=== PATIENT | female | born 1960 | race Caucasian/White ===

== ENCOUNTER 2019-07-09 15:22 | Outpatient (CLI) | payer OTHER, SELFPAY ==
--- NOTE | ~2019-07-09 | MM_ITS ---
EXAMINATION: MM screening [facility] BI w [facility] HISTORY: Screening mammogram TECHNIQUE: Craniocaudal and mediolateral oblique 3-D tomosynthesis images were obtained and synthetic 2-D images were generated. CAD analysis was submitted and interpreted. COMPARISON: 05/29/2018, 04/26/2017, 10/12/2016, 10/03/2016, 02/03/2015 BREAST PARENCHYMAL COMPOSITION: There are scattered areas of fibroglandular density. FINDINGS: Scattered benign-appearing calcifications are present. There is no evidence of suspicious m ass, calcification, or architectural distortion to suggest malignancy in either breast. There has bee n no suspicious interval change. IMPRESSION: 1. No mammographic evidence of malignancy. 2. Recommend routine screening mammography in one year. BI-RADS Category 2: Benign finding(s). Reviewed, dictated and finalized at location A. SPORT ANALYST
== END 2019-07-09 15:23 | disposition home or self-care (01) ==
LOC: ANHIMG 15:26
PROVIDERS: PCP Family Medicine; Visit Provider Family Medicine
DX: Z12.31 Encounter for screening mammogram for malignant neoplasm of breast (principal)
CPT/HCPCS: 77063; 77067

== ENCOUNTER → 2019-07-24 12:03 | Outpatient (CLI) | payer OTHER, SELFPAY ==
--- NOTE | ~2019-07-24 | MR_ITS ---
EXAMINATION: MR shoulder RT wo con DATE: 07/24/2019 13:05 INDICATION: Right shoulder pain, weakness and limited range of motion TECHNIQUE: Magnetic resonance imaging (MRI) of the right shoulder was performed without intravenous c ontrast. Sequences included axial PD-weighted FS FSE, coronal oblique T2-weighted FS FSE, sagittal PD -weighted FS FSE, and sagittal T1-weighted SE. COMPARISON: None. FINDINGS: Coracoacromial arch: The acromion undersurface is curved in morphology (type II). The coracoacromial ligament is normal. M ild to moderate acromioclavicular osteoarthritis. Rotator cuff: Mild supraspinatus and infraspinatus tendinopathy. Small deep bursal sided tear of the conjoined port ion of the tendon measuring 8 mm AP, involving approximately two thirds of the tendon thickness and w ith up to 8 mm medial retraction of the bursal side of the tendon tear. The teres minor and subscapul daniele tendons are normal. Normal rotator cuff muscle bulk and signal. Biceps tendon, glenoid labrum and glenohumeral cartilage: Long head of the biceps tendon is normal. Mild glenohumeral osteoarthritis with diffuse mild loss of cartilage thickness with smooth chondral surface. Generation of the posterior superior to posterior g lenoid labrum with small marginal osteophytes along the posterior glenoid. Fluid: Physiologic amount of fluid in the glenohumeral joint and biceps tendon sheath. No loose osteochondra l bodies. Small amount of fluid in the subacromial/subdeltoid bursa and subcoracoid bursa consistent with mild bursitis. Bones: Normal marrow signal with fracture or pathologic marrow replacing process. IMPRESSION: 1. Mild supraspinatus and infraspinatus tendinopathy with small deep bursal sided tear at the conjoin ed portion of the tendons. 2. Mild glenohumeral osteoarthritis with posterior superior to posterior labral degeneration and asso ciated osteophyte formation. 3. Mild subacromial/subdeltoid and subcoracoid bursitis. When 4. Mild to moderate acromioclavicular osteoarthritis. Reviewed, dictated and finalized at location A. H INSPECTOR IMPRESSION: 1. Mild supraspinatus and infraspinatus tendinopathy with small deep bursal cristobal ed tear at the conjoined portion of the tendons. 2. Mild glenohumeral osteoarthritis with posterior superior to posterior labral degeneration and associated osteophyte formation. 3. Mild subacromial/subdeltoid and subcoracoid bursitis. When 4. Mild to moderate acromioclavicular osteoarthritis.
== END ==
PROVIDERS: PCP Family Medicine; Visit Provider Family Medicine
DX: M19.011 Primary osteoarthritis, right shoulder (principal); M75.51 Bursitis of right shoulder
CPT/HCPCS: 73221

== ENCOUNTER 2019-08-07 10:22 | Outpatient (CLI) | payer OTHER, SELFPAY ==
[2019-08-07 10:50] LABS: Alanine Aminotransferase 23 U/L (4-35); Albumin Level 4.1 g/dL (3.5-5.1); Alkaline Phosphatase 62 U/L (38-126); Aspartate Amino Transferase 31 U/L (14-36); Bilirubin,Total 0.5 mg/dL (0.2-1.3); Blood Urea Nitrogen 23 mg/dL (7-17); Calcium 8.7 mg/dL (8.4-10.2); Carbon Dioxide 29 mmol/L (22-30); Chloride 104 mmol/L (98-107); Cholesterol 147 mg/dL (0-200); Estimated Glomerular Filt Rate > 60; Glucose 92 mg/dL (65-105); HDL Direct 58 mg/dL; Potassium 4.3 mmol/L (3.4-5.0); Sodium 138 mmol/L (137-145); Triglycerides 95 mg/dL (<150)
[2019-08-07 11:01] LABS: LDL Cholesterol Direct 67 mg/dL
[2019-08-07 11:34] LABS: Vitamin D 25 Hydroxy 67.3 ng/mL
== END 2019-08-07 10:23 | disposition home or self-care (01) ==
LOC: ANHLAB 10:24
PROVIDERS: PCP Family Medicine; Visit Provider Family Medicine
DX: E55.9 Vitamin D deficiency, unspecified (principal); E78.5 Hyperlipidemia, unspecified; Z13.1 Encounter for screening for diabetes mellitus; Z79.899 Other long term (current) drug therapy
CPT/HCPCS: 36415; 80053; 80061; 82306

== ENCOUNTER 2019-12-15 02:54 | Outpatient (CLI) | payer OTHER, SELFPAY ==
[2019-12-16 22:30] LABS: SARS-CoV-2 RNA PCR Negative
== END 2019-12-15 02:55 | disposition home or self-care (01) ==
LOC: ANHCOVIDDT 02:54
PROVIDERS: PCP Family Medicine; Visit Provider Orthopaedic Surgery
DX: Z01.812 Encounter for preprocedural laboratory examination (principal); Z11.59 Encounter for screening for other viral diseases
CPT/HCPCS: 87635; C9803; U0003

== ENCOUNTER 2019-12-15 08:04 | Outpatient (CLI) | payer OTHER, SELFPAY ==
--- NOTE | 2019-12-15 08:13 | ECG_ITS ---
Measurements Intervals [place] Rate: 67 P: 52 MO: 194 QRS: 63 QRSD: 114 T: 62 QT: 388 QTc: 412 Interpretive Statements SINUS RHYTHM INTRAVENTRICULAR CONDUCTION DELAY BORDERLINE R WAVE PROGRESSION, ANTERIOR LEADS BORDERLINE ECG Electronically Signed On 12-15-2019 8:23:37 CDT by Ezekiel Ojeda D.O.
--- NOTE | 2019-12-15 12:17 | PM.IMHP ---
H&P: HPI History of Present Illness Chief complaint: Preop/O.R. Date: 12/17/2019 Narrative: Christine Zurita is a 59 year old female Who complains of an ongoing history of right shoulder pain with weakness particularly overhead type motion. She has been followed chronically for these and treated conservatively with cortisone therapy and anti-inflammatories however her symptoms continue. She reports weakness with worsening symptoms after she had an injury a couple months back while maneuvering a relative in a wheelchair. She strained her right shoulder which causes significant sudden onset of more pain and weakness. Patient underwent an MRI scan initially which did not show full-thickness tearing. Then a couple months later she had another injury where she fell and re-injured her right shoulder, she now has a fairly large tear. She has trouble raising her arm overhead and rotator cuff strength testing shows significant weakness. Dr. Morales has discussed further treatment options in detail with the patient and has recommended surgical repair before the tear becomes irrepairable down the road and she would like to proceed. An MRI scan showed a complete tear of the supraspinatus tendon and near complete tear of the infraspinatus tendon. There is associated edema in the infraspinatus muscle belly. These tears are more severe and much larger than the previous MRI scan results of July 24, 2019. There is mild AC joint hypertrophy without significant loss of subacromial space. There is a small glenohumeral effusion communicating fluid is noted in the subacromial subdeltoid region. There is glenohumeral chondromalacia and small marginal osteophytes inferiorly. The tear of the supraspinatus tendon has retraction with a gap measuring 2.2 cm. Review of Systems Review of Systems: All systems reviewed & are unremarkable except as noted in HPI and below PMFSH Family History Family History Mother Patient's mother is in good health Carcinoma of colon, Onset Age: 71 Family history of diabetes mellitus in first degree relative Family history of malignant melanoma Father Patient's father is in good health Family history of diabetes mellitus in first degree relative Sibling Patient's sister is in good health Family history of pancreatic cancer, Onset Age: 42 Patient's sister is Patient's brother is Grandparent Diabetes mellitus Other Family history of arthritis Family history of lung cancer Hypertension Social History Social History Years smoked: 15 Smoking status: Former smoker Tobacco type: cigarettes Second hand tobacco smoke exposure: No Alcohol intake: current Drinks per week: 5 Substance use: never Last use: 2005 Spiritual care concerns: No Comments Past surgical history includes multiple knee arthroscopies, total vaginal hysterectomy with BSO, cholecystectomy and uterine ablation. Meds Home Medications and Allergies Home Medications Medication Instructions Recorded Confirmed Type butalbital-acetaminophen 50 - 325 tablet PRN PRN 12/02/19 12/02/19 History diclofenac sodium 75 mg PO BID 12/02/19 12/02/19 History ergocalciferol (vitamin D2) 1,250 mcg PO WEEKLY 12/02/19 12/02/19 History gabapentin 300 mg PO BID 12/02/19 12/02/19 History hydrocodone-acetaminophen 10 - 325 tablet PRN PRN 12/02/19 12/02/19 History rosuvastatin 20 mg PO HS 12/02/19 12/02/19 History Allergies Allergy/AdvReac Type Severity Reaction Status Date / Time No Known Allergies Allergy Verified 12/02/19 15:59 Exam Narrative: Exam Narrative: Patient is a well-developed well-nourished female no acute distress. She is alert and oriented x3. Normal mood and affect. HEENT exam within normal limits. Heart regular rate rhythm. Lungs clear auscultation. Abdomen benign bowel sounds positive fo
== END 2019-12-15 08:05 | disposition home or self-care (01) ==
LOC: ANHSURGERY 08:05
PROVIDERS: PCP Family Medicine; Visit Provider Orthopaedic Surgery
DX: E78.00 Pure hypercholesterolemia, unspecified (principal); I45.9 Conduction disorder, unspecified
CPT/HCPCS: 93005

== ENCOUNTER 2019-12-17 01:28 | Day surgery (SDC) | payer OTHER, SELFPAY ==
[2019-12-02 16:26] VITALS: BMI 24.5
--- NOTE | 2019-12-15 12:28 | HP_ITS ---
This report was moved to the correct visit, [id number] on 12/18/2019. Original report was signed by David Morales MD on 12/17/19 0712. H&P: HPI History of Present Illness Chief complaint: Preop/O.R. Date: 12/17/2019 Narrative: Christine Zurita is a 59 year old female Who complains of an ongoing history of right shoulder pain with weakness particularly overhead type motion. She has been followed chronically for these and treated conservatively with cortisone therapy and anti-inflammatories however her symptoms continue. She reports weakness with worsening symptoms after she had an injury a couple months back while maneuvering a relative in a wheelchair. She strained her right shoulder which causes significant sudden onset of more pain and weakness. Patient underwent an MRI scan initially which did not show full-thickness tearing. Then a couple months later she had another injury where she fell and re-injured her right shoulder, she now has a fairly large tear. She has trouble raising her arm overhead and rotator cuff strength testing shows significant weakness. Dr. Morales has discussed further treatment options in detail with the patient and has recommended surgical repair before the tear becomes irrepairable down the road and she would like to proceed. An MRI scan showed a complete tear of the supraspinatus tendon and near complete tear of the infraspinatus tendon. There is associated edema in the infraspinatus muscle belly. These tears are more severe and much larger than the previous MRI scan results of July 24, 2019. There is mild AC joint hypertrophy without significant loss of subacromial space. There is a small glenohumeral effusion communicating fluid is noted in the subacromial subdeltoid region. There is glenohumeral chondromalacia and small marginal osteophytes inferiorly. The tear of the supraspinatus tendon has retraction with a gap measuring 2.2 cm. Review of Systems Review of Systems: All systems reviewed & are unremarkable except as noted in HPI and [facility] Family History Family History Mother Patient's mother is in good health Carcinoma of colon, Onset Age: 71 Family history of diabetes mellitus in first degree relative Family history of malignant melanoma Father Patient's father is in good health Family history of diabetes mellitus in first degree relative Sibling Patient's sister is in good health Family history of pancreatic cancer, Onset Age: 42 Patient's sister is Patient's brother is Grandparent Diabetes mellitus Other Family history of arthritis Family history of lung cancer Hypertension Social History Social History Years smoked: 15 Smoking status: Former smoker Tobacco type: cigarettes Second hand tobacco smoke exposure: No Alcohol intake: current Drinks per week: 5 Substance use: never Last use: 2005 Spiritual care concerns: No Comments Past surgical history includes multiple knee arthroscopies, total vaginal hysterectomy with BSO, cholecystectomy and uterine ablation. Meds Home Medications and Allergies Home Medications Medication Instructions Recorded Confirmed Type butalbital-acetaminophen 50 - 325 tablet PRN PRN 12/02/19 12/02/19 History diclofenac sodium 75 mg PO BID 12/02/19 12/02/19 History ergocalciferol (vitamin D2) 1,250 mcg PO WEEKLY 12/02/19 12/02/19 History gabapentin 300 mg PO BID 12/02/19 12/02/19 History hydrocodone-acetaminophen 10 - 325 tablet PRN PRN 12/02/19 12/02/19 History rosuvastatin 20 mg PO HS 12/02/19 12/02/19 History
--- NOTE | 2019-12-16 12:45 | WPDANESEPPF ---
Anes - Initial Pre Proc Eval Procedure: Operation Date: 12/17/19 09:00 Proposed Procedures p Right Shoulder Arthroscopy, Acromioplasty, Open Distal Clavicle Excision, Rotator Cuff Repair, Proceed as Indicated - David Morales MD Date/Time: 12/16/19 12:45 Surgeon: David Morales MD Pre Op Diagnosis: Rotator Cuff Tear Right Shoulder Patient Data Age: 59 Gender: F Height: 1.7 m Weight: 71.21 kg Allergies Allergy/AdvReac Type Severity Reaction Status Date / Time No Known Allergies Allergy Verified 12/02/19 15:59 Home Medications Medication Instructions Recorded Confirmed Type butalbital-acetaminophen 50 - 325 tablet PRN PRN 12/02/19 12/02/19 History diclofenac sodium 75 mg PO BID 12/02/19 12/02/19 History ergocalciferol (vitamin D2) 1,250 mcg PO WEEKLY 12/02/19 12/02/19 History gabapentin 300 mg PO BID 12/02/19 12/02/19 History hydrocodone-acetaminophen 10 - 325 tablet PRN PRN 12/02/19 12/02/19 History rosuvastatin 20 mg PO HS 12/02/19 12/02/19 History Patient hx anesthesia problems: none Family hx anesthesia problems: none PMFSH Past Medical History Medical History (Updated 12/16/19 @ 08:35 by Ted Kim DO) Hyperlipidemia Migraine Osteoarthritis Surgical History Surgical History (Updated 12/16/19 @ 08:35 by Ted Kim DO) History of cholecystectomy History of hysterectomy Social History Social History Years smoked: 15 Smoking status: Former smoker Tobacco type: cigarettes Second hand tobacco smoke exposure: No Alcohol intake: current Drinks per week: 5 Alcohol use details: on occasion Substance use: never Last use: 2005 Living arrangements: with family Spiritual care concerns: No Anes - Eval Final PreProcedure Day of Procedure 12/16/19 12:45 Patient weight: normal Heart: regular rate and rhythm Lungs: clear to auscultation and normal air movement Airway: Mallampati scale class II Neurological: alert and oriented Last oral intake: >/= 8 hours ASA classification: II Emergent: no Anesthetic plan: proceed Anesthesia type and monitoring: general ETT and standard monitoring Informed Consent: The patient's anesthetic plan and its attendant risks and benefits were discussed with the patient/family/POA. Questions were solicited and answers provided to the satisfaction of the patient/family/POA.
--- NOTE | 2019-12-16 12:46 | WPDANESPNB ---
Anes - Peripheral Nerve Block Date/Time: 12/16/19 12:46 I have discussed with the patient/family/POA the placement of a peripheral nerve block for post-operative pain management, including associated risks, benefits, complications, and side effects. Alternative methods of post-operative analgesia were detailed. Questions were solicited and answers provided to the satisfaction of the patient/family/POA. Time-Out: A pre-procedural Time-Out was completed immediately before starting the procedure and confirmed: Patient Identification, Site, Procedure, Patient Position and the Availability of Requisite Equipment. Clinical Indications: Acute post-operative pain management requested by the operative surgeon. Nerve Block Insertion Note Anes-nerve block: interscalene right Patient position: supine Skin prep: chlorhexidine Needle: 22 gauge, stimulating, insulated echogenic needle. Needle length: 50 mm Technique: ultrasound Injectate: bupivacaine 0.5% with epi 5 mcg/ml (30cc) Observations: tolerated well Complications: none Procedure start time:: 831 Procedure end time:: 834
[2019-12-17] VITALS (7 sets, daily range): BP systolic 111–135; BP diastolic 62–94; PULSE 68–107; RESP 16–20; TEMP 36.1–36.3; O2SAT 97–100
--- NOTE | 2019-12-17 07:11 | WPDHPUPDATE1 ---
History and Physical Update Update Date/Time: 12/17/19 07:11 History and Physical has been reviewed, including an updated exam of the patient. There are NO changes in the patient's condition. Risks, benefits, and alternatives have been discussed and questions answered. Patient agrees to proceed with procedure.
[2019-12-17] MEDS: LACTATED RINGERS 1,000 ML 30 ML IV CONT ×2 (07:44→10:55)
[2019-12-17] MEDS: ACETAMINOPHEN 500 MG TABLET 1000 MG PO (07:45)
[2019-12-17] MEDS: KETOROLAC 15 MG/ML VIAL (*BKC) IV PUSH (07:48)
[2019-12-17] MEDS: ceFAZolin 2 GM/D5W 50 ML 2 GM/50 ML BAG IVPB (09:03)
[2019-12-17] MEDS: LIDO 1%/EPINEPHRINE 1:100,000 20 ML VIAL 30 ML INFILTRATE (09:26)
--- NOTE | 2019-12-17 10:29 | PM.PROC ---
Procedure Note - Detailed Date of procedure: 12/17/19 Pre-op diagnosis: Rotator Cuff Tear Right Shoulder Post-op diagnosis: same Anesthesia: GETA Surgeon: David Morales MD Patient brought to OR5 and placed in a beach chair position. After prep and drape, Sterile posterior and lateral portals made. Dagnostic arthroscopy performed. Massive tear seen. Scropmioplasty performed. Incision made from the A/C joint distally. Distal clavicle excision performed removing 3mm Distal Clavicle. Deltoid split for 2 cm. MASSIVE TEAR NOTE. The tear was mobilized and sewn into a debrided trough in the greater tuberosity with #2 ethibond and a Juggernaut. The repair appeared to be stable, Deltoid repaired to itself, the acromion and the trapezius. Skin closed with 2-0 vicryl and carmelo MASSIVE tear noted Mechanical Unit Repairer: Brannon Portillo Estimated blood loss (mL): 50 Drains: No Packing: No Pathology: none sent Complications: No immediate complications Condition: stable Disposition: PACU
--- NOTE | 2019-12-17 10:34 | P.OP_ITS ---
Procedure Note - Detailed Date of procedure: 12/17/19 Pre-op diagnosis: Rotator Cuff Tear Right Shoulder Post-op diagnosis: same Anesthesia: GETA Surgeon: David Morales MD Hand Binder Cutter: Brannon Portillo Estimated blood loss (mL): 50 Drains: No Packing: No Pathology: none sent Complications: No immediate complications Condition: stable Disposition: PACU
== END 2019-12-17 12:39 | disposition home or self-care (01) ==
PROVIDERS: PCP Family Medicine; Visit Provider Orthopaedic Surgery
PROC: (CPT 29805; principal; 2019-12-17 09:00)
DX: S46.011A Strain of muscle(s) and tendon(s) of the rotator cuff of right shoulder, initial encounter (principal); W19.XXXA Unspecified fall, initial encounter; G89.18 Other acute postprocedural pain; E78.5 Hyperlipidemia, unspecified; Z87.891 Personal history of nicotine dependence
CPT/HCPCS: 23120; 23410; 64415; 29822; A9270; C1713; J0330; J0690; J1100; J1170; J1885; J2250; J2405; J2704; J3010; J7120

== ENCOUNTER 2020-09-15 15:04 | Outpatient (CLI) | payer OTHER, SELFPAY ==
--- NOTE | ~2020-09-15 | MM_ITS ---
EXAMINATION: MM screening [facility] BI w [facility] HISTORY: Screening mammogram TECHNIQUE: Craniocaudal and mediolateral oblique 3-D tomosynthesis images were obtained and synthetic 2-D images were generated. CAD analysis was submitted and interpreted. COMPARISON: No prior mammogram is available for comparison at this institution. BREAST PARENCHYMAL COMPOSITION: There are scattered areas of fibroglandular density. FINDINGS: History of prior benign right stereotactic breast biopsy. Scattered bilateral punctate delisa gn appearing microcalcifications are noted within the fibroglandular parenchyma. There is a cluster of grouped linear and amorphous microcalcifications situated posteriorly in the up per outer quadrant of the right breast. These are likely calcifications associated with focal 8.5 mm rounded fat necrosis, best demonstrated on MLO Tomosynthesis image 24/. There is no evidence of suspicious mass, architectural distortion, malignant calcification, skin thic kening or retraction of either breast. There has been no other suspicious interval change. IMPRESSION: 1. No mammographic evidence of malignancy. 2. Recommend routine screening mammography in one year. BI-RADS Category 2: Benign finding(s). Reviewed, dictated and finalized at location A.
== END 2020-09-15 15:05 | disposition home or self-care (01) ==
LOC: ANHIMG 15:06
PROVIDERS: PCP Family Medicine; Visit Provider Family Medicine
DX: Z12.31 Encounter for screening mammogram for malignant neoplasm of breast (principal)
CPT/HCPCS: 77063; 77067

== ENCOUNTER → 2020-09-25 01:30 | Outpatient (CLI) | payer OTHER, SELFPAY ==
[2020-09-26 14:52] LABS: SARS-CoV-2 RNA PCR Negative
== END ==
PROVIDERS: PCP Family Medicine; Visit Provider Orthopaedic Surgery
DX: Z01.812 Encounter for preprocedural laboratory examination (principal); Z20.822 Contact with and (suspected) exposure to COVID-19
CPT/HCPCS: C9803; U0003; U0005

== ENCOUNTER 2020-09-29 00:44 | Day surgery (SDC) | payer OTHER, SELFPAY ==
[2020-09-20 14:33] VITALS: BMI 25.9
--- NOTE | 2020-09-27 14:17 | PM.IMHP ---
H&P: HPI History of Present Illness Date/Time: 09/27/20 14:17 The patient is a 60-year-old female who presents with right basilar thumb joint pain. This is chronic in nature. She has not ongoing history of pain with gripping or grasping or pinching against resistance. She has aching pain in the basilar thumb joint and x-rays show advanced CMC arthrosis. She has had multiple cortisone injections over the years bracing and anti-inflammatories orally without significant long-term relief. X-rays show advanced CMC arthrosis at the base of the right thumb. It does limit her daily activities she has constant aching pain worse with activity only mildly relieved by rest. She is tired of living with it she has discussed further treatment options in detail Dr. Morales the patient would now like to proceed with a CMC arthroplasty and trapezial excision. Chief Complaint: Right basilar thumb joint pain due to CMC arthrosis Review of Systems Review of Systems: All systems reviewed & are unremarkable except as noted in HPI and below PMFSH Past Medical History Medical History Hyperlipidemia Migraine Osteoarthritis Surgical History Surgical History History of cholecystectomy History of hysterectomy Family History Family History Mother Patient's mother is in good health Carcinoma of colon, Onset Age: 71 Family history of diabetes mellitus in first degree relative Family history of malignant melanoma Father Patient's father is in good health Family history of diabetes mellitus in first degree relative Sibling Patient's sister is in good health Family history of pancreatic cancer, Onset Age: 42 Patient's sister is Patient's brother is Grandparent Diabetes mellitus Other Family history of arthritis Family history of lung cancer Hypertension Social History Social History Years smoked: 20 Smoking status: Former smoker Tobacco type: cigarettes Second hand tobacco smoke exposure: No Smoking end date: 05/21/15 Alcohol intake: current Drinks per week: 4 Substance use: never Substance use type: does not use Last use: 2015 Additional living arrangements comments: [facility] [phone] Gender identity (if verbalized by the patient): Female Spiritual care concerns: No Meds Home Medications and Allergies Home Medications Medication Instructions Recorded Confirmed Type butalbital-acetaminophen 50 - 325 tablet PRN PRN 12/02/19 09/20/20 History ergocalciferol (vitamin D2) 1,250 mcg PO WEEKLY 12/02/19 09/20/20 History gabapentin 300 mg PO BID 12/02/19 09/20/20 History hydrocodone-acetaminophen 10 - 325 tablet PRN PRN 12/02/19 09/20/20 History rosuvastatin 20 mg PO HS 12/02/19 09/20/20 History celecoxib 200 mg PO BID 09/20/20 09/20/20 History duloxetine 30 mg PO DAILY 09/20/20 09/20/20 History Allergies Allergy/AdvReac Type Severity Reaction Status Date / Time No Known Allergies Allergy Verified 12/02/19 15:59 Exam Narrative: Exam Narrative: The patient is noted be a well-developed well-nourished female no acute distress she is alert oriented x3. Normal mood and affect. HEENT exam within normal limits hearing and vision are intact. Respiratory is good no distress. Lungs clear auscultation. Repeat pulse regular rate rhythm. Abdomen benign. Extremities show the patient's right basilar thumb joint to be tender at the CMC joint. She has somewhat limited motion due to her discomfort. She has pain reproduced by pinching or grasping against resistance with her thumb. She has no erythema heat effusion or signs of infection no significant deformity is noted. She does have a positive grind test at the basilar thumb joint right hand. Neurovascula
--- NOTE | 2020-09-28 11:36 | WPDANESEPPF ---
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 Patient Data Age: 60 Gender: F Height: 5 ft 7 in Weight: 75 kg Allergies Allergy/AdvReac Type Severity Reaction Status Date / Time No Known Allergies Allergy Verified 09/29/20 06:05 Home Medications Medication Instructions Recorded Confirmed Type butalbital-acetaminophen 50 - 325 tablet PRN PRN 12/02/19 09/29/20 History ergocalciferol (vitamin D2) 1,250 mcg PO WEEKLY 12/02/19 09/29/20 History gabapentin 300 mg PO BID 12/02/19 09/29/20 History hydrocodone-acetaminophen 10 - 325 tablet PRN PRN 12/02/19 09/29/20 History rosuvastatin 20 mg PO HS 12/02/19 09/29/20 History celecoxib 200 mg PO BID 09/20/20 09/29/20 History duloxetine 30 mg PO DAILY 09/20/20 09/29/20 History Patient hx anesthesia problems: none Family hx anesthesia problems: none PMFSH Past Medical History Medical History Hyperlipidemia Migraine Osteoarthritis Surgical History Surgical History History of cholecystectomy History of hysterectomy Family History Family History Mother Patient's mother is in good health Carcinoma of colon, Onset Age: 71 Family history of diabetes mellitus in first degree relative Family history of malignant melanoma Father Patient's father is in good health Family history of diabetes mellitus in first degree relative Sibling Patient's sister is in good health Family history of pancreatic cancer, Onset Age: 42 Patient's sister is Patient's brother is Grandparent Diabetes mellitus Other Family history of arthritis Family history of lung cancer Hypertension Social History Social History Years smoked: 20 Smoking status: Former smoker Tobacco type: cigarettes Second hand tobacco smoke exposure: No Smoking end date: 05/21/15 Alcohol intake: current Drinks per week: 4 Substance use: never Substance use type: does not use Last use: 2015 Living arrangements: with family Additional living arrangements comments: [facility] [phone] Gender identity (if verbalized by the patient): Female Sexual Orientation (if Verbalized by the Patient): Straight or Heterosexual Spiritual care concerns: No Anes - Eval Final PreProcedure Day of Procedure 09/28/20 11:36 Patient weight: normal Heart: regular rate and rhythm Lungs: clear to auscultation Neurological: alert and oriented Last oral intake: >/= 8 hours ASA classification: II Emergent: no Anesthetic plan: proceed Anesthesia type and monitoring: general LMA and standard monitoring Informed Consent: The patient's anesthetic plan and its attendant risks and benefits were discussed with the patient/family/POA. Questions were solicited and answers provided to the satisfaction of the patient/family/POA.
[2020-09-29] VITALS (9 sets, daily range): BP systolic 132–156; BP diastolic 70–87; PULSE 59–95; RESP 12–20; TEMP 36.2–36.8; O2SAT 92–98
--- NOTE | ~2020-09-29 | XR_ITS ---
XR surgery orthopedic DATE: 09/29/2020 09:02 INDICATION: Right hand arthroplasty TECHNIQUE: Single AP view 46.1 seconds fluoroscopy time 0.69 mGy COMPARISON: None FINDINGS: Bone detail is limited but the trapezium bone appears to have been resected. Recommend carmina elation with surgical procedure report. IMPRESSION: Probable resection of trapezium; recommend correlation with surgical procedure report Reviewed, dictated and finalized at Location A. Reviewed, dictated and finalized at location A. IMPRESSION: Probable resection of trapezium; recommend correlation with surgica l procedure report
[2020-09-29] MEDS: LACTATED RINGERS 1,000 ML 30 ML IV CONT ×2 (06:40→09:18)
[2020-09-29] MEDS: ACETAMINOPHEN 500 MG TABLET 1000 MG PO (06:41)
[2020-09-29] MEDS: KETOROLAC 15 MG/ML VIAL (*BKC) IV PUSH (06:42)
--- NOTE | 2020-09-29 07:13 | WPDHPUPDATE1 ---
History and Physical Update Update Date/Time: 09/29/20 07:13 History and Physical has been reviewed, including an updated exam of the patient. There are NO changes in the patient's condition. Risks, benefits, and alternatives have been discussed and questions answered. Patient agrees to proceed with procedure.
[2020-09-29] MEDS: ceFAZolin 2 GM/D5W 50 ML 2 GM/50 ML BAG IVPB (07:32)
[2020-09-29] MEDS: LIDOCAINE HCL 1% LOCAL INJ 10 ML VIAL 20 ML INFILTRATE (08:03)
--- NOTE | 2020-09-29 08:49 | PM.PROC ---
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 A general anesthetic static was administered placed on the operating table and sterilely prepped and draped in the usual manner. An incision curvilinear incision made from the right proximal phalanx extending over the flexor carpi radialis dissection carried through the skin carefully obtaining hemostasis the flexor carpi radialis was found as was the adductor pollicis brevis I then proceeded to make a distally based flap over the trapezius space is identified with an x-ray and a pin was placed throughout this is released with gently released until it was only held by the deep ligaments the trapezius and hemisected with an osteotome and removed piecemeal this gave good visualization of the flexor carpi radialis is in splint for 6 to 7 centimeters abductor pollicis brevis found using the [id number] double we times to this gave excellent support for base of the thumb I then brought the abductor pollicis brevis up and tied it to the insertion of the 1st metacarpal to abduct the thumb the extensor pollicis brevis was found and this was shortened as well to make sure that hold the thumb VMO extended at this point the capsular layer was repaired and then the skin with hemostasis obtained and closed with 2 O Vicryl 130 Prolene sterile dressing applied patient tolerated procedure well placed and thumb spica splint thank you x-rays demonstrate good alignment of the thumb
== END 2020-09-29 11:05 | disposition home or self-care (01) ==
PROVIDERS: PCP Family Medicine; Visit Provider Orthopaedic Surgery
PROC: (CPT 25447; principal; 2020-09-29 07:30)
DX: M18.11 Unilateral primary osteoarthritis of first carpometacarpal joint, right hand (principal); E78.5 Hyperlipidemia, unspecified; Z87.891 Personal history of nicotine dependence
CPT/HCPCS: 25447; A9270; J0690; J1100; J1885; J2250; J2405; J2704; J3010; J7120

== ENCOUNTER 2022-01-13 14:04 | Outpatient (CLI) | payer OTHER, SELFPAY ==
--- NOTE | ~2022-01-13 | MM_ITS ---
EXAMINATION: MM screening [facility] BI w sherwin HISTORY: Screening TECHNIQUE: Craniocaudal and mediolateral oblique 3-D tomosynthesis images were obtained and synthetic 2-D images were generated. CAD analysis was submitted and interpreted. COMPARISON: Comparison to multiple prior studies sequentially, with oldest reviewed study dated 10/03. BREAST PARENCHYMAL COMPOSITION: There are scattered areas of fibroglandular density. FINDINGS: There are benign bilateral breast calcifications. There is no evidence of suspicious mass, calcification, or architectural distortion to suggest malignancy in either breast. There has been no suspicious interval change. IMPRESSION: 1. No mammographic evidence of malignancy. 2. Recommend routine screening mammography in one year. BI-RADS Category 2: Benign finding(s). Reviewed, dictated and finalized at location A.
== END 2022-01-13 14:05 | disposition home or self-care (01) ==
LOC: ANHIMG 14:06
PROVIDERS: PCP Family Medicine; Visit Provider Family Medicine
DX: Z12.31 Encounter for screening mammogram for malignant neoplasm of breast (principal)
CPT/HCPCS: 77063; 77067

== ENCOUNTER 2022-01-17 15:41 | Outpatient (CLI) | payer OTHER, SELFPAY ==
--- NOTE | 2022-01-17 | ECG_ITS ---
Measurements Intervals Welcome Rate: 68 P: 49 MA: 185 QRS: 56 QRSD: 110 T: 51 QT: 403 QTc: 429 Interpretive Statements SINUS RHYTHM LOW VOLTAGE EKG COMPARED TO ECG 12/15/2019 08:36:27 NO SIGNIFICANT CHANGES Electronically Signed On 01-17-2022 20:32:13 CDT by Kelsey Hart M.D.
--- NOTE | ~2022-01-17 | XR_ITS ---
EXAMINATION: XR chest 2V Exam Date/Time: 01/17/2022 16:05 CDT HISTORY: PRE OP FOR LUMBAR SURGERY, NO CARDIAC HX Comparison: 07/14/2013. RESULT: Lines, tubes, and devices: Cholecystectomy clips. Lungs and pleura: Clear. Cardiomediastinal silhouette: Stable. Other: No acute osseous or upper abdominal finding. IMPRESSION: No acute cardiopulmonary process. Reviewed, dictated and finalized at location K.
== END 2022-01-17 15:42 | disposition home or self-care (01) ==
LOC: ANHIMG 15:43
PROVIDERS: PCP Family Medicine; Visit Provider Family Medicine
DX: Z01.818 Encounter for other preprocedural examination (principal); M47.896 Other spondylosis, lumbar region
CPT/HCPCS: 71046; 93005

== ENCOUNTER 2022-04-06 15:45 | Outpatient (CLI) | payer OTHER, SELFPAY ==
--- NOTE | ~2022-04-06 | US_ITS ---
EXAMINATION:US venous doppler LE BI INDICATION:Leg edema TECHNIQUE: Multiple grayscale, color flow and Doppler images of the right and left lower extremity de ep venous systems were obtained and reviewed. COMPARISON:No prior studies for comparison. FINDINGS: The common femoral, superficial femoral and popliteal veins demonstrate normal respiratory variation, augmentation and compressibility. Color flow is also seen within the posterior tibial, pe roneal, greater saphenous and profunda veins. IMPRESSION: 1: No lower extremity deep venous thrombosis. Reviewed, dictated and finalized at location A. NG QUALITY COORDINATOR
== END 2022-04-06 15:46 | disposition home or self-care (01) ==
PROVIDERS: PCP Family Medicine; Visit Provider Family Medicine
DX: R60.0 Localized edema (principal)
CPT/HCPCS: 93970

== ENCOUNTER 2022-04-25 14:12 | Outpatient (CLI) | payer OTHER, SELFPAY ==
--- NOTE | ~2022-04-25 | US_ITS ---
US arterial ankle brachial ind INDICATION: Leg edema TECHNIQUE: Segmental pressures and plethysmographic and Doppler waveforms of the brachial and lower e xtremity arteries were obtained. COMPARISON: None. FINDINGS: Right and left brachial artery pressures of 113 mm Hg and 112 mm Hg, respectively, are concordant (no rmal difference <= 30 mmHg). The right ankle-brachial index (QUANG) is 1.16 (normal >= 0.9-1.0). The right great toe-brachial index (TBI) is 0.95 (normal >= 0.60). The left QUANG is 1.16. The left TBI is 0.88. IMPRESSION: 1. Normal bilateral ankle and toe brachial indices. Reviewed, dictated and finalized at location A. CH GENERAL MANAGER
== END 2022-04-25 14:13 | disposition home or self-care (01) ==
PROVIDERS: PCP Family Medicine; Visit Provider Family Medicine
DX: R60.0 Localized edema (principal); I73.9 Peripheral vascular disease, unspecified
CPT/HCPCS: 93922

== ENCOUNTER 2022-09-08 06:52 | Outpatient (CLI) | payer OTHER, SELFPAY ==
[2022-09-08 07:11] LABS: Basophils Absolute Auto 0.1 K/mm3 (0.0-0.1); Basophils Percent Auto 0.8 % (0.2-1.2); Eosinophils Absolute Auto 0.1 K/mm3 (0-0.3); Eosinophils Percent Auto 1.7 % (0-4.4); Hematocrit 41.4 % (37.0-47.0); Hemoglobin 13.3 g/dL (12.0-15.0); Immature Granulocyte Absolute 0.02 K/mm3 (0.00-0.031); Immature Granulocyte Percent A 0.3 % (0-0.5); Lymphocytes Absolute Auto 1.69 K/mm3 (0.9-3.2); Lymphocytes Percent Auto 25.9 % (18.3-44.2); Mean Corpuscular HGB Conc 32.1 g/dl (32-36); Mean Corpuscular Hemoglobin 29.6 pg (26-34); Mean Platelet Volume 9.4 fl (7.4-10.4); Monocytes Absolute Auto 0.7 K/mm3 (0.1-0.6); Neutrophils Percent Auto 61.3 % (45.5-73.1); Platelet Count Result 243 k/mm3 (150-375); Red Cell Distribution Width 14.1 % (11.5-14.5); White Blood Count 6.5 K/mm3 (4.5-10.0)
[2022-09-08 07:24] LABS: Alanine Aminotransferase 32 U/L (6-35); Albumin Level 4.1 g/dL (3.5-5.1); Alkaline Phosphatase 81 U/L (38-126); Anion Gap 5 mmol/L (8-16); Aspartate Amino Transferase 39 U/L (14-36); Bilirubin,Total 0.9 mg/dL (0.2-1.3); Blood Urea Nitrogen 17 mg/dL (7-17); Calcium 8.9 mg/dL (8.4-10.2); Carbon Dioxide 32 mmol/L (22-30); Chloride 104 mmol/L (98-107); Cholesterol 159 mg/dL (0-200); Estimated Glomerular Filt Rate > 60; Glucose 98 mg/dL (65-110); HDL Direct 52 mg/dL; Potassium 4.3 mmol/L (3.4-5.0); Sodium 141 mmol/L (137-145); Triglycerides 107 mg/dL (<150)
[2022-09-08 07:26] LABS: Hemoglobin A1C 5.5 % (<5.7)
[2022-09-08 07:36] LABS: LDL Cholesterol Direct 81 mg/dL
[2022-09-08 07:56] LABS: Thyroid Stimulating Hormone 0.889 uIU/mL (0.465-4.680)
== END 2022-09-08 06:53 | disposition home or self-care (01) ==
LOC: ANHLAB 06:54
PROVIDERS: PCP Family Medicine; Visit Provider Family Medicine
DX: R63.5 Abnormal weight gain (principal); R53.83 Other fatigue; Z13.1 Encounter for screening for diabetes mellitus; Z13.220 Encounter for screening for lipoid disorders; Z79.899 Other long term (current) drug therapy
CPT/HCPCS: 36415; 80048; 80061; 80076; 83036; 84443; 85025

== ENCOUNTER 2022-12-15 16:50 | Emergency (ER) | payer OTHER, SELFPAY ==
--- NOTE | ~2022-12-15 | XR_ITS ---
XR foot LT min 3V 12/15/2022 17:06 Indication: Left foot pain after fall Procedure: 4 views left foot Comparison: 05/08/2017 Findings: there are changes of osteotomy at the first MTP joint with a prosthetic joint device. Osteo penia. Lisfranc joint intact. No acute fracture or traumatic malalignment. No foreign bodies. Impression: 1: No acute fracture. Reviewed, dictated and finalized at location A. Impression: 1: No acute fracture.
[2022-12-15 17:00] VITALS: BP 139/79; PULSE 106; RESP 16; TEMP 36; O2SAT 98
--- NOTE | 2022-12-15 17:34 | ED.LOWEXIN ---
HPI - Extremity Injury (Lower) General Chief Complaint: Extremity Injury, Lower Stated Complaint: Lt Foot Pain Due To Fall Time Seen by Provider: 12/15/22 17:34 Source: patient Mode of arrival: ambulatory Limitations: no limitations History of Present Illness HPI Narrative: 62-year-old female presenting for complaint of left foot pain after injury today. She states she stepped in a hole in her yard and twisted the foot. Pain is over the top of the midfoot. she has taken tylenol, iced and elevated the foot. Using scooter from previous injury. Rates pain 10/10, throbbing. Pain worse with movement. Denies swelling, bruising, or deformity, denies numbness, tingling or weakness. Related Data Home Medications Medication Instructions Recorded Confirmed butalbital 50 mg-acetaminophen 325 50 - 325 tablet PRN PRN migraines 12/02/19 12/15/22 mg tablet gabapentin 300 mg capsule 600 mg PO BID 12/02/19 12/15/22 rosuvastatin 20 mg tablet 20 mg PO HS 12/02/19 12/15/22 phentermine 37.5 mg tablet 37.5 mg PO DAILY 12/15/22 12/15/22 sertraline 50 mg tablet 50 mg PO DAILY 12/15/22 12/15/22 Allergies Allergy/AdvReac Type Severity Reaction Status Date / Time No Known Allergies Allergy Verified 12/15/22 17:21 Review of Systems Review of Systems: CONSTITUTIONAL: Denies body aches, fever, chills EYES: Denies visual changes ENT: Denies rhinorrhea, congestion CARDIOVASCULAR: Denies chest pain, palpitations, or edema. RESPIRATORY: Denies cough or dyspnea. GASTROINTESTINAL: Denies abdominal pain, nausea, vomiting, or diarrhea. SKIN: Denies rash, itching, or wounds. MUSCULOSKELETAL: reports foot pain Denies back pain, joint pain, or myalgia. NEUROLOGIC: Denies headache, numbness, tingling, or weakness. All systems reviewed & are unremarkable except as noted in HPI and below PMFSH Past Medical History Medical History CMC arthritis, thumb, degenerative Hyperlipidemia Migraine Osteoarthritis Surgical History Surgical History History of cholecystectomy History of hysterectomy Family History Family History Mother Patient's mother is in good health Carcinoma of colon, Onset Age: 71 Family history of diabetes mellitus in first degree relative Family history of malignant melanoma Father Patient's father is in good health Family history of diabetes mellitus in first degree relative Sibling Patient's sister is in good health Family history of pancreatic cancer, Onset Age: 42 Patient's sister is Patient's brother is Grandparent Diabetes mellitus Other Family history of arthritis Family history of lung cancer Hypertension Social History Social History Years smoked: 20 Smoking status: Former smoker Tobacco type: cigarettes Second hand tobacco smoke exposure: No Smoking end date: 05/21/15 Alcohol intake: current Drinks per week: 4 Alcohol use details: on occasion Substance use: never Substance use type: does not use Last use: 2015 Living arrangements: with family Additional living arrangements comments: [facility] [phone] Gender identity (if verbalized by the patient): Female Sexual Orientation (if Verbalized by the Patient): Straight or Heterosexual Spiritual care concerns: No Comments At time of signature, I have reviewed and agree with nursing past medical, surgical, social and family history unless otherwise noted. Please see nursing chart for further information. There is no relevant family history pertinent to the presenting complaint Exam Narrative: GENERAL: Well-appearing, well-nourished, and in no acute distress. HEAD: Normocephalic, atraumatic. EYES: PERRLA, conjunctivae clear NECK: Supple. CH
== END 2022-12-15 17:47 | disposition home or self-care (01) ==
PROVIDERS: Emergency Provider Nurse Practitioner Family; PCP Family Medicine
DX: S96.912A Strain of unspecified muscle and tendon at ankle and foot level, left foot, initial encounter (principal); X50.9XXA Other and unspecified overexertion or strenuous movements or postures, initial encounter; E78.5 Hyperlipidemia, unspecified; Z87.891 Personal history of nicotine dependence
CPT/HCPCS: 73630; 99213; G0463

== ENCOUNTER 2023-01-04 16:21 | Outpatient (CLI) | payer OTHER, SELFPAY ==
[2023-01-04 17:33] LABS: Basophils Percent Auto 0.4 % (0.2-1.2); Hematocrit 44.5 % (37.0-47.0); Hemoglobin 14.6 g/dL (12.0-15.0); Immature Granulocyte Percent A 1.1 % (0-0.5); Lymphocytes Absolute Auto 0.77 K/mm3 (0.9-3.2); Lymphocytes Percent Auto 8.5 % (18.3-44.2); Mean Corpuscular HGB Conc 32.8 g/dl (32-36); Mean Corpuscular Hemoglobin 29.3 pg (26-34); Mean Corpuscular Volume 89.2 fl (80-100); Mean Platelet Volume 9.2 fl (7.4-10.4); Monocytes Absolute Auto 0.4 K/mm3 (0.1-0.6); Monocytes Percent Auto 3.9 % (2.6-8.5); Neutrophils Absolute Auto 7.8 K/mm3 (1.3-6.7); Neutrophils Percent Auto 86.1 % (45.5-73.1); Platelet Count Result 333 k/mm3 (150-375); Red Blood Count 4.99 M/mm3 (4.2-5.4); Red Cell Distribution Width 13.9 % (11.5-14.5); White Blood Count 9.1 K/mm3 (4.5-10.0)
[2023-01-04 17:43] LABS: Alanine Aminotransferase 49 U/L (6-35); Albumin Level 4.7 g/dL (3.5-5.1); Alkaline Phosphatase 108 U/L (38-126); Anion Gap 11 mmol/L (8-16); Aspartate Amino Transferase 62 U/L (14-36); Bilirubin,Total 0.5 mg/dL (0.2-1.3); Blood Urea Nitrogen 15 mg/dL (7-17); Calcium 9.4 mg/dL (8.4-10.2); Carbon Dioxide 23 mmol/L (22-30); Chloride 103 mmol/L (98-107); Estimated Glomerular Filt Rate > 60; Glucose 120 mg/dL (65-110); Potassium 4.1 mmol/L (3.4-5.0); Sodium 137 mmol/L (137-145)
[2023-01-04 18:13] LABS: Thyroid Stimulating Hormone 0.297 uIU/mL (0.465-4.680)
== END 2023-01-04 16:22 | disposition home or self-care (01) ==
LOC: ANHLAB 16:22
PROVIDERS: PCP Family Medicine; Visit Provider Family Medicine
DX: R42 Dizziness and giddiness (principal); Z80.0 Family history of malignant neoplasm of digestive organs; Z79.899 Other long term (current) drug therapy
CPT/HCPCS: 36415; 80053; 81479; 84443; 85025

== ENCOUNTER 2023-04-02 15:19 | Outpatient (CLI) | payer OTHER, SELFPAY ==
--- NOTE | ~2023-04-02 | US_ITS ---
EXAMINATION: US soft tissue head and neck DATE: 04/02/2023 17:46 INDICATION: Mass of neck. TECHNIQUE: Multiple grayscale and Doppler ultrasound images of the head and neck were obtained. COMPARISON: None FINDINGS: There is a 3.6 x 1.5 x 2.2 cm high right internal jugular chain lymph node. IMPRESSION: 1. Enlarged right high internal jugular chain lymph node that may be reactive lymphadenopathy, lympho ma, or metastatic squamous cell carcinoma. Neck CT with contrast is recommended. Reviewed, dictated and finalized at location A. RING MACHINE OPERATOR IMPRESSION: 1. Enlarged right high internal jugular chain lymph node that may be reactive l ymphadenopathy, lymphoma, or metastatic squamous cell carcinoma. Neck CT with c ontrast is recommended.
== END 2023-04-02 15:20 | disposition home or self-care (01) ==
PROVIDERS: PCP Family Medicine; Visit Provider Nurse Practitioner Family
DX: R22.1 Localized swelling, mass and lump, neck (principal)
CPT/HCPCS: 76536

== ENCOUNTER 2023-04-18 14:17 | Outpatient (CLI) | payer OTHER, SELFPAY ==
--- NOTE | ~2023-04-18 | CT_ITS ---
EXAMINATION: CT soft tissue neck w con DATE: 04/18/2023 14:47 INDICATION: Neck mass. TECHNIQUE: Computed tomography (CT) of the neck was performed with 75 mL Omnipaque-350 intravenous co ntrast. Automated exposure control and iterative reconstruction technique were employed. The dose-ranjana gth product was 513.97 mGy-cm. COMPARISON: Ultrasound 04/02/2023 FINDINGS: There is a 9 mm nodule in the thyroid, likely not clinically significant. There is a 17 x 1 4 mm high right internal jugular chain lymph node. The cervical carotid arteries are normal. There is a mucous retention cyst in right maxillary sinus. There is severe cervical spondylosis. IMPRESSION: 1. Enlarged high right internal jugular chain node. The differential diagnosis includes reactive lymp hadenopathy, lymphoma, and metastatic squamous cell carcinoma. Ultrasound-guided core needle biopsy i s recommended. Reviewed, dictated and finalized at location A. LER IMPRESSION: 1. Enlarged high right internal jugular chain node. The differential diagnosis includes reactive lymphadenopathy, lymphoma, and metastatic squamous cell carci noma. Ultrasound-guided core needle biopsy is recommended.
[2023-04-18 14:41] LABS: Estimated Glomerular Filt Rate > 60
== END 2023-04-18 14:18 | disposition home or self-care (01) ==
PROVIDERS: PCP Family Medicine; Visit Provider Family Medicine
DX: R22.1 Localized swelling, mass and lump, neck (principal)
CPT/HCPCS: 70491; Q9967

== ENCOUNTER 2023-05-08 10:11 | Outpatient (CLI) | payer OTHER, SELFPAY ==
--- NOTE | ~2023-05-08 | US_ITS ---
EXAMINATION: US biopsy lymph node DATE: 05/08/2023 11:34 INDICATION: Localized swelling, mass and lump in the right submandibular region with corresponding en larged right internal jugular chain lymph node on prior CT and ultrasound. TECHNIQUE: The procedure including the risks and benefits was discussed with the patient. Risks discu ssed included bleeding and infection. The patient understood the risks and agreed to proceed. The sk in overlying the liver was prepped and draped in usual sterile fashion. Anesthetic was administered with 1% lidocaine subcutaneously. An 18 gauge core biopsy needle was advanced under continuous ultra sound observation to the lesion of interest. 8 core biopsy specimens were obtained, 6 placed in RPMI media and 2 in formalin. The needle was removed and the entry site was cleaned and dressed. Post p rocedure ultrasound demonstrated no hemorrhage. FINDINGS: Ultrasound images demonstrate a mildly enlarged 3.3 x 1.6 x 1.1 cm high right jugular chain lymph node. Subsequent images demonstrate biopsy needle advanced into the lymph node. IMPRESSION: 1. Successful Ultrasound-guided biopsy of a 3.3 x 1.6 x 1.1 cm high right jugular chain lymph node. Reviewed, dictated and finalized at location A. SCIENCE TECHNICIAN IMPRESSION: 1. Successful Ultrasound-guided biopsy of a 3.3 x 1.6 x 1.1 cm high right jugul ar chain lymph node.
== END 2023-05-08 10:12 | disposition home or self-care (01) ==
LOC: ANHIMG 10:12
PROVIDERS: PCP Family Medicine; Visit Provider Nurse Practitioner Family
DX: R22.1 Localized swelling, mass and lump, neck (principal)
CPT/HCPCS: 38505; 76942; 88108; 88184; 88185; 88305

== ENCOUNTER 2023-06-06 15:37 | Outpatient (CLI) | payer OTHER, SELFPAY ==
--- NOTE | ~2023-06-06 | MM_ITS ---
EXAMINATION: MM screening [facility] BI w sherwin HISTORY: Screening TECHNIQUE: Craniocaudal and mediolateral oblique 3-D tomosynthesis images were obtained and synthetic 2-D images were generated. CAD analysis was submitted and interpreted. COMPARISON: Comparison to multiple prior studies sequentially, with oldest reviewed study dated 11/2016. BREAST PARENCHYMAL COMPOSITION: There are scattered areas of fibroglandular density. FINDINGS: There is no evidence of suspicious mass, calcification, or architectural distortion to sugg est malignancy in either breast. There has been no suspicious interval change. IMPRESSION: 1. No mammographic evidence of malignancy. 2. Recommend routine screening mammography in one year. BI-RADS Category 1: Negative Reviewed, dictated and finalized at location A. TAMPING MACHINE OPERATOR
== END 2023-06-06 15:38 | disposition home or self-care (01) ==
LOC: ANHIMG 15:41
PROVIDERS: PCP Family Medicine; Visit Provider Family Medicine
DX: Z12.31 Encounter for screening mammogram for malignant neoplasm of breast (principal)
CPT/HCPCS: 77063; 77067

== ENCOUNTER 2023-10-02 07:09 | Outpatient (CLI) | payer OTHER, SELFPAY ==
[2023-10-02 08:51] LABS: Alanine Aminotransferase 46 U/L (6-35); Albumin Level 3.9 g/dL (3.5-5.1); Alkaline Phosphatase 70 U/L (38-126); Anion Gap 5 mmol/L (4-12); Aspartate Amino Transferase 38 U/L (14-36); Bilirubin,Total 1.4 mg/dL (0.2-1.3); Blood Urea Nitrogen 17 mg/dL (7-17); Calcium 9.9 mg/dL (8.4-10.2); Carbon Dioxide 29 mmol/L (22-30); Chloride 104 mmol/L (98-107); Cholesterol 184 mg/dL (0-200); Estimated Glomerular Filt Rate > 60; Glucose 99 mg/dL (65-110); HDL Direct 60 mg/dL; Sodium 138 mmol/L (137-145); Triglycerides 191 mg/dL (<150); Uric Acid 4.4 mg/dL (2.5-7.5)
[2023-10-02 09:02] LABS: LDL Cholesterol Direct 106 mg/dL
[2023-10-02 09:31] LABS: Basophils Percent Auto 0.3 % (0.2-1.2); Eosinophils Absolute Auto 0.1 K/mm3 (0-0.3); Hematocrit 44.3 % (37.0-47.0); Hemoglobin 14.6 g/dL (12.0-15.0); Immature Granulocyte Absolute 0.07 K/mm3 (0.00-0.031); Immature Granulocyte Percent A 0.6 % (0-0.5); Lymphocytes Absolute Auto 3.13 K/mm3 (0.9-3.2); Lymphocytes Percent Auto 26.9 % (18.3-44.2); Mean Corpuscular Hemoglobin 28.7 pg (26-34); Mean Platelet Volume 9.2 fl (7.4-10.4); Monocytes Absolute Auto 0.8 K/mm3 (0.1-0.6); Monocytes Percent Auto 6.9 % (2.6-8.5); Neutrophils Absolute Auto 7.5 K/mm3 (1.3-6.7); Neutrophils Percent Auto 64.3 % (45.5-73.1); Platelet Count Result 271 k/mm3 (150-375); Red Blood Count 5.09 M/mm3 (4.2-5.4); Red Cell Distribution Width 16.3 % (11.5-14.5); White Blood Count 11.6 K/mm3 (4.5-10.0)
[2023-10-02 09:47] LABS: Vitamin D 25 Hydroxy 42.7 ng/mL
[2023-10-02 12:01] LABS: Erythrocyte Sedimentation Rate 13 mm/hr (0-20)
[2023-10-02 12:07] LABS: Rheumatoid Factor < 12.0 IU/ML (<12)
[2023-10-02 12:15] LABS: Hemoglobin A1C 5.9 % (<5.7)
[2023-10-02 16:02] LABS: Folic Acid > 20.0 ng/mL (2.76->20)
== END 2023-10-02 07:10 | disposition home or self-care (01) ==
LOC: ANHLAB 07:11
PROVIDERS: PCP Family Medicine; Visit Provider Family Medicine
DX: Z00.00 Encounter for general adult medical examination without abnormal findings (principal); Z13.1 Encounter for screening for diabetes mellitus; E78.5 Hyperlipidemia, unspecified; Z79.899 Other long term (current) drug therapy; E55.9 Vitamin D deficiency, unspecified; R73.9 Hyperglycemia, unspecified; E53.8 Deficiency of other specified B group vitamins; R53.83 Other fatigue; M25.50 Pain in unspecified joint
CPT/HCPCS: 36415; 80048; 80061; 80076; 82306; 82607; 82746; 83036; 84443; 84550; 85025; 85652; 86038; 86430

== ENCOUNTER 2023-12-06 09:52 | Outpatient (CLI) | payer OTHER, SELFPAY ==
--- NOTE | ~2023-12-06 | XR_ITS ---
AP view of the pelvis and AP and lateral views of the left hip Clinical history: Pain Findings: No acute fracture or dislocation is seen. Osseous alignment is anatomic. Bilateral hip and SI joint spaces are preserved. Lumbosacral spinal fixation hardware noted. Soft tissues are unremarka ble. Impression: No significant abnormality is seen. Lumbosacral spinal fixation hardware present. Reviewed, dictated and finalized at location . Impression: No significant abnormality is seen. Lumbosacral spinal fixation hardware kiera slater
== END 2023-12-06 09:53 | disposition home or self-care (01) ==
LOC: ANHIMG 09:56
PROVIDERS: PCP Family Medicine; Visit Provider Family Medicine
DX: M25.552 Pain in left hip (principal)
CPT/HCPCS: 73502

== ENCOUNTER 2023-12-13 07:56 | Emergency (ER) | payer OTHER, SELFPAY ==
[2023-12-13 08:00] VITALS: BP 155/92; PULSE 82; RESP 18; TEMP 36.5; O2SAT 99
--- NOTE | 2023-12-13 09:09 | ED.GENADULT ---
HPI - General Adult General Chief complaint: Extremity Injury, Lower Stated complaint: left hip/groin pain radiating down her leg X3 week Time Seen by Provider: 12/13/23 08:35 History of Present Illness HPI narrative: 63-year-old female presented to the emergency department for evaluation for left hip pain. Patient states this has been bothering her for greater than a week. Patient does have a history of sciatica but states this feels different. Patient has had multiple falls and stumbles over the last few weeks in does have strain of her knees bilaterally. Patient describes left hip pain that radiates down the left lateral side of the leg. Patient describes a sharp and burning pain. Patient did have follow-up with her primary care physician and was started on baclofen. Patient does not feel this is helped significantly. Patient denies any loss of bowel bladder control. Patient denies any personal numbness. Related Data Home Medications Medication Instructions Recorded Confirmed butalbital 50 mg-acetaminophen 325 50 - 325 tablet PRN PRN migraines 12/02/19 12/15/22 mg tablet gabapentin 300 mg capsule 600 mg PO BID 12/02/19 12/15/22 rosuvastatin 20 mg tablet 20 mg PO HS 12/02/19 12/15/22 phentermine 37.5 mg tablet 37.5 mg PO DAILY 12/15/22 12/15/22 sertraline 50 mg tablet 50 mg PO DAILY 12/15/22 12/15/22 Allergies Allergy/AdvReac Type Severity Reaction Status Date / Time No Known Allergies Allergy Verified 12/13/23 07:57 Review of Systems Review of Systems: All systems reviewed & are unremarkable except as noted in HPI and below PMFSH Past Medical History Medical History CMC arthritis, thumb, degenerative Hyperlipidemia Migraine Osteoarthritis Surgical History Surgical History History of cholecystectomy History of hysterectomy Family History Family History Mother Patient's mother is in good health Carcinoma of colon, Onset Age: 71 Family history of diabetes mellitus in first degree relative Family history of malignant melanoma Father Patient's father is in good health Family history of diabetes mellitus in first degree relative Sibling Patient's sister is in good health Family history of pancreatic cancer, Onset Age: 42 Patient's sister is Patient's brother is Grandparent Diabetes mellitus Other Family history of arthritis Family history of lung cancer Hypertension Social History Social History Years smoked: 20 Smoking status: Former smoker Tobacco type: cigarettes Second hand tobacco smoke exposure: No Smoking end date: 05/21/15 Alcohol intake: current Drinks per week: 4 Alcohol use details: on occasion Substance use: never Substance use type: does not use Last use: 2015 Living arrangements: with family Additional living arrangements comments: [facility] [phone] Gender identity (if verbalized by the patient): Female Sexual Orientation (if Verbalized by the Patient): Straight or Heterosexual Spiritual care concerns: No Exam Narrative: APPEARANCE: Well appearing, no pain, no distress, well-nourished. HEAD: normocephalic, atraumatic. EYES: PERRLA/EOMI, conjunctivae clear. NOSE: Normal no drainage EARS:TMS clear with good light reflex. THROAT: Pharynx clear, no exudate. NECK: Supple. No adenopathy, no masses. RESPIRATORY: Airway patent, respirations nonlabored. Clear to auscultation bilaterally, no rales, rhonchi, wheezing. CARDIOVASCULAR: Regular rate and rhythm without murmurs rubs or gallops. ABDOMINAL: Soft, nontender, nondistended, normal bowel sounds MUSCULOSKELETAL: Moves all extremities. Strength/ROM intact, No edema, No calf tenderness. NEURO: Alert. Cranial nerves II through XI
[2023-12-13 09:46] VITALS: BP 146/80; PULSE 76; RESP 16; TEMP 36.7; O2SAT 100
== END 2023-12-13 09:49 | disposition home or self-care (01) ==
PROVIDERS: Emergency Provider Emergency Medicine; PCP Family Medicine
DX: M79.605 Pain in left leg (principal); E78.5 Hyperlipidemia, unspecified; M18.9 Osteoarthritis of first carpometacarpal joint, unspecified; Z87.891 Personal history of nicotine dependence; Z90.49 Acquired absence of other specified parts of digestive tract; Z90.710 Acquired absence of both cervix and uterus
CPT/HCPCS: 99283

== ENCOUNTER 2024-03-12 15:51 | Outpatient (CLI) | payer OTHER, SELFPAY ==
--- NOTE | ~2024-03-12 | XR_ITS ---
EXAMINATION: XR chest 2V 03/12/2024 15:46 INDICATION: Cigarette smoker PROCEDURE: 2 view chest COMPARISON: 01/17/2022 FINDINGS: The lungs are clear. The cardiomediastinal silhouette is within normal limits. There are no pleural effusions. There is no pneumothorax suspected. IMPRESSION: 1: NO ACUTE CARDIOPULMONARY DISEASE. Reviewed, dictated and finalized at location B.
[2024-03-12 16:08] LABS: Basophils Absolute Auto 0.1 K/mm3 (0.0-0.1); Basophils Percent Auto 0.5 % (0.2-1.2); Eosinophils Absolute Auto 0.1 K/mm3 (0-0.3); Eosinophils Percent Auto 1.3 % (0-4.4); Hematocrit 43.3 % (37.0-47.0); Hemoglobin 13.9 g/dL (12.0-15.0); Immature Granulocyte Absolute 0.03 K/mm3 (0.00-0.031); Immature Granulocyte Percent A 0.3 % (0-0.5); Lymphocytes Absolute Auto 2.75 K/mm3 (0.9-3.2); Lymphocytes Percent Auto 27.9 % (18.3-44.2); Mean Corpuscular HGB Conc 32.1 g/dl (32-36); Mean Corpuscular Hemoglobin 30.3 pg (26-34); Mean Corpuscular Volume 94.3 fl (80-100); Mean Platelet Volume 9.6 fl (7.4-10.4); Monocytes Absolute Auto 1.1 K/mm3 (0.1-0.6); Monocytes Percent Auto 10.7 % (2.6-8.5); Neutrophils Absolute Auto 5.9 K/mm3 (1.3-6.7); Neutrophils Percent Auto 59.3 % (45.5-73.1); Platelet Count Result 302 k/mm3 (150-375); Red Blood Count 4.59 M/mm3 (4.2-5.4); Red Cell Distribution Width 14.8 % (11.5-14.5); White Blood Count 9.9 K/mm3 (4.5-10.0)
== END 2024-03-12 15:52 | disposition home or self-care (01) ==
PROVIDERS: PCP Family Medicine; Visit Provider Family Medicine
DX: Z87.891 Personal history of nicotine dependence (principal)
CPT/HCPCS: 36415; 71046; 85025

== ENCOUNTER 2024-03-25 12:18 | Outpatient (CLI) | payer OTHER, SELFPAY | END 2024-03-25 12:19 | disposition home or self-care (01) | LOC: ANHLAB 12:21 | PROVIDERS: PCP Family Medicine; Visit Provider Internal Medicine Pulmonary Disease | DX: E61.1 Iron deficiency (principal) | CPT/HCPCS: 36415; 82728 ==

== ENCOUNTER 2024-06-27 09:17 | Outpatient (CLI) | payer OTHER, SELFPAY ==
--- NOTE | ~2024-06-27 | MM_ITS ---
EXAMINATION: MM screening [facility] BI w [facility] HISTORY: Screening mammogram TECHNIQUE: Craniocaudal and mediolateral oblique 3-D tomosynthesis images were obtained and synthetic 2-D images were generated. CAD analysis was submitted and interpreted. COMPARISON: 06/06/2023, 01/13/2022, 09/15/2020 BREAST PARENCHYMAL COMPOSITION:Not Dense. There are scattered areas of fibroglandular density. FINDINGS: No suspicious mass, calcification, or architectural distortion are identified in either kathrine ast to suggest malignancy. There has been no suspicious interval change. IMPRESSION: No mammographic evidence of malignancy. Recommend routine screening mammography in one year. BI-RADS Category 1: Negative Reviewed, dictated and finalized at location . 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
--- NOTE | ~2024-06-27 | DEXA_ITS ---
Bone Density Report Name: JOSE DE JESUS HANCOCK Age: 64 Sex: Female Ethnicity: White Date of : 1960 Indication: postmenopausal; screening for osteoporosis; prior fracture; hysterectomy; Referring Provider: ALEXANDRE, [facility] Study: Bone densitometry was performed. Exam Date: June 27, 2024 Accession number: [id number] Bone Density: Region BMD T-score Z-score Classification AP Spine(L1-L4) 1.089 0.4 2.0 Normal Femoral Neck (Left) 0.641 -1.9 -0.4 Osteopenia Total Hip (Left) 0.807 -1.1 0.0 Osteopenia Femoral Neck (Right) 0.714 -1.2 0.2 Osteopenia Total Hip (Right) 0.842 -0.8 0.3 Normal Total Hip Mean 0.825 -1.0 0.2 Normal World Health Organization criteria for BMD impression classify patients as: Normal (T-score at or above -1.0), Osteopenia (T-score between -1.0 and -2.5), or Osteoporosis (T-score at or below -2.5). 10-year Fracture Risk: FRAX not reported because: Prior hip or vertebral fracture Clinical Information Provided by Patient: Have had a previous hip or vertebral fracture Has had a low trauma fracture Has used the following medications: Vitamin D, Calcium Has the following medical conditions: Hysterectomy Patient maximum height was 66 Menopause Age: 54 Drinks caffeinated beverages Onset of menses at age 14 Number of children 3 Impression: The patient has low bone mass, based on the Left Femoral Neck T-score. The patient has risk factors, including: previous fracture. Discussion: INCREASED RISK OF FRACTURE DUE TO HISTORY OF FRACTURE. The patient's previous fracture puts the patient at high risk of a future fracture. In untreated patients, the risk of osteoporotic fracture increases approximately two-fold for each 1.0 SD decrease in T-score. Low bone density is not the only risk factor for fracture; also consider factors such as patient's age, frailty or poor health, risk of falling, risk of injury, previous osteoporotic fracture, family history of osteoporosis, cigarette smoking, low body weight, etc. Not everyone with a low trauma fracture has osteoporosis; osteomalacia and other metabolic bone disorders should also be considered. Patients who have osteoporosis should be evaluated for specific diseases and conditions (secondary causes) that may cause or contribute to bone loss and fracture risk. National Osteoporosis Foundation (NOF) recommends pharmacologic intervention for patients with a prior hip or vertebral fracture regardless of BMD T-score. The patient should follow a healthful lifestyle (good nutrition with adequate calcium and vitamin D, and appropriate weight-bearing exercise). Follow-Up: Consider a repeat BMD and Vertebral Fracture Assessment (VFA) exam in 2 years or sooner if medically necessary, to reassess this patient's status. Reported by: MARCIO on 06/27/2024 10:05:00 AM. Reviewed, dictated and finalized at location ACaio GONZALES
--- OUTSIDE RECORDS SUMMARY | 2024-06-27 09:49 | XMS_ITS | Encounter Summary ---
Author Organization [facility] Address [address] [place] [address] Care Team Providers Care Hose Finisher Name Role Phone Kacey Martinez MD Primary Care Provider [phone] Hitesh Kowalski MD Primary Care Provider [phone] Encounter Details Date Type Department Care Team (Latest Contact Info) Description 03/26/2018 Abstract [facility] Kendall Hagan MD Social History Tobacco Use Types Packs/Day Years Used Date Smoking Tobacco: Never Assessed Comments Unknown Sex and Gender Information Value Date Recorded Sex Assigned at Not on file Legal Sex Female 8:03 PM CDT Gender Identity Not on file Sexual Orientation Not on file documented as of this encounter Plan of Treatment Not on file documented as of this encounter Visit Diagnoses Not on filedocumented in this encounter Care Teams Hose Finisher Relationship Specialty Start Date End Date Kacey Martinez MD [address] [place] [address] [place] [address] PCP - General FAMILY PRACTICE 08/12/18 01/13/24 Hitesh Kowalski MD [address] [place] [id number] PCP - General 01/14/24 documented as of this encounter
--- OUTSIDE RECORDS SUMMARY | 2024-06-27 09:49 | XMS_ITS | Encounter Summary ---
Author Organization [facility] Address [address] [place] [address] Care Team Providers Care Olive Picker Name Role Phone Kacey Martinez MD Primary Care Provider [phone] Hitesh Kowalski MD Primary Care Provider [phone] Encounter Details Date Type Department Care Team (Late st Contact Info) Description 03/01/2022 Linkagoal Message Enc [facility] Multispecialty Care - [facility] [address] [facility], [address] [place] [address] Asia Moyer, KAITLYN [address] [facility] [address] [place] [address] Calcium Social History Tobacco Use Types Packs/Day Years Used Date Smoking Tobacco: Former Cigarettes 1 20 1 986 - 2005 Smokeless Tobacco: Never Alcohol Use Standard Drinks/Week Comments Yes 0 (1 standard drink = 0.6 oz pur e alcohol) socially Education Answer Date Recorded What is the highest level of school you have completed or the highest degree you have received? Master's degree (e.g., MA, MS, Gianna, MEd, LACQUER SPRAY BOOTH OPERATOR, HÉCTOR) 06/21/2021 Comments No Sex and Gender Information Value Date Recorded Sex Assigned at Not on file Legal Sex Female 8:03 PM CDT Gender Identity Not on file Sexual Orientation Not on file Occupation Industry Job Start Date Job End Date Not on file Not on file Not on file Not on file COVID-19 Exposure Response Date Recorded In the last 10 days, have ynes alvarado been in contact with someone who was confirmed or suspected to have Coronavirus/COVID-19? No / Unsure 03/01/2022 12:06 PM CDT documented as of this encounter Functional Status * RETIRED Are you deaf or do you have serious difficulty hearing Answer Date of Assessment Author Status No 01/30/2022 9:17 PM CDT Activ e * RETIRED Are you blind or do you have serious difficulty seeing, even when wearing glasses? Answer Date of Assessment Author Status No 01/30/2022 9:17 PM CDT Activ e * Do you have serious difficulty walking or climbing stairs? Answer Date of Assessment Author Status No 01/30/2022 9:17 PM CDT Bud Ramires se, RN Active * Do you have difficulty dressing or bathing? Answer Date of Assessment Author Status No 01/30/2022 9:17 PM CDT Bud Ramires se, RN Active * Because of a physical, mental, or emotional condition, do you have difficulty doing errands alone such as visiting a doctor's office or shopping? Answer Date of Assessment Author Status No 01/30/2022 9:17 PM CDT Bud Ramires se, RN Active documented as of this encounter Mental Status * Because of a physical, mental, or emotional condition, do you have serious difficulty concentrating, remembering, or making decisions? Answer Entry Date Author Status No 01/30/2022 9:17 PM CDT Bud Ramires se, RN Active documented in this encounter Plan of Treatment Not on file documented as of this encounter Goals Goal Patient Goal Type Associated Problems Recent Progress Patient-Stated? Author Health - patient able to perform ADLs independently Lifestyle No Koerkenme i elizabeth, Dusty Dorado RN documented as of this encounter Visit Diagnoses Not on filedocumented in this encounter Care Teams Olive Picker Relationship Specialty Start Date End Date Kacey Martinez MD [address] [place] [id number] PCP - General FAMILY PRACTICE 08/12/18 01/13/24 Hitesh Kowalski MD [address] [place] [address] PCP - General 01/14/24 documented as of this encounter
--- OUTSIDE RECORDS SUMMARY | 2024-06-27 09:50 | XMS_ITS | Encounter Summary ---
Author Organization [facility] Address [address] [place] [address] Care Team Providers Care Flight Dynamicist Name Role Phone Kacey Martinez MD Primary Care Provider [phone] Hitesh Kowalski MD Primary Care Provider [phone] Encounter Details Date Type Department Care Team (Latest Contact Info) Description 09/14/2022 Jiongji App Message Enc [facility] Medical Group Multispecialty Care - [facility] [address] [facility], [address] [place] [address] Asia Moyer, KAITLYN [address] [facility] [address] [place] [address] Soreness in back Social History Tobacco Use Types Packs/Day Years Used Date Smoking Tobacco: Former Cigarettes 1 20 1 986 - 2006 Smokeless Tobacco: Never Alcohol Use Standard Drinks/Week Comments Yes 0 (1 standard drink = 0.6 oz pur e alcohol) socially PHQ-2 Answer Date Recorded Patient Health Questionnaire-2 Score 0 07/12/2022 Education Answer Date Recorded What is the highest level of school you have completed or the highest degree you have received? Master's degree (e.g., MA, MS, Gianna, MEd, WIRE BRUSH MAKER, HÉCTOR) 06/21/2021 Comments No Sex and Gender Information Value Date Recorded Sex Assigned at Not on file Legal Sex Female 8:03 PM CDT Gender Identity Not on file Sexual Orientation Not on file Occupation Industry Job Start Date Job End Date Not on file Not on file Not on file Not on file documented as of this encounter Functional Status [...] se, RN Active documented in this encounter Progress Notes * Isela Pop MA - 09/14/2022 1:13 PM CDT Forwarding to [facility] documented in this encounter Plan of Treatment Not on file documented as of this encounter Goals Goal Patient Goal Type Associated Problems Recent Progress Patient-Stated? Author Health - patient able to perform ADLs independently Lifestyle No Dusty Villa i RN documented as of this encounter Visit Diagnoses Not on filedocumented in this encounter Care Teams Flight Dynamicist Relationship Specialty Start Date End Date Kacey Martinez MD [address] [place] [address] [place] [address] PCP - General FAMILY PRACTICE 08/12/18 01/13/24 Hitesh Kowalski MD [address] [place] [address] PCP - General 01/14/24 documented as of this encounter
--- OUTSIDE RECORDS SUMMARY | 2024-06-27 09:50 | XMS_ITS | Encounter Summary ---
Author Organization [facility] Address [address] [place] [address] Care Team Providers Care Senior Java Programmer Name Role Phone Kacey Martinez MD Primary Care Provider [phone] Hitesh Kowalski MD Primary Care Provider [phone] Encounter Details Date Type Department Care Team (Late st Contact Info) Description 02/24/2022 Ideal Powert Message Enc [facility] Medical Group Multispecialty Care - [facility] [address] [facility], [address] [place] [address] Asia Moyer, KAITLYN [address] [facility] [address] [place] [address] Picture scar Social History Tobacco Use Types Packs/Day Years [...] Master's degree (e.g., MA, MS, Gianna, MEd, NURSING SERVICE ADMINISTRATOR, HÉCTOR) 06/21/2021 Comments No Sex and Gender [...] suspected to have Coronavirus/COVID-19? No / Unsure 02/24/2022 10:10 AM CDT documented as of this encounter Functional [...] perform ADLs independently Lifestyle No Koerkenme i er, Dusty Dorado RN documented as of this encounter Visit Diagnoses Not on filedocumented in this encounter Care Teams Senior Java Programmer Relationship Specialty Start Date End Date Kacey Martinez MD [address] [place] [address] [place] [address] PCP - General FAMILY PRACTICE 08/12/18 01/13/24 Hitesh Kowalski MD [address] [place] [address] PCP - General 01/14/24 documented as of this encounter
--- OUTSIDE RECORDS SUMMARY | 2024-06-27 09:50 | XMS_ITS | Referral Summary ---
Author Organization [facility] [address] Address [address] [place] [address] Care Team Providers Care Counting Machine Operator Name Role Phone Kacey Martinez MD Primary Care Provider + Allergies No known active allergies Medications gabapentin (NEURONTIN) 300 mg capsule 1 capsule daily 3 10/15/[address] (VOLTAREN) 75 mg EC tablet 1 tablet 2 (two) times a day Active rosuvastatin (CRESTOR) 20 mg tablet 1 tablet daily 2 09/29/2018 Active ergocalciferol (VITAMIN D) 50,000 unit capsule 1 capsule once a week 09/25/2018 Active HYDROcodone-radha taminophen (NORCO) 5-325 mg per tablet as needed 0 10/17/2018 Activ e butalbital-acet cquqxn-kmr-vam 95-043-00-30 mg capsule Take 1 capsule by mouth every 4 (four) hours Active Active Problems Problem Noted Date Diagnosed Date Family history of colon cancer in mother 022 History of colonoscopy with polypectomy 07/08/19 22 Encounter for screening colonoscopy 07/08/2021 Hemorrhoids 07/08/2021 History of colonic polyps 07/08/2021 Overview (07/08/2021): Added automatically from request for surgery [id number] Other chest pain 12/05/2018 Social History Tobacco Use Types Packs/Day Years Used Date Smoking Tobacco: Former Smokeless Tobacco: Never Alcohol Use Standard Drinks/Week Comments Yes 0 (1 standard drink = 0.6 oz pur e alcohol) 2 times weekly Personal Safety Answer Date Recorded Getting School Help Needed Not on file 08/04 Comments Unknown Sex and Gender Information Value Date Recorded Sex Assigned at Not on file 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 Gender Identity Not on file Sexual Orientation Not on file Last Filed Vital Signs Vital Sign Reading Time Taken Comments Blood Pressure 143/81 08/09/2021 1:19 PM CDT Pulse 55 08/09/2021 1:19 PM CDT Temperature 36.7 C (98 F) 08/09/2021 1:19 PM CDT Respiratory Rate 20 08/09/2021 1:19 PM CDT Oxygen Saturation 98% 08/09/2021 1:19 PM CDT Inhaled Oxygen Concentration - - Weight 84.4 kg (186 lb) 08/09/2021 10:16 AM CDT Height 170.2 cm (5' 7 ) 08/09/2021 10:16 AM CDT Body Mass Index 29.13 08/09/2021 10:16 AM CDT Plan of Treatment Not on file Procedures Procedure Name Priority Date/Time Associated Diagnosis Comments COLONOSCOPY 08/09/2021 10:18 AM CDT from Last 3 Months or Most Recently Relevant to Health Maintenance Results * COLONOSCOPY (08/09/2021 10:18 AM CDT) Anatomical Region Laterality Modality Other Narrative Procedure Note Josiah Martinez MD - 08/09/2021 10:18 AM CDT [facility] Patient Name: Christine Zurita Procedure Date: 08/09/2021 10:18 AM Date of : 1960 Admit Type: Outpatient Age: 61 Gender: Female Attending MD: Josiah Martinez M.D. Room: [facility] ENDOSCOPY ROOM 1 Note Status: Finalized Patient Profile: This is a 61 year old female. Her mother had colon cancer. No specific GI complaint. Procedure: Colonoscopy Indications: Screening in patient at increased risk: Familyhistory of 1st-degree relative with colorectal cancer, Last colonoscopy 10 years ago Referring MD: Kacey Martinez M.D. Providers: Josiah Martinez M.D. Impression: - One 12 mm polyp in the ascending colon, removedwith a cold snare. Resected and retrieved. - Two 12 to 14 mm polyps in the descending colon, removed with a cold snare. Resected andretrieved. - One 4 mm polyp in the mid descending colon,removed with a jumbo cold forceps. Resected andretrieved. - Sharp fixed angulation at the distal sigmoidcolon - Small internal hemorrhoids Recommendation: - Await pathology results. - Repeat colonoscopy in 3 years for screeningpurposes. - Continue present medications. Medicines: Monitored Anesthesia Care Complications: No immediate complications. Estimated Blood Loss: Estimated blood loss: none. Procedure: Pre-Anesthesia Assessment: - Prior to the procedure, a History and Physicalwas performed, and patient medications and allergieswere reviewed. The patient's tolerance of previous anesthesia was also reviewed. The risks andbenefits of the procedure and the sedation options and risks were discussed with the patient. All questions were answered, and informed consent was obtained. Prior Anticoagulants: The patient has taken noanticoagulant or antiplatelet agents. ASA Grade Assessment: II -A patient with mild systemic disease. After reviewing the risks and benefits, the patient was deemed in satisfactory condition to undergo the procedure. The benefits, risks and alternatives of theprocedure and sedation were discussed and informed consentwas obtained. All questions were answered. Please referto the signed informed consent document in the medical record. The bowel preparation used was Miralax and bisacodyl tablets via split dose instruction. The scope was passed under direct vision. The Pediatric Colonoscope PCF-H190L [id number] was introducedthrough the anus and advanced to the the cecum, identifiedby appendiceal orifice and ileocecal valve. Thequality of the bowel preparation was good. Bowel prep was administered using a split dose. Findings: The perianal and digital rectal examinations were normal. The cecum appeared normal. A 12 mm polyp was found in the ascending colon. The polyp was semi-sessile. The polyp was removed with a cold snare. Resection and retrieval were complete. Two sessile polyps were found in the descending colon. The polypswere 12 to 14 mm in size. These polyps were removed with a cold snare. Resection and retrieval were complete. A 4 mm polyp was found in the mid descending colon. The polyp was sessile. The polyp was removed with a jumbo cold forceps. Resectionand retrieval were complete. The sigmoid colon appeared normal. There was sharp fixed angulationin the distal is part of the sigmoid colon with benign appearance. The rectum appeared normal. Retroflexion of the rectum showed small internal hemorrhoids. Electronically signed by Josiah Martinez M.D. Josiah Martinez M.D. 08/09/2021 12:54:50 PM Number of Addenda: 0 Note Initiated On: 08/09/2021 10:18 AM Procedure Code(s): --- Professional --- 73300, Colonoscopy, flexible; with removal of tumor(s), polyp(s), or other lesion(s) by snare technique 28057, 59, Colonoscopy, flexible; with biopsy, single or multiple Diagnosis Code(s): --- Professional --- Z80.0, Family history of malignant neoplasm of digestive organs D12.2, Benign neoplasm of ascending colon CPT copyright 2020 [employer]. All rights reserved. The codes documented in this report are preliminary and upon arcade attendant reviewmay be revised to meet current compliance requirements. Recognized by the [employer] for promoting quality in endoscopy Josiah Martinez MD ENDOSCOPY PROCEDURES Final Result from Last 3 Months or Most Recently Relevant to Health Maintenance Insurance [facility] CLAIMS [facility] CLAIMS Advance Directives For more information, please contact: [phone] * Full Code (Latest Code Status on File) Date Activated Date Inactivated Comments 08/09/2021 10:20 AM 08/09/2021 5:30 PM * Full Code Date Activated Date Inactivated Comments 08/09/2021 10:19 AM 08/09/2021 10:20 AM Care Teams Counting Machine Operator Relationship Specialty Start Date End Date Kacey Martinez MD PCP - General Family Medicine 09/24/18
--- OUTSIDE RECORDS SUMMARY | 2024-06-27 09:50 | XMS_ITS | Clinical Summary ---
Author Organization [facility] [address] Address [address] [place] [address] Care Team Providers Care Wind Turbine Controls Engineer Name Role Phone Kacey Martinez MD Primary [...] as needed 0 10/17/2018 Activ e butalbital-acet yehtfj-yhx-qkv 27-211-77-30 mg capsule Take 1 capsule by mouth every 4 (four) hours Active Active Problems Problem Noted Date Diagnosed Date Family history of colon cancer in mother 022 History of colonoscopy with polypectomy 07/08/19 22 Encounter for screening colonoscopy 07/08/2021 Hemorrhoids 07/08/2021 History of colonic polyps 07/08/2021 Overview (07/08/2021): Added automatically from request for surgery [id number] Other chest pain 12/05/2018 Surgical History Surgery Date Site/Laterality Comments CHOLECYSTECTOMY 05/21/2011 - 05/20/2012 TOE SURGERY 05/21/2018 - 05/20/2019 3 times WRIST SURGERY HYSTERECTOMY 05/21/2013 - 05/20/2014 KNEE CARTILAGE SURGERY COLONOSCOPY 5 -10 years ago Medical History Medical History Date Comments Arthritis Family History Medical History Relation Name Comments Hypertension Father Colon cancer Mother Hypertension Mother Hypertension Sister Relation Name Status Comments Father Alive diabetes Mother (Age 80) a-fib Sister Alive Social History Tobacco Use Types Packs/Day Years [...] on file 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 Gender Identity Not on file Sexual Orientation Not on file Obstetrics History Last Filed Vital Signs Vital Sign Reading [...] 08/09/2021 10:16 AM CDT Plan of Treatment Health Maintenance Due Date Last Done Comments Breast Cancer Screening-Mammogram 1960 Depression Screening 1960 Hepatitis C Screening 1960 Hepatitis B Screening 1979 Regular Well Visit/Exam 18-64 1979 Covid-19 Vaccine ( season) 2024 05/01/2021, 07/31/2020, 07/03/2020 Influenza Vaccine (#1) 2024 , 02/01/2020, 03/03/2019, Additional history exists DTaP/Tdap/Td Vaccine (3 - Td or Tdap) 01/09/2029 01/09/2019, 09/29/2013 Colon Cancer Screening-Colonoscopy 08/10/2031 08/09/2021 Zoster Vaccine Completed 05/01/2020, 02/24/2020 Colon Cancer Screening-CT Colonography Discontinued 08/09/2021 Colon Cancer Screening-DNA Stool Discontinued 08/09/2021 Colon Cancer Screening-FIT Discontinued 08/09/2021 Colon Cancer Screening-Sigmoidoscopy Discontinued 08/09/2021 Pneumococcal vaccine <65 Aged Out No longer eligible based on patient's age to complete this topic Procedures Procedure Name Priority Date/Time Associated Diagnosis [...] Female Attending MD: Josiah Martinez M.D. [facility]: [facility] 1 Note Status: Finalized Patient [...] under direct vision. The Pediatric Colonoscope PCF-H190L [id number] was introducedthrough the anus and advanced to [...] 10:18 AM Procedure Code(s): --- Professional --- 79813, Colonoscopy, flexible; with removal of tumor(s), polyp(s), or other lesion(s) by snare technique 17565, 59, Colonoscopy, flexible; with biopsy, single or multiple Diagnosis Code(s): --- Professional --- Z80.0, Family history of malignant neoplasm of digestive organs D12.2, Benign neoplasm of ascending colon CPT copyright 2020 [employer]. All rights reserved. The codes documented in this report are preliminary and upon hr payroll coordinator reviewmay be revised to meet current compliance requirements. Recognized by the [employer] for promoting quality in endoscopy Josiah Martinez MD ENDOSCOPY PROCEDURES Final Result from Last 3 Months or Most Recently Relevant to Health Maintenance Insurance [facility] CLAIMS [facility] CLAIMS Advance Directives For more information, please contact: [phone] * Full Code (Latest Code Status on File) Date Activated Date Inactivated Comments 08/09/2021 10:20 AM 08/09/2021 5:30 PM * Full Code Date Activated Date Inactivated Comments 08/09/2021 10:19 AM 08/09/2021 10:20 AM Care Teams Wind Turbine Controls Engineer Relationship Specialty Start Date End Date Kacey Martinez MD PCP - General Family Medicine 09/24/18
--- OUTSIDE RECORDS SUMMARY | 2024-06-27 09:50 | XMS_ITS | Encounter Summary ---
Author Organization [facility] Address [address] [facility] [place] [address] Care Team Providers Care Windshield Repair Technician Name Role Phone Kacey Martinez MD Primary Care Provider [phone] Encounter Details Date Type Department Care Team (Late st Contact Info) Description 05/08/2023 Lab Requisition [facility] - Pathology Lab [address] [place] [phone] Ronaldo Villegas MD [address] [place] [id number] Localized swelling, mass and lump, neck Social History Tobacco Use Types Packs/Day Years Used Date Smoking Tobacco: Former Cigarettes 1 20 1 986 - 2005 Smokeless Tobacco: Never Alcohol Use Standard Drinks/Week Comments Yes 0 (1 standard drink = 0.6 oz pur e alcohol) Socially Sex and Gender Information Value Date Recorded Sex Assigned at Not on file Gender Identity Not on file Sexual Orientation Not on file documented as of this encounter Functional Status Functional Status Response Date of Assess ment Is person deaf or have serious hearing difficult y? No 02/02/2022 Is person blind or have serious difficulty seein g? No 02/02/2022 Does person have serious dif ficulty walking/climbing stairs? Yes 02/02/2022 Does person have difficulty dressing/bathing? Ye s 02/02/2022 Does person have difficulty doing errands alone? Yes 02/02/2022 Cognitive Status Response Date of Assessm ent Does person have difficulty concentrating/remembering/making decisions? No 02/02/2022 documented as of this encounter Plan of Treatment Not on file documented as of this encounter Procedures Procedure Name Priority Date/Time Associated Diagnosis Comments FLOW CYTOMETRY TISSUE PANEL Routine 05/08/2023 11:27 AM [facility] Localized swelling, mass and lump, neck documented in this encounter Results * FLOW CYTOMETRY TISSUE PANEL (05/08/2023 11:27 AM [facility]) Case Report Flow Cytometry Case: [id number] Authorizing Provider: Cristofer Villegas MD Collected: 05/08/2023 11:27 AM Ordering Location: [facility] Pathology Lab Received: 05/08/2023 03:38 PM Pathologist: Erich Alvarenga MD Specimen: Lymph Node, SUBMANDIBULAR 05/09/2023 7:20 AM [facility] PATHOLOG[facility] LAB Final Diagnosis Axillary lymph node, flow cytometric immunophenotypic analysis: - No diagnostic evidence of non-Hodgkin T- or B-cell lymphoma, or acute leukemia. - Mildly increased CD4:CD8 ratio of 6:1. - See interpretation. 05/09/2023 7:20 AM [facility] LAB Flow Cytometry Interpretation Viability: 84% Lymphocytes: 97% B-cells: 48% of the lymphocytes, polytypic, kappa:lambda ratio 2.1:1 T-cells: 49% % of the lymphocytes, no immunophenotypic aberrancy detected based on the markers performed. Increased CD4:CD8 ratio 6:1 Dim CD45 region: 0%. No blasts. Monocytes: 1% Granulocytes: 2% A cytospin prepared from the flow cytometry specimen has been reviewed for quality control auditor purposes. 05/09/2023 7:20 AM [facility] Flow Cytometry Results Differential Result Comment Flow Cell Count /uL 1,520 Total Viability % 84.0 Lymphocytes % 97 Dim CD45 Region % 0 Monocytes % 1 Granulocytes % 2 05/09/2023 7:20 AM [facility] Reason for test Localized swelling, mass and lump, neck 784.2 05/09/2023 7:20 AM [facility] Client Specimen ID # [id number] 05/09/2023 7:20 AM [facility] Number of markers 16 were performed. A-2 Flow CD10 A-4 Flow CD20 A-5 Flow CD23 A-10 Flow CD2 A-11 Flow CD3 A-12 Flow CD4 A-16 Flow CD1a A-3 Flow CD19 A-6 Flow CD34 A-7 Flow CD45 A-13 Flow CD5 A-14 Flow CD7 A-15 Flow CD8 A-17 Flow CD30 A-8 [place]+CD19+ A-9 Lambda+CD19+ 05/09/2023 7:20 AM [facility] Pathologist Location at [facility] 05/09/2023 7:20 AM [facility] Disclaimer Test performed at [facility], [address], [place], [address]. *The established laboratory minimum viability is 70%. Values below the minimum may result in the failure to find an abnormal population of cells. This test was developed and its performance characteristics determined by the Flow Cytometry Laboratory. It has not been cleared by the [place] Food and Drug Administration (FDA). The FDA has determined that such clearance or approval is not necessary. This test is used for clinical purposes. It should not be regarded as investigational or for research. This laboratory is regulated under the Clinical Laboratory Improvement Amendments of 1998 (CLIA) as a qualified to perform high complexity clinical testing. 05/09/2023 7:20 AM [facility] LAB Embedded Images 7:20 AM [facility] LAB Pathology/Cytolo gy ENTIRE LYMPH NODE / Unknown 05/08/2023 11:27 AM [facility] 05/08/2023 3:38 PM [facility] Ronaldo Villegas MD LAB - PATHO LOGY/CYTOLOGY ORDERABLES [facility] PATHOLOG[facility] LAB [facility]. [address] [phone] documented in this encounter Visit Diagnoses Diagnosis Localized swelling, mass and lump, neck Swelling, mass, or lump in head and neck documented in this encounter Care Teams Windshield Repair Technician Relationship Specialty Start Date End Date Kacey Martinez MD [address] [place] [address] FIDELINA Guajardo [phone] PCP - General Family Medicine 02/02/22 documented as of this encounter
--- OUTSIDE RECORDS SUMMARY | 2024-06-27 09:50 | XMS_ITS ---
Author Organization [facility] Address [address] [place], [place] [id number] Care Team Providers Care Fireworks Assembler Name Role Phone CAIT PEREZ Unavailable [phone] Kacey Martinez Unavailable Unavailable Allergies No Known Allergies REASON FOR VISIT The patient presents with multiple foot issues. She fractured her left 5th toe in February and it was doing well until recently. She stubbed it again and the toe hurts a lot and she is concerned she may have reinjured it., She also has a hammertoes of the left foot, but the 2nd gives her the most problems. She had done some reading and wanted to know the different between an in-office tendon release vs hammertoe surgery., She also has problems with walking on the outside of her right foot, but she is going to have knee surgery in 2 months on the right knee Medications Medication SIG (Take, Route, Frequency, Duration) Notes Start Date End Date Status Medrol Dosepak ORAL Medrol DosepakOr iginal MedicationMedrol Dosepak *Reorder from [facility] for eRx and Interaction Alerts* 05/17/2017 Active Encounters Encounter Location Date Provider Diagnosis [facility] [address] [place], [place] [id number] 05/05/2024 CAIT PEREZ Contusion of left lesser toe(s) without damage to nail, initial encounter S90.122A ; Other hammer toe(s) (acquired), right foot M20.41 ; Other hammer toe(s) (acquired), left foot M20.42 and Left foot pain M79.672 Assessments Encounter Date Diagnosis (ICD Code) Assessment Notes Treatment Notes Treatment Clinical Notes Section Notes 05/05/2024 Contusion of left lesser toe(s) without damage to nail, initial encounter (ICD-10 - S90.122A) Rest. 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 05/05/2024 Other hammer toe(s) (acquired), right foot (ICD-10 - M20.41) Hammertoe Deformity: Discussed various treatments for hammer toes with the patient . Discussed conservative care consisting of padding, wider shoes, anti-inflammatori es, and orthotics. Discussed surgical treatment options and answered all questions about the intra-operative and post-operative treatment course. Continue custom orthotics. I discussed the difference between in-office tenotomy vs. surgical repair 05/05/2024 Other hammer toe(s) (acquired), left foot (ICD-10 - M20.42) 05/05/2024 Left foot pain (ICD-10 - M79.672) Plan Of Treatment Treatment Notes Assessment Notes Contusion of left lesser toe (s) without damage to nail, initial encounter Rest. 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 Other hammer toe(s) (acquired), right fo ot Hammertoe Deformity: Discussed various treatments for hammer toes with the patient . Discussed conservative care consisting of padding, wider shoes, anti-inflammatories, and orthotics. Discussed surgical treatment options and answered all questions about the intra-operative and post-operative treatment course. Continue custom orthotics. I discussed the difference between in-office tenotomy vs. surgical repair Next Appt Details Follow Up: prn, Reason: Progress Notes * JOSE DE JESUS HANCOCK LDOB:[birth year] (64 yo F)Acc No.[id number]:05/05/2024 Patient: JOSE DE JESUS DE Provider: Crystal Perez DPM :1960 A ge:64 Y S ex:Female Date:05/05/2024 Address:[address] [place], [place] [id number] Subjective: * Chief Complaints: * T he patient presents with multiple foot issues. She fractured her left 5th toe in February and it was doing well until recently. She stubbed it again and the toe hurts a lot and she is concerned she may have reinjured it.She also has a hammertoes of the left foot, but the 2nd gives her the most problems. She had done some reading and wanted to know the different between an in-office tendon release vs hammertoe surgery.She also has problems with walking on the outside of her right foot, but she is going to have knee surgery in 2 months on the right knee * HPI: H PI: New Complaint E stablished patient presents with a new complaint. Patient complains of an issue to bilateral foot pain. Patient states she fractured her #5 digit back in February, it is tender now. Patient states she has pain in the lateral side of her right ankle as well. Patient denies any injury to this. Patient believes it may be due to the way she walks. M A LB. * ROS: G eneral / Constitutional: Patient denies c hills, fever, weakness, night sweats. M usculoskeletal: Patient denies c hildhood foot problems, weakness. P atient complains of b ack problem, orthopedic implants, great toe joint issues, hammertoes. ? P eripheral Vascular: Patient denies u lceration of feet, cold extremities. ? S kin: Patient denies u lcerations, discoloration. P atient complains of n ail changes. N eurologic: Patient denies b alance difficulty, confusion, difficulty speaking, dizziness. * Medical History: * Surgical History: * Hospitalization/Major Diagno stic Procedure: * Family History: F ather: PRN - Father: . M other: PRN - Mother: . B rother: SIB - Brother: . S ister: SIB - Sister: . * Social History: M igrated Social History: M igrated Social History: Smoking Status : Former smoker , History of tobacco use : , Alcohol intake :. * Medications: T akingMedrol Dosepak ORAL , Notes to Pharmacist: Medrol DosepakOriginal MedicationMedrol Dosepak *Reorder from [facility] for eRx and Interaction Alerts*Medication List reviewed and reconciled with the patientTaking Medrol Dosepak ORAL , Notes to Pharmacist: Medrol DosepakOriginal MedicationMedrol Dosepak *Reorder from [facility] for eRx and Interaction Alerts*Medication List reviewed and reconciled with the patient * Allergies: N .K.D.A.no[Allergies Verified] Objective: * Vitals: * Examination: C onstitutional: Constitutional T he patient is awake, alert, well developed, well groomed and well nourished. D ermatologic: Skin findings: S kin is warm, dry, supple with no breaks in the skin. V ascular: Dorsalis pedis pulse: 2 /4, bilateral. Posterior tibial pulse: 2 /4, bilateral. Capillary refill: l ess than 3 seconds. Edema: N o edema, bilateral. N eurologic: Gross sensation G ross sensation is intact to light touch.? M usculoskeletal: Muscle Strength M uscle strength is 5/5 in regards to dorsiflexion, plantarflexion, inversion, and eversion in bilateral lower extremities. Pain on palpation p ain on palpation to the left 5th digit.? Hammertoes D orsally contracted digits 2-5 bilateral. The deformity is semi-rigid to the 2nd digit, and flexible to the 3rd, 4th and 5th digits. ? R adiographs: Left Foot E vidence of total joint implant in the great toe. Well-healed fracture of the proximal phalanx of the 5th digit. NO acute fracture noted. Assessment: * Assessment: 1. C ontusion of left lesser toe(s) without damage to nail, initial encounter - S90.122A (Primary) 2 . O ther hammer toe(s) (acquired), right foot - M20.41 3 .?Other hammer toe(s) (acquired), left foot - M20.42 4 . L eft foot pain - M79.672 Plan: * Treatment: 2. O ther hammer toe(s) (acquired), right foot Notes: Hammertoe Deformity: Discussed various treatments for hammer toes with the patient . Discussed conservative care consisting of padding, wider shoes, anti-inflammatories, and orthotics. Discussed surgical treatment options and answered all questions about the intra-operative and post-operative treatment course. Continue custom orthotics. I discussed the difference between in-office tenotomy vs. surgical repair * Procedure Codes: 7 3633 X-RAY EXAM OF FOOT, Modifiers: LT * Follow Up: p rn * Billing Information: * Visit Code: 11738 Office Visit, Est Pt., Level 3. * Procedure Codes: 04312 X-RAY EXAM OF FOOT. Modifiers: LT * ATIONS AND MAINTENANCE TECHNICAN Sign off status: Completed true * Provider: Crystal Perez DPM Date: 1 07/06/2023 Generated for Jayne craven/Rose Marie/Tracy on: 0 06/27/2024 09:49 AM OPERATIONS AND MAINTENANCE TECHNICAN History and Physical Notes * HPI (History of Present Illness) Category Sub-Category Detail Notes Category Not es HPI New Complaint Established chao ent presents with a new complaint. Patient complains of an issue to bilateral foot pain. Patient states she fractured her #5 digit back in February, it is tender now. Patient states she has pain in the lateral side of her right ankle as well. Patient denies any injury to this. Patient believes it may be due to the way she walks. MA LB Examination Category Sub-Category Detail Notes Category Not es Dermatologic Skin findings: Skin is warm, dr y, supple with no breaks in the skin Neurologic Gross sensation Gross sensation is intact to light touch Vascular Dorsalis pedis pulse: 2/4, bilateral Edema: No edema, bilateral Capillary refill: less than 3 seconds Posterior tibial pulse: 2/4, bilateral Musculoskeletal Muscle Strength Muscle strength is 5/5 in regards to dorsiflexion, plantarflexion, inversion, and eversion in bilateral lower extremities Pain on palpation pain on palpation to the left 5th digit Hammertoes Dorsally contracted digits 2-5 bilateral. The deformity is semi-rigid to the 2nd digit, and flexible to the 3rd, 4th and 5th digits Constitutional Constitutional The patient is a wake, alert, well developed, well groomed and well nourished Radiographs Left Foot Evidence of tota l joint implant in the great toe. Well-healed fracture of the proximal phalanx of the 5th digit. NO acute fracture noted
--- OUTSIDE RECORDS SUMMARY | 2024-06-27 09:51 | XMS_ITS | Encounter Summary ---
Author Organization [facility] Address [address] [place] [address] Care Team Providers Care Tech Ed/Woodshop Teacher Name Role Phone Kacey Martinez MD Primary Care Provider [phone] Hitesh Kowalski MD Primary Care Provider [phone] Encounter Details Date Type Department Care Team (Late st Contact Info) Description 09/10/2023 [facility] - [facility] [address] [facility], [address] [place] [address] Asia Moyer, KAITLYN [address] [facility] [address] [place] [address] Back Social History Tobacco Use Types Packs/Day Years Used Date Smoking Tobacco: Former Cigarettes 1 20 1 986 - 2005 Passive Smoke Exposure: Never Smokeless Tobacco: Never Alcohol Use Standard Drinks/Week Comments Yes 0 (1 standard drink = 0.6 oz pur e alcohol) socially PHQ-2 Answer Date Recorded Patient Health Questionnaire-2 Score 0 06/25/2023 Education Answer Date Recorded What is the highest level of school you have completed or the highest degree you have received? Master's degree (e.g., MA, MS, Gianna, MEd, COMIC WRITER, HÉCTOR) 06/21/2021 Comments No Sex and Gender [...] documented in this encounter Progress Notes * Asia Moyer APRN - 09/12/2023 3:46 PM CDT Melanie sent. * Asia Moyer APRN - 09/12/2023 3:43 PM CDTFrom: Christine Zurita To: Asia Moyer Sent: 09/10/2023 4:21 PM CDT Subject: Back I think I might have to get some shots in my back to help with this pain. It doesn???t seem to be going away anytime soon. Christine documented in this encounter Plan of Treatment Not on file documented as of this encounter Goals Goal Patient Goal Type Associated Problems Recent Progress Patient-Stated? Author Health - patient able to perform ADLs independently Lifestyle No Ramos johnson, Dusty Dorado RN documented as of this encounter Visit Diagnoses Diagnosis Sacroiliitis (CMS/HCC)- Primary Sacroiliitis, not elsewhere classified documented in this encounter Care Teams Tech Ed/Woodshop Teacher Relationship Specialty Start Date End Date Kacey Martinez MD [address] [place] [id number] PCP - General FAMILY PRACTICE 08/12/18 01/13/24 Hitesh Kowalski MD [address] [place] [phone] PCP - General 01/14/24 documented as of this encounter
--- OUTSIDE RECORDS SUMMARY | 2024-06-27 09:51 | XMS_ITS | Patient Health Summary ---
Author Organization [facility] [employer] Address [address] [place] [address] Care Team Providers Care Casting Trucker Name Role Phone Kacey Martinez MD Primary Care Provider [phone] Note from [facility],non-owned Affiliates and Associated Physician Practices is amultiple site organization consisting of ambulatory clinics and hospital sitesin [place], [place]. This disclosure is being madepursuant to the Care Everywhere program and may not contain all information available regarding this patient. Last updated 18.[facility] [employer] Allergies No known active allergies Medications * Be aware that medications may not be up to date on this document. Alwaysverify current medications with the patient. * acetaminophen (Tylenol) 500 MG tablet Take 1,000 mg by mouth every 6 hours as needed for Fever or Pain Maximum allowable Acetaminophen amount = 4 Grams (4000 mg) / 24 hours. * diazePAM (Valium) 5 MG tablet Take 5 mg by mouth every 6 hours as needed for Spasms * oxyCODONE-acetaminophen (Percocet) 5-325 MG tablet Take 1 tablet by mouth every 4 hours as needed for Pain Reasons: Pain * senna (Senokot) 8.6 MG tablet Take by mouth once daily Reasons: Constipation * gabapentin (Neurontin) 600 MG tablet Take 600 mg by mouth 2 times daily * rosuvastatin (Crestor) 20 MG tablet Take 20 mg by mouth once daily * vitamin D3 (Cholecalciferol) 25 MCG (1000 UNITS) tablet Take 2,000 Units by mouth once daily Active Problems Problem Noted Date Diagnosed Date Gait abnormality 02/02/2022 S/P laminectomy 02/02/2022 S/P lumbar fusion 02/02/2022 Immunizations * Covid Moderna primary monovalent 12+ yr 0.5mL(Given 07/03/2020) * INFLUENZA VACCINE, QUADR. (FLUZONE; FLULAVAL; FLUARIX; AFLURIA QUADRIVALENT; 6MO+), 0.5 ML (IIV4)(Given 02/16/2022) Social History Tobacco Use Types Packs/Day Years [...] Sign Reading Time Taken Comments Blood Pressure 132/56 02/16/2022 7:05 AM CDT Pulse 78 02/16/2022 7:05 AM CDT Temperature 36.6 C (97.8 F) 02/16/2022 7:05 AM CDT Respiratory Rate 18 02/16/2022 7:05 AM CDT Oxygen Saturation 96% 02/16/2022 7:05 AM CDT Inhaled Oxygen Concentration - - Weight 84.8 kg (187 lb) 02/16/2022 5:29 AM CDT Height 170.2 cm (5' 7 ) 02/04/2022 9:50 AM CDT Body Mass Index 29.29 02/04/2022 9:50 AM CDT Procedures * FLOW CYTOMETRY TISSUE PANEL(Performed 05/08/2023) Performed for Localized swelling, mass and lump, neck * XR LUMBAR SPINE 2 OR 3VW(Performed 02/10/2022) Performed for Spinal stenosis of lumbar region with neurogenic claudication * COMPREHENSIVE METABOLIC PANEL(Performed 02/09/2022) * CBC W AUTO DIFFERENTIAL(Performed 02/09/2022) * BASIC METABOLIC PANEL (CALCIUM TOTAL)(Performed 02/03/2022) * CBC W AUTO DIFFERENTIAL(Performed 02/03/2022) Results * FLOW CYTOMETRY TISSUE PANEL (05/08/2023 11:27 AM BOTTLE HOUSE CLEANERS SUPERVISOR) Case Report Flow Cytometry Case: [id number] Authorizing Provider: Cristofer Villegas MD Collected: 05/08/2023 11:27 AM Ordering Location: [facility] Pathology Lab Received: 05/08/2023 03:38 PM Pathologist: Erich Alvarenga MD Specimen: Lymph Node, SUBMANDIBULAR 05/09/2023 7:20 AM [facility] Final Diagnosis Axillary lymph node, flow cytometric immunophenotypic analysis: - No diagnostic evidence of non-Hodgkin T- or B-cell lymphoma, or acute leukemia. - Mildly increased CD4:CD8 ratio of 6:1. - See interpretation. 05/09/2023 7:20 AM [facility] Flow Cytometry Interpretation Viability: 84% Lymphocytes: 97% B-cells: 48% of the lymphocytes, polytypic, kappa:lambda ratio 2.1:1 T-cells: 49% % of the lymphocytes, no immunophenotypic aberrancy detected based on the markers performed. Increased CD4:CD8 ratio 6:1 Dim CD45 region: 0%. No blasts. Monocytes: 1% Granulocytes: 2% A cytospin prepared from the flow cytometry specimen has been reviewed for director software quality assurance purposes. 05/09/2023 7:20 AM [facility] Flow Cytometry Results Differential Result Comment Flow Cell Count /uL 1,520 Total Viability % 84.0 Lymphocytes % 97 Dim CD45 Region % 0 Monocytes % 1 Granulocytes % 2 05/09/2023 7:20 AM [facility] Reason for test Localized swelling, mass and lump, neck 784.2 05/09/2023 7:20 AM [facility] Client Specimen ID # [id number] 05/09/2023 7:20 AM [facility] Number of markers 16 were performed. A-2 Flow CD10 A-4 Flow CD20 A-5 Flow CD23 A-10 Flow CD2 A-11 Flow CD3 A-12 Flow CD4 A-16 Flow CD1a A-3 Flow CD19 A-6 Flow CD34 A-7 Flow CD45 A-13 Flow CD5 A-14 Flow CD7 A-15 Flow CD8 A-17 Flow CD30 A-8 [place]+CD19+ A-9 Lambda+CD19+ 05/09/2023 7:20 AM [facility] Pathologist Location at [facility] 05/09/2023 7:20 AM [facility] Disclaimer Test performed at [facility], [address] [place] [address], [id number]. *The established laboratory minimum viability is 70%. [...] high complexity clinical testing. 05/09/2023 7:20 AM BOTTLE HOUSE CLEANERS SUPERVISOR [facility] Embedded Images 7:20 AM BOTTLE HOUSE CLEANERS SUPERVISOR [facility] Pathology/Cytolo gy ENTIRE LYMPH NODE / Unknown 05/08/2023 11:27 AM BOTTLE HOUSE CLEANERS SUPERVISOR 05/08/2023 3:38 PM BOTTLE HOUSE CLEANERS SUPERVISOR Ronaldo Villegas MD LAB - PATHO LOGY/CYTOLOGY ORDERABLES Performing Organization Address City/[facility] Co de Phone Number [facility] [address] [phone] * XR LUMBAR SPINE 2 OR 3VW (02/10/2022 4:00 PM CDT) Anatomical Region Laterality Modality Spine Radiographic Nimo ging 02/10/2022 4:45 PM CDT Impressions 02/10/2022 4:47 PM CDT Expected postsurgical changes as detailed above with no evidence of an acute osseous abnormality. THIS IS AN ELECTRONICALLY VERIFIED FINAL REPORT 02/10/2022 4:47 PM - Electronically signed by Marshall Thao M.D. CH: [facility] Report ID: [id number] Reading Location: [id number] Narrative 02/10/2022 4:[place] [address] RADIOLOGY REPORT Patient Name: CHRISTINE ZURITA Date of Service:02/10/2022 Date of :1960 Age:62 Sex:F Requesting Agnes MOYER Examination:XR LUMBAR SPINE 2 OR 3VW EXAM DESCRIPTION: XR LUMBAR SPINE 2 OR 3VW REASON FOR STUDY: Significant increase in low back pain that goes into lower extremities that started 2 days ago, patient had L4-S1 fusion and L4-L5 laminectomy surgery on 01/30 Duration: . TECHNIQUE: Total of 3 radiographic views acquired of the lumbar spine. COMPARISON: None. FINDINGS: Postsurgical changes are seen with evidence of laminectomy with right-sided transpedicular screws and rods from L4-S1, there are interbody spacers at L4-5 and L5-S1 with anterior plate and screw at L5-S1. The hardware appears to be in expected position. There is maintained AP alignment. No evidence of fracture. There are posterior skin carmelo noted. Surgical clips right upper quadrant cholecystectomy. Mild arthritic change along the sacroiliac joints. Procedure Note Marshall Thao Jr., MD - 02/10/2022 [place] [address] RADIOLOGY REPORT Patient Name: CHRISTINE ZURITA Date of Service:02/10/2022 Date of :1960 Age:62 Sex:F Requesting Agnes MOYER Examination:XR LUMBAR SPINE 2 OR 3VW EXAM DESCRIPTION: XR LUMBAR SPINE 2 OR 3VW REASON FOR STUDY: Significant increase in low back pain that goes into lower extremities that started 2 days ago, patient had L4-S1 fusion and L4-L5 laminectomy surgery on 01/30 Duration: . TECHNIQUE: Total of 3 radiographic views acquired of the lumbar spine. COMPARISON: None. FINDINGS: Postsurgical changes are seen with evidence of laminectomy with right-sided transpedicular screws and rods from L4-S1, there are interbody spacers at L4-5 and L5-S1 with anterior plate and screw at L5-S1. The hardware appears to be in expected position. There is maintained AP alignment. No evidence of fracture. There are posterior skin carmelo noted. Surgical clips right upper quadrant cholecystectomy. Mild arthritic change along the sacroiliac joints. IMPRESSION Expected postsurgical changes as detailed above with no evidence of an acute osseous abnormality. THIS IS AN ELECTRONICALLY VERIFIED FINAL REPORT 02/10/2022 4:47 PM - Electronically signed by Marshall Thao M.D. CH: [facility] Report ID: [id number] Reading Location: [place] [address] Asia Moyer WOOD CABINET FINISHER-PROJECT MANAGER/TEAM COACH DIAGNOSTIC NIMO GING ORDERABLES * (ABNORMAL) COMPREHENSIVE METABOLIC PANEL (02/09/2022 12:35 PM CDT) Sodium 139 137 - 145 mmol/L 02/09/2022 12:41 PM CDT [facility] Potassium 3.9 3.6 - 5.0 mmol/L 02/09/2022 12:41 PM CDT [facility] Chloride 102 98 - 107 mmol/L 02/09/2022 12:41 PM CDT [facility] Carbon Dioxide 32(H) 21 - 31 mmol/L 02/09/2022 12:41 PM CDT [facility] Glucose 100 65 - 100 mg/dL 02/09/2022 12:41 PM CDT [facility] BUN 13 7 - 17 mg/dL 02/09/2022 12:41 PM CDT [facility] Creatinine 0.60 0.50 - 1.04 mg/dL 02/09/2022 12:41 PM T [facility] eGFR 102 >=60 ml/min/1.7 3*2 02/09/2022 12:41 PM T [facility] Comment: Chronic kidney disease is defined as either the presence of kidney disease or a GFR of less than 60 ml/min/1.732 for 3 or more months and can be diagnosed without knowledge of its cause (NKF). Reference range in ml/min/1.732 For healthy adults > 60 Chronic Kidney Disease 15-60. GFR is not recommended for patients greater than 70 years. Reference ranges not available for patients under 18 yrs. Test will not be performed. BUN/Creatinine Ratio 20.0 6.0 - 26.0 02/09/2022 12:41 PM CDT [facility] Calcium 8.8 8.4 - 10.7 mg/dL 02/09/2022 12:41 PM CDT [facility] Protein Total 6.5 6.3 - 8.2 g/dL 02/09/2022 12:41 PM T [facility] Albumin 3.7(L) 3.9 - 5.0 g/dL 02/09/2022 12:41 PM CDT [facility] Albumin/Globulin Ratio 1.3 1.1 - 2.2 g/dL 02/09/2022 12:41 PM T [facility] Bilirubin Total 0.4 0.2 - 1.3 mg/dL 02/09/2022 12:41 PM T [facility] Alkaline Phosphatase 86 38 - 126 U/L 02/09/2022 12:41 PM T [facility] AST 33 8 - 39 U/L 02/09/2022 12:41 PM T [facility] ALT 23 9 - 52 U/L 02/09/2022 12:41 PM T [facility] Blood BLOOD SPECIMEN / Unknown Lab Venipuncture / Unknown 02/09/2022 12:35 PM CDT 02/09/2022 12:19 PM CDT Gideon Farrar WOOD CABINET FINISHER-PROJECT MANAGER/TEAM COACH LAB - CHEMISTRY ORDERABLES [facility] [address] [place] [address] * (ABNORMAL) CBC W AUTO DIFFERENTIAL (02/09/2022 12:15 PM CDT) Only the most recent of2 resultswithin the time period is included. WBC 8.5 4.0 - 10.0 K/uL 02/09/2022 12:37 PM CDT [facility] RBC 3.9 3.9 - 5.1 M/ul 02/09/2022 12:37 PM T [facility] Hemoglobin 11.7(L) 12.0 - 15.0 g/dL 02/09/2022 12:37 PM T [facility] Hematocrit 35.4(L) 37.0 - 45.0 % 02/09/2022 12:37 PM T [facility] MCV 90.3 82.0 - 101.0 fL 02/09/2022 12:37 PM T [facility] MCH 29.8 27.0 - 34.0 pg 02/09/2022 12:37 PM T [facility] MCHC 33.1 32.0 - 35.0 g/dL 02/09/2022 12:37 PM [facility] RDW-CV 13.1 11.4 - 14.6 % 02/09/2022 12:37 PM [facility] Platelet Count 451(H) 120 - 410 K/uL 02/09/2022 12:37 PM [facility] MPV 8.6 5.2 - 12.8 fL 02/09/2022 12:37 PM T [facility] Neutrophils % 66.8 25.0 - 78.0 % 02/09/2022 12:37 PM T [facility] Lymphocytes % 22.1 10.0 - 50.0 % 02/09/2022 12:37 PM T [facility] Monocytes % 8.8 0.0 - 11.0 % 02/09/2022 12:37 PM T [facility] Eosinophils % 1.3 0.0 - 3.0 % 02/09/2022 12:37 PM T [facility] Basophils % 0.5 0.0 - 1.5 % 02/09/2022 12:37 PM T [facility] Neutrophil Absolute 5.7 2.0 - 6.9 K/uL 02/09/2022 12:37 PM CDT [facility] Lymphocyte Absolute 1.9 0.6 - 4.6 K/uL 02/09/2022 12:37 PM CDT [facility] Monocyte Absolute 0.8 0.0 - 0.9 K/uL 02/09/2022 12:37 PM CDT [facility] Eosinophil Absolute 0.1 0.0 - 0.7 K/uL 02/09/2022 12:37 PM CDT [facility] Basophil Absolute 0.0 0.0 - 0.2 K/uL 02/09/2022 12:37 PM CDT [facility] Immature Granulocytes % 0.5 0.0 - 0.5 % 02/09/2022 12:37 PM CDT [facility] Immature Granulocytes Absolute 0.04(H) 0.00 - 0.03 K/UL 02/09/2022 12:37 PM CDT [facility] Blood BLOOD SPECIMEN / Unknown Lab Venipuncture / Unknown 02/09/2022 12:15 PM CDT 02/09/2022 12:19 PM CDT Gideon Farrar WOOD CABINET FINISHER-PROJECT MANAGER/TEAM COACH LAB - HEMATOLOGY ORDERABLES Performing Organization Address [facility]/State/ZIP Co de Phone Number [facility] [address] [place] [address] * (ABNORMAL) BASIC METABOLIC PANEL (CALCIUM TOTAL) (02/03/2022 6:20 AM CDT) Glucose 106(H) 65 - 100 mg/dL 02/03/2022 6:57 AM CDT [facility] BUN 8 7 - 17 mg/dL 02/03/2022 6:57 AM CDT [facility] Creatinine 0.60 0.50 - 1.04 mg/dL 02/03/2022 6:57 AM CDT [facility] eGFR 102 >=60 ml/min/1.7 3*2 02/03/2022 6:57 AM T [facility] Comment: Chronic kidney disease is defined as either the presence of kidney disease or a GFR of less than 60 ml/min/1.732 for 3 or more months and can be diagnosed without knowledge of its cause (NKF). Reference range in ml/min/1.732 For healthy adults > 60 Chronic Kidney Disease 15-60. GFR is not recommended for patients greater than 70 years. Reference ranges not available for patients under 18 yrs. Test will not be performed. BUN/Creatinine Ratio 13.1 6.0 - 26.0 02/03/2022 6:57 AM T [facility] Sodium 136(L) 137 - 145 mmol/L 02/03/2022 6:57 AM T [facility] Potassium 4.0 3.6 - 5.0 mmol/L 02/03/2022 6:57 AM T [facility]) Chloride 102 98 - 107 mmol/L 02/03/2022 6:57 AM T [facility] Carbon Dioxide 31 21 - 31 mmol/L 02/03/2022 6:57 AM T [facility] Calcium 8.3(L) 8.4 - 10.7 mg/dL 02/03/2022 6:57 AM T [facility] Blood BLOOD SPECIMEN / Unknown Lab Venipuncture / Unknown 02/03/2022 6:20 AM CDT 02/03/2022 6:26 AM T Ruby Reagan WOOD CABINET FINISHER-PROJECT MANAGER/TEAM COACH LAB - CHEMISTRY ORDERABLES [facility] [address] [place] [address] Care Teams Casting Trucker Relationship Specialty Start Date End Date Kacey Martinez MD [address] [place] [address] [place] [address] PCP - General Family Medicine 02/02/22
--- OUTSIDE RECORDS SUMMARY | 2024-06-27 09:51 | XMS_ITS | Encounter Summary ---
Author Organization [facility] Address [address] [place] [address] Care Team Providers Care Banquet Bartender Name Role Phone Kacey Martinez MD Primary Care Provider [phone] Hitesh Kowalski MD Primary Care Provider [phone] Encounter Details Date Type Department Care Team (Late st Contact Info) Description 07/03/2022 Touchdown Technologiest Message Enc [facility] Medical Group Multispecialty Care - [facility] [address] [facility], [address] [place] [address] Asia Moyer, KAITLYN [address] [facility] [address] [place] [address] Back Social History Tobacco Use Types Packs/Day [...] Master's degree (e.g., MA, MS, Gianna, MEd, HOSPITAL NURSE LIAISON, HÉCTOR) 06/21/2021 Comments No Sex and Gender [...] suspected to have Coronavirus/COVID-19? No / Unsure 07/06/2022 4:02 PM MARKETING AND PROMOTIONS MANAGER documented as of this encounter Functional Status [...] Date Author Status No 01/30/2022 9:17 PM CDBud Nina se, RN Active documented in this encounter Progress Notes * Isela Pop MA - 07/05/2022 8:58 AM CST Sending to Asia ETING AND PROMOTIONS MANAGER * Isela Pop MA - 07/04/2022 9:17 AM CST Asia please advise. ETING AND PROMOTIONS MANAGER documented in this encounter Plan of Treatment Not on file documented as of this encounter Goals Goal Patient Goal Type Associated Problems Recent Progress Patient-Stated? Author Health - patient able to perform ADLs independently Lifestyle No Warrenersantos i er, Dusty Dorado, RN documented as of this encounter Visit Diagnoses Not on filedocumented in this encounter Care Teams Banquet Bartender Relationship Specialty Start Date End Date Kacey Martinez MD [address] [place] [address] PCP - General FAMILY PRACTICE 08/12/18 01/13/24 Hitesh Kowalski MD [address] [place] [address] PCP - General 01/14/24 documented as of this encounter
--- OUTSIDE RECORDS SUMMARY | 2024-06-27 09:51 | XMS_ITS | Encounter Summary ---
Author Organization [facility] Address [address] [place] [address] Care Team Providers Care Machine Shorthand Teacher Name Role Phone Kacey Martinez MD Primary Care Provider [phone] Hitesh Kowalski MD Primary Care Provider [phone] Encounter Details Date Type Department Care Team (Late st Contact Info) Description 02/19/2023 2Peer (Qlipso) Message Enc [facility] Medical Group Multispecialty Care - [facility] [address] [facility], [address] [place] [address] Asia Moyer, KAITLYN [address] [facility] [address] [place] [address] Back Social History Tobacco Use Types Packs/Day [...] Master's degree (e.g., MA, MS, Gianna, MEd, POT ANNEALER, HÉCTOR) 06/21/2021 Comments No Sex and Gender [...] Progress Notes * Isela Pop MA - 02/20/2023 8:16 AM CDT I called patient and scheduled her appt on 03/05 at 2:00 pm. I instructed her to keep her appointment for CT scan tomorrow. Patient V/U. documented in this encounter Plan of Treatment Not on file documented as of this encounter Goals Goal Patient Goal Type Associated Problems Recent Progress Patient-Stated? Author Health - patient able to perform ADLs independently Lifestyle No Koerkenme i er, Dusty Dorado RN documented as of this encounter Visit Diagnoses Not on filedocumented in this encounter Care Teams Machine Shorthand Teacher Relationship Specialty Start Date End Date Kacey Martinez MD [address] [place] [address] PCP - General FAMILY PRACTICE 08/12/18 01/13/24 Hitesh Kowalski MD [address] [place] [address] PCP - General 01/14/24 documented as of this encounter
--- OUTSIDE RECORDS SUMMARY | 2024-06-27 09:51 | XMS_ITS | Encounter Summary ---
Author Organization [facility] Address [address] [place] [address] Care Team Providers Care Title I Math Tutor Name Role Phone Kacey Martinez MD Primary Care Provider [phone] Hitesh Kowalski MD Primary Care Provider [phone] Encounter Details Date Type Department Care Team (Late st Contact Info) Description 08/22/2018 FLOORLEADER ONLY [facility] Medical Group Priority Care - [address] [place] [address] Scanned, Documents Social History Tobacco Use Types Packs/Day Years Used Date Smoking Tobacco: Former Alcohol Use Standard Drinks/Week Comments Yes 0 (1 standard drink = 0.6 oz pur e alcohol) Comments Unknown Sex and Gender Information Value Date Recorded Sex Assigned at Not on file Legal Sex Female 8:03 PM CDT Gender Identity Not on file Sexual Orientation Not on file documented as of this encounter Progress Notes * Zscanned, Documents - 08/22/2018 12:00 AM CDT CHRISTINE ZURITA MD: ACCT: [id number] ADMIT/SERVICE DATE: 08/22/18 DISCHARGE DATE: 08/22/18 : 1960 PT TYPE: DEP SDC SEX: F ORD SITE: [facility] REPORT OF PATHOLOGICAL EXAMINATION DATE OF SURGERY: 08/22/2018 SURGICAL PATH NO: [id number] DATE OBTAINED: 08/22/2018 DATE RETURNED: 08/23/2018 CHART DOCUMENT PATHOLOGICAL DIAGNOSIS: I. ANAL SKIN TAG: - BENIGN ANAL POLYP SPECIMEN: ANAL SKIN TAG GROSS EXAMINATION: THE SPECIMEN IS RECEIVED IN FORMALIN LABELED WITH THE PATIENT'S NAME AND ANAL SKIN TAG . THE SPECIMEN CONSISTS OF A PINK/MENDIETA OVOID FRAGMENT OF SKIN MEASURING 1 CM X 1 X 0.5. THE SPECIMEN IS BISECTED, SUBMITTED ENTIRELY IN A SINGLE CASSETTE. TD/MKP 08/22/2018 08/22/2018 02:19 P MICROSCOPIC EXAMINATION: SECTIONS REVEAL BENIGN ANAL POLYP. THE POLYP CONSISTS OF FIBROCONNECTIVE TISSUE LINED BY SLIGHTLY KERATINIZING SQUAMOUS EPITHELIUM. THERE IS A FOCAL CHRONIC INFLAMMATION. ELECTRONICALLY SIGNED BY RICH WHALEY MD 08/23/2018 01:15 P DT: VON/RC:08/23/2018 DOC NO: [id number] documented in this encounter Plan of Treatment Not on file documented as of this encounter Visit Diagnoses Not on filedocumented in this encounter Care Teams Title I Math Tutor Relationship Specialty Start Date End Date Kacey Martinez MD [address] [place] [address] PCP - General FAMILY PRACTICE 08/12/18 01/13/24 Hitesh Kowalski MD [address] [place] [address] PCP - General 01/14/24 documented as of this encounter
--- OUTSIDE RECORDS SUMMARY | 2024-06-27 09:51 | XMS_ITS | Encounter Summary ---
Author Organization [facility] Address [address] [place] [address] Care Team Providers Care Senior Cyber Security Analyst Name Role Phone Kacey Martinez MD Primary Care Provider [phone] Hitesh Kowalski MD Primary Care Provider [phone] Encounter Details Date Type Department Care Team (Late st Contact Info) Description 05/23/2023 Blackwavet Message Enc [facility] Medical Group Multispecialty Care - [facility] [address] [facility], [address] [place] [address] Asia Moyer, KAITLYN [address] [facility] [address] [place] [address] Back Social History Tobacco Use Types Packs/Day [...] Master's degree (e.g., MA, MS, Gianna, MEd, DRILLER'S OFFSIDER, HÉCTOR) 06/21/2021 Comments No Sex and Gender [...] Assessment Author Status No 01/30/2022 9:17 PM Bud Roberson se, RN Active * Because of a physical, mental, or emotional condition, do you have difficulty doing errands alone such as visiting a doctor's office or shopping? Answer Date of Assessment Author Status No 01/30/2022 9:17 PM Bud Roberson se, RN Active documented as of this encounter Mental Status * Because of a physical, mental, or emotional condition, do you have serious difficulty concentrating, remembering, or making decisions? Answer Entry Date Author Status No 01/30/2022 9:17 PM Bud Roberson se, RN Active documented in this encounter Plan of Treatment Not on file documented as of this encounter Goals Goal Patient Goal Type Associated Problems Recent Progress Patient-Stated? Author Health - patient able to perform ADLs independently Lifestyle No Koerken i Dusty johnson RN documented as of this encounter Visit Diagnoses Not on filedocumented in this encounter Care Teams Senior Cyber Security Analyst Relationship Specialty Start Date End Date Kacey Martinez MD [address] [place] [address] [place] [address] PCP - General FAMILY PRACTICE 08/12/18 01/13/24 Hitesh Kowalski MD [address] [place] [phone] PCP - General 01/14/24 documented as of this encounter
--- OUTSIDE RECORDS SUMMARY | 2024-06-27 09:51 | XMS_ITS | Encounter Summary ---
Author Organization [facility] Address [address] [place] [address] Care Team Providers Care Union Organizer Name Role Phone Kacey Martinez MD Primary Care Provider [phone] Hitesh Kowalski MD Primary Care Provider [phone] Encounter Details Date Type Department Care Team (Late st Contact Info) Description 03/30/2022 Fastgent Message Enc [facility] Medical Group Multispecialty Care - [facility] [address] [facility], [address] [place] [address] Asia Moyer, KAITLYN [address] [facility] [address] [place] [address] Back Social History Tobacco Use Types Packs/Day [...] Master's degree (e.g., MA, MS, Gianna, MEd, IN SCHOOL SUSPENSION AIDE, HÉCTOR) 06/21/2021 Comments No Sex and Gender [...] suspected to have Coronavirus/COVID-19? No / Unsure 03/15/2022 3:04 PM CDT documented as of this encounter [...] Progress Notes * Isela Pop MA - 03/30/2022 1:21 PM CST Sending to [facility] TRE PROGRAM DIRECTOR documented in this encounter Plan of Treatment Not on file documented as of this encounter Goals Goal Patient Goal Type Associated Problems Recent Progress Patient-Stated? Author Health - patient able to perform ADLs independently Lifestyle No Ramos johnson, Dusty Dorado RN documented as of this encounter Visit Diagnoses Not on filedocumented in this encounter Care Teams Union Organizer Relationship Specialty Start Date End Date Kacey Martinez MD [address] [place] [address] PCP - General FAMILY PRACTICE 08/12/18 01/13/24 Hitesh Kowalski MD [address] [place] [address] PCP - General 01/14/24 documented as of this encounter
--- OUTSIDE RECORDS SUMMARY | 2024-06-27 09:51 | XMS_ITS | Clinical Summary ---
Author Organization [facility] Address [address] [place] [address] Care Team Providers Care Recreation Instructor Name Role Phone Kacey Martinez MD Primary Care Provider [phone] Source Comments [facility],non-owned Affiliates and Associated Physician Practices is amultiple site organization consisting of ambulatory clinics and hospital sitesin [place], [place], [place] and [place]. This disclosure is being madepursuant to the Care Everywhere program and may not contain all information available regarding this patient. Last updated 18.[facility] Allergies No known active allergies Medications * Be aware that medications may not be up to date on this document. Alwaysverify current medications with the patient. Medication Sig Dispensed Refills Start Date End Date Status acetaminophen (Tylenol) 500 MG tablet Take 1,000 mg by mouth every 6 hours as needed for Fever or Pain Maximum allowable Acetaminophen amount = 4 Grams (4000 mg) / 24 hours. Active diazePAM (Valium) 5 MG tablet Take 5 mg by mouth every 6 hours as needed for Spasms Active oxyCODONE-acetamino phen (Percocet) 5-325 MG tabletIndications:P ain Take 1 tablet by mouth every 4 hours as needed for Pain Reasons: Pain Active senna (Senokot) 8.6 MG tabletIndications:C onstipation Take by mouth once daily Reasons: Constipation Active gabapentin (Neurontin) 600 MG tablet Take 600 mg by mouth 2 times daily Active rosuvastatin (Crestor) 20 MG tablet Take 20 mg by mouth once daily Active vitamin D3 (Cholecalciferol) 25 MCG (1000 UNITS) tablet Take 2,000 Units by mouth once daily Active Active Problems Problem Noted Date Diagnosed Date Gait abnormality 02/02/2022 S/P laminectomy 02/02/2022 S/P lumbar fusion 02/02/2022 Immunizations Name Administration Dates Next Due Lidia Scales primary monovalent 12+ yr 0.5mL INFLUENZA VACCINE, QUADR. (F LUZONE; FLULAVAL; FLUARIX; AFLURIA QUADRIVALENT; 6MO+), 0.5 ML (IIV4) 02/16/2022 Social History Tobacco Use Types Packs/Day Years [...] Mass Index 29.29 02/04/2022 9:50 AM CDT Plan of Treatment Health Maintenance Due Date Last Done Comments COLOGUARD (AGES 45-75) - COLON CA SCREENING 1960 COLON MONITORING 1961 COLONOSCOPY - COLON CA SCREENING 1961 CT COLONOGRAPHY - COLON CA SCREENING 1960 Colorectal Cancer Screening 1961 FIT - COLON CA SCREENING 1961 FLEX SIG - COLON CA SCREENING 1961 MAMMOGRAM 1960 PAP SMEAR 1961 HIV SCREENING 01/07/1976 HEPATITIS C SCREENING 01/02/1979 DTAP/TDAP/TD VACCINES (1 - Tdap) 01/07/1980 PNEUMOCOCCAL VACCINE 50+ (1 of 1 - PCV) 2011 ZOSTER VACCINE (1 of 2) 2011 Respiratory Syncytial Virus (RSV) Vaccine Pt: or over 60 yrs (1 - Risk 60-74 years 1-dose series) 2021 COVID-19 VACCINE ( season) 2024 07/03/2020 INFLUENZA VACCINE (#1) 2024 2, 03/16/2016, 03/31/2015, Additional history exists DEPRESSION SCREENING 05/21/2024 HEPATITIS B VACCINE Aged Out No longe r eligible based on patient's age to complete this topic HIB VACCINE Aged Out No longer eligi ble based on patient's age to complete this topic HPV VACCINE Aged Out No longer eligi ble based on patient's age to complete this topic MENINGOCOCCAL (Group B) VACCINE Aged Out No longer eligible based on patient's age to complete this topic MENINGOCOCCAL VACCINE Aged Out No jocy odette eligible based on patient's age to complete this topic PNEUMOCOCCAL VACCINE Aged Out No long er eligible based on patient's age to complete this topic Advance Directives Documents on File Type Date Recorded Patient Forest Scientist Expl kerri POLST 02/17/2022 8:54 AM * Full Code (Latest Code Status on File) Date Activated Date Inactivated Comments 02/02/2022 6:08 PM 02/16/2022 11:34 AM Care Teams Recreation Instructor Relationship Specialty Start Date End Date Kacey Martinez MD [address] [place] [phone] PCP - General Family Medicine 02/02/22
--- OUTSIDE RECORDS SUMMARY | 2024-06-27 09:51 | XMS_ITS | Encounter Summary ---
Author Organization [facility] Address [address] [place] [address] Care Team Providers Care Media Associate Name Role Phone Kacey Martinez MD Primary Care Provider [phone] Hitesh Kowalski MD Primary Care Provider [phone] Encounter Details Date Type Department Care Team (Latest Contact Info) Description 03/21/2022 Midokurat Message Enc [facility] Medical Group Multispecialty Care - [facility] [address] [facility], [address] [place] [address] Asia Moyer, KAITLYN [address] [facility] [address] [place] [address] Swollen ankles/feet Social History Tobacco Use Types Packs/Day Years [...] Master's degree (e.g., MA, MS, Gianna, MEd, RADIO COMMUNICATIONS SUPERINTENDENT, HÉCTOR) 06/21/2021 Comments No Sex and Gender [...] documented in this encounter Progress Notes * Ramez?? Ave Delgado MA - 03/21/2022 4:00 PM CDT Sarah please advise documented in this encounter Plan of Treatment Not on file documented as of this encounter Goals Goal Patient Goal Type Associated Problems Recent Progress Patient-Stated? Author Health - patient able to perform ADLs independently Lifestyle No Koerkenme i er, Dusty Dorado RN documented as of this encounter Visit Diagnoses Not on filedocumented in this encounter Care Teams Media Associate Relationship Specialty Start Date End Date Kacey Martinez MD [address] [place] [address] PCP - General FAMILY PRACTICE 08/12/18 01/13/24 Hitesh Kowalski MD [address] [place] [phone] PCP - General 01/14/24 documented as of this encounter
--- OUTSIDE RECORDS SUMMARY | 2024-06-27 09:51 | XMS_ITS | Referral Summary ---
Author Organization [facility] Address [address] [place] [address] Care Team Providers Care Corporate Tax Preparer Name Role Phone Kacey Martinez MD Primary Care Provider [phone] Source Comments [facility],non-owned Affiliates and Associated Physician Practices is amultiple site organization consisting of ambulatory clinics and hospital sitesin [place], [place], [place] and [place]. This disclosure is being madepursuant to the Care Everywhere program and may not contain all information available regarding this patient. Last updated 18.[facility] Allergies No known active allergies Medications * [...] 02/02/2022 Immunizations Name Administration Dates Next Due Covmaite Moderna primary monovalent 12+ yr 0.5mL INFLUENZA VACCINE, QUADR. (F LUZONE; FLULAVAL; FLUARIX; AFLURIA QUADRIVALENT; 6MO+), 0.5 ML (IIV4) 02/16/2022 Social History Tobacco Use Types Packs/Day Years Used Date Smoking Tobacco: Former Cigarettes 1 20 1 6 - 2005 Smokeless Tobacco: Never Alcohol Use [...] Mass Index 29.29 02/04/2022 9:50 AM CDT Functional Status Functional Status Response Date of [...] person have difficulty concentrating/remembering/making decisions? No 02/02/2022 Plan of Treatment Not on file Advance Directives Documents on File Type Date Recorded Patient Restorer Paper And Prints Expl anation POLST 02/17/2022 8:54 AM * Full Code (Latest Code Status on File) Date Activated Date Inactivated Comments 02/02/2022 6:08 PM 02/16/2022 11:34 AM Care Teams Corporate Tax Preparer Relationship Specialty Start Date End Date Kacey Martinez MD [address] [place] [address] PCP - General Family Medicine 02/02/22
--- OUTSIDE RECORDS SUMMARY | 2024-06-27 09:51 | XMS_ITS | Encounter Summary ---
Author Organization [facility] Address [address] [place] [address] Care Team Providers Care Bit Tapper Name Role Phone Kacey Martinez MD Primary Care Provider [phone] Hitesh Kowalski MD Primary Care Provider [phone] Encounter Details Date Type Department Care Team (Late st Contact Info) Description 04/10/2022 TapCrowdt Message Enc [facility] Medical Group Multispecialty Care - [facility] [address] [facility], [address] [place] [address] Asia Moyer, KAITLYN [address] [facility] [address] [place] [address] Appointment Social History Tobacco Use Types Packs/Day Years [...] Master's degree (e.g., MA, MS, Gianna, MEd, DAY CARE TEACHER, HÉCTOR) 06/21/2021 Comments No Sex and Gender [...] suspected to have Coronavirus/COVID-19? No / Unsure 04/12/2022 12:29 PM OPHTHALMIC MEDICAL TECHNICIAN documented as of this encounter Functional Status [...] on filedocumented in this encounter Care Teams Bit Tapper Relationship Specialty Start Date End Date Kacey Martinez MD [address] [place] [address] PCP - General FAMILY PRACTICE 08/12/18 01/13/24 Hitesh Kowalski MD [address] [place] [address] [place] [address] PCP - General 01/14/24 documented as of this encounter
--- OUTSIDE RECORDS SUMMARY | 2024-06-27 09:52 | XMS_ITS | Encounter Summary ---
Author Name [facility] [facility] [place] Address [address] [place] [id number] Selected Encounter This section includes the information on record at [place] for the Encounter. Date/Time Encounter Type Encounter Description Reason Provider Source May 26, 2024 09:04 AM PROGRAM INTAKE ASSESSMENT CAREGIVER SUPPORT PROGRAM ICD-10-CM Z63.6 Dependent relative needing care at home SRUTHI GONZALEZ E Encounter Template Text not used by [place] Assessments - Encounter Diagnoses This section includes the primary and secondary diagnoses documented for the Encounter. Date/Time Primary/Secondary Diagnosis Diagnosis Name Provider Source May 26, 2024 10:14 AM PRIMARY Dependent relative needing care at home SRUTHI GONZALEZ [facility] Encounter Notes: All associated encounter notes This section contains the clinical notes associated to the Encounter. Date/Time Encounter Note(s) Provider Source May 26, 2024 09:04 AM CAREGIVER CERTIFIC ATE: LOCAL TITLE: [facility] WELLNESS CONTACT CAREGIVER STANDARD TITLE: CAREGIVER CERTIFICATE DATE OF NOTE: MAY 26, 2024@09:04 ENTRY DATE: MAY 26, 2024@09:04:34 AUTHOR: SRUTHI GONZALEZ EXP COSIGNER: URGENCY: STATUS: COMPLETED Caregiver Support Program [facility] Wellness Contact Caregiver This Family Caregiver is enrolled in [place]'s Program of Comprehensive Assistance for Family Caregivers (PCAFC). While enrolled in PCAFC, wellness contacts review the 's well-being, adequacy of personal care services being provided by the Family Caregiver(s), and the well-being of the Family Caregiver(s). Wellness contacts occur at a minimum of once every 120 days, and at least one visit must occur in the eligible 's home on an annual basis. Date of visit: May Length of visit: 10 minutes The Caregiver was identified using the following rubin identifiers: Full Name: JOSE DE JESUS HANCOCK Date of : [birth year] Full Address: [address] [place], [place] [address] Phone #: Email address: Patient Email - NONE FOUND Is the above contact information in the electronic health record and the Caregiver Support Program IT system, correct? Yes Reason for contact: Routine (120-day contact) Method of contact: Video Telehealth Contact number for backup/emergency communication: Caregiver location during visit: Home [address] [place] [address] Caregiver confirms location is safe and private for visit. Telehealth Disclosure: Visit conducted by synchronous telehealth. Caregiver verbal consent obtained. Location/emergency number confirmed. Environment surveyed and all participants identified. Virtual conference room locked. CAREGIVER INFORMATION The caregiver is a: Primary Family Caregiver Caregiver is providing care to: Name: Temo Alaniz The caregiver lives with the Armstrong. CAREGIVER ASSESSMENT How has your physical/mental/emotional health been lately? Details: Caregiver reports she has had issues with her knee which is impacting her back and other knee. Caregiver reports she will follow up with her doctor in early June and thinks she will need surgery (TKR). Caregiver reports she has had a few falls because her knee has given out on her which caused her to fall. Caregiver denies any injuries when she falls. Caregiver reports she has been taking Wegovy to try and lose weight but has not lost any weight with this treatment. She reports she took a shot on Sunday but plans to stop this treatment. She reports she joined a gym and is going to try and walk in the pool and get some exercise to help lose some weight. Caregiver reports her mental health has been pretty good . Have you experienced any changes (falls, ER visits, hospitalizations) and/or any concerns? Yes, Details: Caregiver reports she has had a few falls d/t her knee giving out . She denies any injuries from falls. Denies and ER visits or hospitalizations. What is most important to you about your health and overall well-being? Details: Caregiver reports she wants to lose weight and get her knee issue addressed. Caregiver reports she thinks she has no other options at this point other than knee surgery (TKR). What goals or needs can we assist you with? Details: Caregiver reports she can't think of anything at this time. Are there training topics or resources that you would like to learn more about? Details: Caregiver reports she doesn't know of anything. Caregiver reports she does get the [facility] newsletter and does review it. Do you have any legal or financial planning concerns? No Do you feel comfortable and safe in your home environment? Yes Do you have a personalized respite plan? No - Discussed the importance of respite Details: is currently receiving care via [facility] program. Caregiver reports she is one of the caregivers in [facility]. Caregiver reports she has two other caregivers via this program and also private pays 2 additional people to assist with Armstrong's care. SCREENING TOOLS [facility] Staff provided information on the following resources and support: - Virtual Psychotherapy Program for Caregivers (VPPC) SUMMARY AND PLAN OF SUPPORT: Caregiver reports she returned from a vacation last week. Caregiver reports she will be flying with the to [place] later this week. She reports the will be going to stay with his other daughter until the end of May. Caregiver reports her sister was able to hire a caregiver via [email or web address] to help with Armstrong's care while he is staying with her. Caregiver reports she pays for her sister to rent a handicap accessible vehicle they can use while the stays with her. Caregiver reports she has had issues with her knee and it has not improved. She reports she goes back to the doctor in early June and is thinking she will need to be scheduled for knee replacement. Caregiver reports she has been trying to lose weight but has not had much success. She reports the knee pain has made it difficult. Caregiver reports she was taking Wegovy but plans to stop this treatment as she has not lost any weight. Caregiver reports she and her spouse did join a gym and she is hoping to get some exercise that will help her lose weight. 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 Caregiver reports she will cover another teacher's maternity leave June-July. Caregiver reports she knows how to contact the [facility] team if she has any concerns or questions about the Armstrong's care. Business Center Attendant thanked the Caregiver for her time and assistance this date. /jorge/ SRUTHI LOU CCM RN RN BORDER MACHINE OPERATOR, CAREGIVER SUPPORT PROGRAM Signed: 05/26/2024 10:14 SRUTHI GONZALEZ [facility]
--- OUTSIDE RECORDS SUMMARY | 2024-06-27 09:52 | XMS_ITS ---
Author Organization [facility] Address [address] [place], [place] [id number] Care Team Providers Care Voip Network Engineer Name Role Phone CAIT PEREZ Unavailable [phone] Kacey Martinez Unavailable Unavailable REASON FOR VISIT PHYSICAL THERAPY Encounters Encounter Location Date Provider Diagnosis [facility] [address] [place], [place] [id number] 07/31/2023 CAIT SNKEO Plan Of Treatment No Information Progress Notes * JOSE DE JESUS HANCOCK LDOB:[birth year] (63 yo F)Acc No.[id number]:07/31/2023 Patient: RAZ DEJHONATHAN Dorado :1960 A ge:63 Y S ex:Female Address:[address] [place] [address], [address] * true * Date: Generated for Jayne craven/Rose Marie/eTransmitting on: 0 06/27/2024 09:52 AM AIRCONDITIONING ENGINEER
--- OUTSIDE RECORDS SUMMARY | 2024-06-27 09:53 | XMS_ITS | Encounter Summary ---
Author Organization [facility] Address [address] [place] [address] Care Team Providers Care Glue Maker Bone Name Role Phone Hitesh Kowalski MD Primary Care Provider [phone] Encounter Details Date Type Department Care Team (Late st Contact Info) Description 03/04/2024 Newsvine Message Enc [facility] Medical Group Orthopedic & Sports Medicine - [place] [address] [place] [address] Eriberto Cruz MD [address] [place] [address] Right knee Social History Tobacco Use Types Packs/Day Years Used Date Smoking Tobacco: Former Cigarettes 1 20 986 - 2005 Passive Smoke Exposure: Never Smokeless Tobacco: Never Alcohol Use Standard Drinks/Week Comments Yes 0 (1 standard drink = 0.6 oz pur e alcohol) socially PHQ-2 Answer Date Recorded Patient Health Questionnaire-2 Score 0 09/24/2023 Education Answer Date Recorded What is the highest level of school you have completed or the highest degree you have received? Master's degree (e.g., MA, MS, Gianna, MEd, OPHTHALMOLOGIST, HÉCTOR) 06/21/2021 Comments No Sex and Gender [...] on filedocumented in this encounter Care Teams Glue Maker Bone Relationship Specialty Start Date End Date Hitesh Kowalski MD [address] [place] [address] PCP - General 01/14/24 documented as of this encounter
--- OUTSIDE RECORDS SUMMARY | 2024-06-27 09:53 | XMS_ITS | Continuity of Care Document ---
Author Name [facility] Organization [facility] Care Team Providers Care Manpower Development Specialist Name Role Phone [facility] Unavailable Unavailable Problems Combined list of problems from Department of Defense and Veterans Affairs facilities. It does not include entries that were removed or entered in error. Problem Status Onset Date Problem Type Date of Resolution Comments Source Patient Counseling Medical Management Five To Eight Patients Inactive 06/06/19 08 Condition Attended the final Core four weight management class. Discussed goal setting using SMART criteria, and relapse prevention. Reviewed FITT principle and fitness program planning. [facility] Patient Education - Action Plan Inactive Condition DoD abdominal pain in the right upper belly (RUQ) Active Condition DoD abdominal pain Active Condition DoD closed fracture distal phalanx 3rd finger right Active Condition X-ray wnl. No fx noted but still painful and swelling to mid phalanges of r hand mid finger. Pt had injury 3 months ago. [facility] Patient Counseling Medical Management Individual Patient Active Condition Patient attended 3 of 6 core four classes. Stated nutrition goal: control portions, fitness goal: incorporate weight training twice a week; relaxation goal: incorporate relaxation daily.Compared to the initial assessment using the Body Stat measurements, pt has:lost 7 lbsreduced BMI by 0.8increased waist by 1 inchincreased fat % by .1%reduced fat by 1.8 lbsreduced lean weight by 5.3lbsShe is currently following the eating plan from the upping your metabolism class. She states she has not been consistent with weight training but does cardio routinely. Suggested focusing on her level of training (reaching target heart rate) when doing cardio and adding weight training twice a week. [facility] migraine headache Active Condition [facility] Patient Counseling Medical Management Two To Four Patients Inactive Condition Patient presented with her for the Initial assessment for [facility] Four weight management program. Reviewed health history and latest lipid results if available. Weight, blood pressure, waist measurement and body composition obtained. Discussed components of class - change theory, fitness, nutrition, stress management and relaxation techniques, and goal setting. [facility] tendonitis Active Condition symptoms resolving DoD visit for: follow-up exam Inactive Condition B/L wrist nicolas n, suspect OA vs overuse injury. Will obtain x-rays, further w/u based on results. Advised motrin/anti-inf lamatory prn. Pt will be moving to [place] in one week, instructed pt to obain records so that she may have f/u at her new location. DoD benign paroxysmal positional vertigo Inactive Condition Augustin shepard uver discussed. If worsens, will need an mri. Will will start on flonase for sinus symptoms as well DoD hyperlipidemia Active Condition DoD breast lump or mass Inactive Condition DoD routine gynecological exam with cervical pap smear Inactive Condition DoD visit for: screening exam for malignant neoplasm cervix Inactive Condition DoD lightheadedness Inactive Condition MRI was normal per pt. I suspect BPV vs adverse medication reaction. Advised her to D/C angelique and f/u with her neurologist if symptoms continue. Discussed BPV and treatment. No need for cardiac w/u at this time DoD visit for: issue repeat prescription Inactive Condition DoD foot pain (soft tissue) Inactive Condition Likely seconsdary to her shoes (no heel support and no laces.) Asked her to wear more supportive shoes for one month and return if not improved. No need for xrays based on Dare rules. DoD visit for: screening exam depression Inactive Condition Discussed pancreatice CA, no genetic link and no screening. Told pt about self referral for counseling. She does not desire SSRI at this time. No SI/HI DoD Need For Vaccination Against Influenza Inactive Condition Flumist 0. 2ml given intranasal. 0.1ML in each nostril. Word Processing Operator: UClass, Lot# [id number], Exp: 11/25 DoD breast lump or mass right Inactive Condition discussed options with pt. she had imaging tests done 6 months ago, and the palpable area seems consistent with the cyst that was seen on the ultrasound in February. Will repeat the ultrasound to verify that this is the palpable area and further work-up DoD psoriasis Inactive Condition DoD tension-type headache Inactive Condition Pt's symptoms are not consistant with migraines. She believes they may be due to sinus pressure and tension. Will restart her on flonase and will start claritin. DoD visit for: issue repeat prescription for medication Inactive Condition DoD Laboratory Studies Inactive Condition L eft a msg on her cell phone that I'm not concerned about her labs but would rec getting a repeat in 4-6 mos after diet and exercise re-eval and see where she's at. Her mom gave me cp # - she can c/b w/ any ?s. DoD bursitis olecranon Inactive Condition Do D cellulitis of the forearm Inactive Condition [facility] cellulitis Inactive Condition [facility] Diagnosis: ICD-10-CM Z63.6 Dependent relative needing care at home Active Diagnosis [facility] Diagnosis: ICD-10-CM Z74.1 Need for assistance with personal care Active Diagnosis [facility] Medications Combined list of outpatient medications from Department of Defense and [facility] Affairs facilities.Medications provided include 1) outpatient medications from the last 15 months, and 2) patient-reported medications. Medication Details Route Status Patient Instructions Prescription Expires Prescription Number Last Dispense Date Ordering Provider Order Date Order Qty Source ACYCLOVIR (acyclovir) , 800 MG, TABLET, ORAL, [employer] 100 ea. BOTTLE Active [id number] 2023 6 Pharmac y Data Transac tion Service Facilit y ALBUTEROL SULFATE HFA (albuterol sulfate), 90 MCG, HFA AER AD, INHALATION, [facility]/ IKMA, 6.7 g CANISTER Cancele d [id number] : 2023 0 Pharmac y Data Transac tion Service Facilit y Benzonatate ([employer]) 100 CAPSULE in 1 BOTTLE Active [id number] 09/27/19 2 4 2023 30 Pharmac y Data Transac tion Service Facilit y BUTALBITAL- ACETAMINOPH EN-CAFFE (butalbital /acetaminop hen/caffein e), 50-325-40, TABLET, ORAL, [employer] 500 ea. BOTTLE Active [id number] 3 2023 30 Pharmac y Data Transac tion Service Facilit y CELECOXIB (celecoxib) , 100 MG, CAPSULE, ORAL, [employer], 100 ea. BOTTLE Active [id number] 4 2023 60 Pharmac y Data Transac tion Service Facilit y CELECOXIB (celecoxib) , 100 MG, CAPSULE, ORAL, [employer], 100 ea. BOTTLE Active [id number] 4 2023 60 Pharmac y Data Transac tion Service Facilit y DEXAMETHASO NE (dexamethas one), 4 MG, TABLET, ORAL, NOVITIUM/AN I PH, 100 ea. BOTTLE Active [id number] 4 2023 28 Pharmac y Data Transac tion Service Facilit y DOXYCYCLINE HYCLATE (doxycyclin e hyclate), 100 MG, TABLET, ORAL, [employer], 500 ea. BOTTLE Cancele d [id number] : 2023 0 Pharmac y Data Transac tion Service Facilit y GABAPENTIN (GABAPENTIN ), 600MG, TABLET, ORAL, P[employer], 500 ea. BOTTLE Active [id number] 4 2023 180 Pharmac y Data Transac tion Service Facilit y HYDROCODONE -ACETAMINOP HEN (HYDROCODON E/ACETAMINO PHEN), 7.5-325MG, TABLET, ORAL, MALLINCKROD T PH, 500 ea. BOTTLE Active [id number] 4 2023 28 Pharmac y Data Transac tion Service Facilit y HYDROCODONE -ACETAMINOP HEN (HYDROCODON E/ACETAMINO PHEN), 7.5-325MG, TABLET, ORAL, MALLINCKROD T PH, 500 ea. BOTTLE Active [id number] 4 2023 28 Pharmac y Data Transac tion Service Facilit y Meloxicam (Meloxicam) , 15mg, Tablet, Oral, [employer], 1000 Ea. Bottle Active [id number] 4 2023 30 Pharmac y Data Transac tion Service Facilit y Meloxicam (Meloxicam) , 15mg, Tablet, Oral, [employer], 1000 Ea. Bottle Active [id number] 4 2023 30 Pharmac y Data Transac tion Service Facilit y PAXLOVID (nirmatrelv ir/ritonavi r), 300-100 MG, TAB DS PK, ORAL, [employer] 30 ea. BLIST PACK Cancele d [id number] : 2023 0 Pharmac y Data Transac tion Service Facilit y PAXLOVID (nirmatrelv ir/ritonavi r), 300-100 MG, TAB DS PK, ORAL, [employer] 30 ea. BLIST PACK Active [id number] 4 2023 30 Pharmac y Data Transac tion Service Facilit y PREDNISONE (prednisone ), 20 MG, TABLET, ORAL, NOVITIUM/AN I PH, 500 ea. BOTTLE Cancele d [id number] : 2023 0 Pharmac y Data Transac tion Service Facilit y PREDNISONE (prednisone ), 20 MG, TABLET, ORAL, NOVITIUM/AN I PH, 500 ea. BOTTLE Active [id number] 2023 10 Pharmac y Data Transac tion Service Facilit y ROSUVASTATI N CALCIUM (rosuvastat in calcium), 20 MG, TABLET, ORAL, [employer], 90 ea. BOTTLE Cancele d [id number] : 2023 0 Pharmac y Data Transac tion Service Facilit y ROSUVASTATI N CALCIUM (rosuvastat in calcium), 20 MG, TABLET, ORAL, [employer]ACE, 90 ea. BOTTLE Active [id number] 4 2023 90 Pharmac y Data Transac tion Service Facilit y SERTRALINE HCL (SERTRALINE HCL), 50MG, TABLET, ORAL, LUPIN PHARMACEU, 500 ea. BOTTLE Active [id number] 2023 45 Pharmac y Data Transac tion Service Facilit y SERTRALINE HCL (SERTRALINE HCL), 50MG, TABLET, ORAL, LUPIN PHARMACEU, 500 ea. BOTTLE Active [id number] 2023 45 Pharmac y Data Transac tion Service Facilit y SERTRALINE HCL (SERTRALINE HCL), 50MG, TABLET, ORAL, LUPIN PHARMACEU, 500 ea. BOTTLE Active [id number] 2023 45 Pharmac y Data Transac tion Service Facilit y SERTRALINE HCL (SERTRALINE HCL), 50MG, TABLET, ORAL, LUPIN PHARMACEU, 500 ea. BOTTLE Active [id number] 4 2023 45 Pharmac y Data Transac tion Service Facilit y SERTRALINE HCL (SERTRALINE HCL), 50MG, TABLET, ORAL, LUPIN PHARMACEU, 500 ea. BOTTLE Active [id number] 4 2023 45 Pharmac y Data Transac tion Service Facilit y Allergies, Adverse Reactions, Alerts Combined list of allergies from Department of Defense and Veterans Affairs facilities. It does not include entries that were removed or entered in error. Substance Category Reaction Severity Reaction type Status Date Reported Comments Source No Known Allergies Drug allergy (disorder) active 10/23/2007 [employer] Brannon THOMAS ([facility] Immunizations Combined list of available immunizations from the Department of Defense and Veterans Affairs facilities. Immunization Series Date Given Administered By Site Reaction Lot Number CVX Code Drug Word Processing Operator Status Comments Source tetanus, diphtheria, acellular pertu is 2021 Terell arzate Arm [id number] [facility] complet ed tetanus, diphtheri a, acellular pertussis 09/14/21 Given Ambulat ory Pharmac y tetanus toxoid, reduced diphtheria toxoid, and acellular pertu is vaccine, adsorbed 1 2021 Unknown, Provider [id number] 115 [place] ([place] complet ed tetanus toxoid, reduced diphtheri a toxoid, and acellular pertussis vaccine, adsorbed DoD COVID-19, mRNA, LNP-S, PF, 100 mcg or 50 mcg dose 2020 ALYCIA, [employer] (MOD) Not Given COVID-19, mRNA, LNP-S, PF, 100 mcg or 50 mcg dose DoD zoster recombinant 2019 ALUL, () Not Given zoster recombina nt DoD zoster recombinant 2019 ALUL, () Not Given zoster recombina nt DoD influenza, injectable, quadrivalent, preservative free 2019 ALUL, () Not Given influenza , injectabl e, quadrival ent, preservat ashkan free DoD Influenza, injectable, MDCK, preservative free, quadrivalent 2018 ALUL, () Not Given Influenza , injectabl e, MDCK, preservat ashkan free, quadrival ent DoD Tdap 2018 ALUL, () Not Given Tdap DoD Influenza, inj, MDCK, quadrivalent- pf 2017 171 [employer] complet ed Influenza , inj, MDCK, quadrival ent-pf 04/18/18 Given Ambulat ory Pharmac y influenza, injectable, quadrivalent, preservative free 2016 ALUL, () Not Given influenza , injectabl e, quadrival ent, preservat ashkan free DoD influenza, seasonal, injectable-pf 2013 140 CSL Behring complet ed influenza , seasonal, injectabl e-pf 04/04/14 Given Ambulat ory Pharmac y influenza, seasonal, injectable 2009 141 Novartis Pharmaceutica ls complet ed influenza , seasonal, injectabl e 03/19/10 Given Ambulat ory Pharmac y influenza virus vaccine, live 2006 [id number] [employer] [facility] [facility] [employer] comple t ed influenza virus vaccine, live 04/10/07 Given Ambulat ory Pharmac y influenza virus vaccine, live, attenuated, for intranasal use 1 2006 Unknown, Provider [id number] 111 UClass, [employer] (MED) complet ed influenza virus vaccine, live, attenuate d, for intranasa l use [facility] influenza virus vaccine,split 2005 zzLef t Arm [id number] 15 GlaxoSmithKli ne complet ed influenza virus vaccine,s plit 05/15/06 Given Ambulat ory Pharmac y influenza virus vaccine, split virus (incl. purified surface antigen)-reti red CODE 1 2005 Unknown, Provider [id number] 15 [employer] (SKB) complet ed influenza virus vaccine, split virus (incl. purified surface antigen)- retired CODE DoD Td (adult)-PF 2003 zGeovani t Arm 113 complet ed Td (adult)-P F 07/02/03 Given Ambulat ory Pharmac y measles/mumps /rubella virus vaccine 2003 Danielef t Arm 03 complet ed measles/m umps/rube lla virus vaccine 07/02/03 Given Ambulat ory Pharmac y measles, mumps and rubella virus vaccine 1 2003 Unknown, Provider 03 () complet ed measles, mumps and rubella virus vaccine [facility] tetanus and diphtheria toxoids, adsorbed, preservative free, for adult use (5 Lf of tetanus toxoid and 2 Lf of diphtheria toxoid) 1 2003 Unknown, Provider 113 () complet ed tetanus and diphtheri a toxoids, adsorbed, preservat ashkan free, for adult use (5 Lf of tetanus toxoid and 2 Lf of diphtheri a toxoid) DoD influenza virus vaccine, whole virus 2001 zzLef t Arm [id number] [employer] complet ed influenza virus vaccine, whole virus 04/07/02 Given Ambulat ory Pharmac y influenza virus vaccine, whole virus 1 2001 Unknown, Provider [id number] [facility] complet ed influenza virus vaccine, whole virus DoD influenza virus vaccine, whole virus 2000 zzLef t Arm [id number] 16 sanofi pasteur complet ed influenza virus vaccine, whole virus 04/20/01 Given Ambulat ory Pharmac y influenza virus vaccine, whole virus 1 2000 Unknown, Provider [id number] 16 Sanofi Pasteur (PMC) complet ed influenza virus vaccine, whole virus DoD Encounters Combined list of: 1) Encounters from Department of Veterans Affairs facilities going backup to the last 18 months, not all VA inpatient encounters are included; 2) Encounters from the Department of Defense facilities going backup to 280 months. Location Location Details Encounter Type Encounter Number Reason For Visit Attending Provider ADM Date DC Date Status Disposition Source [address] [place] [address] [facility]annon [facility] DIRECT TO [facility] FROM OTHER THAN ER OR [facility] [id number] 10/13 DISCHARGED HOME [address] [place] [address] Brannon [facility] [address] [place] [address] Brannon [facility] Fam Res [place]) OUTPATIENT [id number] rt elbow swellne ss (not inj) YANI BARRERA 10/[address] [place] [address] [facility]annon [facility] [facility] Fam [facility] [place]) [address] [place] [address] Brannon THOM[facility]oped[facility] OUTPATIENT [id number] arm fx RADHA GARCIA 10/21 Released w/o Limitations [address] [place] [address] Brannon TH[facility]V A - Orthope dics) [address] [place] [address] Brannon [facility] OUTPATIENT [id number] RADHA GARCIA 10/26 Released w/o Limitations [address] [place] [address] Brannon THOMAS ([facility]V A - Orthope dics) [address] [place] [address] Brannon NORRISB ([facility] [facility] TELE CONSULT [id number] Elbow RADHA GARCIA F 11/[address] [place] [address] Brannon NORRISB ([facility]V A - Orthope dics) [address] [place] [address] Brannon NORRISB ([facility] TELE CONSULT [id number] elbow RADHA GARCIA F 11/[address] [place] [address] Brannon NORRISB ([facility]V A - Orthope dics) [address] [place] [address] Brannon NORRISB ([facility]Sco [facility] Fam Res [place]) TELE CONSULT [id number] hyperli pidemia follow- up MARU GAO 11/[address] [place] [address] Brannon THOMAS ([facility]S cott [facility] Fam Res [place]) [address] [place] [address] Brannon NORRISB ([facility]Sco tt [facility] FAMRES Tm Blue) OUTPATIENT [id number] F/U Lipid panel of August MARU GAO 12/07 Released w/o Limitations [address] [place] [address] Brannon THOMAS ([facility]S cott [facility] [employer] Tm Blue) [address] [place] [address] Brannon NORRISB ([facility]Sco tt [facility] Tm Blue) TELE CONSULT [id number] c/b lipids MARU GAO 04/[address] [place] [address] Brannon THOMAS ([facility]S cott OF [employer] Tm Blue) [address] [place] [address] Brannon NORRISB ([facility]Sco tt [facility] [employer] Tm Blue) TELE CONSULT [id number] SCARLETT Bustillos 04/[address] [place] [address] Brannon NORRISB ([facility]S cott [facility] [employer] Tm Blue) [address] [place] [address] Brannon NORRISB ([facility]Sco tt [facility] [employer] Tm Blue) OUTPATIENT [id number] F/U HEADACH E/ALLER GENNARO ANNE 07/31 Released w/o Limitations [address] [place] [address] Brannon NORRISB ([facility]S cott [facility] [employer] Tm Blue) [address] [place] [address] Brannon NORRISB ([facility]Sco tt [facility] [employer] Tm Blue) OUTPATIENT [id number] lump in breast RAFY HACKETT 10/17 Released w/o Limitations [address] [place] [address] Brannon NORRISB ([facility]S cott [facility] Tm Blue) [facility] [employer] ([facility]Sco tt [facility] [employer] Tm Blue) OUTPATIENT [id number] FOOT PROBLEM S GENNARO GUSTAFSON 05/15 Released w/o Limitations [address] [place] [address] [employer] ([facility]S cott [facility] [employer] Tm Blue) [address] [place] [address] [employer] ([facility]Sco tt [facility] [employer] Tm Blue) OUTPATIENT [id number] Light headedn ess, dizzine ss GENNARO GUSTAFSON 06/14 Released w/o Limitations [address] [place] [address] [employer] ([facility]S [facility] [employer] Tm Blue) [facility] [employer] ([facility])(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) OUTPATIENT [id number] well woman RAVEN BRAND 07/12 Released w/o Limitations [address] [place] [address] Brannon NORRSIB ([facility])(G ynecolo gy) [facility] [employer] (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) TELE CONSULT [id number] Lipid results RAVEN BRAND 07/[address] [place] [address] [employer] ([facility])(G ynecolo gy) [facility] [employer] ([facility]Sco tt [facility] [employer] Tm Blue) OUTPATIENT [id number] R EAR PAIN X 2 [id number] GENNARO GUSTAFSON 10/04 Released w/o Limitations [address] [place] [address] [employer] ([facility]S cott [facility] [employer] Tm Blue) [facility] [employer] ([facility])(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) TELE CONSULT [id number] Elevate d chol RAVEN BRAND 10/[address] [place] [address] [employer] ([facility])(G ynecolo gy) [facility] [employer] ([facility]Sco tt [employer] [employer] [employer] Tm Blue) TELE CONSULT [id number] muscle pain GENNARO GUSTAFSON 11/[address] [place] [address] [employer] ([facility]S [facility] [employer] Tm Blue) [address] [place] [address] [employer] ([facility]Sco tt [facility] [employer] Tm Blue) OUTPATIENT [id number] check up on lipator LAYLA KRISHNAN 12/18 Released w/o Limitations [address] [place] [address] Brannon THOMAS ([facility]S teodoro [facility] [employer] Tm Blue) [facility]) OUTPATIENT [id number] cholest rol check and referra l NANCI BASURTO 03/11 Released w/o Limitations [facility]) [facility]) OUTPATIENT [id number] scalp conditi on TEETEE CINTRON 03/14 Released w/o Limitations [facility]) [facility]) OUTPATIENT [id number] rx renewal ZACARIAS NICKERSON 03/26 Released w/o Limitations [facility]) [facility]) OUTPATIENT [id number] perscri ption refills ZACARIAS NICKERSON 04/08 Released w/o Limitations [facility] Primary Care) [facility] Immunizat ion) OUTPATIENT [id number] flumist SANDRA ROSA 04/10 Released w/o Limitations [facility] Immuniz ation) [facility] Primary Care) OUTPATIENT [id number] f/u rx review ZACARIAS NICKERSON 04/17 Released w/o Limitations [facility]) [facility]) TELE CONSULT [id number] Civ consult - RADIOLO NANCI WILLIAM 05/07 [facility] Primary Care) [facility] Wellness Program) OUTPATIENT [id number] core four initial assessm ent ALVA PAPPAS 05/23 Released w/o Limitations [facility] Wellnes s Program ) [facility] Wellness Program) OUTPATIENT [id number] core four class ALVA PAPPAS 06/06 Released w/o Limitations [facility] Wellnes s Program ) [facility] Primary Care) OUTPATIENT [id number] rx renewal / elbow pain DEIDRA, FLACO 06/24 Released w/o Limitations [facility] Primary Care) [facility] Wellness Program) OUTPATIENT [id number] core four 6 week eval PAPPASALVA PINO 07/11 Released w/o Limitations [facility] Wellnes s Program ) [facility] Wellness Program) OUTPATIENT [id number] core four class PAPPASALVA PINO 07/11 Released w/o Limitations [facility] Wellnes s Program ) [facility] Primary Care) OUTPATIENT [id number] jammed finger DEIDRA, FLACO08/18 Released w/o Limitations [facility] Primary Care) [facility] Wellness Program) OUTPATIENT [id number] core four final assessm ent PAPPASALVA PINO 10/01 Released w/o Limitations [facility] Wellnes s Program ) [facility] Primary Care) OUTPATIENT [id number] continu ous pain in right side DEIDRA, FLACO 10/22 Released w/o Limitations [facility] Primary Care) [facility] Primary Care) OUTPATIENT [id number] FOL DEIDRA, FLACO 10/29 Released w/o Limitations [facility] Primary Care) [facility] Wellness Program) OUTPATIENT [id number] fitness assessm ent CHACE KHAN 11/25 Released w/o Limitations [facility] Wellnes s Program ) [facility] Wellness Program) OUTPATIENT [id number] menopau se ALVA Flores 12/01 Released w/o Limitations [facility] Wellnes s Program ) [facility] THOM[facility]Fam elle Med Tm B Non-AD BCC) OUTPATIENT [id number] 8 meds and ref request in person [phone] CESAR BENNETT 05/05 Released w/o Limitations [address] [place] [address] Group Brannon THOMAS ([facility]F amily Med Tm B Non-AD BCC) [address] [place] [address] Brannon THOMAS ([facility]Fam elle Med Tm B Non-AD BCC) TELE CONSULT [id number] Notes Entered by: JALEN PALOMARES RET 24 May 2021 1342 ------- ------- ------- ------- -- Podiatr y Aydin reyes/ LAYLA CULVER 05/24 Immediate Referral [address] [place] [address] [facility]annon THOMAS ([facility]F amily Med Tm B Non-AD BCC) [address] [place] [address] Brannon THOMAS ([facility])(Fam elle Med Tm B Non-AD BCC) TELE CONSULT [id number] Notes Entered by: CESAR BENNETT 05 Jul 2021 1339 ------- ------- ------- ------- -- lab results CESAR BENNETT 07/[address] [place] [address] Brannon THOMAS ([facility]F amily Med Tm B Non-AD BCC) [address] [place] [address] Brannon TH[facility]Fam elle Med Tm B Non-AD BCC) TELE CONSULT [id number] 5 Notes Entered by: VISHAL VALDIVIA 16 Aug 2021 1127 ------- ------- ------- ------- -- aydin pinon /capo /[phone] JEB Vincent 08/16 Immediate Referral [address] [place] [address] Brannon THOMAS ([facility]F amily Med Tm B Non-AD BCC) [address] [place] [address] Brannon THOMAS ([facility])(Fam elle Med Tm B Non-AD BCC) OUTPATIENT [id number] f/u for neck pain [phone] CESAR BENNETT 09/09 Released w/o Limitations [address] [place] [address] Brannon THOMAS ([facility])(F amily Med Tm B Non-AD BCC) [address] [place] [address] Brannon THOMAS ([facility]Fam elle Med Tm B Non-AD BCC) TELE CONSULT [id number] Notes Entered by: CESAR BENNETT 14 Sep 2021 1338 ------- ------- ------- ------- -- XR results CESAR BENNETT 09/[address] [place] [address] [facility])(F amily Med Tm B Non-AD BCC) [address] [place] [address])(Fam elle Med Tm B Non-AD BCC) TELE CONSULT [id number] Notes Entered by: Vandana RODRÍGUEZ 22 Sep 2021 0817 ------- ------- ------- ------- -- Network results Physica l Therapy Initial Eval 2 TSCESAR NANCE 09/[address] [place] [address] [facility])(F amily Med Tm B Non-AD BCC) [address] [place] [address])(Fam elle Med Tm B Non-AD BCC) TELE CONSULT [id number] Notes Entered by: CESAR BENNETT 22 Sep 2021 1130 ------- ------- ------- ------- -- lab results NATASHA CASTILLO 09/22 Released to Self [facility] [address] [place] [address] [facility])(F amily Med Tm B Non-AD BCC) [address] [place] [address] [facility])(Fam elle Med Tm B Non-AD BCC) TELE CONSULT [id number] 6 Notes Entered by: SINAN ALVAREZ 13 Oct 2021 0902 ------- ------- ------- ------- -- Network results Physica l Therapy 022 CESAR DRISCOLL 10/[address] [place] [address] Br[facility])(F amily Med Tm B Non-AD BCC) [facility] Outpatient Encounter [id number] 12/27 [facility] Outpatient Encounter [id number] 01/04 [facility] Outpatient Encounter [id number] 01/09 [facility] Outpatient Encounter [id number] 01/23 [facility] PROGRAM INTAKE ASSESSMENT [id number] Diagnos is: ICD-10- CM Z63.6 Depende nt relativ e needing care at home Ave GONZALEZ FELICITAS L 01/29 [facility] CASE MANAGEMENT [id number] Diagnos is: ICD-10- CM Z63.6 Depende nt relativ e needing care at home MYKEL LINDO A L 05/28 [facility] Outpatient Encounter [id number] 09/24 [facility] PROGRAM INTAKE ASSESSMENT [id number] Diagnos is: ICD-10- CM Z74.1 Need for assista nce with persona KIARA Bartlett LEE 09/26 [facility] PROGRAM INTAKE ASSESSMENT [id number] Diagnos is: ICD-10- CM Z74.1 Need for assista nce with persona KIARA Bartlett LEE 01/27 [facility] Outpatient Encounter [id number] 02[facility] Encounter [id number] 05/26 [facility] PROGRAM INTAKE ASSESSMENT [id number] Diagnos is: ICD-10- CM Z63.6 Depende nt relativ e needing care at home Ave GONZALEZ FELICITAS L 05/26 [facility] Procedures Combined list of: 1) Procedures from Department of [facility] facilities going back up to thelast 18 months, not all [place] non-surgical procedures are included; 2) All procedures from the Department of Defense facilities. Procedure Procedure Type Code Date Perfomer Comments Sourc e No data available for this section [facility] Pharmacy TELE ASSESS & MGT SRV PROV QUAL NONPHYS HLTH CARE PRO TO EST PAT,PARENT,GUARD NOT ORIG REL ASSESS & MGT SRV PROV W/IN PREV 7 DAYS NOR LEAD ASSESS & MGT SRV/PX W/IN NXT 24 HR/SOON APT;5-10 MIN MED DIS 09/23/19 22 [facility] TELE ASSESS & MGT SRV PROV QUAL NONPHYS HLTH CARE PRO TO EST PAT,PARENT,GUARD NOT ORIG REL ASSESS & MGT SRV PROV W/IN PREV 7 DAYS NOR LEAD ASSESS & MGT SRV/PX W/IN NXT 24 HR/SOON APT;5-10 MIN MED DIS 08/17/19 22 [facility] TELE ASSESS & MGT SRV PROV QUAL NONPHYS HLTH CARE PRO TO EST PAT,PARENT,GUARD NOT ORIG REL ASSESS & MGT SRV PROV W/IN PREV 7 DAYS NOR LEAD ASSESS & MGT SRV/PX W/IN NXT 24 HR/SOON APT;5-10 MIN MED DIS 05/24/19 22 [facility] SCREENING PAPANICOLAOU SMEAR; OBTAINING, PREPARING AND CONVEYANCE OF CERVICAL OR VAGINAL SMEAR TO LABORATORY 07/12/19 07 [facility] INFLUENZA VIRUS VACCINE, TRIVALENT (IIV3), SPLIT VIRUS, 0.5 ML DOSAGE, FOR INTRAMUSCULAR USE 05/15/20 06 [facility] INCISION AND DRAINAGE, COMPLEX, POSTOPERATIVE WOUND INFECTION 10/22/19 05 [facility] ASPIRATION OF SKIN AND SUBCUTANEOUS TISSUE 10/19/19 05 [facility] SCREENING PAPANICOLAOU SMEAR; OBTAINING, PREPARING AND CONVEYANCE OF CERVICAL OR VAGINAL SMEAR TO LABORATORY 08/26/19 05 [facility] EDUCATION &TRAINING, PATIENT SELF-MGT QUALIFIED, NONPHYSICIAN HEALTH SOFT HAT BINDER USING STANDARDIZED CURRICULUM, [id number] W THE PATIENT (COULD INCL CAREGIVER/FAMILY) EA 30 MIN; 5-8 PATIENTS 12/02/19 08 [facility] EDUCATION &TRAINING, PATIENT SELF-MGT QUALIFIED, NONPHYSICIAN HEALTH SOFT HAT BINDER USING STDIZED CURRICULUM, [id number] W THE PATIENT (COULD INCL CAREGIVER/FAMILY) EA 30 MIN; INDIVIDUAL PATIENT 10/02/19 08 [facility] EDUCATION &TRAINING, PATIENT SELF-MGT QUALIFIED, NONPHYSICIAN HEALTH SOFT HAT BINDER USING STANDARDIZED CURRICULUM, [id number] W THE PATIENT (COULD INCL CAREGIVER/FAMILY) EA 30 MIN; 5-8 PATIENTS 07/11/19 08 [facility] EDUCATION &TRAINING, PATIENT SELF-MGT QUALIFIED, NONPHYSICIAN HEALTH SOFT HAT BINDER USING STDIZED CURRICULUM, [id number] W THE PATIENT (COULD INCL CAREGIVER/FAMILY) EA 30 MIN; INDIVIDUAL PATIENT 07/11/19 08 [facility] EDUCATION &TRAINING, PATIENT SELF-MGT QUALIFIED, NONPHYSICIAN HEALTH SOFT HAT BINDER USING STANDARDIZED CURRICULUM, [id number] W THE PATIENT (COULD INCL CAREGIVER/FAMILY) EA 30 MIN; 5-8 PATIENTS 06/06/19 08 [facility] PATIENT EDUCATION, NOT OTHERWISE CLASSIFIED, NON-PHYSICIAN PROVIDER, INDIVIDUAL, PER SESSION 05/23/19 08 [facility] IMMUNIZATION ADMINISTRATION BY INTRANASAL OR ORAL ROUTE; 1 VACCINE (SINGLE OR COMBINATION VACCINE/TOXOID) 04/10/20 07 [facility] SCREENING PAPANICOLAOU SMEAR, CERVICAL OR VAGINAL, UP TO THREE SMEARS, REQUIRING INTERPRETATION BY PHYSICIAN 08/31/19 01 [facility] HEPATITIS B VACCINE (HEPB), ADULT DOSAGE, 3 DOSE SCHEDULE, FOR INTRAMUSCULAR USE 09/13/19 00 [facility] HEPATITIS B VACCINE, ADOLESCENT/HIGH RISK DOSAGE, FOR INTRAMUSCULAR USE 03/29/19 99 [facility] Patient Counseling Medical Management Five To Eight Patients Patient Counseling Medical Management Five To Eight Patients [id number] 12/02/19 08 ALVA PAPPAS [facility] Patient Counseling Medical Management Individual Patient Patient Counseling Medical Management Individual Patient [id number] 10/02/19 08 ALVA PAPPAS [facility] Patient Counseling Medical Management Five To Eight Patients Patient Counseling Medical Management Five To Eight Patients [id number] 07/11/19 08 ALVA PAPPAS [facility] Patient Counseling Medical Management Individual Patient Patient Counseling Medical Management Individual Patient [id number] 07/11/19 08 PAPPASALVA [facility] Patient Counseling Medical Management Five To Eight Patients Patient Counseling Medical Management Five To Eight Patients [id number] 06/06/19 08 PAPPAS ALVA Inna [facility] Patient Counseling Medical Management Two To Four Patients Patient Counseling Medical Management Two To Four Patients [id number] 05/23/19 08 ALVA PAPPAS [facility] Influenza Virus Vaccine Intranasal Live Attenuated 04/17/20 07 SANDRA ROSA [facility] Immunization Admin By Intranasal / Oral Route One Vaccine Immunization Admin By Intranasal / Oral Route One Vaccine [id number] 04/17/20 07 SANDRA ROSA [facility] Screening papanicolaou smear; obtaining, preparing and conveyance of cervical or vaginal smear to laboratory 07/12/19 07 RAVEN BRAND [facility] Immunization Administration By Injection, One Vaccine Immunization Administration By Injection, One Vaccine [id number] 05/15/20 06 LAYLA RATLIFF [facility] Influenza Split Virus Vaccine 0.5mL Dosage Intramuscular 05/15/20 06 LAYLA RATLIFF [facility] Incision And Drainage Postoperative Wound Infection, Complex Incision And Drainage Postoperative Wound Infection, Complex [id number] 10/25/19 05 KRISTOPHER RUTHERFORD [facility] Non-Physician Phone Call To Patient/Provider Brief (5-10min) Non-Physician Phone Call To Patient/Provider Brief (5-10min) [id number] LAYLA CULVER [facility] Social History Combined list of available smoking, tobacco, and other social history from Department of Defense and Veterans Affairs facilities. Social History Type Response Date Comment Sour e This section is an empty social history section. DoD Assessment and Plan Combined list of future care activities from Department of Defense and Veterans Affairs facilities (e.g., assessment and plan notes, appointments, orders, and referrals). Additional future care activities may be listed in the Plan of Care section. Result Assessment and Plan Date Source Assessment and Plan No data available for this section 06/27/2024 Ambulatory Pharmacy Functional Status Combined list of recent functional and cognitive assessments recorded at Department of Defense and Veterans Affairs (VA).VA Functional [place] Measurement (FIM) Scale: 1 = Total Assistance (Subject = 0% +), 2 = Maximal Assistance (Subject = 25% +), 3 = Moderate Assistance (Subject = 50% +), 4 = Minimal Assistance (Subject = 75% +), 5 = Supervision, 6 = Modified [place] (Device), 7 = Complete [place] (Timely, Safely). Assessment Date/Time Source Assessment Type Assessment Skill Assessment Score Assessment Details No data available for this section
--- OUTSIDE RECORDS SUMMARY | 2024-06-27 09:53 | XMS_ITS | Encounter Summary ---
Author Name [facility] [place] Organization [facility] [facility] [place] Address [address] [place] [id number] Selected Encounter This section includes the information on record at [place] for the Encounter. Date/Time Encounter Type Encounter Description Reason Provider Source Jan 28, 2024 03:49 PM PROGRAM INTAKE ASSESSMENT CAREGIVER SUPPORT PROGRAM ICD-10-CM Z74.1 Need for assistance with personal care BIJU ROSA Encounter Template Text not used by [place] Assessments - Encounter Diagnoses This section includes the primary and secondary diagnoses documented for the Encounter. Date/Time Primary/Secondary Diagnosis Diagnosis Name Provider Source Jan 28, 2024 04:24 PM PRIMARY Need for assistance with personal care BIJU ROSA [facility] Encounter Notes: All associated encounter notes This section contains the clinical notes associated to the Encounter. Date/Time Encounter Note(s) Provider Source Jan 28, 2024 03:49 PM CAREGIVER CERTIFIC ATE: LOCAL TITLE: [facility] WELLNESS CONTACT CAREGIVER STANDARD TITLE: CAREGIVER CERTIFICATE DATE OF NOTE: JAN 28, 2024@15:49 ENTRY DATE: JAN 28, 2024@15:49:21 AUTHOR: BIJU ROSA EXP COSIGNER: URGENCY: STATUS: COMPLETED Department [facility] WELLNESS CONTACT - Caregiver This Family Caregiver is enrolled in the VA's Program of Comprehensive Assistance for Family Caregivers (PCAFC). While enrolled in the PCAFC, wellness contacts are required and must review the [place]'s well-being, adequacy of personal care services being provided by the Family Caregiver(s), and the well-being of the Family Caregiver(s). This wellness contact will occur at a minimum of once every 120 days, and at least one visit must occur in the eligible [place]'s home on an annual basis. Date of Visit: _01/28/2024 Length of Visit: ___20 MINUTES _ Full Name (last, first): __ JOSE DE JESUS HANCOCK Full SSN: __[id number] Date of : _Dec Method of contact: _X_ Telehealth / [facility] Video Connect Caregiver contact details: Best contact number for backup/emergency communication with caregiver (required): Phone number: __ Caregiver location during visit: _X_ Home address: __[address] [place] [address] __ Others present for visit with caregiver's consent: Name: ____N/A Caregiver confirms location is private and safe for visit. _X_ Yes Visit conducted by clinical video telehealth: _X_Yes __No Caregiver verbal consent obtained. _X_Yes __No Location/emergency number confirmed. _X_Yes __No CAREGIVER INFORMATION The caregiver is a: _X_ Primary Family Caregiver Caregiver is providing care to: Name: DEEPAK DE LA CRUZ ___ Does the caregiver live with the ? _X_ Yes __ No Have there been any changes to the caregiver's address, telephone number or e- mail address? __ Yes Updates: ___ _X_ No Is caregiver's contact information in electronic health record and the Caregiver Support Program IT system current? _X_ Yes __ No Updates: ___ CAREGIVER ASSESSMENT How has your physical/mental/emotional health been lately? Have there been any changes (falls, ER visits, hospitalizations)? Details: CG's response, Stressful when he's in the hospital. CG reports that this stresses her because she knows that when they keep him that means it isn't good. CG reports that care takers were able to go and sit at hospital with . CG reports that outside of veterans hospital stay her physical, mental and emotional health has been pretty good. CG reports physically she can't do everything for him anymore because of her back but with the help of care takers, they are able to get all needs addressed. CG reports that she can still do things for , it just bothers her back more. CG denies having any other new or worsening concerns with her physical/mental/emotional health. CG denies hospitalizations. CG reports that she was evaluated in the ER in November d/t back and hip pain. Reports that she given steroids and pain medication in ER. CG reports that she fell in November, no injury from fall. What current challenges or stressors do you have, if any? Details: CG's response, The only real big stressor that I have is leaving him to be able to do things, live life, because overnight things can happen, he does have a call necklace and my daughter lives right down the street. How are you coping with these issues? (discuss coping skills and support systems as appropriate, consider referral to mental health) Details: Reports organizing and cleaning up to deal with stressors and also going out, getting out of the home. Reports that she and her are now both retired. Do you feel comfortable and safe in your home environment? _X_ Yes __ No Details: What additional supports do you need to care for the , if any? (discuss respite services as appropriate) Details: CG response, The only thing I can think of is more care for overnight hours. How can the Caregiver Support Program support you? What goals/needs can we assist you with? Details: CG's response, I'm good I think. SUMMARY OF VISIT/ACTION TAKEN Details: CG actively participated in [facility] wellness contact while sitting up in recliner. CG alert and oriented. CG appeared calm and pleasant and responded to all questions appropriately. Cg appeared well groomed wearing a balck and yellow tshirt, eyegelasses in place and hair pulled up in a ponytail. CG expressed one of her stressorsis limitations on travel and social like d/t care needs of . Reports that she and her will be traveling soon and that they have made arrangements for veterans care. CG expressed that she would like if they were able to be covered to have SPORTS PHYSICIAN at night. Cg reports that she does have a good support system. was recently in the hospital and discharged from hoospital today and Cg reports that when is admitted to the hospital, this is a stressful time for her. Cg denies having any other concerns, issues or requests at this time. /jorge/ BIJU ROSA RN BSN REGISTERED NURSE Signed: 01/28/2024 16:24 BIJU ROSA [facility]
--- OUTSIDE RECORDS SUMMARY | 2024-06-27 09:53 | XMS_ITS | Patient Health Record ---
Author Organization [facility] Address [address] [place], [place] [id number] Care Team Providers Care Cooker Sulfate Name Role Phone CAIT PEREZ Unavailable [phone] Kacey Martinez Unavailable Unavailable Allergies No Known Allergies Reason For Referral Reason [facility] (Establishe d Patient) 05/05/2024 REF EXT +3 ( 6 TOTAL ). KLL Diagnosis 1 Pain in right foot ( M79.671) Referred Organization [facility] Referred Provider CAIT PEREZ Referred Address [address],[place], [id number], Referred Provider Specialty Podiatry Referral Priority Routine Medications Medication SIG (Take, Route, Frequency, Duration) Notes Start Date End Date Status Medrol Dosepak ORAL Medrol DosepakOr iginal MedicationMedrol Dosepak *Reorder from [employer] for eRx and Interaction Alerts* 05/17/2017 Active Vital Signs Height-cm 170.18 cm 07/30/2023 Weight-kg 74.84 kg 07/30/2023 Height 67.00 in 07/30/2023 Weight 165 lbs 07/30/2023 BMI 25.84 kg/m2 07/30/2023 Encounters Encounter Location Date Provider Diagnosis [facility] [place] [address] [place], [place] [id number] 07/30/2023 CAIT PEREZ Tinea unguium B35.1 ; Other hammer toe(s) (acquired), right foot M20.41 ; Other hammer toe(s) (acquired), left foot M20.42 ; Congenital talipes equinovarus, 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 and Congenital talipes equinovarus, left foot Q66.02 [facility] [place] [address] [place], [place] [id number] 05/05/2024 CAIT PEREZ Contusion of left lesser toe(s) without damage to nail, initial encounter S90.122A ; Other hammer toe(s) (acquired), right foot M20.41 ; Other hammer toe(s) (acquired), left foot M20.42 and Left foot pain M79.672 [facility] [address] [facility] [address] [place], [place] [id number] 07/31/2023 CAIT PEREZ Assessments Encounter Date Diagnosis (ICD Code) Assessment Notes Treatment Notes Treatment Clinical Notes Section Notes 07/30/2023 Tinea unguium (ICD-10 - B35.1) Fungal Toenails, Continue Treatment: The patient will continue using the topical antifungal medication. I explained that it can take 9-12 months for a toenail to grow out and notice change. 07/30/2023 Other hammer toe(s) (acquired), right foot (ICD-10 - M20.41) Hammertoe Deformity: Discussed various treatments for hammer toes with the patient . Discussed conservative care consisting of padding, wider shoes, anti-inflammatori es, and orthotics. Discussed surgical treatment options and answered all questions about the intra-operative and post-operative treatment course. Orthotic Continue: Advised patient to continue to wear orthotic devices. 05/05/2024 Other hammer toe(s) (acquired), right foot (ICD-10 - M20.41) Hammertoe Deformity: Discussed various treatments for hammer toes with the patient . Discussed conservative care consisting of padding, wider shoes, anti-inflammatori es, and orthotics. Discussed surgical treatment options and answered all questions about the intra-operative and post-operative treatment course. Continue custom orthotics. I discussed the difference between in-office tenotomy vs. surgical repair 05/05/2024 Contusion of left lesser toe(s) without damage to nail, initial encounter (ICD-10 - S90.122A) Rest. 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 05/05/2024 Other hammer toe(s) (acquired), left foot (ICD-10 - M20.42) 07/30/2023 Other hammer toe(s) (acquired), left foot (ICD-10 - M20.42) 07/30/2023 Congenital talipes equinovarus, right foot (ICD-10 - Q66.01) Equinus: Consult Physical Therapy for evaluation and treatment 05/05/2024 Left foot pain (ICD-10 - M79.672) 07/30/2023 Congenital talipes equinovarus, left foot (ICD-10 - Q66.02) Plan Of Treatment No Information Insurance Providers Payer Name Payer Address Payer Phone Subscriber Number Group Number Insured Name Patient Relationship to Insured Coverage Start Date Coverage End Date [facility] [address] [place] [phone] [id number] RAFY HANCOCK Spouse - patient is the spouse of the insured
--- OUTSIDE RECORDS SUMMARY | 2024-06-27 09:53 | XMS_ITS | Encounter Summary ---
Author Organization [facility] Address [address] [place] [address] Care Team Providers Care Ehs Engineer Name Role Phone Hitesh Kowalski MD Primary Care Provider [phone] Encounter Details Date Type Department Care Team (Late st Contact Info) Description 03/10/2024 Mendix Message Enc [facility] Medical Group Orthopedic & Sports Medicine - [place] [address] [place] [address] Eriberto Cruz MD [address] [place] [address] Referral Social History Tobacco Use Types Packs/Day Years [...] Master's degree (e.g., MA, MS, Gianna, MEd, CLOCK SMITH, HÉCTOR) 06/21/2021 Comments No Sex and Gender [...] Assessment Author Status No 01/30/2022 9:17 PM CDBud Nina se, RN Active documented as of this [...] perform ADLs independently Lifestyle No Koerkenme i Dusty johnson RN documented as of this encounter Visit Diagnoses Not on filedocumented in this encounter Care Teams Ehs Engineer Relationship Specialty Start Date End Date Hitesh Kowalski MD [address] [place] [address] PCP - General 01/14/24 documented as of this encounter
--- OUTSIDE RECORDS SUMMARY | 2024-06-27 09:54 | XMS_ITS ---
Author Organization [facility] Address [address] [place], [place] [id number] Care Team Providers Care Manager Filter Name Role Phone CAIT PEREZ Unavailable [phone] Kacey Martinez Unavailable Unavailable REASON FOR VISIT hammer toe follow up Encounters Encounter Location Date Provider Diagnosis [facility] [place] [address] [place], [place] [id number] 09/10/2023 CAIT PEREZ Plan Of Treatment No Information Progress Notes * JOSE DE JESUS HANCOCK LDOB:[birth year] (64 yo F)Acc No.[id number]:09/10/2023 Patient: JOSE DE JESUS DE Provider: Crystal Perez DPM :1960 A ge:63 Y S ex:Female Date:09/10/2023 Address:[address] [place], [place] [id number] Subjective: * Chief Complaints: * 1 . Hammer toe follow up. * Medical History: Objective: * Vitals: Assessment: Plan: * Treatment: * Billing Information: * Visit Code: * Procedure Codes: * Electronic signature of CAIT PEREZ DPM on 06/27/2024 at 09:53 AM OYSTER SHUCKER Sign off status: Pending * Provider: Crystal Perez DPM Date: 0 09/10/2023 Generated for Alcidesi ng/Faxing/eTransmitting on: 0 06/27/2024 09:53 AM OYSTER SHUCKER
--- OUTSIDE RECORDS SUMMARY | 2024-06-27 09:54 | XMS_ITS | Clinical Summary ---
Author Organization [facility] Address [address] [place] [address] Care Team Providers Care Utility Teller Name Role Phone Hitesh Kowalski MD Primary Care Provider [phone] Allergies No known active allergies Medications gabapentin 600 MG tablet 2 (two) times daily. Active rosuvastatin 20 MG tablet rosuvastatin 20 mg tablet TAKE 1 TABLET BY MOUTH EVERY EVENING Active sertraline (ZOLOFT) 50 MG tablet 3 Active butalbital-acet aminophen-caffe ine (ESGIC) 50-325-40 MG tablet TAKE 1 TABLET BY MOUTH DAILY NEEDED FOR MIGRAINES Active acyclovir (ZOVIRAX) 800 MG tablet TAKE 1 TABLET BY MOUTH EVERY 8 HOURS FOR 2 DAYS Active Semaglutide-Dell ght Management (WEGOVY DC) Active baclofen (LIORESAL) 20 MG tablet Take 1 tablet (20 mg total) by mouth every 8 (eight) hours as needed. 4 Active FEROSUL 325 (65 Fe) MG tablet Take 1 tablet (325 mg total) by mouth daily. 4 Active hydrocortisone 2.5 % cream APPLY A THIN LAYER TO THE AFFECTED AREA(S) BY TOPICAL ROUTE 2 TIMES DAILY x 14 days prn Active celecoxib (CELEBREX) 200 MG capsule TAKE 1 CAPSULE BY MOUTH EVERY 12 HOURS WITH FOOD 4 Active HYDROcodone-radha taminophen (NORCO) 5-325 MG tablet Take 1 tablet by mouth every 8 (eight) hours as needed. 4 Active albuterol sulfate HFA 108 (90 Base) MCG/ACT inhaler INHALE 2 PUFFS BY MOUTH EVERY 4 HOURS NEEDED FOR COUGH OR SHORTNESS OF BREATH 4 Active vitamin C (ASCORBIC ACID) 500 MG tablet Take 1 tablet (500 mg total) by mouth daily. Active nystatin (MYCOSTATIN) cream APPLY TO THE AFFECTED AREA(S) BY TOPICAL ROUTE 2 TIMES PER DAY Active ubrogepant (UBRELVY) 100 MG tablet TAKE 1 TABLET BY MOUTH EVERY OTHER DAY DIRECTED Active Active Problems Problem Noted Date Diagnosed Date Pain from implanted hardware, initial encounter 11/01/2022 Pyriformis syndrome, left 11/01/2022 Sacroiliitis 07/12/2022 History of lumbar fusion 01/30/2022 S/P lumbar laminectomy 01/30/2022 Lumbar spine instability 01/30/2022 Radiculopathy, lumbar region 04/18/2021 Resolved Problems Problem Noted Date Diagnosed Date Resolved Date Spinal instabilities of lumbar region 01/30/2022 11/06/2023 Spinal stenosis of lumbar re gion without neurogenic claudication 04/18/2021 11/06/2023 Other intervertebral disc di splacement, lumbar region 04/18/2021 11/06/2023 Other intervertebral disc de generation, lumbar region 04/18/2021 11/06/2023 Foraminal stenosis of lumbar region 04/18/2021 11/06/2023 Spondylolisthesis of lumbosacral region 04/18/2021 11/06/2023 Facet arthropathy, lumbar 04/18/2021 Encounters Date Type Department Care Team Description 06/23/2024 10:40 AM FINISHED GOODS INSPECTOR Office Visit [facility] [address] [place] [address] Eriberto Cruz MD Follow Up (Rt knee discuss surgery ) 06/23/2024 Travel 06/12/2024 Orders Only [facility] Medical [facility] Orthopedic & Sports Medicine [place] [address] [place] [address] Eriberto Cruz MD from Last 3 Months Family History Medical History Relation Comments Diabetes Father Stroke Father Cancer Mother Diabetes Mother colon Mother Cancer Sister 1 Diabetes Sister 2 Hypertension Sister 2 Relation Status Comments Brother Daughter 1 Alive Daughter 2 Alive Father Alive Mother Sister 1 Sister 2 Alive Son Alive Social History Tobacco Use Types Packs/Day Years Used Date Smoking Tobacco: Former Cigarettes 1 20 1 986 - 2006 Passive Smoke Exposure: Never Smokeless Tobacco: Never Tobacco Cessation:Counseling Given: No Alcohol Use Standard Drinks/Week Comments Yes 4 (1 standard drink = 0.6 oz pur e alcohol) socially PHQ-2 Answer Date Recorded Patient Health Questionnaire-2 Score 0 06/23/2024 Education Answer Date Recorded What is the highest level of school you have completed or the highest degree you have received? Master's degree (e.g., MA, MS, Gianna, MEd, SHREDDING FLOOR EQUIPMENT OPERATOR, HÉCTOR) 06/21/2021 Comments No Sex and Gender Information Value Date Recorded Sex Assigned at Not on file Legal Sex Female 8:03 PM CDT Gender Identity Not on file Sexual Orientation Not on file Occupation Industry Job Start Date Job End Date Not on file Not on file Not on file Not on file Last Filed Vital Signs Vital Sign Reading Time Taken Comments Blood Pressure 133/77 06/23/2024 10:40 AM FINISHED GOODS INSPECTOR Pulse 80 06/23/2024 10:40 AM FINISHED GOODS INSPECTOR Temperature 36 C (96.8 F) 06/23/2024 10:40 AM FINISHED GOODS INSPECTOR Respiratory Rate 18 12/25/2023 3:02 PM CDT Oxygen Saturation 98% 03/14/2024 10:43 AM CDT Inhaled Oxygen Concentration - - Weight 90.5 kg (199 lb 9.6 oz) 06/23/2024 10:40 AM FINISHED GOODS INSPECTOR Height 170.2 cm (5' 7 ) 06/23/2024 10:40 AM FINISHED GOODS INSPECTOR Body Mass Index 31.26 06/23/2024 10:40 AM FINISHED GOODS INSPECTOR Plan of Treatment Health Maintenance Due Date Last Done Comments Colorectal Cancer Screening Colonoscopy (10 Years) 1961 Annual Physical 01/07/1964 Hepatitis C 1979 Mammogram Screening 2001 COVID-19 Vaccine ( season) 2024 05/01/2021, 07/31/2020, 07/31/2020, Additional history exists DTaP, Tdap and Td Vaccines (3 - Td or Tdap) 01/09/2029 01/09/2019, 09/29/2013 RSV Immunization or 60+ Years (1 - 1-dose 75+ series) 01/07/2036 Zoster Vaccines Completed 05/01/2020, 02/24/2020 Influenza Adult Completed 03/11/2024, 01/20, 02/03/2021, Additional history exists PHQ-2 (Physician Telida) Completed 06/23/2024 Meningococcal B Vaccine Aged Out No l onger eligible based on patient's age to complete this topic Meningococcal Vaccine Aged Out No jocy odette eligible based on patient's age to complete this topic Pneumococcal Vaccine: Pediatrics (0 to 5 Years) and At-Risk Patients (6 to 64 Years) Aged Out No longer eligible based on patient's age to complete this topic RSV Immunizations Under 20 Months Aged Out No longer eligible based on patient's age to complete this topic Goals Goal Patient Goal Type Associated Problems Recent Progress Patient-Stated? Author Health - patient able to perform ADLs independently Lifestyle No Ramos johnson, Dusty Dorado, RN Medical Devices Implanted Type Area Cota Device Identifier Shelf Expiration Date Model / Serial / Lot Putty Putnam Matrix Dbm/Dbf Bone 6cc - [id number] Implanted:Qty: 1 on 01/30/2022 by Jose David Morocho MD at [facility] Bone N/A: Spine Lumbar [employer] [id number] 01/05/2024 [id number] / [id number] / Graft Infuse Bone Large Ii - [id number] Implanted:Qty: 1 on 01/30/2022 by Jose David Morocho MD at [facility] Bone N/A: Spine Lumbar [employer] [id number] 04/19/2023 [id number] / / [id number] Endoskeleton Interbody Fusion Implanted:Qty: 1 on 01/30/2022 by Jose David Morocho MD at [facility] Cage N/A: Spine Lumbar [employer] [id number] 07/08/2024 [id number] / / [id number] Endoskeleton Interbody System Implanted:Qty: 1 on 01/30/2022 by Jose David Morocho MD at [facility] Cage N/A: Spine Lumbar [employer] [id number] 06/16/2025 [id number] / / [id number] 39mm Pyramid Plate Implanted:Qty: 1 on 01/30/2022 by Jose David Morocho MD at [facility] Plate N/A: Spine Lumbar [employer] [id number] / / 4.75 X 55mm Glen Implanted:Qty: 1 on 01/30/2022 by Jose David Morocho MD at [facility] Glen N/A: Spine Lumbar [employer] [id number] / / 7.5 X 45mm Voyager Screw Implanted:Qty: 1 on 01/30/2022 by Jose David Morocho MD at [facility] Screw N/A: Spine Lumbar [employer] [id number] / / Voyager Set Screws Implanted:Qty: 3 on 01/30/2022 by Jose David Morocho MD at [facility] Screw N/A: Spine Lumbar [employer] [id number] / / 6.5 X 30mm Screws Implanted:Qty: 2 on 01/30/2022 by Jose David Morocho MD at [facility] Screw N/A: Spine Lumbar [employer] [id number] / / 6.5 X 30mm Screws Implanted:Qty: 4 on 01/30/2022 by Jose David Morocho MD at [facility] Screw N/A: Spine Lumbar [employer] [id number] / / 6.5 X 45mm Voyager Screws Implanted:Qty: 1 on 01/30/2022 by Jose David Morocho MD at [facility] Screw N/A: Spine Lumbar [employer] [id number] / / 7.5 X 40mm Voyager Screw Implanted:Qty: 1 on 01/30/2022 by Jose David Morocho MD at [facility] Screw N/A: Spine Lumbar [employer] [id number] / / Nu Shield Implanted:Qty: 1 on 01/30/2022 by Jose David Morocho MD at [facility] Tissue N/A: Spine Lumbar [id number] 04/04/2026 [id number] / [id number] / Procedures Procedure Name Priority Date/Time Associated Diagnosis Comments OXR RT KNEE 3V Routine 06/23/2024 10:33 AM FINISHED GOODS INSPECTOR Right knee pain, unspecified chronicity from Last 3 Months Results * OXR RT KNEE 3V (06/23/2024 10:33 AM FINISHED GOODS INSPECTOR) Anatomical Region Laterality Modality Radiographic Nimo ging Narrative 06/23/2024 12:49 PM FINISHED GOODS INSPECTOR PROCEDURE: OXR RT KNEE 3V VIEWS: 3 DATE: 06/23/24 CLINICAL INDICATION: FINDINGS: Moderate degenerative changes of the knee especially at the lateral compartment with some irregularity of the lateral tibial plateau subchondral bone. Mild valgus alignment. No fractures. IMPRESSION: Degenerative changes of the knee. us Eriberto Cruz MD GENERAL IMAGING Final Result from Last 3 Months Insurance Advance Directives * Full Code (Latest Code Status on File) Date Activated Date Inactivated Comments 01/30/2022 6:57 PM 02/02/2022 5:01 PM Care Teams Utility Teller Relationship Specialty Start Date End Date Hitesh Kowalski MD [address] [place] [phone] PCP - General 01/14/24
--- OUTSIDE RECORDS SUMMARY | 2024-06-27 09:55 | XMS_ITS | Data Portability ---
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 X-ray Lt hip: 12/06/23. CT L-spine wo: 02/23/23. MRI L-spine wo: 01/25/22. D/w pt about her findings, recent labs & imagines and further plan of care. All meds verified with pt. Meds as directed. Diet and exercise explained in detail. Educated about different options for her. F/u with Derm at [place] as per schedule. Cont f/u with Pain clinic at [place] as per schedule. Cont f/u with Ortho at [place] as per schedule. Cont f/u with Spine at [place] as per schedule. Cont f/u with Ophtho as per schedule. Cont f/u with Psych as per schedule. HM: WWE - Long time ago. S/p complete hysterectomy. F/u with Gyne/[facility] as per schedule. Mammo - 06/13, normal as per pt. Ordered. DEXA - Ordered. Colonoscopy - 2021, polyps ++. Cont f/u with GI as per schedule (3 yrs). Flu - 03/11/24. Tdap - 01/06. Pneumo - Pt wants to get at 66 yrs. Shingrix - Pt got 2 doses. F/u in 2 months as before. CBC before next visit. Annual labs in 01/12. [email or web address] Not available 03/11/2024 15:04:56 03/24/2024 03/24/2024 64 yo F with - RT ELBOW TENDINITIS - LEUKOCYTOSIS, resolved - HLD - MIGRAINE - DEPRESSION - LT ABDOMINAL WALL WART, resolved - B/L KNEE PAIN, chronic - B/L SHOULDER PAIN, chronic - POLYARTHROPATHY - CHRONIC LOW BACK PAIN - LUMBAR SPONDYLOSIS - CHRONIC LT HIP PAIN - OBESITY I - EX-SMOKER (Quitted since 2005) CXR: 03/12/24. Annual labs, MARINE, RF: 01/03/24. X-ray Lt hip: 12/06/23. CT L-spine wo: 02/23/23. MRI L-spine wo: 01/25/22. D/w pt about her findings, recent labs & imagines and further plan of care. Pt declined for any x-ray at this time. Advised to f/u with her Ortho about this too. All meds verified with pt. Meds as directed. RICE explained in detail. Diet and exercise explained in detail. Educated about different options for her. Cont f/u with Derm at [place] as per schedule. Cont f/u with Pain clinic at [place] as per schedule. Cont f/u with Ortho at [place] as per schedule. Cont f/u with Spine at [place] as per schedule. Cont f/u with Ophtho as per schedule. Cont f/u with Psych as per schedule. HM: WWE - Long time ago. S/p complete hysterectomy. F/u with Gyne/[facility]CH[facility] as per schedule. Mammo - 06/13, normal as per pt. Ordered. DEXA - Ordered. Colonoscopy - 2021, polyps ++. Cont f/u with GI as per schedule (3 yrs). Flu - 03/11/24. Tdap - 01/06. Pneumo - Pt wants to get at 66 yrs. Shingrix - Pt got 2 doses. F/u in 3-4 months. Annual labs in 01/12. [email or web address] Not available 03/24/2024 11:11:11 03/26/2024 03/26/2024 Assessment: Moderate OSAHS, AHI = 19 PLMD Iron deficiency Plan: The following were reviewed and explained to the patient: [facility] home sleep study 12/24/20 AHI = 19 [facility] titration sleep study 03/15/21 sleep onset = 2.5 minutes, CPAP 7 cmH2O, PLMI = 5 Ferritin 11/12/23 20 ng/mL Ferritin 03/25/24 52 ng/mL Elevation in periodic limb movement index may be contributed by sertraline. Non-pharmacologic therapy options for periodic limb movement disorder include avoidance of aggravating drugs and substances, mental alerting activities, short daily hemodialysis for patients in renal failure, exercise, leg massage, stretching calf muscles, use of a weighted blanket and applied heat. Patient will cut down on alcohol consumption and caffeine intake. BUN, Vitamin E, Vitamin B12, RBC folate, Iron, TIBC, ESR, Magnesium, Hgb and Hct levels are within normal limits. Patient will continue FeSO4 325 mg + Vit C 500 mg daily to keep the ferritin > 75 ng/ml. Check ferritin one week before return. We will hold off on dopaminergic therapy for now. PAP compliance downloaded and interpreted x 20 minutes. Data reviewed and explained to the patient. Average apnea/hypopnea index (AHI) is 2.1. Patient used PAP > 4 hours 96% of the time. PAP is set at 7 cmH2O. PAP will remain at 7 cmH2O. Keep ramp start at 4 cmH2O. Keep ramp duration at 20 minutes. Keep EPR +2 full time staff interpreter. Keep humidifier level on automatic mode. Keep tube temperature on automatic mode. Oxygen supplementation: none Patient is benefiting from PAP therapy. Encouraged patient to maintain PAP use more than 70% of the time. Statement of PAP use and benefits will be sent to the home care store. Educated the patient on problems and solutions associated with positive airway pressure (PAP) use. Difficulty tolerating pressure, mask leaks, intolerance of interface, nasal congestion, claustrophobic response, dry mouth, and unintentional mask removal during sleep were covered. Patient's mask leaks air. We will ensure the mask is situated properly. Patient can wear protective eye covering during sleep, and the mask can be resized. Patient has intolerance to interface. Patient will loosen mask slightly, ensure mask is situated properly, inspect and replace interface if worn out, use barrier such as moleskin or bandage for irritation at bridge of nose, have a temporary holiday from PAP, resize mask or obtain an oral interface. Dry mouth is a normal occurrence for people who just start out on PAP therapy because they are not used to air blowing in to the throat to hold open. Dry mouth is exacerbated for people who wear nasal PAP mask and whose jaw drops open during sleep. Not only does this create a much less efficient therapy because of leakage, it also causes dry mouth. There are a couple solutions to help prevent this type of problem. A simple solution would be to wear a chinstrap which essentially holds the jaw in place. A second solution would be a switch to a full face mask which covers both the nose and mouth. Although this is another easy solution, using a full face mask for some could seem claustrophobic or confining. There is no silver bullet solution as no single mask is right for everybody. Sometimes it takes a bit of experimentation to find a PAP mask which best meets the patient's needs as well as fits comfortably. Another tactic is to use a humidifier on your PAP machine. Most new PAP machines have integrated humidifiers. Humidification is rubin when dealing with symptoms of dry mouth because the humidifier can supply both warm and room temperate air. Even a small amount of humidity in the airflow will help nasal passages to stay hydrated. If a person is using both a full face mask and a PAP machine with a heated humidifier and is still experiencing dry mouth, an ill-fitted PAP mask might be causing the problem. Leakage can be caused by a mask that is to large or small, the wrong style mask, the cushion is degraded or simply because the mask's straps aren't adjusted correctly. If leakage occurs, dry air from the room can leak in while humidification escapes. The result is reduced humidification within the circuit and resulting in dry throat and mouth. Finally, beyond factors involving the PAP machine and mask, dry mouth can also be caused or worsened by dehydration. The general recommendation to during eight 8 oz. glasses of water a day might be too little for many people. When people drink large amounts of coffee or other caffeine beverages, or sweat a lot during the day, making sure to rehydrate is an important part of PAP therapy. Provided the patient with a list of local home care stores where positive airway pressure (PAP) units, accoutrement, and services are available. Home care store selection is based on patient's insurance carrier. Patient will setup an appointment with [facility] for supplies and pressure adjustments. A major predictor of success with use of PAP is follow-up with both the respiratory supplier and the treating physician. The download results can show the treating physician information about adherence to treatment, residual AHI while on treatment and presence of large mask leakage. This information is especially helpful if the patient has residual sleepiness despite treatment. General information on sleep disordered breathing, evaluation of sleep disordered breathing, treatment with PAP therapy, and living with PAP therapy were covered. We discussed with the patient the impact of weight on: Sleep disordered breathing Hyperlipidemia Hepatic steatosis Lumbar DDD Bilateral knee OA Right popliteal cyst We discussed with the patient the benefit of PAP therapy on: Sleep disordered breathing Depression Educated the patient on sleep hygiene measures. Relaxing rituals to rest easy, understanding foods with positive and negative impact on sleep, creating a peaceful sleep environment, timing of exercise, using herbal sleep aids, and practicing sleep-friendly meditation were covered. To determine how much sleep is needed, the patient will assess where she falls on the spectrum, examine what lifestyle factors such as work schedules and stress are affecting the quality and quantity of sleep. In general, adults need 7-9 hours of sleep. Educated the patient regarding foods that promote sleep. These include but are not limited to cherries, bananas, toast, oatmeal, and warm milk. Educated the patient regarding foods and drinks to avoid before bedtime. These include but are not limited to aged cheese, chocolate, spicy foods, tomato-based sauces, soy, ginseng tea and processed meat. Advocated influenza vaccination annually and pneumonia vaccination SHAHNAZ. Advocated weight loss through diet and exercise. Patient's ideal body weight according to height and gender is up to 145 lbs. Encouraged patient to adjust caloric intake to maintain/achieve ideal body weight, emphasizing on fruits, vegetables, whole grains, and fat-free or low-fat products. These include lean meats, poultry, fish, beans, eggs, and nuts and foods that are low in saturated fats, trans-fats, cholesterol, salt (sodium), and glycemic index. Stressed the importance of regular exercise up to the patient's capacity limits. In this case, we recommend 20 min daily walking, 2 days a week of resistance training. Patient to monitor BP daily and bring records to PCP for further management. Follow-up: 6 months, September 2024 [facility] Not available 03/26/2024 10:14:33 Plan of Treatment Reminders Order Date Submit Date Provider Last Modified By Organization Details Last Modified Time Details Appointments Follow Up 2024 03:30P Ary Kowalski MD Not available Not available Not available Any 2024 09:00A Ary Shannon MD Not available Not available Not available Lab ferritin, serum or plasma [address] (Lab), [address] [place], [address], 03/26/2024 10:17:16 Referral orthopedi c surgeon referral - Please call patient to schedule an appointme nt. Thank you. 2023 024 RICHIE Cruz MD, [address] [facility], [facility] [address], [place], [address], 03/18/2024 10:36:07 Procedures None recorded. Surgeries None recorded. Imaging None recorded. Medication Orders rosuvasta tin 20 mg tablet 2023 024 [id number], [address] [place], [place], [id number], 03/11/2024 14:59:00 Wegovy 1 mg/0.5 mL subcutane ous pen injector 2023 024 [place] [address] [facility] #[id number], [address] [place], [place], [id number], 04/29/2024 10:35:37 Medrol (Akash) 4 mg tablets in a dose pack 2023 024 [place] [address] [facility][id number], [address] [place], [place], [id number], 04/29/2024 10:34:31 rosuvasta tin 20 mg tablet 2023 [facility] #[id number], [address] [facility], [place], [place], [id number], 03/24/2024 10:55:31 ferrous sulfate 325 mg (65 mg iron) tablet 2023 [facility] #[id number], [address] [facility], [place], [place], [id number], 03/26/2024 10:17:21 Vitamin C 500 mg tablet 2023 [facility] #[id number], [address] [facility], [place], [place], [id number], 03/26/2024 10:17:21 Patient TargetsNo targets recorded. Patient Instructions Encounter Date Encounter Id Patient Instructions Last Modified By Organization Details Last Modified Time 03/11/2024 [id number] starting a weigh t loss plan: care instructions [email or web address] Not available 03/11/2024 14:58:52 03/24/2024 [id number] starting a weigh t loss plan: care instructions [email or web address] Not available 03/24/2024 10:55:23 Reason for Referral Orthopedic Surgeon Referral for Pain of bilateral knee joints Please call patient to schedule an appointment. Thank you. Referring Physician: Hitesh Kowalski, Family Medicine, Encounter Date: 03/11/2024 Results Created Date Observation Date Name Description Value Unit Range Abnormal Flag Note LastModifiedBy Organization Detail LastModifiedTime 01/03/2001/03/2024 CBC/C OMPLE TE BLD COUNT W/DIF F white blood cells 13.7 x10'3 /uL 4.2-10 .8 high Not Available [facility] (Lab) [address] [place], [address], 01/03/2024 19:35:36 01/03/20 24 01/03/2024 CBC/C OMPLE TE BLD COUNT W/DIF F red blood cells 5.00 x10'6 /uL 3.80-5 .20 Not Available [facility] (Lab) [address] [place], [address], 01/03/2024 19:35:36 01/03/20 24 01/03/2024 CBC/C OMPLE TE BLD COUNT W/DIF F hemoglobin 15.2 g/dL 12.0-1 5.6 Not Available [facility] (Lab) [address] [place], [address], 01/03/2024 19:35:36 01/03/20 24 01/03/2024 CBC/C OMPLE TE BLD COUNT W/DIF F hematocrit 47.0 % 35.7-4 5.7 high Not Available [facility] (Lab) [address] [place], [address], 01/03/2024 19:35:36 01/03/20 24 01/03/2024 CBC/C OMPLE TE BLD COUNT W/DIF F mean red cell volume 94.0 fL 82.0-9 9.0 Not Available [facility] (Lab) [address] [place], [address], 01/03/2024 19:35:36 01/03/20 24 01/03/2024 CBC/C OMPLE TE BLD COUNT W/DIF F mean red cell hemoglobin 30.4 pg 27.0-3 3.0 Not Available [facility] (Lab) [address] [place], [address], 01/03/2024 19:35:36 01/03/20 24 01/03/2024 CBC/C OMPLE TE BLD COUNT W/DIF F mean RBC HGB concentratio n 32.3 g/dL 31.0-3 6.0 Not Available [facility] (Lab) [address] [place], [address], 01/03/2024 19:35:36 01/03/20 24 01/03/2024 CBC/C OMPLE TE BLD COUNT W/DIF F red cell distribution width 13.9 % 11.8-1 5.5 Not Available [facility] (Lab) [address] [place], [address], 01/03/2024 19:35:36 01/03/20 24 01/03/2024 CBC/C OMPLE TE BLD COUNT W/DIF F platelets 330 x10'3 /uL 150-40 0 Not Available [facility] (Lab) [address] [place], [address], 01/03/2024 19:35:36 01/03/20 24 01/03/2024 CBC/C OMPLE TE BLD COUNT W/DIF F mean platelet volume 10.0 fL 9.0-12 .4 Not Available [facility] (Lab) [address] [place], [address], 01/03/2024 19:35:36 01/03/20 24 01/03/2024 CBC/C OMPLE TE BLD COUNT W/DIF F neutrophils 68.6 % 39.0-7 2.0 Not Available [facility] (Lab) [address] [place], [address], 01/03/2024 19:35:36 01/03/20 24 01/03/2024 CBC/C OMPLE TE BLD COUNT W/DIF F lymphocytes 22.5 % 16.0-4 7.0 Not Available [facility] (Lab) [address] [place], [address], 01/03/2024 19:35:36 01/03/20 24 01/03/2024 CBC/C OMPLE TE BLD COUNT W/DIF F monocytes 7.2 % 5.0-12 .0 Not Available [facility] (Lab) [address] [place], [address], 01/03/2024 19:35:36 01/03/20 24 01/03/2024 CBC/C OMPLE TE BLD COUNT W/DIF F eosinophils 0.7 % 1.0-7. 0 low Not Available [facility] (Lab) [address] [place], [address], 01/03/2024 19:35:36 01/03/20 24 01/03/2024 CBC/C OMPLE TE BLD COUNT W/DIF F basophils 0.5 % 0.0-2. 0 Not Available [facility] (Lab) [address] [place], [address], 01/03/2024 19:35:36 01/03/20 24 01/03/2024 CBC/C OMPLE TE BLD COUNT W/DIF F immature granulocytes 0.5 % 0.00-0 .50 Not Available [facility] (Lab) [address] [place], [address], 01/03/2024 19:35:36 01/03/20 24 01/03/2024 CBC/C OMPLE TE BLD COUNT W/DIF F neutrophils, absolute count 9.36 x10'3 /uL 1.5-8. 0 high Not Available [facility] (Lab) [address] [place], [address], 01/03/2024 19:35:36 01/03/20 24 01/03/2024 CBC/C OMPLE TE BLD COUNT W/DIF F lymphocytes, absolute count 3.08 x10'3 /uL 1.07-3 .43 Not Available [facility] (Lab) [address] [place], [address], 01/03/2024 19:35:36 01/03/20 24 01/03/2024 CBC/C OMPLE TE BLD COUNT W/DIF F monocytes, absolute count 0.99 x10'3 /uL 0.29-0 .99 Not Available [facility] (Lab) [address] [place], [address], 01/03/2024 19:35:36 01/03/20 24 01/03/2024 CBC/C OMPLE TE BLD COUNT W/DIF F eosinophils, absolute count 0.09 x10'3 /uL 0.02-0 .53 Not Available [facility] (Lab) [address] [place], [address], 01/03/2024 19:35:36 01/03/20 24 01/03/2024 CBC/C OMPLE TE BLD COUNT W/DIF F basophils, absolute count 0.07 x10'3 /uL 0.01-0 .08 Not Available [facility] (Lab) [address] [place], [address], 01/03/2024 19:35:36 01/03/20 24 01/03/2024 CBC/C OMPLE TE BLD COUNT W/DIF F immature granulocytes ,absolute 0.07 x10'3 /uL 0.00-0 .05 high Not Available [facility] (Lab) [address] [place], [address], 01/03/2024 19:35:36 01/03/20 24 01/03/2024 CBC/C OMPLE TE BLD COUNT W/DIF F nucleated red blood cells 0.0 % -0 Not Available [facility] (Lab) [address] [place], [address], 01/03/2024 19:35:36 01/03/20 24 01/03/2024 CBC/C OMPLE TE BLD COUNT W/DIF F NRBC# 0.00 x10'3 /uL Not Available [facility] (Lab) [address] [place], [address], 01/03/2024 19:35:36 01/03/20 24 01/03/2024 COMPR EHENS FRANKIE METAB OLIC PANEL sodium 137 mmol/ L 137-14 5 Not Available [facility] (Lab) [address] [place], [address], 01/03/2024 20:15:58 01/03/20 24 01/03/2024 COMPR EHENS FRANKIE METAB OLIC PANEL potassium 5.0 mmol/ L 3.5-5. 1 Not Available [facility] (Lab) [address] [place], [address], 01/03/2024 20:15:58 01/03/20 24 01/03/2024 COMPR EHENS FRANKIE METAB OLIC PANEL chloride 107 mmol/ L 98-107 Not Available [facility] (Lab) [address] [place], [address], 01/03/2024 20:15:58 01/03/20 24 01/03/2024 COMPR EHENS FRANKIE METAB OLIC PANEL carbon dioxide 26 mmol/ L 22-30 Not Available [facility] (Lab) [address] [place], [address], 01/03/2024 20:15:58 01/03/20 24 01/03/2024 COMPR EHENS FRANKIE METAB OLIC PANEL anion gap 9.0 mmol/ L 14-22 low Not Available [facility] (Lab) [address] [place], [address], 01/03/2024 20:15:58 01/03/20 24 01/03/2024 COMPR EHENS FRANKIE METAB OLIC PANEL glucose 84 mg/dL 70-99 Not Available [facility] (Lab) [address] [place], [address], 01/03/2024 20:15:58 01/03/20 24 01/03/2024 COMPR EHENS FRANKIE METAB OLIC PANEL BUN 24 mg/dL 8-19 high Not Available [facility] (Lab) [address] [place], [address], 01/03/2024 20:15:58 0801/03/2024 COMPR EHENS FRANKIE METAB OLIC PANEL creatinine 0.68 mg/dL 0.66-1 .25 Not Available [facility] (Lab) [address] [place], [address], 01/03/2024 20:15:58 01/03/20 24 01/03/2024 COMPR EHENS FRANKIE METAB OLIC PANEL GFR >60 Refer ence Range : [place] ge GFR Healt hy Adult : >60 mL/mi n/1.7 3 m2 Chron ic Kidne y Disea se: 15-60 mL/mi n/1.7 3 m2 Kidne y Failu re: <15/m L/min /1.73 m2 www.n iddk. nih.g ov The MDRD study equat ion has not been valid ated in child darren <18 years of age; pregn ant women ; the elder ly >85 years of age; or in some racia l or ethni c subgr oups, such as Hisak nics. Outsi de the valid ated vira eters , estim ated GFR is less accur ate, requi ring clini efrain judgm ent on a case- by-ca se basis . Clini efrain inter preta tion for other races and ages must be made by the clini clive. The MDRD study equat ion has not been valid ated for the evalu ation of serum creat inine relat ed to nutri hunter l statu s or medic ation usage . For perso ns <18 years of age, a pedia tric GFR calcu lator is avail able on the F websi te: https ://clarice w.kid nelida.o rg/pr herminiaess ional s/kdo qi/gf r_cal culat or Not Available [facility] (Lab) [address] [place], [address], 01/03/2024 20:15:58 01/03/20 24 01/03/2024 COMPR EHENS FRANKIE METAB OLIC PANEL alkaline phosphatase 85 U/L 38-126 Not Available [facility] (Lab) [address] [place], [address], 01/03/2024 20:15:58 01/03/20 24 01/03/2024 COMPR EHENS FRANKIE METAB OLIC PANEL alanine aminotransfe rase 35 U/L 0-35 Not Available [facility] (Lab) [address] [place], [address], 01/03/2024 20:15:58 01/03/20 24 01/03/2024 COMPR EHENS FRANKIE METAB OLIC PANEL aspartate aminotransfe rase 58 U/L 15-37 high Not Available [facility] (Lab) [address] [place], [address], 01/03/2024 20:15:58 01/03/20 24 01/03/2024 COMPR EHENS FRANKIE METAB OLIC PANEL bilirubin, total 1.30 mg/dL 0.20-1 .30 Not Available [facility] (Lab) [address] [place], [address], 01/03/2024 20:15:58 01/03/20 24 01/03/2024 COMPR EHENS FRANKIE METAB OLIC PANEL calcium 9.6 mg/dL 8.4-10 .2 Not Available [facility] (Lab) [address] [place], [address], 01/03/2024 20:15:58 01/03/20 24 01/03/2024 COMPR EHENS FRANKIE METAB OLIC PANEL total protein 7.3 g/dL 6.3-8. 2 Not Available [facility] (Lab) [address] [place], [address], 01/03/2024 20:15:58 01/03/20 24 01/03/2024 COMPR EHENS FRANKIE METAB OLIC PANEL albumin 4.5 g/dL 3.4-5. 0 Not Available [facility] (Lab) [address] [place], [address], 01/03/2024 20:15:58 08/15/20 24 01/03/2024 COMPR EHENS FRANKIE METAB OLIC PANEL globulin 2.8 g/dL 2.6-4. 2 Not Available [facility] (Lab) [address] [place], [address], 01/03/2024 20:15:58 01/03/20 24 01/03/2024 COMPR EHENS FRANKIE METAB OLIC PANEL A/G ratio 1.6 ratio 1.0-2. 0 Not Available [facility] (Lab) [address] [place], [address], 01/03/2024 20:15:58 01/03/20 24 01/03/2024 LIPID PANEL cholesterol 182 mg/dL 140-19 9 NIH JUAN NSUS RECOM MENDA TION FOR MIRANDA STERO L: ADULT CHILD LOW RISK: <200 <170 BORDE RLINE : <200- 239 ----- HIGH RISK: >240 >200 Not Available [facility] (Lab) [address] [place], [address], 01/03/2024 20:16:00 01/03/20 24 01/03/2024 LIPID PANEL triglyceride s 100 mg/dL 0-150 NIH JUAN NSUS REPOR T RECOM MENDA TION FOR TRIGL YCERI JACKIE: ADULT CHILD LOW RISK: <150 ----- BODER LINE: 150-1 99 ----- HIGH RISK: >200 ----- Not Available [facility] (Lab) [address] [place], [address], 01/03/2024 20:16:00 01/03/20 24 01/03/2024 LIPID PANEL HDL cholesterol 82 mg/dL 40- Not Available [facility] (Lab) [address] [place], [address], 01/03/2024 20:16:00 01/03/20 24 01/03/2024 LIPID PANEL LDL cholesterol, calculated 80 mg/dL 0-130 NIH JUAN NSUS REPOR T RECOM MENDA TIONS FOR LDL: ADULT CHILD LOW RISK <130 <110 (OPTI MAL LDL) <100 ----- BORDE RLINE : 130-1 59 ----- HIGH RISK: >160 >130 A TRIGL YCERI DE RESUL T >400 INVAL IDATE S THE CALCU LATIO N FOR LDL FRACT IONAT ION - THE LDL RESUL T WILL NOT BE REPOR KENNEDY. Not Available [facility] (Lab) [address] [place], [address], 01/03/2024 20:16:00 01/03/20 24 01/03/2024 MAGNE SIUM magnesium 2.2 mg/dL 1.6-2. 3 Not Available [facility] (Lab) [address] [place], [address], 01/03/2024 20:16:01 01/03/20 24 01/03/2024 URIC ACID SERUM uric acid 3.8 mg/dL 2.5-6. 2 Not Available [facility] (Lab) [address] [place], [address], 01/03/2024 20:16:03 01/03/20 24 01/03/2024 RHEUM ATOID FACTO R rf <8.6 IU/mL 0.0-11 .9 Not Available [facility] (Lab) [address] [place], [address], 01/03/2024 20:16:08 01/03/20 24 01/03/2024 URINA LYSIS W/REF LEANDRA CULTU RE color YELLOW Not Available [facility] (Lab) [address] [place], [address], 01/03/2024 20:39:02 01/03/20 24 01/03/2024 URINA LYSIS W/REF LEANDRA CULTU RE clarity TURBID abnormal Not Available [facility] (Lab) [address] [place], [address], 01/03/2024 20:39:02 01/03/20 24 01/03/2024 URINA LYSIS W/REF LEANDRA CULTU RE sp grav 1.020 1.001- 1.035 Not Available [facility] (Lab) [address] [place], [address], 01/03/2024 20:39:02 01/03/20 24 01/03/2024 URINA LYSIS W/REF LEANDRA CULTU RE pH 6.0 pH_un its 5.0-9. 0 Not Available [facility] (Lab) [address] [place], [address], 01/03/2024 20:39:02 01/03/20 24 01/03/2024 URINA LYSIS W/REF LEANDRA CULTU RE leukocytes NEGATI VE rai/u L negati ve- Not Available [facility] (Lab) [address] [place], [address], 01/03/2024 20:39:02 01/03/20 24 01/03/2024 URINA LYSIS W/REF LEANDRA CULTU RE nitrite NEGATI VE negati ve- Not Available [facility] (Lab) [address] [place], [address], 01/03/2024 20:39:02 01/03/20 24 01/03/2024 URINA LYSIS W/REF LEANDRA CULTU RE protein NEGATI VE mg/dL negati ve-15 Not Available [facility] (Lab) [address] [place], [address], 01/03/2024 20:39:02 01/03/20 24 01/03/2024 URINA LYSIS W/REF LEANDRA CULTU RE glucose NORMAL mg/dL normal - Not Available [facility] (Lab) [address] [place], [address], 01/03/2024 20:39:02 01/03/20 24 01/03/2024 URINA LYSIS W/REF LEANDRA CULTU RE ketones NEGATI VE mg/dL negati ve- Not Available [facility] (Lab) [address] [place], [address], 01/03/2024 20:39:02 01/03/20 24 01/03/2024 URINA LYSIS W/REF LEANDRA CULTU RE urobilinogen NORMAL mg/dL normal -1 Not Available [facility] (Lab) [address] [place], [address], 01/03/2024 20:39:02 01/03/20 24 01/03/2024 URINA LYSIS W/REF LEANDRA CULTU RE bilirubin NEGATI VE mg/dL negati ve- Not Available [facility] (Lab) [address] [place], [address], 01/03/2024 20:39:02 01/03/20 24 01/03/2024 URINA LYSIS W/REF LEANDRA CULTU RE blood NEGATI VE mariah/u L negati ve- Not Available [facility] (Lab) [address] [place], [address], 01/03/2024 20:39:02 01/03/20 24 01/03/2024 URINA LYSIS W/REF LEANDRA CULTU RE white blood cells 0-8 per_h pf 0-8 Not Available [facility] (Lab) [address] [place], [address], 01/03/2024 20:39:02 01/03/20 24 01/03/2024 URINA LYSIS W/REF LEANDRA CULTU RE red blood cells NONE per_h pf 0-4 Not Available [facility] (Lab) [address] [place], [address], 01/03/2024 20:39:02 01/03/20 24 01/03/2024 URINA LYSIS W/REF LEANDRA CULTU RE bacteria OCCASI ONAL per_h pf Not Available [facility] (Lab) [address] [place], [address], 01/03/2024 20:39:02 01/03/20 24 01/03/2024 URINA LYSIS W/REF LEANDRA CULTU RE epithelial cells PRESEN T abnormal Not Available [facility] (Lab) [address] [place], [address], 01/03/2024 20:39:02 01/03/20 24 01/03/2024 URINA LYSIS W/REF LEANDRA CULTU RE mucus NONE Not Available [facility] (Lab) [address] [place], [address], 01/03/2024 20:39:02 01/03/20 24 01/03/2024 URINA LYSIS W/REF LEANDRA CULTU RE casts NONE none seen- Not Available [facility] (Lab) [address] [place], [address], 01/03/2024 20:39:02 01/03/20 24 01/03/2024 URINA LYSIS W/REF LEANDRA CULTU RE crystals NONE none seen- Not Available [facility] (Lab) [address] [place], [address], 01/03/2024 20:39:02 01/03/20 24 01/03/2024 URINA LYSIS W/REF LEANDRA CULTU RE yeast NONE SEEN none seen- abnormal Not Available [facility] (Lab) [address] [place], [address], 01/03/2024 20:39:02 01/03/20 24 01/03/2024 VITAM IN D 25-HY DROXY vd25oh 39.2 NG/mL 30-100 Vitam in D Statu s: Defic ient: <20 ng/mL Insuf ficie nt: 20-29 ng/mL Suffi cient : 30-10 0 ng/mL Not Available [facility] (Lab) [address] [place], [address], 01/03/2024 20:24:16 01/03/20 24 01/03/2024 HEMOG LOBIN A1C HA1C 5.7 % 4.0-6. 0 Diabe katerin Scree bautista Crite palak: <5.7% Consi stent with absen ce of diabe katerin 5.7-6 .4% Consi stent with incre ased risk for diabe katerin (pred iabet es) >OR=6 .5% Consi stent with diabe katerin REFER ENCE: Diabe katerin Care 2016, 39(Louis ppl.1 ):s13 -s22 Not Available [facility] (Lab) [address] [place], [address], 01/03/2024 20:33:37 01/03/20 24 01/03/2024 TSH W/REF LEANDRA FT4 TSH with reflex free T4 0.774 uIU/m L 0.465- 4.680 Not Available [facility] (Lab) [address] [place], [address], 01/03/2024 20:37:35 01/03/20 24 01/03/2024 VITAM IN B12 (ADRIENNE BENNY ) vb12 447 pg/mL 239-93 1 Not Available [facility] (Lab) [address] [place], [address], 01/03/2024 21:18:41 01/03/20 24 01/03/2024 FOLAT E, SERUM /PLAS MA folate >20.0 NG/mL 2.76-2 0.0 Not Available [facility] (Lab) [address] [place], [address], 01/03/2024 21:18:57 01/03/20 24 01/09/2024 MARINE SCREE N RFX TITER /CHANDLER MARSHALL antinuclear antibodies, ifa NEGATI VE Negat frankie <1:80 Borde rline 1:80 Posit frankie >1:80 ICAP nomen clatu re: AC-0 For more infor matio n about Hep-2 cell patte rns use ANApa ttern s.org , the offic ial websi te for the Inter natio nal Conse nsus on Antin uclea r Antib cuca (MARINE) Patte rns (ICAP ). Perfo rmed at: CB - [facility] n [address] [facility], [place] [address] Lab Direc tor: Camron dalton PhD, Phone : [phone] Not Available [facility] (Lab) [address] [place], [address], 01/09/2024 09:13:37 03/12/2003/12/2024 XR, chest , 2 view No observ ation record ed. [email or web address] [facility] [address] [facility] [address], [place], [address], 03/24/2024 10:50:42 Result Notes None recorded. Problems Name Problem SNOMED Code Status Onset Date Resolution Date Notes Provider Name and Address Organization Details Recorded Time Rupture of rotator cuff of right shoulder 14444495961 446270 Active 2021 Not Available [facility] 3 09:18:34 Localized , primary osteoarth ritis of the hand 060848892 Active Not Available [facility] 3 09:18:34 Osteoarth ritis of left knee joint 68329703528 9109 Active 2021 Not Available [facility] 3 09:18:36 Osteoarth ritis of right knee joint 50558524585 9100 Active 2021 Not Available [facility] 3 09:18:36 Genital herpes simplex 93922698 Active 2017 Not Available [facility] 3 09:18:36 Vitamin D deficienc y 55718359 Active 2017 Not Available [facility] 3 09:18:36 Goiter 2304127 Active 05/2018 Not Available [facility] 3 09:18:37 Osteoarth rosis of the carpometa carpal joint of the thumb 60010336 Active 2019 Not Available [facility] 3 09:18:37 Hyperlipi demia 49348563 Active Not Available [facility] 3 09:18:38 Obstructi ve sleep apnea syndrome 85381735 Active 2020 Not Available [facility] 3 09:18:38 COVID-19 041119247 Active 2022 Kacey Martinez MD [address], [address], [place], [address] , [employer] 3 11:12:30 Cobalamin deficienc y 136713670 Active 2023 Kacey Martinez MD [address], [address], [place], [address] , [employer] 4 12:45:54 Periodic limb movement disorder 708439002 Active 2023 Adiel Shannon MD [address], [address], [place], [address] , [employer] 4 12:22:48 Lumbar spondylos is 789284327 Active 2023 Hitesh Kowalski MD [address], [address], [place], [address] , [employer] 4 11:43:36 Migraine without aura 55137770 Active 2023 Hitesh Kowalski MD [address], [address], [place], [address] , [employer] 4 11:45:20 Obesity 864964738 Active 2023 Hitesh Kowalski MD [address], [place], [address] , [employer] 4 12:01:45 Iron deficienc y 67612130 Active 2023 Adiel Shannon MD [address], [address], [place], [address] , [employer] 4 12:21:39 Ex-cigare tte smoker 374370393 Active 2023 Hitesh Kowalski MD [address], [address], [place], [address] , [facility] 4 11:13:59 Verruca vulgaris 46120373 Active 2023 Hitesh Kowalski MD [address], [place], [address] , [facility] 4 10:09:30 Depressiv e disorder 46784412 Active 2023 Hitesh Kowalski MD [address], [address], [place], [address] , [facility] 4 10:12:31 History of lumbar laminecto my [id number] 822139 Active 2021 Hitesh Kowalski MD [address], [address], [place], [address] , [facility] 4 10:16:44 Lumbar radiculop athy 104507513 Completed 202004/18/2021 Hitesh Kowalski MD [address], [place], [address] , [employer] [facility] 4 11:11:18 Left-side d piriformi s syndrome 29479291289 9106 Active 2022 Hitesh Kowalski MD [address], [place], [address] , [facility] 4 10:16:44 Inflammat ion of sacroilia c joint 08521382 Active 2022 Hitesh Kowalski MD [address], [place], [address] , [facility] 4 10:16:44 History of lumbar fusion 66758329082 106 Active 2021 Hitesh Kowalski MD [address], [place], [address] , [facility] 4 10:16:44 Notes:Medical History: Depre ssion COVID infections 12/2022, 08/2023 Bruxism Obesity with mod OSAHS, AHI = 19, 12/24/20, on CPAP c/o IVRC Hyperlipidemia Hepatic steatosis Hemorrhoids Left renal calculus HSV-2 infection PLMD Iron deficiency Vit B12 deficiency Vit D deficiency Lumbar DDD Bilateral knee OA Right popliteal cyst Procedure History: Cholecystectomy 2011 ALFA-BSO 2013 Right knee arthroscopies 2015, 2016 Left 1st toe joint replacement 2018 Right shoulder repair 2019 Right hand arthroplasty 2020 L4-L5, L5-S1 laminectomies 2021 Colonoscopy with polypectomies [address] LN biopsy 2022 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 Procedures Surgical History Date Name Laterality Status Provider Name and Address Organization Details Recorded Time 04/29/20 24 Date of Last Pap Smear completed Jackie Goff RN [facility] 04/29/2024 10:40:08 01/31/20 24 Ear Irrigation completed Hitesh Kowalski MD [address] [facility], [address], [place], [address], [employer] 01/31/2024 11:36:52 01/23/20 24 Cryotherapy completed Hitesh Kowalski MD [address], [place], [address], [employer] 01/23/2024 10:09:50 01/31/20 22 Back Surgeries completed Not Available [facility] 07/19 09:13:25 08/10/19 22 Date of Last Colonoscopy completed Bonnie Pop [employer] 03/09/2023 16:20:51 08/10/19 22 colonoscopy completed Not Available [facility] 07/20/19 23 09:13:25 Imaging Results Imaging Date Name Status LastModified by Organiz ation Details LastModified Time 03/12/2024 XR, chest, 2 view completed [email or web address] [place] [address] [facility] [address], [place], [address], 03/24/2024 10:50:42 Procedure Notes None recorded. Medical Equipment None Reported. Allergies Allergen ID Allergen Name Allergen Category Reaction Reaction Severity Criticality Documentation Date Start Date Code Code System Note Provider Name and Address Organization Details Recorded Time 13168 No known allergy (situatio n) Not available Not available Not available Not available 01/23/2024 48266 6003 SNOMED Hitesh Kowalski MD [address] [facility] [facility] [address], [place], [address], [facility] [employer] 10:16:33 No known drug allergies Medications Name Sig Start Date Stop Date Status Note LastModified by Organization Details LastModified Time compounded medication 1.7 mg sc qweek 11/08 completed Not Available Not Available Not Available Prescriptio n - Prior Authorizati on Request 01/23 completed Not Available Not Available Not Available c-semagluti de 2.5mg/ml inject (68 units on syringe) subcutane ously weekly for 4 weeks 11/08 completed Not Available Not Available Not Available celecoxib 200 mg capsule TAKE 1 CAPSULE BY MOUTH EVERY 12 HOURS WITH FOOD active Not Available Not Available No t Available Augmentin 875 mg-125 mg tablet Take 1 tablet every 12 hours by oral route for 7 days. 02/27 completed Not Available Not Available Not Available butalbital- acetaminoph en-caffeine 50 mg-325 mg-40 mg capsule 1 po qday prn migraine active Not Available Not Available No t Available prednisone 10 mg tablet TAKE 1 TABLET BY MOUTH DAILY WITH BREAKFAST FOR 1 DAY 03/27 completed Not Available Not Available Not Available gabapentin 600 mg tablet TAKE 1 TABLET BY MOUTH THREE TIMES DAILY DIRECTED active Not Available Not Available No t Available ketoconazol e 2 % shampoo active Not Available Not Available Not Available Vitamin C 500 mg tablet TAKE 1 TABLET BY MOUTH DAILY active Not Available Not Available No t Available azithromyci n 250 mg tablet 12/04 completed Not Available Not Available Not Available ibuprofen 800 mg tablet TAKE 1 TABLET BY MOUTH THREE TIMES DAILY NEEDED FOR PAIN 11/11 completed Not Available Not Available Not Available benzonatate 200 mg capsule TAKE 1 CAPSULE BY MOUTH THREE TIMES DAILY NEEDED 11/08 completed Not Available Not Available Not Available hydrocodone 5 mg-acetamin ophen 325 mg tablet TAKE 1 TABLET BY MOUTH EVERY 8 HOURS NEEDED FOR PAIN 01/02 completed Not Available Not Available Not Available meloxicam 15 mg tablet TAKE 1 TABLET BY MOUTH EVERY DAY AT DINNER 09/26 completed Not Available Not Available Not Available bupivacaine HCl 0.5 % (5 mg/mL) injection solution Take 40 mg by injection route. 01/16 completed Not Available Not Available Not Available prednisone 20 mg tablet TAKE 2 TABLETS BY MOUTH EVERY MORNING FOR 5 DAYS 11/08 completed Not Available Not Available Not Available prednisone 5 mg tablet TAKE 1 TABLET BY MOUTH EVERY DAY WITH BREAKFAST FOR 3 DAYS AFTER THE COMPLETIO N OF THE 10 MG ON 2 03/27 completed Not Available Not Available Not Available Debrox 6.5 % ear drops INSTILL 4 DROPS INTO AFFECTED EAR(S) BY OTIC ROUTE 2 TIMES PER DAY 02/09 completed Not Available Not Available Not Available atenolol 25 mg tablet TAKE 1 TABLET DAILY 05/01 completed Not Available Not Available Not Available butalbital 50 mg-acetamin ophen 325 mg tablet 12/04 completed Not Available Not Available Not Available phentermine 37.5 mg tablet Take 1 tablet every day by oral route. 12/04 completed Not Available Not Available Not Available Tamiflu 75 mg capsule Take 1 capsule twice a day by oral route for 5 days. 09/08 completed Not Available Not Available Not Available hydrocodone 10 mg-acetamin ophen 325 mg tablet TK 1 T PO Q 6 H PRF PAIN active Not Available Not Available No t Available tramadol 50 mg tablet 05/26 completed Not Available Not Available Not Available triamcinolo ne acetonide 0.1 % topical cream XENA THIN LAYER EXT AA BID FOR 7 DAYS active Not Available Not Available No t Available butalbital- acetaminoph en-caffeine 50 mg-325 mg-40 mg tablet 04/29 completed Not Available Not Available Not Available acyclovir 800 mg tablet active Not Available Not Available Not Available baclofen 20 mg tablet TAKE 1 TABLET BY MOUTH EVERY 8 HOURS NEEDED active Not Available Not Available No t Available prednisone 10 mg tablets in a dose pack Take 1 tab by mouth, 3 times a day for 3 daysTake 1 tab by mouth 2 times a day for 2 daysTake 1 tab by mouth once a day for 1 day 07/26 completed Not Available Not Available Not Available ciclopirox 8 % topical solution 12/04 completed Not Available Not Available Not Available hydrocortis one 2.5 % topical cream with perineal applicator APPLY A THIN LAYER TO THE AFFECTED AREA(S) BY TOPICAL ROUTE 2 TIMES DAILY x 14 days prn active Not Available Not Available No t Available amoxicillin 875 mg tablet Take 1 tablet every 12 hours by oral route for 10 days. active Not Available Not Available No t Available Kenalog 10 mg/mL suspension for injection in office 09/26 completed [facility]: [phone] Not Available Not Available Not Available doxycycline monohydrate 100 mg capsule Take 1 capsule twice a day by oral route for 7 days. active Not Available Not Available No t Available triamcinolo ne acetonide 40 mg/mL suspension for injection Take 40 mg by injection route. 04/29 completed Not Available Not Available Not Available hydrocodone 7.5 mg-acetamin ophen 325 mg tablet TAKE 1 TABLET BY MOUTH EVERY 6 HOURS NEEDED 01/02 completed Not Available Not Available Not Available cephalexin 500 mg capsule 03/15 completed Not Available Not Available Not Available triamcinolo ne acetonide 0.1 % topical ointment Apply 1 applicati on twice a day by topical route as needed for 7 days. active Not Available Not Available No t Available nystatin 100,000 unit/gram topical cream APPLY TO THE AFFECTED AREA(S) BY TOPICAL ROUTE 2 TIMES PER DAY active Not Available Not Available No t Available dexamethaso ne 4 mg tablet 09/26 completed Not Available Not Available Not Available oxycodone 5 mg capsule TAKE 1 TO 2 CAPSULES BY MOUTH EVERY 4 HOURS NEEDED 07/13 completed Not Available Not Available Not Available orphenadrin e citrate ER 100 mg tablet,exte nded release 04/29 completed Not Available Not Available Not Available gabapentin 300 mg capsule TAKE 1 CAPSULE BY MOUTH TWICE DAILY 07/26 completed Not Available Not Available Not Available sertraline 25 mg tablet TAKE 1 TABLET BY MOUTH EVERY DAY 07/13 completed Not Available Not Available Not Available diclofenac sodium 75 mg tablet,rae yed release TK 1 T PO BID PRN active Not Available Not Available No t Available cephalexin 500 mg tablet Take 1 tablet twice a day by oral route for 7 days. 03/15 completed Not Available Not Available Not Available bumetanide 1 mg tablet TAKE 1 TO 2 TABLETS BY MOUTH EVERY MORNING NEEDED FOR SWELLING 07/13 completed Not Available Not Available Not Available flurbiprofe n 100 mg tablet TK 1 T PO BID PRN 09/24 completed Not Available Not Available Not Available hydrocortis one 2.5 % topical cream active Not Available Not Available Not Available furosemide 20 mg tablet 1-2 po qAM active Not Available Not Available No t Available clobetasol 0.05 % topical ointment 02/09 completed Not Available Not Available Not Available diazepam 10 mg tablet TAKE 1 TABLET BY MOUTH 1 HOUR PRIOR TO PROCEDURE 01/16 completed Not Available Not Available Not Available Tylenol-Cod eine #3 300 mg-30 mg tablet Take 1 tablet every 6 hours by oral route as needed. 09/08 completed Not Available Not Available Not Available methylpredn isolone 4 mg tablets in a dose pack FOLLOW PACKAGE DIRECTION S 04/29 completed Not Available Not Available Not Available albuterol sulfate HFA 90 mcg/actuati on aerosol inhaler INHALE 2 PUFFS BY MOUTH EVERY 4 HOURS NEEDED FOR COUGH OR SHORTNESS OF BREATH active Not Available Not Available No t Available Vitamin D2 1,250 mcg (50,000 unit) capsule TAKE 1 CAPSULE EVERY WEEK 07/26 completed Not Available Not Available Not Available celecoxib 100 mg capsule 1 po bid 01/02 completed Not Available Not Available Not Available clobetasol 0.05 % scalp solution APPLY TO THE AFFECTED AREAS OF SCALP UP TO TWICE DAILY NEEDED active Not Available Not Available No t Available sertraline 50 mg tablet TAKE 1 AND 1/2 TABLETS BY MOUTH EVERY DAY active Not Available Not Available No t Available doxycycline hyclate 100 mg tablet TAKE 1 TABLET BY MOUTH TWICE DAILY FOR 7 DAYS 11/08 completed Not Available Not Available Not Available diazepam 5 mg tablet TAKE 1 TABLET BY MOUTH EVERY 6 HOURS NEEDED 07/13 completed Not Available Not Available Not Available nabumetone 500 mg tablet 12/04 completed Not Available Not Available Not Available celecoxib 400 mg capsule TAKE 1 CAPSULE BY MOUTH EVERY DAY active Not Available Not Available No t Available metaxalone 800 mg tablet 01/16 completed Not Available Not Available Not Available rosuvastati n 20 mg tablet Take 1 tablet every day by oral route in the evening. 2023 active Not Available Not Available Not Avai lable ORTHOVISC 30 mg/2 mL intra-artic ular syringe Inject 2 mL every week by intra-art icular route. 07/26 completed Not Available Not Available Not Available clobetasol 0.05 % shampoo apply to scalp daily as needed 05/09 completed Not Available Not Available Not Available nitrofurant oin monohydrate /macrocryst als 100 mg capsule TK 1 C PO Q 12 H FOR 7 DAYS 09/04 completed Not Available Not Available Not Available duloxetine 30 mg capsule,del ayed release TAKE 1 CAPSULE BY MOUTH EVERY DAY 07/26 completed Not Available Not Available Not Available fluocinolon e 0.01 % scalp oil and shower cap APPLY TO SCALP TWICE WEEKLY 05/09 completed Not Available Not Available Not Available Boostrix Tdap 2.5 Lf unit-8 mcg-5 Lf/0.5 mL intramuscul ar syringe active Not Available Not Available N ot Available pregabalin 75 mg capsule Take 1 capsule twice a day by oral route for 30 days. active Not Available Not Available No t Available Fish Oil 02/15 completed Not Available Not Available Not Available Celestone 100mg twice a day 09/26 completed Not Available Not Available Not Available lidocaine (PF) 10 mg/mL (1 %) injection solution In office injection administe red by the provider 07/26 completed [facility]: [phone]- [phone]- [phone] Not Available Not Available Not Available lidocaine (PF) 20 mg/mL (2 %) injection solution Take 3 mL by injection route. 04/29 completed Not Available Not Available Not Available lidocaine (PF) 5 mg/mL (0.5 %) injection solution Take 30 mg by injection route. 01/16 completed Not Available Not Available Not Available FeroSul 325 mg (65 mg iron) tablet TAKE 1 TABLET BY MOUTH DAILY active Not Available Not Available No t Available butalbital- acetaminoph en-caffeine 50 mg-300 mg-40 mg capsule TAKE 1 CAPSULE DAILY NEEDED FOR MIGRAINES active Not Available Not Available No t Available ropivacaine (PF) 5 mg/mL (0.5 %) injection solution in office 09/26 completed [facility] [phone] Not Available Not Available Not Available Afluria (P F) 45 mcg (15 mcg x 3)/0.5 mL intramuscul ar syringe TO BE ADMINISTE RED BY PHARMACIS T FOR IMMUNIZAT ION active Not Available Not Available No t Available Fluarix Quad 5839-2175 (PF) 60 mcg (15 mcg x 4)/0.5 mL IM syringe active Not Available Not Available N ot Available Shingrix (PF) 50 mcg/0.5 mL intramuscul ar suspension, kit ADMINISTE R 0.5ML IN THE MUSCLE DIRECTED 07/26 completed Not Available Not Available Not Available Flucelvax Quad 60 mcg (15 mcg x 4)/0.5 mL IM suspension active Not Available Not Available N ot Available Flucelvax Quad (PF) 60 mcg (15 mcg x 4)/0.5 mL IM syringe active Not Available Not Available N ot Available Ubrelvy 100 mg tablet TAKE 1 TABLET BY MOUTH EVERY OTHER DAY DIRECTED active Not Available Not Available No t Available ID NOW COVID-19 Test Kit TEST DIRECTED TODAY 07/26 completed Not Available Not Available Not Available Afluria Qd (36 mos up)(PF)60 mcg (15 mcg x4)/0.5 mL IM syringe ADM 0.5ML IM UTD active Not Available Not Available No t Available Wegovy 2.4 mg/0.75 mL subcutaneou s pen injector ADMINISTE R 2.4 MG UNDER THE SKIN EVERY WEEK DIRECTED active Not Available Not Available No t Available Wegovy 1.7 mg/0.75 mL subcutaneou s pen injector Inject 1.7 mg every week by subcutane ous route as directed for 30 days. active Not Available Not Available No t Available Wegovy 1 mg/0.5 mL subcutaneou s pen injector ADMINISTE R 1 MG UNDER THE SKIN EVERY WEEK DIRECTED 04/29 completed Not Available Not Available Not Available Wegovy 0.25 mg/0.5 mL subcutaneou s pen injector Inject by subcutane ous route for 28 days. 02/24 completed Not Available Not Available Not Available Wegovy 0.5 mg/0.5 mL subcutaneou s pen injector ADMINISTE R 0.5 MG UNDER THE SKIN EVERY WEEK DIRECTED 04/29 completed Not Available Not Available Not Available semaglutide (weight loss) 11/08 completed Not Available Not Available Not Available Paxlovid 300 mg (150 mg x 2)-100 mg tablets in a dose pack TAKE DIRECTED 09/26 completed Not Available Not Available Not Available Vitals Date Recorded Body height Body mass index (BMI) Body weight Body temperature Heart rate Respiratory rate Systolic blood pressure Diastolic blood pressure Provider Name and Address Organization Details Last Updated DateTime 170.18 cm 30.7 kg/m2 09360.4 5 g 98.1 [degF] 80 /min 20 /min 132 mm[Hg] 70 mm[Hg] Elias [facility] [employer] [facility] 11:31:56 Date Recorded Oxygen saturation Oxygen saturation in Arterial blood by Pulse oximetry Provider Name and Address Organization Details Last Updated DateTime 01/31/2024 98 % 98 % Hitesh Kowalski MD [address] [place] [address], [address], [facility] [employer] [facility] 01/31/2024 11:31:34 Date Recorded Body height Body mass index (BMI) Body weight Body temperature Heart rate Respiratory rate Oxygen saturation Oxygen saturation in Arterial blood by Pulse oximetry Systolic blood pressure Diastolic blood pressure Provider Name and Address Organization Details Last Updated DateTime 170.18 cm 31.4 kg/m2 35374.2 7 g 98.4 [degF] 86 /min 16 /min 99 % 99 % 126 mm[Hg] 76 mm[Hg] Elias Troncoso [facility] [employer] [facility] 14:51:56 Date Recorded Body height Body mass index (BMI) Body weight Body temperature Heart rate Provider Name and Address Organization Details Last Updated DateTime 03/24/2024 170.18 cm 31.4 kg/m2 68810.57 g 97.4 [degF] 72 /min Karissa Hardy RN [facility] [employer] [facility] 10:48:00 Date Recorded Oxygen saturation Oxygen saturation in Arterial blood by Pulse oximetry Systolic blood pressure Diastolic blood pressure Provider Name and Address Organization Details Last Updated DateTime 03/24/2024 98 % 98 % 134 mm[Hg] 80 mm[Hg] Hitesh Kowalski MD [address] [facility], [place], [address], [facility] [employer] [facility] 4 11:09:36 Date Recorded Body height Body mass index (BMI) Body weight Body temperature Heart rate Oxygen saturation Oxygen saturation in Arterial blood by Pulse oximetry Systolic blood pressure Diastolic blood pressure Provider Name and Address Organization Details Last Updated DateTime 4 170.18 cm 31.3 kg/m2 23969.4 7 g 98.1 [degF] 73 /min 97 % 97 % 128 mm[Hg] 80 mm[Hg] Yoly Villatoro MA [facility] [employer] 4 09:51:51 Date Recorded Heart rate Respiratory rate Provider N scott and Address Organization Details Last Updated DateTime 03/26/2024 73 /min 15 /min Adiel Shannon [facility] [address] [facility] [address], [place], [address], [facility] [employer] 03/26/2024 10:19:02 Date Recorded Body height Body mass index (BMI) Body weight Body temperature Heart rate Respiratory rate Oxygen saturation Oxygen saturation in Arterial blood by Pulse oximetry Pain severity - 0-10 verbal numeric rating [Score] - Reported Systolic blood pressure Diastolic blood pressure Provider Name and Address Organization Details Last Updated DateTime 4 170.18 cm 31.5 kg/m2 60339.5 2 g 97.1 [degF] 80 /min 20 /min 98 % 98 % 7 136 mm[Hg] 100 mm[Hg] Jackie Goff RN [facility] [employer] 4 10:38:41 Social History Question Answer Notes LastModified by Organization Details LastModified Time Tobacco Smoking Status Former Smoker quit 2006 only smoked 1 pack per week Candida torres, [facility] [employer] 06/21/2023 07:57:40 Do You Have An Advance Directive? No [id number] Information not available 07/19/2022 What Is Your Level Of Alcohol Consumption? Occasional [id number] Information not available 07/19/2022 What Is Your Level Of Caffeine Consumption? Moderate [id number] Information not available 07/19/2022 How Much Tobacco Do You Chew? None [id number] Information not available 07/19/2022 In The 14 Days Before Symptom Onset, Have You Had Close Contact With A Laboratory-confi rmed COVID-19 While That Case Was Ill? No Information not available 06/21/2023 In The 14 Days Before Symptom Onset, Have You Had Close Contact With A Person Who Is Under Investigation For COVID-19 While That Person Was Ill? No Information not available 06/21/2023 Are You Currently Employed? No Information not available 04/29/2024 What Type Of Diet Are You Following? REGULAR [id number] Information not available 07/19/2022 Which Illicit Or Recreational Drugs Have You Used? No Information not available 06/21/2023 Do You Or Have You Ever Used E-cigarettes Or Vape? Never Used Electronic Cigarettes Information not available 06/21/2023 Do You Have An Electrostatic Air Filter? Yes Information not available 03/26/2024 Have There Been Any Changes To Your Family Or Social Situation? Yes Information not available 04/29/2024 Are There Any Guns Present In Your Home? No Information not available 06/21/2023 Do You Have A Humidifier? Yes Information not available 03/26/2024 Where Do You Live? [facility] Information not available 06/21/2023 Do You Have A Medical Power Of Cardiology Nurse Practitioner? No Information not available 04/29/2024 Do You Have Moisture Problems In Your Home? No Information not available 03/26/2024 What Was The Date Of Your Most Recent Tobacco Screening? 03/26/2024 Information not available 03/26/2024 How Many Children Do You Have? 3 Information not available 04/29/2024 Have You Ever Been Counseled For Unhealthy Alcohol Use? No Information not available 06/21/2023 Do You Have Any Pets? Yes Information not available 06/21/2023 What Is Your Relationship Status? Information not available 04/29/2024 Do You Use Your Seat Belt Or Car Seat Routinely? Yes Information not available 03/26/2024 Do You Have Smoke And Carbon Monoxide Detectors In Your Home? Yes Information not available 06/21/2023 Are You Passively Exposed To Smoke? No Information not available 06/21/2023 Do You Or Have You Ever Used Smokeless Tobacco? Never Used Smokeless Tobacco [id number] Information not available 07/19/2022 Are There Any Smokers In Your House? No Information not available 06/21/2023 Do You Participate In Social [employer]? Yes Information not available 04/29/2024 Do You Feel Stressed (tense, Restless, Nervous, Or Anxious, Or Unable To Sleep At Night)? [id number] Information not available 03/26/2024 Do You Use Any Illicit Or Recreational Drugs? Yes [place] Gummies For Her Pain Only At Night So Pt Can Sleep Information not available 06/21/2023 Do You Use Sunscreen Routinely? No Information not available 06/21/2023 Has Tobacco Cessation Counseling Been Provided? No Information not available 06/21/2023 Have You Recently Traveled Abroad? No Information not available 06/21/2023 Do You Have Any Dietary Restrictions? No Information not available 06/21/2023 Do You Or Have You Ever Used Any Other Forms Of Tobacco Or Nicotine? No Information not available 06/21/2023 Sex: Unknown Functional Status Question Answer Note LastModified by Organizat ion Details LastModified Time What is your exercise level? Occasional [id number] Information not available 07/19/2022 Mental Status None recorded. Family History Relationship Description Onset Age of this Age Resolved Age Notes LastModified by Organization Details LastModified Time Mother Hypertensive disorder [id number] Not available 07/19/2022 09:13:26 Father Hypertensive disorder [id number] Not available 07/19/2022 09:13:26 Father Diabetes mellitus [id number] Not available 07/19/2022 09:13:26 Father Cerebrovascu lar accident [email or web address] Not available 1 05/26/2023 09:39:41 Mother Malignant neoplasm of skin [id number] Not available 10/2023 09:39:41 Mother Malignant tumor of colon [email or web address] Not available 10/2023 09:39:41 Mother Diabetes mellitus [email or web address] Not available 2023 12:17:54 Sister Malignant tumor of pancreas [email or web address] Not available 10/2023 09:39:41 Sister Hyperlipidem ia Not available 10/2023 09:39:41 Sister Obstructive sleep apnea syndrome [email or web address] Not available 10/2023 09:39:41 Sister Diabetes mellitus [email or web address] Not available 2023 12:18:36 Medical History Condition Response BLINDNESS N RHEUMATIC FEVER N KIDNEY STONES N BLADDER PROBLEMS N MRSA N OTHER # 1 N POLIO N LUNG DISEASE/DISORDER N RADIATION / CHEMOTHERAPY N COPD N Other # 2 N BLOOD DISEASES N SURGERY N EAR OR HEARING PROBLEMS N MUMPS N BOWEL PROBLEMS N FEMALE PROBLEMS / INFECTIONS N DEPRESSION (INCLUDING POST ) N STROKE/TIA N THYROID DISEASE N ULCERS N BENIGN PROSTATIC HYPERPLASIA N MEASLES N CERVICALGIA N TB SKIN TEST N MYOCARDIAL INFARCTION N PARAPELGIA N OBESITY N GERD/NAUSEA N ANEURYSM N URINARY/BLADDER/KIDNEY PROBLEMS N CORONARY ARTERY DISEASE (CAD) N MENIERE'S DISEASE N ADDICTION CONCERNS N ENDOMETRIOSIS N USE OF BLOOD THINNERS N SKIN PROBLEMS N EMPHYSEMA N GASTROINTESTINAL DISORDER N MUSCLE,JOINT OR BONE PROBLEMS N GASTROINTESTINAL BLEEDING N BLOOD CLOTS N ASTHMA Y CATARACTS N ERECTILE DYSFUNCTION N GI PROBLEMS N CHF N Low Testosterone N NEUROPATHY N INFERTILITY N AIDS/HIV N FRACTURES N CHEMOTHERAPY / RADIATION N VISION/EYE PROBLEMS N LIVER DISEASE N MALE HYPOGONADISM N HYPERTENSION Y ANXIETY DISORDER N BLOOD TRANSFUSION N ANEMIA/BLOOD DISORDER N CHRONIC EAR INFECTIONS N BRONCHITIS N TUBERCULOSIS N GLAUCOMA N FOOT PROBLEM N DIVERTICULITIS N CHICKENPOX N SLEEP APNEA N ALLERGIES/HAYFEVER N INFECTIOUS DISEASE N HEART ARRHYTHMIA N PROSTATE N INSOMNIA Y HIGH CHOLESTEROL / HYPERLIPIDEMIA Y HYPERTHYROIDISM N EYE PROBLEMS N EATING DISORDER N NEUROLOGICAL PROBLEMS N EDEMA N CHRONIC PAIN SYNDROME N HYPOTHYROIDISM N CAROTID BLOCKAGE N CONSTIPATION N BACK / NECK PROBLEMS N HAVE YOU BEEN HOSPITALIZED OR SEEN IN [facility] IN THE PAST YEAR ? N ATHEROSCLEROSIS N BREAST PROBLEMS N DIALYSIS N ECZEMA N FIBROMYALGIA N OSTEOPOROSIS N ARTHRITIS Y NO SIGNIFICANT PAST MEDICAL HISTORY N APPENDICITIS N DIABETES, TYPE N BAD TEETH N HEARTBURN / REFLUX N ADD/ADHD N AUTISM SPECTRUM DISORDER (ASD) N HEPATITIS / LIVER DISEASE N PULMONARY DISEASE N GOUT N SLEEP DISORDER N ALZHEIMER'S DISEASE N PAIN Y HERPES N DEMENTIA N HEADACHES/MIGRAINES Y SEIZURES/EPILEPSY N VASCULAR DISEASE N PACEMAKER N DIZZINESS N HEART DISEASE/HEART PROBLEMS N KIDNEY DISEASE N DEVELOPMENTAL OR BEHAVIORAL DISORDERS N MULTIPLE SCLEROSIS N SCARLET FEVER N MENTAL DISORDER/ILLNESS N CARDIAC ARRHYTHMIA N CANCER: SPECIFY N PNEUMONIA N ATRIAL FIBRILLATION N Gall Stones N PULMONARY EMBOLISM N AUTOIMMUNE DISEASE N Gynecological History Statement/Question Response Abnormal Pap N Date of LMP Date of Last Pap Current Control Method Hysterectom y Age at Menarche 13 Most Recent Mammogram Breast Problems no, just had yearly mammo How many live births 3 Date of Last Mammogram 09/15/2020 Date of Last Colonoscopy 08/09/2021 Most Recent Bone Density Menses Monthly N Date of Last Pap Smear 04/29/2024 Obstetrics History GPAL:G 3 P 3 0 0 3 Type Value Full Term 3 Living 3 Total 3 Immunizations Vaccine Type Date Status Note Provider Nam e and Address Organization Details Recorded Time Influenza, split virus, quadrivalent, PF 2 completed Hitesh Kowalski MD [address], [address], [place], [address], [employer] 12/05/2023 11:31:53 Influenza, MDCK, quadrivalent, PF 9 completed Hitesh Kowalski MD [address], [place], [address], [employer] [facility] 12/05/2023 11:31:53 Influenza, MDCK, quadrivalent, preservative 8 completed Hitesh Kowalski MD [address], [place] [address], [place], [address], [employer] [facility] 12/05/2023 11:31:53 zoster recombinant 0 completed Hitesh Kowalski MD [address], [address], [place], [address], [employer] [facility] [employer] [facility] 12/05/2023 11:31:53 zoster recombinant 0 completed Hitesh Kowalski MD [address], [address], [place], [address], [facility] [employer] [facility] 12/05/2023 11:31:53 COVID-19, mRNA, LNP-S, PF, 100 mcg/0.5mL dose or 50 mcg/0.25mL dose 1 completed Hitesh Kowalski MD [address], [address], [place], [address], [facility] [employer] [facility] 12/05/2023 11:31:53 COVID-19, mRNA, LNP-S, PF, 100 mcg/0.5mL dose or 50 mcg/0.25mL dose 1 completed Hitesh Kowalski MD [address], [address], [place], [address], [facility] [employer] [facility] 12/05/2023 11:31:53 COVID-19, mRNA, LNP-S, PF, 100 mcg/0.5mL dose or 50 mcg/0.25mL dose 1 completed Hitesh Kowalski MD [address], [address], [place], [address], [facility] [employer] [facility] 12/05/2023 11:31:53 Tdap 9 completed Hitesh Kowalski MD [address], [address], [place], [address], [facility] [employer] [facility] 12/05/2023 11:31:53 Influenza, split virus, quadrivalent, PF 0 completed Hitesh Kowalski MD [address], [address], [place], [address], [facility] [employer] [facility] 12/05/2023 11:31:53 Influenza, split virus, quadrivalent, PF 7 completed Hitesh Kowalski MD [address], [address], [place], [address], [facility] [employer] [facility] 12/05/2023 11:31:53 SARS-COV-2 (COVID-19) vaccine, UNSPECIFIED 1 completed Hitesh Kowalski MD [address], [address], [place], [address], [employer] 12/05/2023 11:31:53 SARS-COV-2 (COVID-19) vaccine, UNSPECIFIED 1 completed Hitesh Kowalski MD [address] [place] [address], [address], [employer] 12/05/2023 11:31:53 Influenza, split virus, quadrivalent, PF 1 completed Not Available [facility] 07/19/2022 09:23:16 Influenza, split virus, quadrivalent, preservative 6 completed Not Available [facility] 07/19/2022 09:23:16 Influenza, split virus, quadrivalent, PF 5 completed Not Available [facility] 07/19/2022 09:23:16 Tdap 4 completed Not Available [facility] 07/19/2022 09:23:16 Influenza, split virus, trivalent, PF 4 completed Elias torres [employer] 03/11/2024 16:37:45 Past Encounters Encounter ID Performer Location Encounter Start Date Encounter Closed Date Diagnosis/Indication Diagnosis SNOMED-CT Code Diagnosis ICD10 Code Diagnosis Note [id number] [facility] [address] [place] [address] 08/12/2020 00:00:00 08/16/2020 18:47:06 [id number] [facility] [address] [place] [address] 09/16/2020 00:00:00 09/16/2020 14:51:19 [id number] [facility] [address] [place] [address] 10/07/2020 00:00:00 10/07/2020 18:15:37 [id number] [facility] [address] [place] [address] 10/12/2020 00:00:00 10/12/2020 14:55:03 [id number] [facility] [address] [place] [address] 11/17/2020 00:00:00 11/17/2020 10:10:58 [id number] [facility] [address] [place] [address] [address] [place] [address] 12/06/2020 00:00:00 12/06/2020 12:54:46 [id number] [facility] [address] [place] [address] 12/16/2020 00:00:00 12/16/2020 17:30:05 [id number] [facility] [address] [place] [address] 01/11/2021 00:00:00 01/11/2021 16:03:00 [id number] [facility] [address] [place] [address] 01/18/2021 00:00:00 01/18/2021 16:03:16 [id number] [facility] [address] [place] [address] 01/25/2021 00:00:00 01/25/2021 15:43:05 [id number] [facility] [address] [place] [address] 02/03/2021 00:00:00 02/03/2021 22:50:53 [id number] [facility] [address] [place] [address] 02/14/2021 00:00:00 02/14/2021 16:48:49 [id number] [facility] [address] [place] [address] 04/28/2021 00:00:00 04/28/2021 09:52:59 [id number] [facility] [address] [place] [address] 07/26/2021 00:00:00 07/27/2021 09:02:26 [id number] [facility] [place] [address] [place] [address] 09/13/2021 00:00:00 09/13/2021 18:13:12 [id number] [facility] [address] [place] [address] 10/20/2021 00:00:00 10/20/2021 15:03:38 [id number] [facility] [place] [address] [place] [address] 10/21/2021 00:00:00 10/21/2021 13:54:50 [id number] [facility] [place] [address] [place] [address] 12/05/2021 00:00:00 12/05/2021 13:41:32 [id number] [facility] [place] [address] [place] [address] 12/19/2021 00:00:00 12/19/2021 09:55:45 [id number] [facility] [place] [address] [place] [address] 01/16/2022 00:00:00 01/18/2022 07:50:15 [id number] [facility] [place] [address] [place] [address] 03/27/2022 00:00:00 03/27/2022 08:45:22 [id number] [facility] [place] [address] [place] [address] 04/10/2022 00:00:00 04/18/2022 08:25:39 [id number] [facility] [place] [address] [place] [address] 05/18/2022 00:00:00 05/18/2022 13:12:50 [id number] [facility] [place] [address] [place] [address] 07/13/2022 00:00:00 07/13/2022 09:30:25 [id number] Kacey Martinez MD [facility] Primary Care [facility] [address] [facility] [address] [facility] [place] [address] 09/05/2022 16:36:41 09/05/2022 17:05:58 Dietary management surveillance 884151743 Z71.3 Renewal of prescription 516112101 Z76.0 Weight gain 7783078 R63. 5 R53.83 Z13.1 Z13.220 Z79.899 Migraine 07993779 G43.90 9 [id number] Kacey Martinez MD [facility] Primary Care [facility] [address] [facility] [address] [place] [address] 10/10/2022 16:06:52 10/10/2022 16:48:10 Dietary management surveillance 358882131 Z71.3 discussed phentermin e + topiramate vs saxenda vs wegovyshe will check on her insurance coverage [id number] PATSY Garcia [facility] [address] [place] [address] 11/24/2022 14:49:46 11/24/2022 15:18:02 Bilateral osteoarthritis of knees 7420498868 16052 M17.0 Pain of bi lateral knee joints 6308908126 64252 M25.561 M25.562 [id number] Za Nagy, PAID SEARCH ANALYST-[facility] [place] [address] [place] [address] 11/28/2022 12:22:11 11/28/2022 12:43:51 Obstructive sleep apnea syndrome 89979175 G47.33 Home study 12/2020 with [facility] 19.4Machin e set up 07/29/21Cu rrently with 83% use greater than 4 hoursShe is on CPAP 7 cmAHI is 2.4ESS 3She has good use and clinical benefitOSA is well correctedE ncouraged 100% compliance with all sleepFollo w with PCM for labsAdvise d good sleep habits and patterns:- Set a goal for at least 7 to 8 hours of sleep time per day.-Use the bed mainly for sleep and to go to bed only when tired. If unable to fall asleep after 30 minutes, patient should get out of bed but should not engage in any activity that requires sustained mental alertness. -Maintain a regular bedtime and wake-up time even on weekends-A void excessive naps during the daytime. If a nap is necessary, limit it to no more than 30 minutes.-M inimize environmen sonia noise, bright lights, and extremes in bedroom temperatur e.-Avoid alcohol, caffeinate d beverages, and nicotine products for at least 6 hours prior to bedtime.-A void strenuous exercise and large meals for at least 4 hours prior to bedtime.Or rafa for new supplies todayRTC in one year, PRN for concerns [id number] Kacey Martinez MD [facility] [address] [place] [address] 01/03/2023 16:55:03 01/03/2023 17:37:29 Headache 44701190 R51.9 call/retur n if no improvemen t in 1-2 days or sooner if neededrevi ewed s/s that warrant urgent/davina rgent eval in meantime Family his tory of malignant neoplasm of pancreas 252163378 Z80.0 Dizziness 582896365 R42 Z79.253 [id number] PATSY Garcia [facility] [place] [address] [place] [address] 02/26/2023 11:43:25 02/26/2023 12:10:14 Bilateral osteoarthritis of knees 2820824518 76115 M17.0 [id number] ALEXANDER Goodwin [facility] [address] [place] [address] 03/09/2023 16:09:40 03/09/2023 16:53:42 Mass of neck 807097765 R22.1 noted for about 3 weeks, had diarrhea for a week prior the mass popping upswelling has greatly improved, but does seem to come and gocan to be tender to touchno sinus issueswill give ultrasound of neckpt request staff to reach out with results Pain of bi lateral knee joints 4796196910 30826 M25.561 M25.562 was a pt of Dr. Morales in the paststill noting a lot of pain and decreased ROM/streng th at timesshe is wanting a referral to Dr. Cruz-justa terry [id number] Mohamud Jonas, PAID SEARCH ANALYST-C [facility] Primary Care [facility] [address] [facility] [address] [place] [address] 06/21/2023 07:55:15 06/21/2023 09:22:04 Mass of neck 187226073 R22.1 -biopsy of lymph node was completed, no evidence of metastatic disease Pain of bi lateral knee joints 1877492433 44504 M25.561 M25.562 -Pt sees Dr. Cruz on 06-25-23-nicolas n and decreased rom/streng th continue-u ses hydrocodon -acet, motrin with min relief-she has been trying to lose weight to help with the pain-she does a lot of stairs at work, and has been exacerbati ng pain [id number] Kacey Martinez MD [facility] Primary Care [facility] [address] [facility] [address] [place] [address] 09/27/2023 12:23:37 09/27/2023 13:12:17 Adult health examination 160703416 Z00.00 Z13.1 retiring in 1.5 weeksmammo gram orderDEXA orderfasti ng labscolono scopy 08/09, repeat 08/12LDCT not qualifiedT dap given 2019Shingr ix given 02/2020, 04/2020Pne umovax 23 at age 66RSV vaccine recommende dFlu vaccine annuallyCo vid booster per cdc recommenda tions Hyperlipidemia 73054086 E78.5 Z79.899 Pain of bi lateral knee joints [id number] 24155 M25.561 M25.562 stablerefi ll given Vitamin D deficiency 347 00811 E55.9 Bronchitis 66516538 J40 call/retur n if no improvemen t in 1-2 days or sooner if neededrevi ewed s/s that warrant urgent/davina rgent eval in meantime Hyperglycemia 30153109 R 73.9 Cobalamin deficiency 190 626933 E53.8 Fatigue 91169055 R53.83 Multiple joint pain 3567 8005 M25.50 Screening mammography 24 257930 Z12.31 Postmenopausal state 764 75124 Z78.0 Dietary ma nagement surveillance 533005170 Z71.3 refill given [id number] Adiel Shannon MD [address] [address] 11/12/2023 11:02:22 11/13/2023 09:55:53 Obstructive sleep apnea syndrome 45977332 G47.33 Periodic l imb movement disorder 966793356 G47.61 D50.8 E83.42 [id number] Hitesh Kowalski MD [address] [address] 12/05/2023 11:23:23 12/05/2023 12:09:01 Pain of left hip joint 3860674129 46631 M25.552 Chronic low back pain 27 1871312 M54.50 Lumbar spondylosis 80072 0009 M47.896 Migraine without aura 56 776700 G43.009 Obesity 532315097 E66.9 Hyperlipidemia 22279560 E78.5 Polyarthropathy 86132336 M13.0 [id number] Adiel Shannon MD [address] [address] 12/13/2023 11:35:42 12/14/2023 08:49:08 Obstructive sleep apnea syndrome 59854032 G47.33 Iron deficiency 17989143 E61.1 [id number] Hitesh Kowalski MD [address] [address] 01/03/2024 10:50:38 01/03/2024 12:00:38 Screening mammography 08207246 Z12.31 Screening for osteoporosis 845887565 Z13.820 Lesion of scalp 52770360 91 00 L98.9 Chronic low back pain 27 1982574 M54.50 Hyperlipidemia 92992221 E78.5 Adult heal th examination 260345476 Z00.00 Vitamin D deficiency 347 37171 E55.9 Polyarthropathy 39026169 M13.0 Ex-cigarette smoker 2810 12971 Z87.891 Quitted since 2005 Impacted c erumen of bilateral ears 5168093070 438942 H61.23 Obesity 382462320 E66.9 [id number] Hitesh Kowalski MD [place] 14035294-144 1 01/23/2024 09:48:24 01/23/2024 10:24:05 Lesion of scalp 1460479968 00 L98.9 Chronic low back pain 27 4624005 M54.50 Hyperlipidemia 38240289 E78.5 Vitamin D deficiency 347 40864 E55.9 Improved Polyarthropathy 80906337 M13.0 Ex-cigarette smoker 2810 92988 Z87.891 Quitted since 2005 Impacted c erumen of bilateral ears 7490084565 735318 H61.23 Obesity 544965163 E66.9 Leukocytosis 959909526 D 72.829 Verruca vulgaris 8287022 3 B07.8 Lt abdomen Depressive disorder 3548 9007 F32.A [id number] Hitesh Kowalski MD [address] [address] 01/31/2024 11:23:58 01/31/2024 11:39:28 Impacted cerumen of bilateral ears 7889893566 971383 H61.23 Ear feels full of water 826782396 R44.8 [id number] Hitesh Kowalski MD [address] [address] 03/11/2024 14:29:52 03/11/2024 15:20:09 Verruca vulgaris 55978377 B07.8 Lt abdomen - resolved Hyperlipidemia 26896758 E78.5 Chronic low back pain 27 0966742 M54.50 Vitamin D deficiency 347 02507 E55.9 Improved Polyarthropathy 63056185 M13.0 Ex-cigarette smoker 2810 50570 Z87.891 Quitted since 2005 Obesity 152347170 E66.9 Leukocytosis 830813226 D 72.829 Depressive disorder 3548 9007 F32.A Pain of bi lateral knee joints 6227988078 57059 M25.561 Chronic Administra tion of influenza vaccine 00304743 Z23 Bilateral shoulder joint pain 4961252124 2654459 M25.511 Chronic [id number] Hitesh Kowalski MD [address] [address] 03/24/2024 10:36:24 03/24/2024 11:19:22 Pain of bilateral knee joints 2592270905 11682 M25.561 Chronic Bilateral shoulder joint pain 4246373198 5606842 M25.511 Chronic Polyarthropathy 66899114 M13.0 Verruca vulgaris 4254993 3 B07.8 Lt abdomen - resolved Hyperlipidemia 08568013 E78.5 Chronic low back pain 27 0579244 M54.50 Vitamin D deficiency 347 80210 E55.9 Improved Ex-cigarette smoker 2810 71970 Z87.891 Quitted since 2005 Obesity 301444233 E66.9 Leukocytosis 827685418 D 72.829 resolved Depressive disorder 3548 9007 F32.A Tendinitis of right elbow 3983402245 9390478 M67.811 [id number] Adiel Shannon MD [facility] [address] [address] 03/26/2024 09:36:54 03/26/2024 18:27:15 Obstructive sleep apnea syndrome 25190628 G47.33 Iron deficiency 82917440 E61.1 [id number] BERNADINE Vega [address] [address] 04/29/2024 10:18:47 04/29/2024 11:23:13 Gynecologic examination 34153245 Z01.419 Discussed vaginal hygiene, safe sexual practices, self breast examsPatie nt questions answered Health Concerns Section Related Observation LastModified by Organization Detai ls LastModified Time None Recorded Concern Status LastModified by Organization Details LastModified Time None Recorded Advance Directives Directive N: Payers Encounter Date Sequence Insurance Name Policy Number Policy [place] Covered Member ID [place] Member ID Guarantor Name 01/31/2024 1 [employer] () Rob Zurita [id number] Christine Dorado Zurita 03/11/2024 1 [employer] () Rob Zurita [id number] Christine L Zurita 03/24/2024 1 [employer] () Rob Zurita [id number] Christine L Zurita 03/26/2024 1 [employer] () Rob Zurita [id number] Christine L Zurita 04/29/2024 1 [employer] () Rob Zurita [id number] Christine L Zurita Notes Date Note Type Note Provider Name and Address Organization Details Recorded Time 01/31/2024 text/html ACV: Pt wants to get her both ear flushed today. Pt has been using ear drops for last few days for it. Denies any other concern. Hitesh Kowalski MD [address], [place], [address], [employer] 01/31/2024 11:37:54 03/11/2024 text/html ACV: Pt needs a new referral to see Dr. Cruz (Ortho) in [place], [place]. Pt is seeing them for her chronic b/l knee and shoulder pain and is getting injection with him. Denies any other concern. Pt wants to get flushot today. Her abdominal rash is gone and no more concern with it. Hitesh Kowalski MD [address], [place], [address], [employer] 03/11/2024 15:07:09 03/24/2024 text/html FUV + ACV: C/o Rt lateral elbow area pain for last few weeks. Denies any recent fall/trauma/injury. Pt has chronic Rt shoulder pain for last several years and she is f/u with Ortho for it. Pt is here for f/u on her labs and chronic conditions. Doing overall better than her last visit. Denies any problem with meds. C/o Lt hip area pain for last few weeks that is getting more worse. Pt has chronic joints pain for last many years. C/o chronic low back pain for last many years and she had 2 surgeries done on her lower back in the past. Pt is f/u with Pain clinic in [place] for this and will be getting injection with them on 12/23/23. Pt is not on any med by them. Denies any incontinence. C/o chronic migraine, about 1-2 bad episodes per month. Pt says its well controlled and no concern with it. Pt is f/u with Pain clinic, Spine surgeon and Ortho in [place]. Pt is f/u with Psych for her mood and is doing well with it. No concerns. Hitesh Kowalski MD [address] [place] [address], [address], [facility] [employer] 03/24/2024 11:12:53 03/26/2024 text/html Primary care/Ref erring provider: Mohamud Jonas NP [phone] During the [facility] home sleep study on 12/24/20, AHI = 19, supine AHI = 47. During the [facility] titration sleep study on 03/15/21, sleep onset = 2.5 minutes, REM onset = 283 minutes. PLMI = 5 and she is on iron supplements. At home since 12/13/23, the patient uses a [employer]Med AirSense 11 autoset unit with heated humidification. The patient does not need the ramp to start low and go up slowly on the pressure anymore. There is some xerostomia in a.m. There is no hose/mask condensation with water.The patient wears a [employer] small AirFit N30 nasal mask without chin strap. There is no claustrophobia, no nostril/nose bridge irritation, no facial rash, no facial numbness, no nosebleeding. The patient feels more refreshed upon waking and daytime alertness is improved. Energy levels are sustained until evening hours, around 7 pm. At home, the patient sleeps from 9:30 pm to 6 am and wakes up without an alarm. Snoring: moderate, since .Snorting: noChoking: noCoughing: noGasping: noGagging: noSighing: noWitnessed apnea: yesTwitching or jerking of leg(s), arm(s), body, head: yesTeeth grinding: yesTeeth clenching: yesSleeptalking: noSleepwalking: noSleep crying: yesBedwetting: noTongue/lip/gum/cheek biting: noSleeping with open mouth: yesSleep paralysis: noHypnagogic hallucinations: noHypnopompic hallucinations: noVivid dreams: yesDifficulty with sleep onset: yesDifficulty with sleep maintenance: yesSleep interruptions: for no known reasonsPatient wakes up with: fatigue, xerostomia, sore throat, headachesDaytime cataplexy: noMorning hypersomnolence: yesAfternoon hypersomnolence: yesCaffeine sources in diet: coffee 1 cup per day, soda 1 can per day, chocolate 1/2 candy bar per day Associated medical and psychiatric conditions:Congestive heart failure: noCoronary artery disease: noMyocardial infarction: noHypertension: noStroke: noBronchial asthma: noChronic obstructive pulmonary disease: noDepression: yesBipolar disorder: noAnxiety: noPanic disorder: noPosttraumatic stress disorder: noAttention deficit and hyperactivity disorder: noObsessive Compulsive disorder: noSchizophrenia: noSchizoaffective disorder: noPersonality disorder: noChronic analgesic use: yes hydrocodoneChronic sedative/hypnotic use: no EPWORTH SLEEPINESS SCALE (ESS) CHANCE OF DOZING SCORE0 = would never doze1 = slight chance of dozing2 = moderate chance of dozing3 = high chance of dozing SITUATION AND CHANCE OF DOZINGSitting and reading - 1Watching television - 0Sitting inactive in a public place (e.g. a theater or meeting) - 0As a passenger in a car for an hour without a break - 1Lying down to rest in the afternoon when circumstances permit - 1Sitting and talking to someone - 0Sitting quietly after lunch without alcohol - 0In a car, while stopped for a few minutes in the traffic - 0TOTAL SCORE 3Subjectively, patient has a slight chance of dozing. Adiel Shannon MD [address], [place], [address], [employer] 03/26/2024 10:23:41 04/29/2024 text/html Pap/PelvicReport ed bypatient.Context:appt for screening pap/pelvic/breast exam; no gynecologic complaints Associated Factors:no risk factor for cervical cancer; no history of THEOODRE II/III; no abnormal pap smears; low risk sexual history;needs mammogram screening(scheduled 06/27/23) Patient has had total hysterectomy, would still like manual pelvic examination BERNADINE Vega [address] [facility], [facility] [address], [place], [address], [employer] 04/29/2024 11:07:33 OBGyn Episode No OBEpisode recorded.
== END 2024-06-27 09:18 | disposition home or self-care (01) ==
LOC: ANHIMG 09:23
PROVIDERS: PCP Family Medicine; Visit Provider Family Medicine
DX: Z12.31 Encounter for screening mammogram for malignant neoplasm of breast (principal); M85.89 Other specified disorders of bone density and structure, multiple sites; Z13.820 Encounter for screening for osteoporosis
CPT/HCPCS: 77063; 77067; 77080

== ENCOUNTER 2024-08-04 16:09 | Outpatient (CLI) | payer OTHER, SELFPAY ==
--- NOTE | ~2024-08-04 | XR_ITS ---
HISTORY: pain in rt shoulder COMPARISON: None TECHNIQUE: 2 views of the right shoulder were performed. FINDINGS: No acute fracture. Significant degenerative disease is identified, with osteophyte formation and acromioclavicular joint space widening. The glenohumeral joint space is maintained The visualized portion of the adjacent right lung is clear. The humeral head is well seated within the glenoid fossa. IMPRESSION: Degenerative disease with acromioclavicular joint disruption suspected. No acute fracture or anterior dislocation. Reviewed, dictated and finalized at location A. IMPRESSION: Degenerative disease with acromioclavicular joint disruption suspe cted. No acute fracture or anterior dislocation.
--- OUTSIDE RECORDS SUMMARY | 2024-08-04 18:40 | XMS_ITS | Encounter Summary ---
Author Organization [facility] Address [address] [place] [address] Care Team Providers Care Electronics Mechanic Apprentice Name Role Phone Kacey Martinez MD Primary Care Provider Hitesh Kowalski MD Primary Care Provider [phone] Encounter Details Date Type Department Care Team (Latest Contact Info) Description 03/26/2018 Abstract [facility] , Kendall Ferguson MD Social History Tobacco Use Types Packs/Day Years Used Date Smoking Tobacco: Never Assessed Comments Unknown Sex and Gender Information Value Date Recorded Sex Assigned at Not on file Legal Sex Female 8:03 PM CDT Gender Identity Not on file Sexual Orientation Not on file documented as of this encounter Plan of Treatment Upcoming Encounters Date Type Department Care Team (Latest Contact Info) Description 09/03/2024 2:30 PM CDT Appointment [facility] Pre-Admission Testing [place] [address] Eriberto Cruz MD [address] [place] [address] 09/08/2024 10:40 AM CDT Office Visit [facility] Orthopedic & [facility] - [place] [address] [place] [address] Hugo Rivero PA [address] [place] [address] 09/23/2024 7:30 AM CDT Hospital Encounter [facility] [place] [address] Eriberto Cruz MD [address] [place] [address] 09/23/2024 7:30 AM CDT - 09/23/2024 10:[address] [place] [address] Eriberto Cruz MD [address] [place] [address] RIGHT TOTAL KNEE ARTHROPLASTY WITH POSSIBLE ROBOTIC ASSISTANCE 10/08/2024 10:20 AM CDT Office Visit [facility] - [place] [address] [place] [address] Hugo Rivero PA [address] [place] [address] Scheduled Procedures Name Priority Associated Diagnoses Date/Ti me ARTHROPLASTY KNEE TOTAL Arthritis of right knee 09/23/2024 7:30 AM CDT documented as of this encounter Visit Diagnoses Not on filedocumented in this encounter Care Teams Electronics Mechanic Apprentice Relationship Specialty Start Date End Date Kacey Martinez MD [address] [place] [address] [place] [address] PCP - General FAMILY PRACTICE 08/12/18 01/13/24 Hitesh Kowalski MD [address] [place] [address] PCP - General 01/14/24 documented as of this encounter
--- OUTSIDE RECORDS SUMMARY | 2024-08-04 18:40 | XMS_ITS | Clinical Summary ---
Author Organization [facility] Address [address] [place] [address] Care Team Providers Care Floatlight Loading Supervisor Name Role Phone Kacey Martinez MD Primary Care Provider [phone] Source Comments [facility],non-owned Affiliates and Associated Physician Practices is amultiple site organization consisting of ambulatory clinics and hospital sitesin [place], [place], [place] and [place]. This disclosure is being madepursuant to the Care Everywhere program and may not contain all information available regarding this patient. Last updated 18.[facility] Allergies No known active allergies Medications * [...] complete this topic MENINGOCOCCAL (Group B) VACCINE SHARED DECISION-MAKING Aged Out No longer eligible based on patient's age to complete this topic MENINGOCOCCAL GROUPS A/C/Y/W VACCINE Aged Out No longer eligible based on patient's age to complete this topic PNEUMOCOCCAL VACCINE Aged Out No long er eligible based on patient's age to complete this topic Advance Directives Documents on File Type Date Recorded Patient College Counselor Ovidio MENDOZA 02/17/2022 8:54 AM * Full Code (Latest Code Status on File) Date Activated Date Inactivated Comments 02/02/2022 6:08 PM 02/16/2022 11:34 AM Care Teams Floatlight Loading Supervisor Relationship Specialty Start Date End Date Kacey Martinez MD [address] [place] [phone] PCP - General Family Medicine 02/02/22
--- OUTSIDE RECORDS SUMMARY | 2024-08-04 18:40 | XMS_ITS | Encounter Summary ---
Author Organization [facility] Address [address] [place] [address] Care Team Providers Care Manager Documentation Name Role Phone Kacey Martinez MD Primary Care Provider [phone] Hitesh Kowalski MD Primary Care Provider [phone] Encounter Details Date Type Department Care Team (Late st Contact Info) Description 05/23/2023 ProprietárioDiretot Message Enc [facility] Multispecialty Care - [facility] [address] [facility], [address] [place] [address] Asia Moyer, KAITLYN [address] [facility] [address] [place] [address] Back Social History Tobacco Use Types Packs/Day [...] Master's degree (e.g., MA, MS, Gianna, MEd, PASSENGER CAR CLEANING SUPERVISOR, HÉCTOR) 06/21/2021 Comments No Sex and Gender [...] documented in this encounter Plan of Treatment Upcoming Encounters Date Type Department Care Team (Latest Contact Info) Description 09/03/2024 2:30 PM CDT Appointment [facility] Pre-Admission Testing [address] [place] [address] Eriberto Cruz MD [address] [place] [address] 09/08/2024 10:40 AM CDT Office Visit [facility] Orthopedic & Sports Medicine - [place] [address] [place] [address] Hugo Rivero PA [address] [place] [address] 09/23/2024 7:30 AM CDT Hospital Encounter [facility] [place] [address] Eriberto Cruz MD [address] [place] [address] 09/23/2024 7:30 AM CDT - 09/23/2024 10:40 AM CDT Surgery [place] [address] Eriberto Cruz MD [address] [place] [address] RIGHT TOTAL KNEE ARTHROPLASTY WITH POSSIBLE ROBOTIC ASSISTANCE 10/08/2024 10:20 AM CDT Office Visit [facility] Orthopedic & Sports Medicine - [place] [address] [place] [address] Hugo Rivero PA [address] [place] [address] Scheduled Procedures Name Priority Associated Diagnoses Date/Ti me ARTHROPLASTY KNEE TOTAL Arthritis of right knee 09/23/2024 7:30 AM CDT documented as of this encounter Goals Goal Patient Goal Type Associated Problems Recent Progress Patient-Stated? Author Health - patient able to perform ADLs independently Lifestyle No Koerkenme i er, Dusty Dorado, RN documented as of this encounter Visit Diagnoses Not on filedocumented in this encounter Care Teams Manager Documentation Relationship Specialty Start Date End Date Kacey Martinez MD [address] [place] [address] [place] [address] PCP - General FAMILY PRACTICE 08/12/18 01/13/24 Hitesh Kowalski MD [address] [place] [phone] PCP - General 01/14/24 documented as of this encounter
--- OUTSIDE RECORDS SUMMARY | 2024-08-04 18:40 | XMS_ITS | Encounter Summary ---
Author Organization [facility] Address [address] [place] [address] Care Team Providers Care Transportation Consultant Name Role Phone Kacey Martinez MD Primary Care Provider [phone] Hitesh Kowalski MD Primary Care Provider [phone] Encounter Details Date Type Department Care Team (Latest Contact Info) Description 09/14/2022 Sea[employer] Message Enc [facility] Multispecialty Care - [facility] [address] [facility], [address] [place] [address] Asia Moyer, KAITLYN [address] [facility] [address] [place] [address] Soreness in back Social History Tobacco Use [...] Master's degree (e.g., MA, MS, Gianna, MEd, SOUND EFFECTS SUPERVISOR, HÉCTOR) 06/21/2021 Comments No Sex and [...] - 09/14/2022 1:13 PM CDT Forwarding to [facility] documented in this encounter Plan of Treatment Upcoming Encounters Date Type Department Care Team (Latest Contact Info) Description 09/03/2024 2:30 PM CDT Appointment [facility] [place] [address] Eriberto Cruz MD [address] [place] [phone] 09/08/2024 10:40 AM CDT Office Visit [facility] Orthopedic & Sports Medicine [facility] [address] [place] [address] Hugo Rivero PA [address] [place] [address] 09/23/2024 7:30 AM CDT Hospital Encounter [facility] [place] [address] Eriberto Cruz MD [address] [place] [address] 09/23/2024 7:30 AM CDT - 09/23/2024 10:40 AM CDT [place] [address] Eriberto Cruz MD [address] [place] [address] RIGHT TOTAL KNEE ARTHROPLASTY WITH POSSIBLE ROBOTIC ASSISTANCE 10/08/2024 10:20 AM CDT Office Visit [facility] Orthopedic & Sports Medicine [facility] [address] [place] [address] Hugo Rivero PA [address] [place] [address] Scheduled Procedures Name Priority Associated Diagnoses Date/Ti me ARTHROPLASTY KNEE TOTAL Arthritis of right knee 09/23/2024 7:30 AM CDT documented as of this encounter Goals Goal Patient Goal Type Associated Problems Recent Progress Patient-Stated? Author Health - patient able to perform ADLs independently Lifestyle No Warrenersantos johnson, Dusty Dorado RN documented as of this encounter Visit Diagnoses Not on filedocumented in this encounter Care Teams Transportation Consultant Relationship Specialty Start Date End Date Kacey Martinez MD [address] [place] [address] [place] [address] PCP - General FAMILY PRACTICE 08/12/18 01/13/24 Hitesh Kowalski MD [address] [place] [phone] PCP - General 01/14/24 documented as of this encounter
--- OUTSIDE RECORDS SUMMARY | 2024-08-04 18:40 | XMS_ITS | Encounter Summary ---
Author Name [facility] [place] [facility] [place] Organization [facility] [facility] [place] Address [address] [place] [id number] Selected Encounter This section includes the information on record at [place] for the Encounter. Date/Time Encounter Type Encounter Description Reason Provider Source May 26, 2024 09:04 AM PROGRAM INTAKE ASSESSMENT CAREGIVER SUPPORT PROGRAM ICD-10-CM Z63.6 Dependent relative needing care at home SRUTHI GONZALEZ Crystal Encounter Template Text not used by [place] Assessments - Encounter Diagnoses This section includes the primary and secondary diagnoses documented for the Encounter. Date/Time Primary/Secondary Diagnosis Diagnosis Name Provider Source May 26, 2024 10:14 AM PRIMARY Dependent relative needing care at home SRUTHI GONZALEZ [facility] Encounter Notes: All associated encounter notes This section contains the clinical notes associated to the Encounter. Date/Time Encounter Note(s) Provider Source May 26, 2024 09:04 AM CAREGIVER CERTIFIC ATE: LOCAL TITLE: [facility] WELLNESS CONTACT CAREGIVER STANDARD TITLE: CAREGIVER CERTIFICATE DATE OF NOTE: MAY 26, 2024@09:04 ENTRY DATE: MAY 26, 2024@09:04:34 AUTHOR: SRUTHI GONZALEZ EXP COSIGNER: URGENCY: STATUS: COMPLETED Caregiver Support Program PCA[facility] Wellness Contact Caregiver This Family Caregiver is enrolled in VA's Program of Comprehensive Assistance for Family [...] HANCOCK Date of : Dec Full Address: [address] [place], [place] [address] Phone #: Email address: Patient Email - NONE FOUND Is the above contact information in the electronic health record and the Caregiver Support Program IT system, correct? Yes Reason for contact: Routine (120-day contact) Method of contact: Video Telehealth Contact number for backup/emergency communication: Caregiver location during visit: Home [address] [place] [id number] Caregiver confirms location is safe and private for visit. Telehealth Disclosure: Visit conducted by synchronous telehealth. Caregiver verbal consent obtained. Location/emergency number confirmed. Environment surveyed and all participants identified. Virtual conference room locked. CAREGIVER INFORMATION The caregiver is a: Primary Family Caregiver Caregiver is providing care to: Name: Temo Aamir Katty The caregiver lives with the [place]. CAREGIVER ASSESSMENT How has your physical/mental/emotional health [...] anything. Caregiver reports she does get the [facility] newsletter and does review it. Do you have any legal or financial planning concerns? No Do you feel comfortable and safe in your home environment? Yes Do you have a personalized respite plan? No - Discussed the importance of respite Details: is currently receiving care via [facility] program. Caregiver reports she is one of the caregivers in [facility]. Caregiver reports she has two other caregivers via this program and also private pays 2 additional people to assist with [place]og's care. SCREENING TOOLS [facility] Staff provided information on the following resources and support: - Virtual Psychotherapy Program for Caregivers (VPPC) SUMMARY AND PLAN OF SUPPORT: Caregiver reports she returned from a vacation last week. Caregiver reports she will be flying with the [place] to [place] later this week. She reports the [place] will be going to stay with his other daughter until the end of May. Caregiver reports her sister was able to hire a caregiver via [employer] to help with 's care while he is staying with her. Caregiver reports she pays for her sister to rent a handicap accessible vehicle they can use while the [place]og stays with her. Caregiver reports she has [...] reports she knows how to contact the [facility] team if she has any concerns or questions about the [place]'s care. Travel Registered Nurse Nicu thanked the Caregiver for her time and assistance this date. /jorge/ SRUTHI LOU CCM RN RN DIRECTOR FINANCIAL SYSTEMS, CAREGIVER SUPPORT PROGRAM Signed: 05/26/2024 10:14 SRUTHI GONZALEZ [facility]
--- OUTSIDE RECORDS SUMMARY | 2024-08-04 18:40 | XMS_ITS | Referral Summary ---
Author Organization [facility] [address] Address [address] [place] [address] Care Team Providers Care Composition Teacher Name Role Phone Kacey Martinez MD [...] as needed 0 10/17/2018 Activ e butalbital-acet yrrjfk-kxj-xnw 09-157-03-30 mg capsule Take 1 capsule by mouth every 4 (four) hours Active Active Problems Problem Noted Date Diagnosed Date Family history of colon cancer in mother 022 History of colonoscopy with polypectomy 07/08/19 22 Encounter for screening colonoscopy 07/08/2021 Hemorrhoids 07/08/2021 History of colonic polyps 07/08/2021 Overview (07/08/2021): Added automatically from request for surgery [id number] Other chest pain 12/05/2018 Social History Tobacco [...] on file Legal Sex Female 9:13 PM [employer] Gender Identity Not on file Sexual Orientation [...] MD: Josiah Martinez M.D. Room: [facility] 1 Note Status: Finalized Patient [...] under direct vision. The Pediatric Colonoscope PCF-H190L [id number] was introducedthrough the anus and advanced to [...] 10:18 AM Procedure Code(s): --- Professional --- 54343, Colonoscopy, flexible; with removal of tumor(s), polyp(s), or other lesion(s) by snare technique 23855, 59, Colonoscopy, flexible; with biopsy, single or multiple Diagnosis Code(s): --- Professional --- Z80.0, Family history of malignant neoplasm of digestive organs D12.2, Benign neoplasm of ascending colon CPT copyright 2020 [employer]. All rights reserved. The codes documented in this report are preliminary and upon puppy trainer reviewmay be revised to meet current compliance requirements. Recognized by the [place] [employer] for promoting quality in endoscopy Josiah Martinez MD ENDOSCOPY PROCEDURES Final Result from Last 3 Months or Most Recently Relevant to Health Maintenance Insurance [facility] CLAIMS [facility] CLAIM[facility] Advance Directives For more information, please contact: [phone] * Full Code (Latest Code Status on File) Date Activated Date Inactivated Comments 08/09/2021 10:20 AM 08/09/2021 5:30 PM * Full Code Date Activated Date Inactivated Comments 08/09/2021 10:19 AM 08/09/2021 10:20 AM Care Teams Composition Teacher Relationship Specialty Start Date End Date Kacey Martinez MD PCP - General Family Medicine 09/24/18
--- OUTSIDE RECORDS SUMMARY | 2024-08-04 18:40 | XMS_ITS | Patient Health Summary ---
Author Organization [facility] Address [address] [place] [address] Care Team Providers Care Video Game Script Writer Name Role Phone Kacey Matrinez MD Primary Care Provider [phone] [facility],non-owned Affiliates and Associated Physician Practices is amultiple site organization consisting of ambulatory clinics and hospital sitesin [place], [place], [place] and [place]. This disclosure is being madepursuant to the Care Everywhere program and may not contain all information available regarding this patient. Last updated 18.[facility] Allergies No known active allergies Medications * [...] FLOW CYTOMETRY TISSUE PANEL (05/08/2023 11:27 AM OVERLOCK OPERATOR) Case Report Flow Cytometry Case: [id number] Authorizing Provider: Cristofer Villegas MD Collected: 05/08/2023 11:27 AM Ordering Location: [facility] Pathology Lab Received: 05/08/2023 03:38 PM Pathologist: Erich Alvarenga MD Specimen: Lymph Node, SUBMANDIBULAR 05/09/2023 7:20 AM [facility] PATHOLOGY LAB Final Diagnosis Axillary lymph node, flow cytometric immunophenotypic analysis: - No diagnostic evidence of non-Hodgkin T- or B-cell lymphoma, or acute leukemia. - Mildly increased CD4:CD8 ratio of 6:1. - See interpretation. 05/09/2023 7:20 AM [facility] Flow Cytometry Interpretation Viability: 84% Lymphocytes: 97% B-cells: 48% of the lymphocytes, polytypic, kappa:lambda ratio 2.1:1 T-cells: 49% % of the lymphocytes, no immunophenotypic aberrancy detected based on the markers performed. Increased CD4:CD8 ratio 6:1 Dim CD45 region: 0%. No blasts. Monocytes: 1% Granulocytes: 2% A cytospin prepared from the flow cytometry specimen has been reviewed for director supplier quality purposes. 05/09/2023 7:20 AM [facility] Flow Cytometry Results Differential Result Comment Flow Cell Count /uL 1,520 Total Viability % 84.0 Lymphocytes % 97 Dim CD45 Region % 0 Monocytes % 1 Granulocytes % 2 05/09/2023 7:20 AM [facility] Reason for test Localized swelling, mass and lump, neck 784.2 05/09/2023 7:20 AM [facility] Client Specimen ID # [id number] 05/09/2023 7:20 AM [facility] Number of markers 16 were performed. A-2 Flow CD10 A-4 Flow CD20 A-5 Flow CD23 A-10 Flow CD2 A-11 Flow CD3 A-12 Flow CD4 A-16 Flow CD1a A-3 Flow CD19 A-6 Flow CD34 A-7 Flow CD45 A-13 Flow CD5 A-14 Flow CD7 A-15 Flow CD8 A-17 Flow CD30 A-8 [place]+CD19+ A-9 Lambda+CD19+ 05/09/2023 7:20 AM [facility] Pathologist Location at [facility] 05/09/2023 7:20 AM [facility] Disclaimer Test performed at [facility], [address] [place] [address], [address]. *The established laboratory minimum viability is 70%. [...] high complexity clinical testing. 05/09/2023 7:20 AM OVERLOCK OPERATOR [facility] Embedded Images 7:20 AM OVERLOCK OPERATOR [facility] Pathology/Cytolo gy ENTIRE LYMPH NODE / Unknown 05/08/2023 11:27 AM OVERLOCK OPERATOR 05/08/2023 3:38 PM OVERLOCK OPERATOR Ronaldo Villegas MD LAB - PATHO LOGY/CYTOLOGY ORDERABLES Performing Organization Address City/[facility] Co de Phone Number [facility] [address] [phone] * XR LUMBAR SPINE 2 OR 3VW (02/10/2022 4:00 PM CDT) Anatomical Region Laterality Modality Spine Radiographic Nimo ging 02/10/2022 4:45 PM CDT Impressions 02/10/2022 4:47 PM CDT Expected postsurgical changes as detailed above with no evidence of an acute osseous abnormality. THIS IS AN ELECTRONICALLY VERIFIED FINAL REPORT 02/10/2022 4:47 PM - Electronically signed by Marshall Thao M.D. CH: [facility] Report ID: [id number] Reading Location: [id number] Narrative 02/10/2022 4:47 [place] [address] RADIOLOGY REPORT Patient Name: CHRISTINE ZURITA Date [...] Note Marshall Thao Jr., MD - 02/10/2022 [place] [address] RADIOLOGY REPORT Patient Name: CHRISTINE ZURITA Date [...] Marshall Thao M.D. CH: [facility] Report ID: [id number] Reading Location: [place] [address] Asia Moyer AUTOMATIC PINSETTER ADJUSTER-LUMBER HANDLER DIAGNOSTIC NIMO GING ORDERABLES * (ABNORMAL) COMPREHENSIVE METABOLIC PANEL (02/09/2022 12:35 PM CDT) Sodium 139 137 - 145 mmol/L 02/09/2022 12:41 PM CDT [facility] ([facility]) Potassium 3.9 3.6 - 5.0 mmol/L 02/09/2022 12:41 PM CDT [facility] ([facility]) Chloride 102 98 - 107 mmol/L 02/09/2022 12:41 PM CDT [facility] ([facility]) Carbon Dioxide 32(H) 21 - 31 mmol/L 02/09/2022 12:41 PM CDT [facility] ([facility]) Glucose 100 65 - 100 mg/dL 02/09/2022 12:41 PM CDT [facility] ([facility]) BUN 13 7 - 17 mg/dL 02/09/2022 12:41 PM CDT [facility] ([facility]) Creatinine 0.60 0.50 - 1.04 mg/dL 02/09/2022 12:41 PM T [facility] ([facility]) eGFR 102 >=60 ml/min/1.7 3*2 02/09/2022 12:41 PM T [facility] ([facility]) Comment: Chronic kidney disease is defined [...] 6.0 - 26.0 02/09/2022 12:41 PM CDT [facility] ([facility]) Calcium 8.8 8.4 - 10.7 mg/dL 02/09/2022 12:41 PM CDT [facility] ([facility]) Protein Total 6.5 6.3 - 8.2 g/dL 02/09/2022 12:41 PM T [facility] ([facility]) Albumin 3.7(L) 3.9 - 5.0 g/dL 02/09/2022 12:41 PM CDT [facility] ([facility]) Albumin/Globulin Ratio 1.3 1.1 - 2.2 g/dL 02/09/2022 12:41 PM T [facility] ([facility]) Bilirubin Total 0.4 0.2 - 1.3 mg/dL 02/09/2022 12:41 PM T [facility] ([facility]) Alkaline Phosphatase 86 38 - 126 U/L 02/09/2022 12:41 PM T [facility] ([facility]) AST 33 8 - 39 U/L 02/09/2022 12:41 PM T [facility] ([facility]) ALT 23 9 - 52 U/L 02/09/2022 12:41 PM T [facility] ([facility]) Blood BLOOD SPECIMEN / Unknown Lab Venipuncture / Unknown 02/09/2022 12:35 PM CDT 02/09/2022 12:19 PM CDT Gideon Farrar AUTOMATIC PINSETTER ADJUSTER-LUMBER HANDLER LAB - CHEMISTRY ORDERABLES [facility] ([facility]) [address] [place] [address] * (ABNORMAL) CBC W AUTO DIFFERENTIAL (02/09/2022 12:15 PM CDT) Only the most recent of2 resultswithin the time period is included. WBC 8.5 4.0 - 10.0 K/uL 02/09/2022 12:37 PM CDT [facility] ([facility]) RBC 3.9 3.9 - 5.1 M/ul 02/09/2022 12:37 PM T [facility] ([facility]) Hemoglobin 11.7(L) 12.0 - 15.0 g/dL 02/09/2022 12:37 PM T [facility] ([facility]) Hematocrit 35.4(L) 37.0 - 45.0 % 02/09/2022 12:37 PM T [facility] ([facility]) MCV 90.3 82.0 - 101.0 fL 02/09/2022 12:37 PM T [facility] ([facility]) MCH 29.8 27.0 - 34.0 pg 02/09/2022 12:37 PM T [facility] ([facility]) MCHC 33.1 32.0 - 35.0 g/dL 02/09/2022 12:37 PM [facility] ([facility]) RDW-CV 13.1 11.4 - 14.6 % 02/09/2022 12:37 PM [facility] ([facility]) Platelet Count 451(H) 120 - 410 K/uL 02/09/2022 12:37 PM [facility] ([facility]) MPV 8.6 5.2 - 12.8 fL 02/09/2022 12:37 PM T [facility] ([facility]) Neutrophils % 66.8 25.0 - 78.0 % 02/09/2022 12:37 PM T [facility] ([facility]) Lymphocytes % 22.1 10.0 - 50.0 % 02/09/2022 12:37 PM T [facility] ([facility]) Monocytes % 8.8 0.0 - 11.0 % 02/09/2022 12:37 PM T [facility] ([facility]) Eosinophils % 1.3 0.0 - 3.0 % 02/09/2022 12:37 PM T [facility] ([facility]) Basophils % 0.5 0.0 - 1.5 % 02/09/2022 12:37 PM T [facility] ([facility]) Neutrophil Absolute 5.7 2.0 - 6.9 K/uL 02/09/2022 12:37 PM CDT [facility] ([facility]) Lymphocyte Absolute 1.9 0.6 - 4.6 K/uL 02/09/2022 12:37 PM CDT [facility] ([facility]) Monocyte Absolute 0.8 0.0 - 0.9 K/uL 02/09/2022 12:37 PM CDT [facility] ([facility]) Eosinophil Absolute 0.1 0.0 - 0.7 K/uL 02/09/2022 12:37 PM CDT [facility] ([facility]) Basophil Absolute 0.0 0.0 - 0.2 K/uL 02/09/2022 12:37 PM CDT [facility] ([facility]) Immature Granulocytes % 0.5 0.0 - 0.5 % 02/09/2022 12:37 PM CDT [facility] ([facility]) Immature Granulocytes Absolute 0.04(H) 0.00 - 0.03 K/UL 02/09/2022 12:37 PM CDT [facility] ([facility]) Blood BLOOD SPECIMEN / Unknown Lab Venipuncture / Unknown 02/09/2022 12:15 PM CDT 02/09/2022 12:19 PM CDT Gideon Farrar AUTOMATIC PINSETTER ADJUSTER-LUMBER HANDLER LAB - HEMATOLOGY ORDERABLES Performing Organization Address [facility]/State/ZIP Co de Phone Number [facility] ([facility]) [address] [place] [address] * (ABNORMAL) BASIC METABOLIC PANEL (CALCIUM TOTAL) (02/03/2022 6:20 AM CDT) Glucose 106(H) 65 - 100 mg/dL 02/03/2022 6:57 AM CDT [facility] ([facility]) BUN 8 7 - 17 mg/dL 02/03/2022 6:57 AM CDT [facility] ([facility]) Creatinine 0.60 0.50 - 1.04 mg/dL 02/03/2022 6:57 AM CDT [facility] ([facility]) eGFR 102 >=60 ml/min/1.7 3*2 02/03/2022 6:57 AM T [facility] ([facility]) Comment: Chronic kidney disease is defined [...] 6.0 - 26.0 02/03/2022 6:57 AM T [facility] ([facility]) Sodium 136(L) 137 - 145 mmol/L 02/03/2022 6:57 AM T [facility] ([facility]) Potassium 4.0 3.6 - 5.0 mmol/L 02/03/2022 6:57 AM T [facility] ([facility]) Chloride 102 98 - 107 mmol/L 02/03/2022 6:57 AM T [facility] ([facility]) Carbon Dioxide 31 21 - 31 mmol/L 02/03/2022 6:57 AM T [facility] ([facility]) Calcium 8.3(L) 8.4 - 10.7 mg/dL 02/03/2022 6:57 AM T [facility] ([facility]) Blood BLOOD SPECIMEN / Unknown Lab Venipuncture / Unknown 02/03/2022 6:20 AM CDT 02/03/2022 6:26 AM T Ruby Reagan AUTOMATIC PINSETTER ADJUSTER-LUMBER HANDLER LAB - CHEMISTRY ORDERABLES [facility] ([facility]) [address] [place] [address] Care Teams Video Game Script Writer Relationship Specialty Start Date End Date Kacey Martinez MD [address] [place] [address] [place] [address] PCP - General Family Medicine 02/02/22
--- OUTSIDE RECORDS SUMMARY | 2024-08-04 18:40 | XMS_ITS | Encounter Summary ---
Author Organization [facility] Address [address] [place] [address] Care Team Providers Care Liberal Arts Dean Name Role Phone Kacey Martinez MD Primary Care Provider [phone] Encounter Details Date Type Department Care Team (Late st Contact Info) Description 05/08/2023 Lab Requisition [facility] - Pathology Lab [address] [place] [phone] Ronaldo Villegas MD [address] [place] [address] Localized swelling, mass and lump, neck [...] CYTOMETRY TISSUE PANEL Routine 05/08/2023 11:27 AM HOMICIDE SQUAD SERGEANT Localized swelling, mass and lump, neck documented in this encounter Results * FLOW CYTOMETRY TISSUE PANEL (05/08/2023 11:27 AM [facility]) Case Report Flow Cytometry Case: [id number] Authorizing Provider: Cristofer Villegas MD Collected: 05/08/2023 11:27 AM Ordering Location: [facility] Pathology Lab Received: 05/08/2023 03:38 PM Pathologist: Erich Alvarenga MD Specimen: Lymph Node, SUBMANDIBULAR 05/09/2023 7:20 AM [facility] Final Diagnosis Axillary lymph node, flow cytometric immunophenotypic analysis: - No diagnostic evidence of non-Hodgkin T- or B-cell lymphoma, or acute leukemia. - Mildly increased CD4:CD8 ratio of 6:1. - See interpretation. 05/09/2023 7:20 AM [facility] Flow Cytometry Interpretation Viability: 84% Lymphocytes: 97% B-cells: 48% of the lymphocytes, polytypic, kappa:lambda ratio 2.1:1 T-cells: 49% % of the lymphocytes, no immunophenotypic aberrancy detected based on the markers performed. Increased CD4:CD8 ratio 6:1 Dim CD45 region: 0%. No blasts. Monocytes: 1% Granulocytes: 2% A cytospin prepared from the flow cytometry specimen has been reviewed for water quality analyst purposes. 05/09/2023 7:20 AM [facility] Flow Cytometry Results Differential Result Comment Flow Cell Count /uL 1,520 Total Viability % 84.0 Lymphocytes % 97 Dim CD45 Region % 0 Monocytes % 1 Granulocytes % 2 05/09/2023 7:20 AM [facility] Reason for test Localized swelling, mass and lump, neck 784.2 05/09/2023 7:20 AM [facility] Client Specimen ID # [id number] 05/09/2023 7:20 AM [facility] Number of markers 16 were performed. A-2 Flow CD10 A-4 Flow CD20 A-5 Flow CD23 A-10 Flow CD2 A-11 Flow CD3 A-12 Flow CD4 A-16 Flow CD1a A-3 Flow CD19 A-6 Flow CD34 A-7 Flow CD45 A-13 Flow CD5 A-14 Flow CD7 A-15 Flow CD8 A-17 Flow CD30 A-8 [place]+CD19+ A-9 Lambda+CD19+ 05/09/2023 7:20 AM [facility] Pathologist Location at [facility] 05/09/2023 7:20 AM [facility] Disclaimer Test performed at [facility], [address] [place], [place], [address]. *The established laboratory minimum viability is 70%. [...] high complexity clinical testing. 05/09/2023 7:20 AM [facility] Embedded Images 7:20 AM [facility] Pathology/Cytolo gy ENTIRE LYMPH NODE / Unknown 05/08/2023 11:27 AM HOMICIDE SQUAD SERGEANT 05/08/2023 3:38 PM HOMICIDE SQUAD SERGEANT Ronaldo Villegas MD LAB - PATHO LOGY/CYTOLOGY ORDERABLES [facility]. [address] [phone] documented in this encounter Visit Diagnoses Diagnosis Localized swelling, mass and lump, neck Swelling, mass, or lump in head and neck documented in this encounter Care Teams Liberal Arts Dean Relationship Specialty Start Date End Date Kacey Martinez MD [address] [place] [address] FIDELINA Guajardo [id number] PCP - General Family Medicine 02/02/22 documented as of this encounter
--- OUTSIDE RECORDS SUMMARY | 2024-08-04 18:40 | XMS_ITS | Encounter Summary ---
Author Organization [facility] Address [address] [place] [address] Care Team Providers Care Fur Floor Worker Name Role Phone Kacey Martinez MD Primary Care Provider [phone] Hitesh Kowalski MD Primary Care Provider [phone] Encounter Details Date Type Department Care Team (Late st Contact Info) Description 02/19/2023 OTI [employer] Message Enc [facility] Medical Group Multispecialty Care - [facility] 3 [facility], [address] [place] [address] Asia Moyer, KAITLYN 3 [facility] [address] [place] [address] Back Social History Tobacco Use Types Packs/Day [...] Master's degree (e.g., MA, MS, Gianna, MEd, SECURITY INTERN, HÉCTOR) 06/21/2021 Comments No Sex and Gender [...] Info) Description 09/03/2024 2:30 PM CDT Appointment [facility] [place] [address] Eriberto Cruz MD [address] [place] [address] 09/08/2024 10:40 AM CDT Office Visit [facility] Orthopedic & Sports Medicine [facility] [address] [place] [address] Hugo Rivero PA [address] [place] [address] 09/23/2024 7:30 AM CDT Hospital Encounter [facility] [place] [address] Eriberto Cruz MD [address] [place] [address] 09/23/2024 7:30 AM CDT - 09/23/2024 10:40 AM CDT Surgery [facility] [place] [address] Eriberto Cruz MD [address] [place] [address] RIGHT TOTAL KNEE ARTHROPLASTY WITH POSSIBLE ROBOTIC ASSISTANCE 10/08/2024 10:20 AM CDT Office Visit [facility] Orthopedic & Sports [facility] [address] [place] [address] Hugo Rivero PA [address] [place] [address] Scheduled Procedures Name Priority Associated Diagnoses Date/Ti me ARTHROPLASTY KNEE TOTAL Arthritis of right knee 09/23/2024 7:30 AM CDT documented as of this encounter Goals Goal Patient Goal Type Associated Problems Recent Progress Patient-Stated? Author Health - patient able to perform ADLs independently Lifestyle No Ramos i er, Dusty Dorado RN documented as of this encounter Visit Diagnoses Not on filedocumented in this encounter Care Teams Fur Floor Worker Relationship Specialty Start Date End Date Kacey Martinez MD [address] [place] [address] PCP - General FAMILY PRACTICE 08/12/18 01/13/24 Hitesh Kowalski MD [address] [place] [phone] PCP - General 01/14/24 documented as of this encounter
--- OUTSIDE RECORDS SUMMARY | 2024-08-04 18:40 | XMS_ITS | Encounter Summary ---
Author Organization [facility] Address [address] [place] [address] Care Team Providers Care Merchandise Marker Name Role Phone Kacey Martinez MD Primary Care Provider [phone] Hitesh Kowalski MD Primary Care Provider [phone] Encounter Details Date Type Department Care Team (Late st Contact Info) Description 08/22/2018 TANKAGE GRINDER OPERATOR ONLY [facility] Medical Group Priority Care - [address] [place] [address] Scanned, Documents Social History Tobacco [...] 12:00 AM CDT CHRISTINE ZURITA MD: ACCT: [id number] ADMIT/SERVICE DATE: 08/22/18 DISCHARGE DATE: 08/22/18 : 1960 PT TYPE: DEP SDC SEX: F ORD SITE: [facility] REPORT OF PATHOLOGICAL EXAMINATION DATE OF SURGERY: 08/22/2018 SURGICAL PATH NO: [id number] DATE OBTAINED: 08/22/2018 DATE RETURNED: 08/23/2018 CHART [...] RICH WHALEY MD 08/23/2018 01:15 P DT: VON/ABE:08/23/2018 DOC NO: [id number] documented in this encounter Plan of Treatment Upcoming Encounters Date Type Department Care Team (Latest Contact Info) Description 09/03/2024 2:30 PM CDT Appointment [facility] [place] [address] Eriberto Cruz MD [address] [place] [address] 09/08/2024 10:40 AM CDT Office Visit [facility] Medical [facility] Orthopedic & Sports Medicine - [place] [address] [place] [address] Hugo Rivero PA [address] [place] [address] 09/23/2024 7:30 AM CDT Hospital Encounter [facility] [place] [address] Eriberto Cruz MD [address] [place] [address] 09/23/2024 7:30 AM CDT - 09/23/2024 10:40 AM CDT Surgery [facility] [place] [address] [place] [address] Eriberto Cruz MD [address] [place] [address] RIGHT TOTAL KNEE ARTHROPLASTY WITH POSSIBLE ROBOTIC ASSISTANCE 10/08/2024 10:20 AM CDT Office Visit [facility] Orthopedic & Sports Medicine - [place] [address] [place] [address] Hugo Rivero PA [address] [place] [address] Scheduled Procedures Name Priority Associated Diagnoses Date/Ti me ARTHROPLASTY KNEE TOTAL Arthritis of right knee 09/23/2024 7:30 AM CDT documented as of this encounter Visit Diagnoses Not on filedocumented in this encounter Care Teams Merchandise Marker Relationship Specialty Start Date End Date Kacey Martinez MD [address] [place], [place] [address] [address] PCP - General FAMILY PRACTICE 08/12/18 01/13/24 Hitesh Kowalski MD [address] [place] [phone] PCP - General 01/14/24 documented as of this encounter
--- OUTSIDE RECORDS SUMMARY | 2024-08-04 18:40 | XMS_ITS | Encounter Summary ---
Author Organization [facility] Address [address] [place] [address] Care Team Providers Care Radiology Transporter Name Role Phone Kacey Martinez MD Primary Care Provider [phone] Hitesh Kowalski MD Primary Care Provider [phone] Encounter Details Date Type Department Care Team (Late st Contact Info) Description 07/03/2022 Ariistot Message Enc [facility] Medical Group Multispecialty Care - [facility] 3 [facility], [address] [place] [address] Asia Moyer, KAITLYN [address] [facility] [address] [place] [address] Back Social History Tobacco Use Types Packs/Day [...] Master's degree (e.g., MA, MS, Gianna, MEd, PIANO TUNER, HÉCTOR) 06/21/2021 Comments No Sex and Gender [...] Coronavirus/COVID-19? No / Unsure 07/06/2022 4:02 PM PROTEIN SCIENTIST documented as of this encounter Functional Status [...] 07/05/2022 8:58 AM CST Sending to Asia EIN SCIENTIST * Isela Pop MA - 07/04/2022 9:17 AM CST Asia please advise. EIN SCIENTIST documented in this encounter Plan of Treatment Upcoming Encounters Date Type Department Care Team (Latest Contact Info) Description 09/03/2024 2:30 PM CDT Appointment [facility] [place] [address] Eriberto Cruz MD [address] [place] [address] 09/08/2024 10:40 AM CDT Office Visit [facility] Orthopedic & Sports Medicine [facility] [address] [place] [address] Hugo Rivero PA [address] [place] [address] 09/23/2024 7:30 AM CDT Hospital Encounter [facility] [place] [address] Eriberto Cruz MD [address] [place] [address] 09/23/2024 7:30 AM CDT - 09/23/2024 10:40 AM CDT Surgery [facility] [place] [address] Eriberto Cruz MD [address] [place] [address] RIGHT TOTAL KNEE ARTHROPLASTY WITH POSSIBLE ROBOTIC ASSISTANCE 10/08/2024 10:20 AM CDT Office Visit [facility] Orthopedic & Sports [facility] [address] [place] [address] Hugo Rivero PA [address] [place] [address] Scheduled Procedures Name Priority Associated Diagnoses Date/Ti [...] on filedocumented in this encounter Care Teams Radiology Transporter Relationship Specialty Start Date End Date Kacey Martinez MD [address] [place] [address] [place] [address] PCP - General FAMILY PRACTICE 08/12/18 01/13/24 Hitesh Kowalski MD [address] [place] [phone] PCP - General 01/14/24 documented as of this encounter
--- OUTSIDE RECORDS SUMMARY | 2024-08-04 18:40 | XMS_ITS ---
Author Organization [facility] Address [address] [place], [place] [address] Care Team Providers Care Meal Grinder Tender Name Role Phone CAIT PEREZ Unavailable [phone] Kacey Martinez Unavailable Unavailable Allergies No Known [...] Medrol DosepakOr iginal MedicationMedrol Dosepak *Reorder from [facility] for eRx and Interaction Alerts* 05/17/2017 Active Encounters Encounter Location Date Provider Diagnosis [facility] [address] [place], [place] [address] 05/05/2024 CAIT PEREZ Contusion of left lesser [...] JESUS HANCOCK LDOB:[birth year] (64 yo F)Acc No.[id number]:05/05/2024 Patient: JOSE DE JEUSS DE Provider: Crystal Perez DPM :1960 A ge:64 Y S ex:Female Date:05/05/2024 Address:[address] [place], [place] [address] Subjective: * Chief Complaints: * T he [...] Pharmacist: Medrol DosepakOriginal MedicationMedrol Dosepak *Reorder from [facility] for eRx and Interaction Alerts*Medication List reviewed and reconciled with the patientTaking Medrol Dosepak ORAL , Notes to Pharmacist: Medrol DosepakOriginal MedicationMedrol Dosepak *Reorder from [facility] for eRx and Interaction Alerts*Medication List reviewed [...] vs. surgical repair * Procedure Codes: 7 3637 X-RAY EXAM OF FOOT, Modifiers: LT * Follow Up: p rn * Billing Information: * Visit Code: 52967 Office Visit, Est Pt., Level 3. * Procedure Codes: 61413 X-RAY EXAM OF FOOT. Modifiers: LT * PATIENT CARE Sign off status: Completed true * Provider: Crystal Perez DPM Date: 07/06/2023 Generated for Jayne craven/Rose Marie/Tracy on: 0 08/04/2024 06:40 PM CDT History and Physical Notes * HPI (History [...] contracted digits 2-5 bilateral. The deformity is semi- rigid to the 2nd digit, and flexible to the 3rd, 4th and 5th digits Constitutional Constitutional The patient is a wake, alert, well developed, well groomed and well nourished Radiographs Left Foot Evidence of tota l joint implant in the great toe. Well-healed fracture of the proximal phalanx of the 5th digit. NO acute fracture noted
--- OUTSIDE RECORDS SUMMARY | 2024-08-04 18:40 | XMS_ITS | Encounter Summary ---
Author Organization [facility] Address [address] [place] [address] Care Team Providers Care Senior Nurse Manager Name Role Phone Kacey Martinez MD Primary Care Provider [phone] Hitesh Kowalski MD Primary Care Provider [phone] Encounter Details Date Type Department Care Team (Late st Contact Info) Description 04/10/2022 [facility] [employer] Message Enc [facility] Medical Group Multispecialty Care - [facility] 3 [facility], [address] [place] [address] Asia Moyer, KAITLYN 3 [facility] [address] [place] [address] Appointment Social History Tobacco Use Types Packs/Day [...] Master's degree (e.g., MA, MS, Gianna, MEd, OFFICE SERVICES COORDINATOR, HÉCTOR) 06/21/2021 Comments No Sex and Gender [...] Coronavirus/COVID-19? No / Unsure 04/12/2022 12:29 PM ELECTRONIC ORGAN MECHANIC documented as of this encounter Functional Status [...] Info) Description 09/03/2024 2:30 PM CDT Appointment [facility] [place] [address] Eriberto Cruz MD [address] [place] [address] 09/08/2024 10:40 AM CDT Office Visit [facility] Medical Group Orthopedic & Sports Medicine - [place] [address] [place] [address] Hugo Rivero PA [address] [place] [address] 09/23/2024 7:30 AM CDT Hospital Encounter [facility] [place] [address] Eriberto Cruz MD [address] [place] [address] 09/23/2024 7:30 AM CDT - 09/23/2024 10:40 AM CDT Surgery [facility] [place] [place] [address] Eriberto Cruz MD [address] [place] [address] RIGHT TOTAL KNEE ARTHROPLASTY WITH POSSIBLE ROBOTIC ASSISTANCE 10/08/2024 10:20 AM CDT Office Visit [facility] Medical Group Orthopedic & Sports Medicine - [place] [address] [place] [address] Hugo Rivero PA [address] [place] [address] Scheduled Procedures Name Priority Associated Diagnoses Date/Ti me ARTHROPLASTY KNEE TOTAL Arthritis of right knee 09/23/2024 7:30 AM CDT documented as of this encounter Goals Goal Patient Goal Type Associated Problems Recent Progress Patient-Stated? Author Health - patient able to perform ADLs independently Lifestyle No Koersantos i elizabeth, Dusty Dorado, RN documented as of this encounter Visit Diagnoses Not on filedocumented in this encounter Care Teams Senior Nurse Manager Relationship Specialty Start Date End Date Kacey Martinez MD [address] [place] [address] [place] [address] PCP - General FAMILY PRACTICE 08/12/18 01/13/24 Hitesh Kowalski MD [address] [place] [address] PCP - General 01/14/24 documented as of this encounter
--- OUTSIDE RECORDS SUMMARY | 2024-08-04 18:40 | XMS_ITS | Encounter Summary ---
Author Organization [facility] Address [address] [place] [address] Care Team Providers Care Coke Crane Operator Name Role Phone Kacey Martinez MD Primary Care Provider [phone] Hitesh Kowalski MD Primary Care Provider [phone] Encounter Details Date Type Department Care Team (Late st Contact Info) Description 09/10/2023 Squirrlyt Message Enc [facility] Medical Group Multispecialty Care - [facility] 3 [facility], [address] [place] [address] Asia Moyer, KAITLYN 3 [facility] [address] [place] [address] Back Social History Tobacco Use Types Packs/Day [...] Master's degree (e.g., MA, MS, Gianna, MEd, DIE SINKER APPRENTICE, HÉCTOR) 06/21/2021 Comments No Sex and Gender [...] Info) Description 09/03/2024 2:[address] [facility] [place] [address] Eriberto Cruz MD [address] [place] [address] 09/08/2024 10:40 AM CDT Office Visit [facility] Orthopedic & Sports Medicine [facility] [address] [place] [address] Hugo Rivero PA [address] [place] [address] 09/23/2024 7:30 AM CDT Hospital Encounter [facility] [address] Eriberto Cruz MD [address] [place] [address] 09/23/2024 7:30 AM CDT - 09/23/2024 10:[address] [place] [address] Eriberto Cruz MD [address] [place] [address] RIGHT TOTAL KNEE ARTHROPLASTY WITH POSSIBLE ROBOTIC ASSISTANCE 10/08/2024 10:20 AM CDT Office Visit [facility] Orthopedic & Sports [facility] [address] [place] [address] Hugo Rivero PA [address] [place] [address] Scheduled Procedures Name Priority Associated Diagnoses Date/Ti me ARTHROPLASTY KNEE TOTAL Arthritis of right knee 09/23/2024 7:30 AM CDT documented as of this encounter Goals Goal Patient Goal Type Associated Problems Recent Progress Patient-Stated? Author Health - patient able to perform ADLs independently Lifestyle No Ramos villasenor er, Dusty Dorado RN documented as of this encounter Visit Diagnoses Diagnosis Sacroiliitis- Primary Sacroiliitis, not elsewhere classified Arthritis of right knee Unspecified arthropathy, lower leg documented in this encounter Care Teams Coke Crane Operator Relationship Specialty Start Date End Date Kacey Martinez MD [address] [place] [address] PCP - General FAMILY PRACTICE 08/12/18 01/13/24 Hitesh Kowalski MD [address] [place] [phone] PCP - General 01/14/24 documented as of this encounter
--- OUTSIDE RECORDS SUMMARY | 2024-08-04 18:40 | XMS_ITS | Encounter Summary ---
Author Organization [facility] Address [address] [place] [address] Care Team Providers Care Net Programmer Analyst Name Role Phone Kacey Martinez MD Primary Care Provider [phone] Hitesh Kowalski MD Primary Care Provider [phone] Encounter Details Date Type Department Care Team (Latest Contact Info) Description 03/21/2022 Connectyx Technologiest Message Enc [facility] Medical Group Multispecialty Care - [facility] 3 [facility], [address] [place] [address] Asia Moyer, KAITLYN 3 [facility] [address] [place] [address] Swollen ankles/feet Social History Tobacco Use Types [...] Master's degree (e.g., MA, MS, Gianna, MEd, PRODUCTION SUPPORT SPECIALIST, HÉCTOR) 06/21/2021 Comments No Sex and Gender [...] Info) Description 09/03/2024 2:30 PM CDT Appointment [facility] [place] [address] Eriberto Cruz MD [address] [place] [address] 09/08/2024 10:40 AM CDT Office Visit [facility] Orthopedic & Sports Medicine [facility] [address] [place] [address] Hugo Rivero PA [address] [place] [address] 09/23/2024 7:30 AM CDT Hospital Encounter [facility] [place] [address] Eriberto Cruz MD [address] [place] [address] 09/23/2024 7:30 AM CDT - 09/23/2024 10:40 AM CDT Surgery [facility] [place] [place] [address] Eriberto Cruz MD [address] [place] [address] RIGHT TOTAL KNEE ARTHROPLASTY WITH POSSIBLE ROBOTIC ASSISTANCE 10/08/2024 10:20 AM CDT Office Visit [facility] Orthopedic & Sports Medicine [facility] [address] [place] [address] Hugo Rivero PA [address] [place] [address] Scheduled Procedures Name Priority Associated Diagnoses Date/Ti me ARTHROPLASTY KNEE TOTAL Arthritis of right knee 09/23/2024 7:30 AM CDT documented as of this encounter Goals Goal Patient Goal Type Associated Problems Recent Progress Patient-Stated? Author Health - patient able to perform ADLs independently Lifestyle No Ramos johnson, Dusty Dorado, RN documented as of this encounter Visit Diagnoses Not on filedocumented in this encounter Care Teams Net Programmer Analyst Relationship Specialty Start Date End Date Kacey Martinez MD [address] [place] [address] PCP - General FAMILY PRACTICE 08/12/18 01/13/24 Hitesh Kowalski MD [address] [place] [phone] PCP - General 01/14/24 documented as of this encounter
--- OUTSIDE RECORDS SUMMARY | 2024-08-04 18:40 | XMS_ITS | Encounter Summary ---
Author Organization [facility] Address [address] [place] [address] Care Team Providers Care General Labor Name Role Phone Kacey Martinez MD Primary Care Provider [phone] Hitesh Kowalski MD Primary Care Provider [phone] Encounter Details Date Type Department Care Team (Late st Contact Info) Description 02/24/2022 BeeBilliont Message Enc [facility] Medical Group Multispecialty Care - [facility] 3 [facility], [address] [place] [address] Asia Moyer, KAITLYN 3 [facility] [address] [place] [address] Picture scar Social History Tobacco Use Types [...] Master's degree (e.g., MA, MS, Gianna, MEd, FORGE SHOP SUPERVISOR, HÉCTRO) 06/21/2021 Comments No Sex and Gender Information [...] Info) Description 09/03/2024 2:30 PM CDT Appointment [facility] Pre-Admission Testing [address] [facility] [place] [address] Eriberto Cruz MD [address] [place] [address] 09/08/2024 10:40 AM CDT Office Visit [facility] Medical Group Orthopedic & Sports Medicine - [place] [address] [place] [address] Hugo Rivero PA [address] [place] [address] 09/23/2024 7:30 AM CDT Hospital Encounter [facility] [place] [address] Eriberto Cruz MD [address] [place] [address] 09/23/2024 7:30 AM CDT - 09/23/2024 10:40 AM CDT Surgery [facility] [place] [address] Eriberto Cruz MD [address] [place] [address] RIGHT TOTAL KNEE ARTHROPLASTY WITH POSSIBLE ROBOTIC ASSISTANCE 10/08/2024 10:20 AM CDT Office Visit [facility] Medical Group Orthopedic & Sports Medicine - [place] [address] [place] [address] Hugo Rivero PA [address] [place] [address] Scheduled Procedures Name Priority Associated Diagnoses Date/Ti [...] on filedocumented in this encounter Care Teams General Labor Relationship Specialty Start Date End Date Kacey Martinez MD [address] [place] [address] [place] [address] PCP - General FAMILY PRACTICE 08/12/18 01/13/24 Hitesh Kowalski MD [address] [place] [address] PCP - General 01/14/24 documented as of this encounter
--- OUTSIDE RECORDS SUMMARY | 2024-08-04 18:40 | XMS_ITS | Clinical Summary ---
Author Organization [facility] [address] Address [address] [place] [address] Care Team Providers Care Disabilities Services Officer Name Role Phone Kacey Martinez MD Primary [...] as needed 0 10/17/2018 Activ e butalbital-acet lsrqrh-fqi-buy 90-818-30-30 mg capsule Take 1 capsule by mouth every 4 (four) hours Active Active Problems Problem Noted Date Diagnosed Date Family history of colon cancer in mother 022 History of colonoscopy with polypectomy 07/08/19 22 Encounter for screening colonoscopy 07/08/2021 Hemorrhoids 07/08/2021 History of colonic polyps 07/08/2021 Overview (07/08/2021): Added automatically from request for surgery [id number] Other chest pain 12/05/2018 Surgical History Surgery [...] on file Legal Sex Female 9:13 PM STOCK 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 Room: [facility] END[facility]COPY ROOM 1 Note Status: Finalized Patient [...] under direct vision. The Pediatric Colonoscope [id number]-[id number] was introducedthrough the anus and advanced to [...] 10:18 AM Procedure Code(s): --- Professional --- 10135, Colonoscopy, flexible; with removal of tumor(s), polyp(s), or other lesion(s) by snare technique 35329, 59, Colonoscopy, flexible; with biopsy, single or multiple Diagnosis Code(s): --- Professional --- Z80.0, Family history of malignant neoplasm of digestive organs D12.2, Benign neoplasm of ascending colon CPT copyright 2020 [employer]. All rights reserved. The codes documented in this report are preliminary and upon cashier wrapper reviewmay be revised to meet current compliance requirements. Recognized by the [employer] for promoting quality in endoscopy Josiah Martinez MD ENDOSCOPY PROCEDURES Final Result from Last 3 Months or Most Recently Relevant to Health Maintenance Insurance [facility] Advance Directives For more information, please contact: [phone] * Full Code (Latest Code Status on File) Date Activated Date Inactivated Comments 08/09/2021 10:20 AM 08/09/2021 5:30 PM * Full Code Date Activated Date Inactivated Comments 08/09/2021 10:19 AM 08/09/2021 10:20 AM Care Teams Disabilities Services Officer Relationship Specialty Start Date End Date Kacey Martinez MD PCP - General Family Medicine 09/24/18
--- OUTSIDE RECORDS SUMMARY | 2024-08-04 18:40 | XMS_ITS ---
Author Organization [facility] Address [address] [place], [place] [address] Care Team Providers Care Food And Nutrition Professor Name Role Phone CAIT PEREZ Unavailable [phone] Kacey Martinez Unavailable Unavailable REASON FOR VISIT PHYSICAL THERAPY Encounters Encounter Location Date Provider Diagnosis [facility] [address] [place], [place] [address] 07/31/2023 CAIT SNKEO Plan Of Treatment No Information Progress Notes * JOSE DE JESUS HANCOCK LDOB:[birth year] (63 yo F)Acc No.[id number]:07/31/2023 Patient: JOSE DE JESUS DE Ave :1960 A ge:63 Y S ex:Female Address:[address] [place] [address], [address] * true * Date: Generated for Alcidesi herber/Rose Marie/eTransmitting on: 0 08/04/2024 06:40 PM CDT
--- OUTSIDE RECORDS SUMMARY | 2024-08-04 18:40 | XMS_ITS | Referral Summary ---
Author Organization [facility] Address [address] [place] [address] Care Team Providers Care Suspender Maker Name Role Phone Kacey Martinez MD Primary Care Provider [phone] Source Comments [facility],non-owned Affiliates and Associated Physician Practices is amultiple site organization consisting of ambulatory clinics and hospital sitesin [place], [place], [place] and [place]. This disclosure is being madepursuant to the Care Everywhere program and may not contain all information available regarding this patient. Last updated 18.[facility] Allergies No known active allergies Medications * [...] Documents on File Type Date Recorded Patient Motorcycle Riding Instructor Expl anation POLST 02/17/2022 8:54 AM * Full Code (Latest Code Status on File) Date Activated Date Inactivated Comments 02/02/2022 6:08 PM 02/16/2022 11:34 AM Care Teams Suspender Maker Relationship Specialty Start Date End Date Kacey Martinez MD [address] [place] [address] PCP - General Family Medicine 02/02/22
--- OUTSIDE RECORDS SUMMARY | 2024-08-04 18:40 | XMS_ITS | Encounter Summary ---
Author Organization [facility] Address [address] [place] [address] Care Team Providers Care Securities Supervisor Name Role Phone Kacey Martinez MD Primary Care Provider [phone] Hitesh Kowalski MD Primary Care Provider [phone] Encounter Details Date Type Department Care Team (Late st Contact Info) Description 03/01/2022 CAIS Message Enc [facility] Medical Group Multispecialty Care - [facility] [address] [facility], [address] [place] [address] Asia Moyer, KAITLYN [address] [facility] [address] [place] [address] Calcium Social History Tobacco Use Types Packs/Day [...] Master's degree (e.g., MA, MS, Gianna, MEd, SILK SCREEN FRAME ASSEMBLER, HÉCTOR) 06/21/2021 Comments No Sex and Gender [...] Info) Description 09/03/2024 2:30 PM CDT Appointment [facility] [address] [facility] [address] Eriberto Cruz MD [address] [place] [address] 09/08/2024 10:40 AM CDT Office Visit [facility] Medical Group Orthopedic & Sports Medicine - [place] [address] [place] [address] Hugo Rivero PA [address] [place] [address] 09/23/2024 7:30 AM CDT Hospital Encounter [facility] [place] [address] Eriberto Cruz MD [address] [place] [address] 09/23/2024 7:30 AM CDT - 09/23/2024 10:40 AM CDT Surgery [place] [address] Eriberto Cruz MD [address] [place] [address] RIGHT TOTAL KNEE ARTHROPLASTY WITH POSSIBLE ROBOTIC ASSISTANCE 10/08/2024 10:20 AM CDT Office Visit [facility] Medical Group Orthopedic & Sports Medicine - [place] [address] [place] [address] Hugo Rivero PA [address] [place] [address] Scheduled Procedures Name Priority Associated Diagnoses Date/Ti me ARTHROPLASTY KNEE TOTAL Arthritis of right knee 09/23/2024 7:30 AM CDT documented as of this encounter Goals Goal Patient Goal Type Associated Problems Recent Progress Patient-Stated? Author Health - patient able to perform ADLs independently Lifestyle No Ramos i elizabeth, Dusty Dorado, RN documented as of this encounter Visit Diagnoses Not on filedocumented in this encounter Care Teams Securities Supervisor Relationship Specialty Start Date End Date Kacey Martinez MD [address] [place] [address] [place] [address] PCP - General FAMILY PRACTICE 08/12/18 01/13/24 Hitesh Kowalski MD [address] [place] [address] PCP - General 01/14/24 documented as of this encounter
--- OUTSIDE RECORDS SUMMARY | 2024-08-04 18:40 | XMS_ITS | Encounter Summary ---
Author Organization [facility] Address [address] [place] [address] Care Team Providers Care In Shop Service Technician Name Role Phone Kacey Martinez MD Primary Care Provider [phone] Hitesh Kowalski MD Primary Care Provider [phone] Encounter Details Date Type Department Care Team (Late st Contact Info) Description 03/30/2022 CanFite BioPharmat Message Enc [facility] Medical Group Multispecialty Care - [facility] [address] [facility], [address] [place] [address] Asia Moyer, KAITLYN [address] [facility] [address] [place] [address] Back Social History Tobacco Use Types Packs/Day [...] Master's degree (e.g., MA, MS, Gianna, MEd, INFORMIX DEVELOPER, HÉCTOR) 06/21/2021 Comments No Sex and Gender [...] - 03/30/2022 1:21 PM CST Sending to [facility] documented in this encounter Plan of Treatment Upcoming Encounters Date Type Department Care Team (Latest Contact Info) Description 09/03/2024 2:30 PM CDT Appointment [facility] Pre-Admission Testing [address] [place], [place] [address] Eriberto Cruz MD [address] [place] [address] 09/08/2024 10:40 AM CDT Office Visit [facility] Orthopedic & Sports Medicine [facility] [address] [place] [address] Hugo Rivero PA [address] [place] [address] 09/23/2024 7:30 AM CDT Hospital Encounter [facility] [place] [address] Eriberto Cruz MD [address] [place] [address] 09/23/2024 7:30 AM CDT - 09/23/2024 10:40 AM CDT Surgery [facility] [place] [place] [address] Eriberto Cruz MD [address] [place] [address] RIGHT TOTAL KNEE ARTHROPLASTY WITH POSSIBLE ROBOTIC ASSISTANCE 10/08/2024 10:20 AM CDT Office Visit [facility] Orthopedic & Sports [facility] [address] [place] [address] Hugo Rivero PA [address] [place] [address] Scheduled Procedures Name Priority Associated Diagnoses Date/Ti [...] on filedocumented in this encounter Care Teams In Shop Service Technician Relationship Specialty Start Date End Date Kacey Martinez MD [address] [place] [address] PCP - General FAMILY PRACTICE 08/12/18 01/13/24 Hitesh Kowalski MD [address] [place] [address] PCP - General 01/14/24 documented as of this encounter
--- OUTSIDE RECORDS SUMMARY | 2024-08-04 18:40 | XMS_ITS | Encounter Summary ---
Author Name [facility]MD[facility] Organization [facility] (MD) Address [address] [place] [address] Selected Encounter This section includes the information on record at MD for the Encounter. Date/Time Encounter Type Encounter Description Reason Provider Source Jan 28, 2024 03:49 PM PROGRAM INTAKE ASSESSMENT CAREGIVER SUPPORT PROGRAM ICD-10-CM Z74.1 Need for assistance with personal care BIJU ROSA Encounter Template Text not used by MD Assessments - Encounter Diagnoses This section includes the primary and secondary diagnoses documented for the Encounter. Date/Time Primary/Secondary Diagnosis Diagnosis Name Provider Source Jan 28, 2024 04:24 PM PRIMARY Need for assistance with personal care BIJU ROSA [facility] Encounter Notes: All associated encounter notes This section contains the clinical notes associated to the Encounter. Date/Time Encounter Note(s) Provider Source Jan 28, 2024 03:49 PM CAREGIVER CERTIFIC ATE: LOCAL TITLE: [facility] WELLNESS CONTACT CAREGIVER STANDARD TITLE: CAREGIVER CERTIFICATE DATE OF NOTE: JAN 28, 2024@15:49 ENTRY DATE: JAN 28, 2024@15:49:21 AUTHOR: BIJU ROSA EXP COSIGNER: URGENCY: STATUS: [facility] - Caregiver This Family Caregiver is enrolled in the [facility]'s Program of Comprehensive Assistance for Family Caregivers (PCAFC). While enrolled in the PCAFC, wellness contacts are required and must review the 's well-being, adequacy of personal care services being provided by the Family Caregiver(s), and the well-being of the Family Caregiver(s). This wellness contact will occur at a minimum of once every 120 days, and at least one visit must occur in the eligible Star[place]'s home on an annual basis. Date of Visit: _01/28/2024 Length of Visit: ___20 MINUTES _ Full Name (last, first): __ JOSE DE JESUS [place] Full SSN: __[id number] Date of : _Dec Method of contact: _X_ Telehealth / VA Video Connect Caregiver contact details: Best contact number for backup/emergency communication with caregiver (required): Phone number: __ Caregiver location during visit: _X_ Home address: __[address] [place] [address] __ Others present for visit with caregiver's [...] do you need to care for the Starford, if any? (discuss respite services as appropriate) Details: CG response, The only thing I can think of is more care for overnight hours. How can the Caregiver Support Program support you? What goals/needs can we assist you with? Details: CG's response, I'm good I think. SUMMARY OF VISIT/ACTION TAKEN Details: CG actively participated in c wellness contact while sitting up in recliner. [...] were able to be covered to have INSTRUMENT REPAIR SUPERVISOR at night. Cg reports that she does have a good support system. was recently in the hospital and discharged from hoospital today and Cg reports that when is admitted to the hospital, this is a stressful time for her. Cg denies having any other concerns, issues or requests at this time. /jorge/ BIJU ROSA RN BSN REGISTERED NURSE Signed: 01/28/2024 16:24 BIJU ROSA [facility]
--- OUTSIDE RECORDS SUMMARY | 2024-08-04 18:40 | XMS_ITS | Continuity of Care Document ---
Author Name [facility] Organization [facility] Care Team Providers Care Warp Clamper Name Role Phone [facility] Unavailable Unavailable Problems Combined list of problems from Department of Defense and Veterans Affairs facilities. It does not include entries that were removed or entered in error. Problem Status Onset Date Problem Type Date of Resolution Comments Source Diagnosis: ICD-10-CM Z63.6 Dependent relative needing care at home Active Diagnosis [facility] Diagnosis: ICD-10-CM Z74.1 Need for assistance with personal care Active Diagnosis [facility] Immunizations Combined list of available immunizations from the Department of Defense and [facility] facilities. Immunization Series Date Given Administered By Site Reaction Lot Number CVX Code Drug Physical Education Professor Status Comments Source tetanus, diphtheria, acellular pertu is 2021 zzLef t Arm [id number] GlaxoSmithKli ne complet ed tetanus, diphtheri a, acellular pertussis 09/14/21 Given Ambulat ory Pharmac y Influenza, inj, MDCK, quadrivalent- pf 2017 171 Seqirus complet ed Influenza , inj, MDCK, quadrival ent-pf 04/18/18 Given Ambulat ory Pharmac y influenza, seasonal, injectable-pf 2013 140 CSL Behring complet ed influenza , seasonal, injectabl e-pf 04/04/14 Given Ambulat ory Pharmac y influenza, seasonal, injectable 2009 141 Novartis Pharmaceutica ls complet ed influenza , seasonal, injectabl e 03/19/10 Given Ambulat ory Pharmac y influenza virus vaccine, live 2006 [id number] Hel[employer]z R[employer] comple t ed influenza virus vaccine, live 04/10/07 Given Ambulat ory Pharmac y influenza virus vaccine,split 2005 zVishnuef t Arm [id number] 15 GlaxoSmithKli ne complet ed influenza virus vaccine,s plit 05/15/06 Given Ambulat ory Pharmac y Td (adult)-PF 2003 zzLef t Arm 113 complet ed Td (adult)-P F 07/02/03 Given Ambulat ory Pharmac y measles/mumps /rubella virus vaccine 2003 zzLef t Arm 03 complet ed measles/m umps/rube lla virus vaccine 07/02/03 Given Ambulat ory Pharmac y influenza virus vaccine, whole virus 2001 zzLef t Arm [id number] Atavist complet ed influenza virus vaccine, whole virus 04/07/02 Given Ambulat ory Pharmac y influenza virus vaccine, whole virus 2000 zzLef t Arm [id number] 16 sanofi pasteur complet ed influenza virus vaccine, whole virus 04/20/01 Given Ambulat ory Pharmac y Encounters Combined list of: 1) Encounters from Department of Veterans Affairs facilities going backup to the last 18 months, not all [place] inpatient encounters are included; 2) Encounters from the Department of Defense facilities going backup to 280 months. Location Location Details Encounter Type Encounter Number Reason For Visit Attending Provider ADM Date DC Date Status Disposition Source [facility] CASE MANAGEMENT [id number] Diagnos is: ICD-10- CM Z63.6 Depende nt relativ e needing care at home MYKEL LINDO 05/28 [facility] Outpatient Encounter [id number] 09/24 [facility] PROGRAM INTAKE ASSESSMENT [id number] Diagnos is: ICD-10- CM Z74.1 Need for assista nce with persona l KIARA Junior LEE 09/26 [facility] PROGRAM INTAKE ASSESSMENT [id number] Diagnos is: ICD-10- CM Z74.1 Need for assista nce with persona l KIARA Junior LEE 01/27 [facility] Outpatient Encounter [id number] 02/14 [facility] Outpatient Encounter [id number] 05/26 [facility] PROGRAM INTAKE ASSESSMENT [id number] Diagnos is: ICD-10- CM Z63.6 Depende nt relativ e needing care at home Ave GONZALEZ FELICITAS L 05/26 [facility] Procedures Combined list of: 1) Procedures from Department [facility] facilities going back up to thelast 18 months, not all [place] non-surgical procedures are included; 2) All procedures from the Department [facility] facilities. Procedure Procedure Type Code Date Perfomer Comments Sourc e No data available for this section Ambulatory P harmacy Assessment and Plan Combined list of future care activities from [facility] facilities (e.g., assessment and plan notes, appointments, orders, and referrals). Additional future care activities may be listed in the Plan of Care section. Result Assessment and Plan Date Source Assessment and Plan No data available for this section 08/04/2024 Ambulatory Pharmacy Functional Status Combined list of recent functional and cognitive assessments recorded at Department of Defense and Veterans Affairs ([place]).[place] Functional [place] Measurement (FIM) Scale: 1 = Total Assistance (Subject = 0% +), 2 = Maximal Assistance (Subject = 25% +), 3 = Moderate Assistance (Subject = 50% +), 4 = Minimal Assistance (Subject = 75% +), 5 = Supervision, 6 = Modified Brawley (Device), 7 = Complete Brawley (Timely, Safely). Assessment Date/Time Source Assessment Type Assessment Skill Assessment Score Assessment Details No data available for this section
--- OUTSIDE RECORDS SUMMARY | 2024-08-04 18:41 | XMS_ITS | Clinical Summary ---
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 [address] [place] [address] Eriberto Cruz MD Pre Appt Labs 07/03/2024 Prep for Procedure [facility] Orthopedic & Sports Medicine [facility] [address] [place] [address] Eriberto Cruz MD 07/01/2024 Telephone [facility] Orthopedic & Sports Medicine [facility] [address] [place] [address] Eriberto Cruz MD Schedule Surgery 06/23/2024 10:40 AM MALT HOUSE LOADER Office Visit [facility] Medical [facility] Orthopedic & Sports Medicine [facility] [address] [place] [address] Eriberto Cruz MD Follow Up (Rt knee discuss surgery ) 06/23/2024 Travel 06/12/2024 Orders Only [facility] Orthopedic & Sports Medicine [facility] [address] [place] [address] Eriberto Cruz MD from Last 3 Months [...] Master's degree (e.g., MA, MS, Gianna, MEd, CUSTODIAL AIDE, HÉCTOR) 06/21/2021 Comments No Sex and [...] Comments Blood Pressure 133/77 06/23/2024 10:40 AM MALT HOUSE LOADER Pulse 80 06/23/2024 10:40 AM MALT HOUSE LOADER Temperature 36 C (96.8 F) 06/23/2024 10:40 AM MALT HOUSE LOADER Respiratory Rate 18 12/25/2023 3:02 PM CDT Oxygen Saturation 98% 03/14/2024 10:43 AM CDT Inhaled Oxygen Concentration - - Weight 90.5 kg (199 lb 9.6 oz) 06/23/2024 10:40 AM MALT HOUSE LOADER Height 170.2 cm (5' 7 ) 06/23/2024 10:40 AM MALT HOUSE LOADER Body Mass Index 31.26 06/23/2024 10:40 AM MALT HOUSE LOADER Plan of Treatment Upcoming Encounters Date Type Department Care Team (Latest Contact Info) Description 09/03/2024 2:[address] [facility] [address] Eriberto Cruz MD [address] [place] [address] 09/08/2024 10:40 AM CDT Office Visit [facility] Medical Group Orthopedic & Sports Medicine [facility] [address] [place] [address] Hugo Rivero PA [address] [place] [address] 09/23/2024 7:30 AM CDT Hospital Encounter [facility] [address] Eriberto Cruz MD [address] [place] [address] 09/23/2024 7:30 AM CDT - 09/23/2024 10:[address] [facility] [place] [address] Eriberto Cruz MD [address] [place] [address] RIGHT TOTAL KNEE ARTHROPLASTY WITH POSSIBLE ROBOTIC ASSISTANCE 10/08/2024 10:20 AM CDT Office Visit [facility] Orthopedic & Sports Medicine [facility] [address] [place] [address] Hugo Rivero PA [address] [place] [address] Scheduled Procedures Name Priority Associated Diagnoses Date/Ti me ARTHROPLASTY KNEE TOTAL Arthritis of right knee 09/23/2024 7:30 AM CDT Health Maintenance Due Date Last Done Comments [...] 01/20, 02/03/2021, Additional history exists PHQ-2 (Physician [place]) Completed 06/23/2024 Meningococcal B Vaccine Aged Out [...] perform ADLs independently Lifestyle No Dusty Villa i, RN Medical Devices Implanted Type Area Taping Foreman Device Identifier Shelf Expiration Date Model / Serial / Lot Putty Merly Matrix Dbm/Dbf Bone 6cc - [id number] Implanted:Qty: 1 on 01/30/2022 by Jose David Morocho MD at [facility] Bone N/A: Spine Lumbar [employer] [id number] 01/05/2024 [id number] / [id number] / Graft Infuse Bone Large Ii - [id number] Implanted:Qty: 1 on 01/30/2022 by Jose David Morocho MD at [facility] Bone N/A: Spine Lumbar [employer] [id number] 04/19/2023 [id number] / / [id number] Endoskeleton Interbody Fusion Implanted:Qty: 1 on 01/30/2022 by Jose David Morocho MD at [facility] Cage N/A: Spine Lumbar [employer] [id number] 07/08/2024 [id number] / / [id number] Endoskeleton Interbody System Implanted:Qty: 1 on 01/30/2022 by Jose David Morocho MD at [facility] Cage N/A: Spine Lumbar [employer] [id number] 06/16/2025 [id number] / / [id number] 39mm Pyramid Plate Implanted:Qty: 1 on 01/30/2022 by Jose David Morocho MD at [facility] Plate N/A: Spine Lumbar [employer] [id number] / / 4.75 X 55mm Glen Implanted:Qty: 1 on 01/30/2022 by Jose David Morocho MD at [facility] Glen N/A: Spine Lumbar [employer] [id number] / / 7.5 X 45mm Voyager Screw Implanted:Qty: 1 on 01/30/2022 by Jose David Morocho MD at [facility] Screw N/A: Spine Lumbar [employer] [id number] / / Voyager Set Screws Implanted:Qty: 3 on 01/30/2022 by Jose David Morocho MD at [facility] Screw N/A: Spine Lumbar [employer] [id number] / / 6.5 X 30mm Screws Implanted:Qty: 2 on 01/30/2022 by Jose David Morocho MD at [facility] Screw N/A: Spine Lumbar [employer] [id number] / / 6.5 X 30mm Screws Implanted:Qty: 4 on 01/30/2022 by Jose David Morocho MD at [facility] Screw N/A: Spine Lumbar [employer] [id number] / / 6.5 X 45mm Voyager Screws Implanted:Qty: 1 on 01/30/2022 by Jose David Morocho MD at [facility] Screw N/A: Spine Lumbar [employer] [id number] / / 7.5 X 40mm Voyager Screw Implanted:Qty: 1 on 01/30/2022 by Jose David Morocho MD at [facility] Screw N/A: Spine Lumbar [employer] [id number] / / Nu Shield Implanted:Qty: 1 on 01/30/2022 by Jose David Morocho MD at [facility] Tissue N/A: Spine Lumbar [id number] 04/04/2026 [id number] / [id number] / Procedures Procedure Name Priority Date/Time Associated Diagnosis Comments OXR RT KNEE 3V Routine 06/23/2024 10:33 AM MALT HOUSE LOADER Right knee pain, unspecified chronicity from Last 3 Months Results * OXR RT KNEE 3V (06/23/2024 10:33 AM MALT HOUSE LOADER) Anatomical Region Laterality Modality Radiographic Nimo ging Narrative 06/23/2024 12:49 PM MALT HOUSE LOADER PROCEDURE: OXR RT KNEE 3V VIEWS: 3 [...] 6:57 PM 02/02/2022 5:01 PM Care Teams High [employer] Industrial Arts Teacher Relationship Specialty Start Date End Date Hitesh Kowalski MD [address] [place] [address] PCP - General 01/14/24
--- OUTSIDE RECORDS SUMMARY | 2024-08-04 18:41 | XMS_ITS | Patient Health Record ---
Author Organization [facility] Address [address] [place], [place] [address] Care Team Providers Care Handwriting Expert Name Role Phone CAIT PEREZ Unavailable [phone] Kacey Martinez Unavailable Unavailable Allergies No Known Allergies Reason For Referral No Information Medications Medication SIG (Take, Route, Frequency, Duration) Notes Start Date End Date Status Medrol Dosepak ORAL Medrol DosepakOr iginal MedicationMedrol Dosepak *Reorder from redIT for eRx and Interaction Alerts* 05/17/2017 Active Encounters Encounter Location Date Provider Diagnosis [facility] DOUGLAS FAGAN [address] [place], [place] [id number] 05/05/2024 CAIT ANA Contusion of left lesser toe(s) without damage to nail, initial encounter S90.122A ; Other hammer toe(s) (acquired), right foot M20.41 ; Other hammer toe(s) (acquired), left foot M20.42 and Left foot pain M79.672 Assessments Encounter Date Diagnosis (ICD Code) Assessment Notes Treatment Notes Treatment Clinical Notes Section Notes 05/05/2024 Other hammer toe(s) (acquired), right foot [...] pain (ICD-10 - M79.672) Plan Of Treatment No Information Insurance Providers Payer Name Payer Address Payer Phone Subscriber Number Group Number Insured Name Patient Relationship to Insured Coverage Start Date Coverage End Date [facility] [address] [place] [address] [id number] RAFY HANCOCK Spouse - patient is the spouse of the insured
--- OUTSIDE RECORDS SUMMARY | 2024-08-04 18:41 | XMS_ITS ---
Author Organization [facility] Address [address] [place], [place] [id number] Care Team Providers Care Design Technology Professor Name Role Phone CAIT PEREZ Unavailable [phone] Kacey Martinez Unavailable Unavailable REASON FOR VISIT hammer toe follow up Encounters Encounter Location Date Provider Diagnosis [facility] [place] [address] [place], [place] [id number] 09/10/2023 CAIT PEREZ Plan Of Treatment No Information Progress Notes * JOSE DE JESUS HANCOCK LDOB:[birth year] (64 yo F)Acc No.[id number]:09/10/2023 Patient: JOSE DE JESUS DE Provider: Crystal Perez DPM :1960 A ge:63 Y S ex:Female Date:09/10/2023 Address:[address] [place], [place] [id number] Subjective: * Chief Complaints: * 1 . Hammer toe follow up. * Medical History: Objective: * Vitals: Assessment: Plan: * Treatment: * Billing Information: * Visit Code: * Procedure Codes: * Electronic signature of CAIT PEREZ DPM on 08/04/2024 at 06:40 PM CDT Sign off status: Pending * Provider: Crystal Perez DPM Date: 0 09/10/2023 Generated for Printi ng/Faxing/eTransmitting on: 0 08/04/2024 06:40 PM CDT
--- OUTSIDE RECORDS SUMMARY | 2024-08-04 18:41 | XMS_ITS | Encounter Summary ---
Author Organization [facility] Address [address] [place] [address] Care Team Providers Care Supervising Law Enforcement Analyst Name Role Phone Hitesh Kowalski MD Primary Care Provider [phone] Encounter Details Date Type Department Care Team (Late st Contact Info) Description 03/04/2024 [place] Message Enc [facility] - [place] [address] [place] [address] Eriberto Cruz MD [address] [place] [address] Right knee Social History Tobacco Use Types [...] Master's degree (e.g., MA, MS, Gianna, MEd, GOVERNMENT SERVICES PROFESSIONAL, HÉCTOR) 06/21/2021 Comments No Sex and Gender [...] Info) Description 09/03/2024 2:30 PM CDT Appointment [facility] [address] Eriberto Cruz MD [address] [place] [address] 09/08/2024 10:40 AM CDT Office Visit [facility] - [place] [address] [place] [address] Hugo Rivero PA [address] [place] [address] 09/23/2024 7:30 AM CDT Hospital Encounter [facility] [place] [address] Eriberto Cruz MD [address] [place] [address] 09/23/2024 7:30 AM CDT - 09/23/2024 10:40 AM CDT Surgery [facility] [place] [address] Eriberto Cruz MD [address] [place] [address] RIGHT TOTAL KNEE ARTHROPLASTY WITH POSSIBLE ROBOTIC ASSISTANCE 10/08/2024 10:20 AM CDT Office Visit [facility] - [place] [address] [place] [address] Hugo Rivero PA [address] [place] [address] Scheduled Procedures Name Priority Associated Diagnoses Date/Ti me ARTHROPLASTY KNEE TOTAL Arthritis of right knee 09/23/2024 7:30 AM CDT documented as of this encounter Goals Goal Patient Goal Type Associated Problems Recent Progress Patient-Stated? Author Health - patient able to perform ADLs independently Lifestyle No Ramos i er, Dusty Dorado, RN documented as of this encounter Visit Diagnoses Not on filedocumented in this encounter Care Teams Supervising Law Enforcement Analyst Relationship Specialty Start Date End Date Hietsh Kowalski MD [address] [place] [phone] PCP - General 01/14/24 documented as of this encounter
--- OUTSIDE RECORDS SUMMARY | 2024-08-04 18:41 | XMS_ITS | Encounter Summary ---
Author Organization [facility] Address [address] [place] [address] Care Team Providers Care Cook Dinner Name Role Phone Hitesh Kowalski MD Primary Care Provider [phone] Encounter Details Date Type Department Care Team (Late st Contact Info) Description 03/10/[address] [employer] [address] [facility] - [place] [address] [place] [address] Eriberto Cruz MD [address] [place] [address] Referral Social History Tobacco Use Types Packs/Day [...] Master's degree (e.g., MA, MS, Gianna, MEd, [employer], HÉCTOR) 06/21/2021 Comments No Sex and Gender [...] Info) Description 09/03/2024 2:30 PM CDT Appointment [facility] [place] [address] Eriberto Cruz MD [address] [place] [address] 09/08/2024 10:40 AM CDT Office Visit [facility] - [place] [address] [place] [address] Hugo Rivero PA [address] [place] [address] 09/23/2024 7:30 AM CDT Hospital Encounter [facility] [place] [address] Eriberto Cruz MD [address] [place] [address] 09/23/2024 7:30 AM CDT - 09/23/2024 10:40 AM CDT Surgery [facility] [place] [address] Eriberto Cruz MD [address] [place] [address] RIGHT TOTAL KNEE ARTHROPLASTY WITH POSSIBLE ROBOTIC ASSISTANCE 10/08/2024 10:20 AM CDT Office Visit [facility] - [place] [address] [place] [address] Hugo Rivero PA [address] [place] [address] Scheduled Procedures Name Priority Associated Diagnoses Date/Ti me ARTHROPLASTY KNEE TOTAL Arthritis of right knee 09/23/2024 7:30 AM CDT documented as of this encounter Goals Goal Patient Goal Type Associated Problems Recent Progress Patient-Stated? Author Health - patient able to perform ADLs independently Lifestyle No Ramos villasenor er, Dusty Dorado, RN documented as of this encounter Visit Diagnoses Not on filedocumented in this encounter Care Teams Cook Dinner Relationship Specialty Start Date End Date Hitesh Kowalski MD [address] [place] [phone] PCP - General 01/14/24 documented as of this encounter
--- OUTSIDE RECORDS SUMMARY | 2024-08-04 18:42 | XMS_ITS | Data Portability ---
Author Organization [place] - [employer], Main Office Address [address] [place] [address] Care Team Providers Care Manager Dental Name Role Phone HITESH KOWALSKI Primary Care [...] options for her. F/u with Derm at [place] as per schedule. Cont f/u with Pain clinic at [place] as per schedule. Cont f/u with Ortho at [place] as per schedule. Cont f/u with Spine at [place] as per schedule. Cont f/u with Ophtho as per schedule. Cont f/u with Psych as per schedule. HM: WWE - Long time ago. S/p complete hysterectomy. F/u with Gyne/[facility] as per schedule. Mammo - 06/13, normal as per pt. Ordered. DEXA - Ordered. Colonoscopy - 2021, polyps ++. Cont f/u with GI as per schedule (3 yrs). Flu - 03/11/24. Tdap - 01/06. Pneumo - Pt wants to get at 66 yrs. Shingrix - Pt got 2 doses. F/u in 2 months as before. CBC before next visit. Annual labs in 01/12. [email or web address] Not available 03/11/2024 15:04:56 03/24/2024 03/24/2024 64 [...] for her. Cont f/u with Derm at [place] as per schedule. Cont f/u with Pain clinic at [place] as per schedule. Cont f/u with Ortho at [place] as per schedule. Cont f/u with Spine at [place] as per schedule. Cont f/u with Ophtho as per schedule. Cont f/u with Psych as per schedule. HM: WWE - Long time ago. S/p complete hysterectomy. F/u with Gyne/[facility] as per schedule. Mammo - 06/13, normal as per pt. Ordered. DEXA - Ordered. Colonoscopy - 2021, polyps ++. Cont f/u with GI as per schedule (3 yrs). Flu - 03/11/24. Tdap - 01/06. Pneumo - Pt wants to get at 66 yrs. Shingrix - Pt got 2 doses. F/u in 3-4 months. Annual labs in 01/12. Not available 03/24/2024 11:11:11 03/26/2024 03/26/2024 Assessment: Moderate OSAHS, AHI = 19 PLMD Iron deficiency Plan: The following were reviewed and explained to the patient: [facility] home sleep study 12/24/20 AHI = 19 [facility] titration sleep study 03/15/21 sleep onset [...] duration at 20 minutes. 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 Keep humidifier level on automatic mode. Keep [...] carrier. Patient will setup an appointment with [facility] for supplies and pressure adjustments. A [...] further management. Follow-up: 6 months, September 2024 [email or web address] Not available 03/26/2024 10:14:33 07/08/2024 07/08/2024 64 yo F with - RT SHOULDER PAIN, chronic - LEUKOCYTOSIS, resolved - HLD - MIGRAINE - DEPRESSION - LT ABDOMINAL WALL WART, resolved - B/L KNEE PAIN, chronic - B/L SHOULDER PAIN, chronic - POLYARTHROPATHY - CHRONIC LOW BACK PAIN - LUMBAR SPONDYLOSIS - CHRONIC LT HIP PAIN - OSTEOPENIA - OBESITY I - EX-SMOKER (Quitted since 2005) CXR: 03/12/24. Annual labs, MARINE, RF: 01/03/24. X-ray Lt hip: 12/06/23. CT L-spine wo: 02/23/23. MRI L-spine wo: 01/25/22. D/w pt about her findings, recent labs & imagines and further plan of care. Will do x-ray. Advised to f/u with her Ortho about her joint pain. All meds verified with pt. Meds as directed. Diet and exercise explained in detail. Educated about different options for her. Cont f/u with Derm at [place] as per schedule. Cont f/u with Pain clinic at [place] as per schedule. Cont f/u with Ortho at [place] as per schedule. Cont f/u with Spine at [place] as per schedule. Cont f/u with Ophtho as per schedule. Cont f/u with Psych as per schedule. HM: WWE - 04/29/24, normal. S/p complete hysterectomy. Cont f/u with Gyne/[facility] as per schedule. Mammo - 06/27/24, normal. DEXA - 06/27/24, osteopenia ++. Colonoscopy - 2021, polyps ++. Cont f/u with GI as per schedule (3 yrs). Flu - 03/11/24. Tdap - 01/06. Pneumo - Pt wants to get at 66 yrs. Shingrix - Pt got 2 doses. F/u in 3-4 months. Annual labs in 01/12. [email or web address] Not available 07/08/2024 16:54:10 Plan of Treatment Reminders Order Date Submit Date Provider Last Modified By Organization Details Last Modified Time Details Appointments Any 15 2024 09:00A M Adiel Shannon MD Not available Not available Not available Follow Up 15 2024 10:30A M Hitesh Kowalski MD Not available Not available Not available Lab ferritin, serum or plasma [address] (Lab), [address] [place], [address], 03/26/2024 10:17:16 Referral orthopedi c surgeon referral - Please call patient to schedule an appointme nt. Thank you. 2023 024 RICHIE Cruz MD, [address] [facility], [facility] [address], [place], [address], 03/18/2024 10:36:07 Procedures None recorded. Surgeries None recorded. Imaging XR, shoulder, 2 or more view [address], [address] [facility] [address], [place], [address], 07/15/2024 08:50:07 Medication Orders baclofen 20 mg tablet 2024 025 [facility]15915, [address], [place], [id number], 07/08/2024 16:54:52 Zepbound 5 mg/0.5 mL subcutane ous pen injector 2024 025 [email or web address] [facility], [address], [place], [id number], 07/16/2024 07:59:00 Calcium 600 + D(3) 600 mg-10 mcg (400 unit) tablet 2024 025 [place] #59608, [address], [place], [id number], 07/08/2024 16:54:52 rosuvasta tin 20 mg tablet 2024 025 [facility] #71420, [address] [facility], [place], [place], [id number], 07/08/2024 16:42:26 ferrous sulfate 325 mg (65 mg iron) tablet 2023 024 [facility] #82530, [address] [facility], [place], [place], [id number], 03/26/2024 10:17:21 Vitamin C 500 mg tablet 2023 [facility] #14861, [address] [facility], [place], [place], [id number], 03/26/2024 10:17:21 Wegovy 1 mg/0.5 mL subcutane ous pen injector [address] [facility]28246, [address] [facility], [place], [place], [id number], 04/29/2024 10:35:37 Medrol (Akash) 4 mg tablets in a dose pack [address] [facility]71605, [address] [facility], [place], [place], [id number], 04/29/2024 10:34:31 rosuvasta tin 20 mg tablet 2023 024 [facility] #62683, [address] [facility], [place], [place], [id number], 03/24/2024 10:55:31 rosuvasta tin 20 mg tablet 2023 024 [facility] #01388, [address] [facility], [place], [place], [id number], 03/11/2024 14:59:00 Patient TargetsNo targets recorded. Patient Instructions Encounter Date Encounter Id Patient Instructions Last Modified By Organization Details Last Modified Time 03/11/2024 [id number] starting a weigh t loss plan: care instructions [email or web address] Not available 03/11/2024 14:58:52 03/24/2024 [id number] starting a weigh t loss plan: care instructions [email or web address] Not available 03/24/2024 10:55:23 07/08/2024 [id number] starting a weigh t loss plan: care instructions [email or web address] Not available 07/08/2024 16:42:19 Reason for Referral Orthopedic Surgeon Referral for Pain of bilateral knee joints Please call patient to schedule an appointment. Thank you. Referring Physician: Hitesh Kowalski, Family Medicine, Encounter Date: 03/11/2024 Results Created Date Observation Date Name Description Value Unit Range Abnormal Flag Note LastModifiedBy Organization Detail LastModifiedTime 03/12/20 24 03/12/2024 XR, chest , 2 view No observ ation record ed. [address], [address], 03/24/2024 10:50:42 06/27/19 25 06/27/2024 MAMMO , scree bautista, bilat eral No observ ation record ed. [address], [address], 07/08/2024 16:53:52 06/27/19 25 06/27/2024 DEXA No observ ation record ed. [address], [address], 07/08/2024 16:53:52 Result Notes None recorded. Problems Name Problem SNOMED Code Status Onset Date Resolution Date Notes Provider Name and Address Organization Details Recorded Time Rupture of rotator cuff of right shoulder 92234329170 197765 Active 2021 Not Available [employer] 09:18:34 Localized , primary osteoarth ritis of the hand 518967371 Active Not Available [facility] 3 09:18:34 Osteoarth ritis of left knee joint 23117891459 9109 Active 2021 Not Available [employer] 3 09:18:36 Osteoarth ritis of right knee joint 65031577560 9100 Active 2021 Not Available [facility] 3 09:18:36 Genital herpes simplex 14643286 Active 2017 Not Available [facility] 3 09:18:36 Vitamin D deficienc y 56052115 Active 2017 Not Available [facility] 3 09:18:36 Goiter 3395532 Active 05/2018 Not Available [facility] 3 09:18:37 Osteoarth rosis of the carpometa carpal joint of the thumb 23807131 Active 2019 Not Available [facility] 3 09:18:37 Hyperlipi demia 66265628 Active Not Available [facility] 3 09:18:38 Obstructi ve sleep apnea syndrome 74229955 Active 2020 Not Available [facility] 3 09:18:38 COVID-19 004364868 Active 2022 Kacey Martinez MD [address], [place], [address] , [facility] [employer] [facility] 3 11:12:30 Cobalamin deficienc y 273183883 Active 2023 Kacey Martinez MD [address], [place], [address] , [address] [facility] 4 12:45:54 Periodic limb movement disorder 719053851 Active 2023 Adiel Shannon MD [address], [place], [address] , [facility] [employer] [facility] 4 12:22:48 Lumbar spondylos is 848915302 Active 2023 Hitesh Kowalski MD [address], [place], [address] , [facility] [employer] [facility] 4 11:43:36 Migraine without aura 38614108 Active 2023 Hitesh Kowalski MD [address] [employer], [place], [address] , [facility] [employer] [facility] 4 11:45:20 Obesity 485518712 Active 2023 Hitesh Kowalski MD [address] [employer], [place], [address] , [facility] [employer] [facility] 4 12:01:45 Iron deficienc y 69040612 Active 2023 Adiel Shannon MD [address] [employer], [place], [address] , [facility] [employer] [facility] 4 12:21:39 Ex-cigare tte smoker 780113836 Active 2023 Hitesh Kowalski MD [address] [employer], [place], [address] , [facility] [employer] [facility] 4 11:13:59 Verruca vulgaris 68387628 Active 2023 Hitesh Kowalski MD [address] [employer], [place], [address] , [facility] [employer] [facility] 4 10:09:30 Depressiv e disorder 35699575 Active 2023 Hitesh Kowalski MD [address], [place], [address] , [facility] [employer] [facility] 4 10:12:31 History of lumbar laminecto my 82799225916 522073 Active 2021 Hitesh Kowalski MD [address] [employer], [place], [address] , [facility] [employer] [facility] 4 10:16:44 Lumbar radiculop athy 783060067 Completed 202004/18/2021 Hitesh Kowalski MD [address] [employer], [place], [address] , [place] [facility] 5 16:50:39 Left-side d piriformi s syndrome 06128351990 9106 Active 2022 Hitesh Kowalski MD [address], [address], [place], [address] , [place] [facility] 4 10:16:44 Inflammat ion of sacroilia c joint 68351280 Active 2022 Hitesh Kowalski MD [address], [address], [place], [address] , [place] [facility] 4 10:16:44 History of lumbar fusion 99307777823 106 Active 2021 Hitesh Kowalski MD [address], [address], [place], [address] , [place] [facility] 4 10:16:44 Pain of bilateral knee joints 53360299201 4104 Active 2024 Hitesh Kowalski MD [address], [address], [place], [address] , [place] [facility] 5 16:28:39 Tendiniti s of right elbow 20266234980 811581 Active 2024 Hitesh Kowalski MD [address], [address], [place], [address] , [place] [facility] 5 16:28:39 Chronic low back pain 071267344 Active 2024 Hitesh Kowalski MD [address], [place], [address] , [place] [facility] 5 16:28:39 Bilateral shoulder joint pain 77754113499 799412 Active 2024 Hitesh Kowalski MD [address], [place], [address] , [place] [facility] 5 16:28:39 Leukocyto sis 572499517 Active 2024 Hitesh Kowalski MD [address], [address], [place], [address] , [employer] [facility] 5 16:28:39 Polyarthr opathy 90578451 Active 2024 Hitesh Kowalski MD [address], [address], [place], [address] , [employer] [facility] [employer] [facility] 5 16:28:39 Pain of right shoulder joint 34613258605 471460 Active 2024 Hitesh Kowalski MD [address], [address], [place], [address] , [employer] [facility] [employer] [facility] 5 16:43:19 Lumbar spine instabili ty 918361878 Active 2021 Hitesh Kowalski MD [address], [address], [place], [address] , [employer] [facility] [employer] [facility] 5 16:50:39 Pain 89837734 Active 2022 Hitesh Kowalski MD [address], [address], [place], [address] , [employer] [facility] 5 16:50:39 Osteopeni a 130337992 Active 2024 Hitesh Kowalski MD [address], [place], [address] , [employer] [facility] 5 16:54:27 Notes:Medical History: Depre ssion COVID infections 12/2022, 08/2023 Bruxism Obesity with mod OSAHS, AHI = 19, 12/24/20, on CPAP c/o IVRC Hyperlipidemia Hepatic steatosis Hemorrhoids Left renal calculus HSV-2 infection PLMD Iron deficiency Vit B12 deficiency Vit D deficiency Lumbar DDD Bilateral knee OA Right popliteal cyst Procedure History: Cholecystectomy 2011 ALFA-BSO 2013 Right knee arthroscopies 2016, 2017 Left 1st toe joint replacement 2019 Right shoulder repair 2019 Right hand arthroplasty 2020 L4-L5, L5-S1 laminectomies 2021 Colonoscopy with polypectomies [address] biopsy 2022 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 Procedures Surgical History Date Name Laterality Status Provider Name and Address Organization Details Recorded Time 04/29/20 24 Date of Last Pap Smear completed Jackie Goff RN [facility] [employer] [facility] 04/29/2024 10:40:08 01/31/20 24 Ear Irrigation completed Hitesh Kowalski MD [address] [facility], [address], [place], [address], [facility] [employer] [facility] 01/31/2024 11:36:52 01/23/20 24 Cryotherapy completed Hitesh Kowalski MD [address] [facility], [address], [place], [address], [facility] [employer] [facility] 01/23/2024 10:09:50 01/31/20 22 Back Surgeries completed Not Available [facility] 07/19 09:13:25 08/10/19 22 Date of Last Colonoscopy completed Bonnie Pop [facility] [employer] [facility] 03/09/2023 16:20:51 08/10/19 22 colonoscopy completed Not Available [facility] 07/20/19 09:13:25 Imaging Results Imaging Date Name Status LastModified by Organiz ation Details LastModified Time 03/12/2024 XR, chest, [address] view [address], [address], 03/24/2024 10:50:42 06/27/2024 MAMMO, screening, bilateral completed [address], [address], 07/08/2024 16:53:52 06/27/2024 DEXA completed [address], [address], 07/08/2024 16:53:52 Procedure Notes None recorded. Medical Equipment None Reported. Allergies Allergen ID Allergen Name Allergen Category Reaction Reaction Severity Criticality Documentation Date Start Date Code Code System Note Provider Name and Address Organization Details Recorded Time 47653 No known allergy (situatio n) Not available Not available Not available Not available 01/23/2024 [id number] [facility] Hitesh Kowalski MD [address] [facility], [address], [place], [address] , [facility] [employer] 10:16:33 No known drug allergies Medications Name [...] t Available ketoconazol e 2 % shampoo 07/08 completed Not Available Not Available Not Available Vitamin [...] acetaminoph en-caffeine 50 mg-325 mg-40 mg tablet 07/08 completed Not Available Not Available Not Available acyclovir 800 mg tablet 07/08 completed Not Available Not Available Not Available baclofen [...] suspension for injection in office 09/26 completed [facility]: 0003- 0494- 20 Not Available Not Available [...] t Available nystatin 100,000 unit/gram topical cream 07/08 completed Not Available Not Available Not Available dexamethaso ne 4 mg tablet 09/26 completed Not Available Not Available Not Available oxycodone 5 mg capsule TAKE 1 TO 2 CAPSULES BY MOUTH EVERY 4 HOURS NEEDED 07/13 completed Not Available Not Available Not Available ascorbic acid (vitamin C) 500 mg chewable tablet 500 mg every 24 hours by oral route. 2023 active Not Available Not Available Not Avai lable orphenadrin e citrate ER 100 mg tablet,exte [...] Available hydrocortis one 2.5 % topical cream 07/08 completed Not Available Not Available Not Available furosemide [...] Not Available rosuvastati n 20 mg tablet TAKE 1 TABLET BY MOUTH EVERY DAY IN THE EVENING active Not Available Not Available No t Available ORTHOVISC 30 mg/2 mL intra-artic ular syringe [...] administe red by the provider 07/26 completed [facility]: 0409- 4276- 17 Not Available Not Available Not Available lidocaine (PF) 20 mg/mL (2 %) injection solution Take 3 mL by injection route. 04/29 completed Not Available Not Available Not Available lidocaine (PF) 5 mg/mL (0.5 %) injection solution Take 30 mg by injection route. 01/16 completed Not Available Not Available Not Available calcium 600 mg (as carbonate)- vitamin D3 10 mcg (400 unit) tablet TAKE 1 TABLET BY MOUTH TWICE DAILY DIRECTED active Not Available Not Available No t Available FeroSul 325 mg (65 mg iron) tablet TAKE 1 TABLET BY MOUTH DAILY active Not Available Not Available No t Available butalbital- acetaminoph en-caffeine 50 mg-300 mg-40 mg capsule TAKE 1 CAPSULE DAILY NEEDED FOR MIGRAINES active Not Available Not Available No t Available ropivacaine (PF) 5 mg/mL (0.5 %) injection solution in office 09/26 completed [facility] [address]- 01 Not Available Not Available Not Available Afluria 7873-2186(P F) 45 mcg (15 mcg x 3)/0.5 mL intramuscul ar syringe TO BE ADMINISTE RED BY PHARMACIS T FOR IMMUNIZAT ION active Not Available Not Available No t Available Fluarix Quad 6935-2560 (PF) 60 mcg (15 mcg x 4)/0.5 [...] Available Not Available Not Available Afluria Qd 2019- (36 mos up)(PF)60 mcg (15 mcg x4)/0.5 [...] ous route as directed for 30 days. 07/08 completed Not Available Not Available Not Available Wegovy 1 mg/0.5 mL subcutaneou s [...] completed Not Available Not Available Not Available Zepbound 5 mg/0.5 mL subcutaneou s pen injector ADMINISTE R 5 MG UNDER THE SKIN EVERY WEEK DIRECTED active Not Available Not Available No t Available Vitals Date Recorded Body height Body mass index (BMI) Body weight Body temperature Heart rate Respiratory rate Oxygen saturation Oxygen saturation in Arterial blood by Pulse oximetry Systolic blood pressure Diastolic blood pressure Provider Name and Address Organization Details Last Updated DateTime 170.18 cm 31.4 kg/m2 71914.2 7 g 98.4 [degF] 86 /min 16 /min 99 % 99 % 126 mm[Hg] 76 mm[Hg] Elias Tron[place]o [place] [facility] [employer] 4 14:51:56 Date Recorded Body height Body mass index (BMI) Body weight Body temperature Heart rate Provider Name and Address Organization Details Last Updated DateTime 03/24/2024 170.18 cm 31.4 kg/m2 00763.57 g 97.4 [degF] 72 /min Karissa Hardy RN [facility] [employer] 4 10:48:00 Date Recorded Oxygen saturation Oxygen saturation in Arterial blood by Pulse oximetry Systolic blood pressure Diastolic blood pressure Provider Name and Address Organization Details Last Updated DateTime 03/24/2024 98 % 98 % 134 mm[Hg] 80 mm[Hg] Hitesh Kowalski MD [address] [place] [address] [address], [place], [address], [place] [facility] [employer] 4 11:09:36 Date Recorded Body height Body mass index (BMI) Body weight Body temperature Heart rate Oxygen saturation Oxygen saturation in Arterial blood by Pulse oximetry Systolic blood pressure Diastolic blood pressure Provider Name and Address Organization Details Last Updated DateTime 4 170.18 cm 31.3 kg/m2 70628.4 7 g 98.1 [degF] 73 /min 97 % 97 % 128 mm[Hg] 80 mm[Hg] Yoly Villatoro MA [facility] [employer] [facility] 4 09:51:51 Date Recorded Heart rate Respiratory rate Provider N scott and Address Organization Details Last Updated DateTime 03/26/2024 73 /min 15 /min Adiel Shannon MD [address] [facility] [address], [place], [address], [facility] [employer] [facility] 03/26/2024 10:19:02 Date Recorded Body height Body mass index (BMI) Body weight Body temperature Heart rate Respiratory rate Oxygen saturation Oxygen saturation in Arterial blood by Pulse oximetry Pain severity - 0-10 verbal numeric rating [Score] - Reported Systolic blood pressure Diastolic blood pressure Provider Name and Address Organization Details Last Updated DateTime 4 170.18 cm 31.5 kg/m2 96516.5 2 g 97.1 [degF] 80 /min 20 /min 98 % 98 % 7 136 mm[Hg] 100 mm[Hg] Jackie Goff RN [facility] [employer] 4 10:38:41 Date Recorded Body height Body mass index (BMI) Body weight Body temperature Oxygen saturation Oxygen saturation in Arterial blood by Pulse oximetry Heart rate Systolic blood pressure Diastolic blood pressure Provider Name and Address Organization Details Last Updated DateTime 5 170.18 cm 31.2 kg/m2 17404.6 8 g 97.2 [degF] 97 % 97 % 71 /min 140 mm[Hg] 90 mm[Hg] Karissa Hardy,JÚNIOR [facility] [employer] [facility] 5 16:34:39 Social History Question Answer Notes LastModified by Organization Details LastModified Time Tobacco Smoking Status Former Smoker quit 2005 only smoked 1 pack per week Candida torres, [facility] [employer] [facility] 06/21/2023 07:57:40 Do You Have An Advance Directive? No [id number] Information not available 07/19/2022 What Is Your Level Of Alcohol Consumption? Occasional [id number] Information not available 07/19/2022 What Is Your Level Of Caffeine Consumption? Moderate [id number] Information not available 07/19/2022 How Much Tobacco Do You Chew? None [id number] Information not available 07/19/2022 In The 14 [...] Of Diet Are You Following? REGULAR [id number] Information not available 07/19/2022 Which Illicit Or [...] not available 03/26/2024 Where Do You Live? [facility] Information not available 06/21/2023 Do You Have A Medical Power Of Professor Of Family Medicine? No Information not available 04/29/2024 Do You [...] Smokeless Tobacco? Never Used Smokeless Tobacco [id number] Information not available 07/19/2022 Are There Any Smokers In Your House? No Information not available 06/21/2023 Do You Participate In Social Media? Yes Information not available 04/29/2024 Do You Feel Stressed (tense, Restless, Nervous, Or Anxious, Or Unable To Sleep At Night)? [id number] Information not available 03/26/2024 Do You Use Any Illicit Or Recreational Drugs? Yes [place] Gummies For Her Pain Only At Night [...] Time What is your exercise level? Occasional [id number] Information not available 07/19/2022 Mental Status None recorded. Family History Relationship Description Onset Age of this Age Resolved Age Notes LastModified by Organization Details LastModified Time Mother Hypertensive disorder [id number] Not available 07/19/2022 09:13:26 Father Hypertensive disorder [id number] Not available 07/19/2022 09:13:26 Father Diabetes mellitus [id number] Not available 07/19/2022 09:13:26 Father Cerebrovascu lar accident [email or web address] Not available 1 05/26/2023 09:39:41 Mother Malignant neoplasm of skin [email or web address] Not available 10/2023 09:39:41 Mother Malignant tumor of colon Not available 10/2023 09:39:41 Mother Diabetes mellitus [email or web address] Not available 2023 12:17:54 Sister Malignant tumor of pancreas [email or web address] Not available 10/2023 09:39:41 Sister Hyperlipidem ia [email or web address] Not available 10/2023 09:39:41 Sister Obstructive sleep apnea syndrome [email or web address] Not available 10/2023 09:39:41 Sister Diabetes mellitus [email or web address] Not available 2023 12:18:36 Medical History Condition Response BLINDNESS N RHEUMATIC FEVER N BLADDER PROBLEMS N KIDNEY STONES N MRSA N OTHER # 1 N POLIO N LUNG DISEASE/DISORDER N RADIATION / CHEMOTHERAPY N COPD N Other # 2 N BLOOD DISEASES N SURGERY N EAR OR HEARING PROBLEMS N MUMPS N DEPRESSION (INCLUDING POST ) N FEMALE PROBLEMS / INFECTIONS N BOWEL PROBLEMS N STROKE/TIA N THYROID DISEASE N ULCERS [...] HAVE YOU BEEN HOSPITALIZED OR SEEN IN [facility] IN THE PAST YEAR ? N [...] 2 completed Hitesh Kowalski MD [address], [address], [place], [address], [employer] 12/05/2023 11:31:53 Influenza, MDCK, quadrivalent, PF 9 completed Hitesh Kowalski MD [address], [address], [place], [address], [employer] 12/05/2023 11:31:53 Influenza, MDCK, quadrivalent, preservative 8 completed Hitesh Kowalski MD [address], [address], [place], [address], [employer] 12/05/2023 11:31:53 zoster recombinant 0 completed Hitesh Kowalski MD [address], [address], [place], [address], [employer] [facility] [employer] [facility] 12/05/2023 11:31:53 zoster recombinant 0 completed Hitesh Kowalski MD [address], [address], [place], [address], [facility] [employer] [facility] [employer] [facility] 12/05/2023 11:31:53 COVID-19, mRNA, LNP-S, PF, 100 mcg/0.5mL dose or 50 mcg/0.25mL dose 1 completed Hitesh Kowalski MD [address], [address], [place], [address], [facility] [employer] [facility] [facility] [employer] [facility] 12/05/2023 11:31:53 COVID-19, mRNA, LNP-S, PF, 100 mcg/0.5mL dose or 50 mcg/0.25mL dose 1 completed Hitesh Kowalski MD [address], [address], [place], [address], [facility] [employer] [facility] [employer] [facility] 12/05/2023 11:31:53 COVID-19, mRNA, LNP-S, PF, 100 mcg/0.5mL dose or 50 mcg/0.25mL dose 1 completed Hitesh Kowalski MD [address], [address], [place], [address], [employer] [facility] [employer] [facility] 12/05/2023 11:31:53 Tdap 9 completed Hitesh Kowalski MD [address], [address], [place], [address], [facility] [employer] [facility] [employer] [facility] 12/05/2023 11:31:53 Influenza, split virus, quadrivalent, PF 0 completed Hitesh Kowalski MD [address], [address], [place], [address], [employer] [facility] [employer] [facility] 12/05/2023 11:31:53 Influenza, split virus, quadrivalent, PF 7 completed Hitesh Kowalski MD [address], [place], [address], [facility] [employer] [facility] 12/05/2023 11:31:53 SARS-COV-2 (COVID-19) vaccine, UNSPECIFIED 1 completed Hitesh Kowalski MD [address] [facility] [address], [place], [address], [employer] 12/05/2023 11:31:53 SARS-COV-2 (COVID-19) vaccine, UNSPECIFIED 1 completed Hitesh Kowalski MD [address], [address], [place], [address], [employer] 12/05/2023 11:31:53 Influenza, split virus, quadrivalent, PF 1 completed Not Available [facility] 07/19/2022 09:23:16 Influenza, split virus, quadrivalent, preservative 6 completed Not Available [facility] 07/19/2022 09:23:16 Influenza, split virus, quadrivalent, PF 5 completed Not Available [facility] 07/19/2022 09:23:16 Tdap 4 completed Not Available [facility] 07/19/2022 09:23:16 Influenza, split virus, trivalent, PF 4 completed Elias torres, [employer] 03/11/2024 16:37:45 Past Encounters Encounter ID Performer Location Encounter Start Date Encounter Closed Date Diagnosis/Indication Diagnosis SNOMED-CT Code Diagnosis ICD10 Code Diagnosis Note [id number] [facility] [address] [place] [address] 08/12/2020 00:00:00 08/16/2020 18:47:06 [id number] [facility] [address] [place] [address] 09/16/2020 00:00:00 09/16/2020 14:51:19 [id number] [facility] [address] [facility] [address] [place] [address] 10/07/2020 00:00:00 10/07/2020 18:15:37 [id number] [facility] [place] [address] [place] [address] 10/12/2020 00:00:00 10/12/2020 14:55:03 [id number] [facility] [place] [address] [place] [address] 11/17/2020 00:00:00 11/17/2020 10:10:58 [id number] [facility] [place] [address] [place] [address] 12/06/2020 00:00:00 12/06/2020 12:54:46 [id number] [facility] [place] [address] [place] [address] 12/16/2020 00:00:00 12/16/2020 17:30:05 [id number] [facility] [place] [address] [place] [address] 01/11/2021 00:00:00 01/11/2021 16:03:00 [id number] [facility] [place] [address] [place] [address] 01/18/2021 00:00:00 01/18/2021 16:03:16 [id number] [facility] [place] [address] [place] [address] 01/25/2021 00:00:00 01/25/2021 15:43:05 [id number] [facility] [address] [place] [address] DRIVE [address] [place] [address] 02/03/2021 00:00:00 02/03/2021 22:50:53 [id number] [facility] [address] [place] [address] 02/14/2021 00:00:00 02/14/2021 16:48:49 [id number] [facility] [place] [address] [place] [address] 04/28/2021 00:00:00 04/28/2021 09:52:59 [id number] [facility] [place] [address] [place] [address] 07/26/2021 00:00:00 07/27/2021 09:02:26 [id number] [facility] [place] [address] [place] [address] 09/13/2021 00:00:00 09/13/2021 18:13:12 [id number] [facility] [place] [address] [place] [address] 10/20/2021 00:00:00 10/20/2021 15:03:38 [id number] [facility] [place] [address] [place] [address] 10/21/2021 00:00:00 10/21/2021 13:54:50 [id number] [facility] [place] [address] [place] [address] 12/05/2021 00:00:00 12/05/2021 13:41:32 [id number] [facility] [place] [address] [place] [address] 12/19/2021 00:00:00 12/19/2021 09:55:45 [id number] [facility] [place] [address] [place] [address] 01/16/2022 00:00:00 01/18/2022 07:50:15 [id number] [facility] [place] [address] [place] [address] 03/27/2022 00:00:00 03/27/2022 08:45:22 [id number] [facility] [place] [address] [place] [address] 04/10/2022 00:00:00 04/18/2022 08:25:39 [id number] [facility] [place] [address] [place] [address] 05/18/2022 00:00:00 05/18/2022 13:12:50 [id number] [facility] [place] [address] [place] [address] 07/13/2022 00:00:00 07/13/2022 09:30:25 [id number] Kacey Martinez MD [facility] [address] [facility] [place] [address] 09/05/2022 16:36:41 09/05/2022 17:05:58 Dietary management surveillance 404018241 Z71.3 Renewal of prescription 386046724 Z76.0 Weight gain 5444827 R63. 5 R53.83 Z13.1 Z13.220 Z79.899 Migraine 41218727 G43.90 [id number] Kacey Martinez MD [facility] Care [facility] [address] [facility] [address] [place] [address] 10/10/2022 16:06:52 10/10/2022 16:48:10 Dietary management surveillance 041392752 Z71.3 discussed phentermin e + topiramate vs saxenda vs wegovyshe will check on her insurance coverage [id number] PATSY Garcia [facility] [place] [address] [place] [address] 11/24/2022 14:49:46 11/24/2022 15:18:02 Bilateral osteoarthritis of knees 0618258849 10036 M17.0 Pain of bi lateral knee joints 5038986952 75161 M25.561 M25.562 [id number] Za Nagy, [facility] Pulmonolo gy [place] [address] [place] [address] 11/28/2022 12:22:11 11/28/2022 12:43:51 Obstructive sleep apnea syndrome 42047022 G47.33 Home study 12/2020 with AHI 19.4Machin [...] for at least 6 hours prior to bedtime. -Avoid strenuous exercise and large meals for at least 4 hours prior to bedtime.Or rafa for new supplies todayRTC in one year, PRN for concerns [id number] Kacey Martinez MD [facility] [address] [place] [address] 01/03/2023 16:55:03 01/03/2023 17:37:29 Headache 65883952 R51.9 call/retur n if no improvemen t in 1-2 days or sooner if neededrevi ewed s/s that warrant urgent/davina rgent eval in meantime Family his tory of malignant neoplasm of pancreas 610672043 Z80.0 Dizziness 907156206 R42 Z79.577 [id number] PATSY Garcia [facility] [place] [address] [place] [address] 02/26/2023 11:43:25 02/26/2023 12:10:14 Bilateral osteoarthritis of knees 2820636301 26819 M17.0 [id number] ALEXANDER Goodwin [facility] [address] [place] [address] 03/09/2023 16:09:40 03/09/2023 16:53:42 Mass of neck 333639796 R22.1 noted for about 3 weeks, had diarrhea for a week prior the mass popping upswelling has greatly improved, but does seem to come and gocan to be tender to touchno sinus issueswill give ultrasound of neckpt request staff to reach out with results Pain of bi lateral knee joints 4816902383 48502 M25.561 M25.562 was a pt of Dr. Morales in the paststill noting a lot of pain and decreased ROM/streng th at timesshe is wanting a referral to Dr. Cruz-justa terry [id number] Mohamud Jonas, [employer] [facility] Primary Care [facility] [address] [facility] [address] [place] [address] 06/21/2023 07:55:15 06/21/2023 09:22:04 Mass of neck 604290094 R22.1 -biopsy of lymph node was completed, no evidence of metastatic disease Pain of bi lateral knee joints 8889026326 95798 M25.561 M25.562 -Pt sees Dr. Cruz on 06-25-23-nicolas n and decreased rom/streng th continue-u ses hydrocodon -acet, motrin with min relief-she has been trying to lose weight to help with the pain-she does a lot of stairs at work, and has been exacerbati ng pain [id number] Kacey Martinez MD [facility] Primary Care [facility] [address] [facility] [address] [place] [address] 09/27/2023 12:23:37 09/27/2023 13:12:17 Adult health examination 996776065 Z00.00 Z13.1 retiring in 1.5 weeksmammo gram orderDEXA orderfasti ng labscolono scopy 08/09, repeat 08/12LDCT not qualifiedT dap given 2019Shingr ix given 02/2020, 04/2020Pne umovax 23 at age 66RSV vaccine recommende dFlu vaccine annuallyCo vid booster per cdc recommenda tions Hyperlipidemia 44972731 E78.5 Z79.899 Pain of bi lateral knee joints 6127844066 34312 M25.561 M25.562 stablerefi ll given Vitamin D deficiency 347 21632 E55.9 Bronchitis 97884021 J40 call/retur n if no improvemen t in 1-2 days or sooner if neededrevi ewed s/s that warrant urgent/davina rgent eval in meantime Hyperglycemia 22836444 R 73.9 Cobalamin deficiency 190 595573 E53.8 Fatigue 64237833 R53.83 Multiple joint pain 3567 8005 M25.50 Screening mammography 24 414715 Z12.31 Postmenopausal state 764 15978 Z78.0 Dietary ma nagement surveillance 700751569 Z71.3 refill given [id number] Adiel Shannon MD [address] [address] 11/12/2023 11:02:22 11/13/2023 09:55:53 Obstructive sleep apnea syndrome 34531930 G47.33 Periodic l imb movement disorder 857661031 G47.61 D50.8 E83.42 [id number] Hitesh Kowalski MD [place] [address] 12/05/2023 11:23:23 12/05/2023 12:09:01 Pain of left hip joint 1259228064 90790 M25.552 Chronic low back pain 27 6493642 M54.50 Lumbar spondylosis 28813 0009 M47.896 Migraine without aura 56 497466 G43.009 Obesity 363929809 E66.9 Hyperlipidemia 76877017 E78.5 Polyarthropathy 79398746 M13.0 [id number] Adiel Shannon MD [address] [address] 12/13/2023 11:35:42 12/14/2023 08:49:08 Obstructive sleep apnea syndrome 70779819 G47.33 Iron deficiency 53955060 E61.1 [id number] Hitesh Kowalski MD [address] [address] 01/03/2024 10:50:38 01/03/2024 12:00:38 Screening mammography 40801721 Z12.31 Screening for osteoporosis 621685892 Z13.820 Lesion of scalp 35444088 91 00 L98.9 Chronic low back pain 27 9723290 M54.50 Hyperlipidemia 31791280 E78.5 Adult heal th examination 901830348 Z00.00 Vitamin D deficiency 347 81649 E55.9 Polyarthropathy 12765467 M13.0 Ex-cigarette smoker 2810 75461 Z87.891 Quitted since 2005 Impacted c erumen of bilateral ears 1381344840 123549 H61.23 Obesity 634613508 E66.9 [id number] Hitesh Kowalski MD [place] [address] 01/23/2024 09:48:24 01/23/2024 10:24:05 Lesion of scalp 8075538561 00 L98.9 Chronic low back pain 27 2580177 M54.50 Hyperlipidemia 54470056 E78.5 Vitamin D deficiency 347 12268 E55.9 Improved Polyarthropathy 46591535 M13.0 Ex-cigarette smoker 2810 94574 Z87.891 Quitted since 2005 Impacted c erumen of bilateral ears 1864820775 708300 H61.23 Obesity 120410350 E66.9 Leukocytosis 755554397 D 72.829 Verruca vulgaris 8765858 3 B07.8 Lt abdomen Depressive disorder 3548 9007 F32.A [id number] Hitesh Kowalski MD [address] [address] 01/31/2024 11:23:58 01/31/2024 11:39:28 Impacted cerumen of bilateral ears 6791331010 382024 H61.23 Ear feels full of water 805274414 R44.8 [id number] Hitesh Kowalski MD [address] [address] 03/11/2024 14:29:52 03/11/2024 15:20:09 Verruca vulgaris 55961799 B07.8 Lt abdomen - resolved Hyperlipidemia 67345220 E78.5 Chronic low back pain 27 5428620 M54.50 Vitamin D deficiency 347 78403 E55.9 Improved Polyarthropathy 22975682 M13.0 Ex-cigarette smoker 2810 13609 Z87.891 Quitted since 2005 Obesity 955332172 E66.9 Leukocytosis 476170091 D 72.829 Depressive disorder 3548 9007 F32.A Pain of bi lateral knee joints 4641174083 74042 M25.561 Chronic Administra tion of influenza vaccine 69053245 Z23 Bilateral shoulder joint pain 8483232332 8952639 M25.511 Chronic [id number] Hitesh Kowalski MD [address] [address] 03/24/2024 10:36:24 03/24/2024 11:19:22 Pain of bilateral knee joints 8565792861 07468 M25.561 Chronic Bilateral shoulder joint pain 6008934988 3534258 M25.511 Chronic Polyarthropathy 97944285 M13.0 Verruca vulgaris 9345028 3 B07.8 Lt abdomen - resolved Hyperlipidemia 22966529 E78.5 Chronic low back pain 27 9542956 M54.50 Vitamin D deficiency 347 18113 E55.9 Improved Ex-cigarette smoker 2810 03169 Z87.891 Quitted since 2005 Obesity 525409834 E66.9 Leukocytosis 389664137 D 72.829 resolved Depressive disorder 3548 9007 F32.A Tendinitis of right elbow 0134957792 4915199 M67.117 [id number] Adiel Shannon MD [facility] Pulmonolo [address] [address] 03/26/2024 09:36:54 03/26/2024 18:27:15 Obstructive sleep apnea syndrome 62922715 G47.33 Iron deficiency 15298759 E61.1 [id number] BERNADINE Vega [address] [address] 04/29/2024 10:18:47 04/29/2024 11:23:13 Gynecologic examination 27972533 Z01.419 Discussed vaginal hygiene, safe sexual practices, self breast examsPatie nt questions answered [id number] Hitesh Kowalski MD [address] [address] 07/08/2024 16:23:12 07/08/2024 16:49:39 Hyperlipidemia 42791773 E78.5 Pain of bi lateral knee joints 4096906495 32436 M25.561 Chronic Bilateral shoulder joint pain 6484304323 0436418 M25.511 Chronic Polyarthropathy 51112992 M13.0 Verruca vulgaris 0885221 3 B07.8 Lt abdomen - resolved Chronic low back pain 27 7527881 M54.50 Vitamin D deficiency 347 45499 E55.9 Improved Ex-cigarette smoker 2810 75199 Z87.891 Quitted since 2005 Obesity 888312540 E66.9 Depressive disorder 3548 9007 F32.A Pain of ri ght shoulder joint 9952753052 1629337 M25.511 Osteopenia 603644096 M85 .80 Health Concerns Section Related Observation LastModified by Organization Detai ls LastModified Time None Recorded Concern Status LastModified by Organization Details LastModified Time None Recorded Advance Directives Directive N: Payers Encounter Date Sequence Insurance Name Policy Number Policy [place] Covered Member ID [place] Member ID Guarantor Name 03/11/2024 1 [employer] - [employer] () Rob Zurita [id number] Christine L Zurita 03/24/2024 1 [employer] - [employer] () Rob Zurita [id number] Christine L Zurita 03/26/2024 1 [employer] - [employer] () Rob Zurita [id number] Christine L Zurita 04/29/2024 1 EAST - [employer] () Rob Zurita [id number] Christine L Zurita 07/08/2024 1 WEST - [employer] () Christine L Zurita [id number] Christine L Zurita Notes Date Note Type Note Provider Name and Address Organization Details Recorded Time 03/11/2024 text/html ACV: Pt needs a new referral to see Dr. Cruz (Ortho) in [place], [place]. Pt is seeing them for her chronic b/l knee and shoulder pain and is getting injection with him. Denies any other concern. Pt wants to get flushot today. Her abdominal rash is gone and no more concern with it. Hitesh Kowalski MD [address], [facility] [address], [place], [address], [facility] [employer] 03/11/2024 15:07:09 03/24/2024 text/html FUV + ACV: [...] Pt is f/u with Pain clinic in [place] for this and will be getting injection with them on 12/23/23. Pt is not on any med by them. Denies any incontinence. C/o chronic migraine, about 1-2 bad episodes per month. Pt says its well controlled and no concern with it. Pt is f/u with Pain clinic, Spine surgeon and Ortho in [place]. Pt is f/u with Psych for her mood and is doing well with it. No concerns. Hitesh Kowalski MD [address], [facility] [address], [place], [address], [facility] [employer] [facility] [employer] 03/24/2024 11:12:53 03/26/2024 text/html Primary care/Ref erring provider: Mohamud Jonas, SHANNAN [phone] During the [facility] home sleep study on 12/24/20, AHI = 19, supine AHI = 47. During the [facility] titration sleep study on 03/15/21, sleep [...] chance of dozing. Adiel Shannon MD [address] [address], [place], [address], [facility] [employer] [facility] 03/26/2024 10:23:41 04/29/2024 text/html Pap/PelvicReport ed bypatient.Context:appt for screening pap/pelvic/breast exam; no gynecologic complaints Associated Factors:no risk factor for cervical cancer; no history of THEODORE II/III; no abnormal pap smears; low risk sexual history;needs mammogram screening(scheduled 06/27/23) Patient has had total hysterectomy, would still like manual pelvic examination BERNADINE Vega [address] [facility], [place] [address], [place], [address], [facility] [employer] 04/29/2024 11:07:33 07/08/2024 text/html Pt is here for f /u on her meds and chronic conditions. Doing overall better than her last visit. Denies any problem with meds. C/o Rt shoulder area pain for last few months. Denies any recent fall/trauma/injury. Pt has chronic Rt shoulder pain for last several years and she is f/u with Ortho for it. C/o chronic low back pain for last many years and she had 2 surgeries done on her lower back in the past. Pt is f/u with Pain clinic in [place] for this and will be getting injection with them on 12/23/23. Pt is not on any med by them. Denies any incontinence. C/o chronic migraine, about 1-2 bad episodes per month. Pt says its well controlled and no concern with it. Pt is f/u with Pain clinic, Spine surgeon and Ortho in [place]. Pt is f/u with Psych for her mood and is doing well with it. No concerns. Hitesh Kowalski MD [address] [place] [address], [place] [address], [place], [address], [place] [facility] 07/08/2024 16:55:16 OBGyn Episode No OBEpisode recorded.
== END 2024-08-04 16:10 | disposition home or self-care (01) ==
PROVIDERS: PCP Family Medicine; Visit Provider Family Medicine
DX: M19.011 Primary osteoarthritis, right shoulder (principal)
CPT/HCPCS: 73030

== ENCOUNTER 2024-09-02 11:06 | Outpatient (CLI) | payer OTHER, SELFPAY ==
--- OUTSIDE RECORDS SUMMARY | 2024-09-02 12:25 | XMS_ITS | Encounter Summary ---
Author Organization [facility] Address [address] [place] [address] Care Team Providers Care Margin Clerk Name Role Phone Kacey Martinez MD Primary Care Provider [phone] Hitesh Kowalski MD Primary Care Provider [phone] Encounter Details Date Type Department Care Team (Late st Contact Info) Description 03/01/2022 Full [employer] Message Enc [facility] Medical Group Multispecialty Care - [facility] [address], [address] [place] [address] Asia Moyer, KAITLYN 3 [facility] [address] [place] [address] Calcium Social History Tobacco Use Types Packs/Day [...] Master's degree (e.g., MA, MS, Gianna, MEd, SUPERINTENDENT OF SCHOOLS, HÉCTOR) 06/21/2021 Comments No Sex and Gender [...] Info) Description 09/03/2024 2:30 PM CDT Appointment [facility] [address] Eriberto Cruz MD [address] [place] [address] 09/08/2024 10:40 AM CDT Office Visit [facility] Medical Group Orthopedic & Sports Medicine - [place] [address] [place] [address] Hugo Rivero PA [address] [place] [address] 09/23/2024 7:30 AM CDT Hospital Encounter [facility] [place] [address] Eriberto Cruz MD [address] [place] [address] 09/23/2024 7:30 AM CDT - 09/23/2024 10:40 AM CDT Surgery [facility] [place] [address] Eriberto Cruz MD [address] [place] [address] RIGHT TOTAL KNEE ARTHROPLASTY WITH POSSIBLE ROBOTIC ASSISTANCE 10/08/2024 10:20 AM CDT Office Visit [facility] Medical Group [facility] - [place] [address] [place] [address] Hugo Rivero PA [address] [place] [address] Scheduled Procedures Name Priority Associated Diagnoses Date/Ti [...] on filedocumented in this encounter Care Teams Margin Clerk Relationship Specialty Start Date End Date Kacey Martinez MD [address] [place] [address] [place] [address] PCP - General FAMILY PRACTICE 08/12/18 01/13/24 Hitesh Kowalski MD [address] [place] [address] PCP - General 01/14/24 documented as of this encounter
--- OUTSIDE RECORDS SUMMARY | 2024-09-02 12:25 | XMS_ITS | Encounter Summary ---
Author Organization [facility] Address [address] [place] [address] Care Team Providers Care Outside Plant Technician Name Role Phone Kacey Martinez MD Primary Care Provider [phone] Hitesh Kowalski MD Primary Care Provider [phone] Encounter Details Date Type Department Care Team (Late st Contact Info) Description 02/24/2022 [employer] Message Enc [facility] Medical Group Multispecialty Care - [facility] [address] [facility], [address] [place] [address] Asia Moyer, KAITLYN 3 [facility] [address] [place] [address] Picture scar Social History Tobacco Use Types [...] Master's degree (e.g., MA, MS, Gianna, MEd, PROFILE SAW SETUP OPERATOR, HÉCTOR) 06/21/2021 Comments No Sex and [...] Author Status No 01/30/2022 9:17 PM CDT Jhon Ramires RN Active * Because of a physical, [...] Info) Description 09/03/2024 2:30 PM CDT Appointment [facility] Pre-Admission Testing [address] [place] [address] Eriberto Cruz MD [address] [place] [address] 09/08/2024 10:40 AM CDT Office Visit [facility] Medical Group Orthopedic & Sports Medicine - [place] [address] [place] [address] Hugo Rivero PA [address] [place] [address] 09/23/2024 7:30 AM CDT Hospital Encounter [facility] [place] [address] Eriberto Cruz MD [address] [place] [address] 09/23/2024 7:30 AM CDT - 09/23/2024 10:40 AM CDT Surgery [facility] [place] [address] Eriberto Cruz MD [address] [place] [address] RIGHT TOTAL KNEE ARTHROPLASTY WITH POSSIBLE ROBOTIC ASSISTANCE 10/08/2024 10:20 AM CDT Office Visit [facility] Medical Group Orthopedic & Sports Medicine - [place] [address] [place] [address] Hugo Rivero PA [address] [place] [address] Scheduled Procedures Name Priority Associated Diagnoses Date/Ti [...] on filedocumented in this encounter Care Teams Outside Plant Technician Relationship Specialty Start Date End Date Kacey Martinez MD [address] [place] [address] [place] [address] PCP - General FAMILY PRACTICE 08/12/18 01/13/24 Hitesh Kowalski MD [address] [place] [address] PCP - General 01/14/24 documented as of this encounter
--- OUTSIDE RECORDS SUMMARY | 2024-09-02 12:25 | XMS_ITS | Encounter Summary ---
Author Organization [facility] Address [address] [place] [address] Care Team Providers Care Hand Chain Maker Name Role Phone Kacey Martinez MD Primary Care Provider [phone] Hitesh Kowalski MD Primary Care Provider [phone] Encounter Details Date Type Department Care Team (Latest Contact Info) Description 03/26/2018 Abstract [facility] Medical Group , Kendall Ferguson MD Social [...] 09/03/2024 2:30 PM CDT Appointment [facility] Pre-Admission Testing [address] [facility] [place] [address] Eriberto Cruz MD [address] [place] [address] 09/08/2024 10:40 AM CDT Office Visit [facility] Medical Group Orthopedic & Sports Medicine - [place] [address] [place] [address] Hugo Rivero PA [address] [place] [address] 09/23/2024 7:30 AM CDT Hospital Encounter [facility] [place] [place] [address] Eriberto Cruz MD [address] [place] [address] 09/23/2024 7:30 AM CDT - 09/23/2024 10:[address] [place] [address] Eriberto Cruz MD [address] [place] [address] RIGHT TOTAL KNEE ARTHROPLASTY WITH POSSIBLE ROBOTIC ASSISTANCE 10/08/2024 10:20 AM CDT Office Visit [facility] Medical Group Orthopedic [facility] Medicine - [place] [address] [place] [address] Hugo Rivero PA [address] [place] [address] Scheduled Procedures Name Priority Associated Diagnoses Date/Ti me ARTHROPLASTY KNEE TOTAL Arthritis of right knee 09/23/2024 7:30 AM CDT documented as of this encounter Visit Diagnoses Not on filedocumented in this encounter Care Teams Hand Chain Maker Relationship Specialty Start Date End Date Kacey Martinez MD [address] [place] [address] [place] [address] PCP - General FAMILY PRACTICE 08/12/18 01/13/24 Hitesh Kowalski MD [address] [place] [phone] PCP - General 01/14/24 documented as of this encounter
--- OUTSIDE RECORDS SUMMARY | 2024-09-02 12:26 | XMS_ITS | Clinical Summary ---
Author Organization [facility] Address [address] [place] [address] Care Team Providers Care Dean Name Role Phone Kacey Martinez MD Primary Care Provider [phone] Source Comments [facility],non-owned Affiliates and Associated Physician Practices is amultiple site organization consisting of ambulatory clinics and hospital sitesin [place], [place], [place] and [place]. This disclosure is being madepursuant to the Care Everywhere program and may not contain all information available regarding this patient. Last updated 18.[facility] Allergies No known active allergies Medications * Be aware that medications may not be up to date on this document. Alwaysverify current medications with the patient. acetaminophen (Tylenol) 500 MG tablet Take 1,000 mg by mouth every 6 hours as needed for Fever or Pain Maximum allowable Acetaminophen amount = 4 Grams (4000 mg) / 24 hours. Active diazePAM (Valium) 5 MG tablet Take 5 mg by mouth every 6 hours as needed for Spasms Active oxyCODONE-acet aminophen (Percocet) 5-325 MG tabletIndicati ons:Pain Take 1 tablet by mouth every 4 hours as needed for Pain Reasons: Pain Active senna (Senokot) 8.6 MG tabletIndicati ons:Constipati on Take by mouth once daily Reasons: Constipation Active gabapentin (Neurontin) 600 MG tablet Take 600 mg by mouth 2 times daily Active rosuvastatin (Crestor) 20 MG tablet Take 20 mg by mouth once daily Active vitamin D3 (Cholecalcifer ol) 25 MCG (1000 UNITS) tablet Take 2,000 Units by mouth once daily Active Active Problems Problem Noted Date Diagnosed Date Gait abnormality 02/02/2022 S/P laminectomy 02/02/2022 S/P lumbar fusion 02/02/2022 Immunizations Immunization Administration Dates Next Due Covid Moderna primary monovalent 12+ yr 0.5mL INFLUENZA VACCINE, QUADR. (F LUZONE; FLULAVAL; FLUARIX; AFLURIA QUADRIVALENT; 6MO+), 0.5 ML (IIV4) 02/16/2022 Social History Tobacco Use Types Packs/Day Years Used Date Smoking Tobacco: Former Cigarettes 1 20 1 986 - 2006 Smokeless Tobacco: Never Alcohol Use Standard Drinks/Week Comments Yes 0 (1 standard drink = 0.6 oz pur e alcohol) Socially Comments Unknown Sex and Gender Information Value Date Recorded Sex Assigned at Not on file Legal Sex Female 10:22 AM CDT Gender Identity Not on file Sexual [...] 60-74 years 1-dose series) 2021 COVID-19 VACCINE (2 - season) 2024 07/03/2020 DEPRESSION SCREENING 05/21/2024 INFLUENZA VACCINE (Season Ended) 2025 02/16/2022, 03/16/2016, 03/31/2015, Additional history exists HEPATITIS B VACCINE Aged Out No longe [...] on patient's age to complete this topic Insurance SELF PAY NO INSURANCE Member Subscriber Plan / Payer (Ef fective for All Dates) Name:Zurita, Christine Member ID:Not on file Relation to Subscriber:Not on file Name:ZURITACHRISTINE Subscriber ID:Not on file (Home) Address: [address] [place] [address] Payer ID:Not on file Group ID:Not on file Type:Self Pay Address: [place], [place] SELF PAY NO INSURANCE Member Subscriber Plan / Payer (Ef fective for All Dates) Name:Zurita, Christine Member ID:Not on file Relation to Subscriber:Not on file Name:ZURITA,CHRISTINE Subscriber ID:Not on file (Home) Address: [address] [place] [address] Payer ID:Not on file Group ID:Not on file Type:Self Pay Address: [place], [place] Advance Directives Documents on File Type Date Recorded 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 [address] PCP - General Family Medicine 02/02/22
--- OUTSIDE RECORDS SUMMARY | 2024-09-02 12:26 | XMS_ITS | Encounter Summary ---
Author Organization [facility] Address [address] [place] [address] Care Team Providers Care Inspector Circuitry Negative Name Role Phone Kacey Martinez MD Primary Care Provider [phone] Hitesh Kowalski MD Primary Care Provider [phone] Encounter Details Date Type Department Care Team (Late st Contact Info) Description 05/23/2023 [employer] Message Enc [facility] Medical Group Multispecialty Care - [facility] [address] [facility], [address] [place] [address] Asia Moyer, KAITLYN [address] [facility] [address] [place] [address] Back Social History Tobacco Use Types Packs/Day [...] Master's degree (e.g., MA, MS, Gianna, MEd, TIPPING MACHINE OPERATOR AUTOMATIC, HÉCTOR) 06/21/2021 Comments No Sex and Gender [...] Status No 01/30/2022 9:17 PM CDT Jhon Ramirse RN Active * Because of a physical, [...] Info) Description 09/03/2024 2:30 PM CDT Appointment [facility] Pre-Admission Testing [address] [place] [address] Eriberto Cruz MD [address] [place] [address] 09/08/2024 10:40 AM CDT Office Visit [facility] Medical Group Orthopedic & Sports Medicine - [place] [address] [place] [address] Hugo Rivero PA [address] [place] [address] 09/23/2024 7:30 AM CDT Hospital Encounter [facility] [place] [address] Eriberto Cruz MD [address] [place] [address] 09/23/2024 7:30 AM CDT - 09/23/2024 10:40 AM CDT Surgery [place] [address] Eriberto Cruz MD [address] [place] [address] RIGHT TOTAL KNEE ARTHROPLASTY WITH POSSIBLE ROBOTIC ASSISTANCE 10/08/2024 10:20 AM CDT Office Visit [facility] Medical Group Orthopedic & Sports Medicine - [place] [address] [place] [address] Hugo Rivero PA [address] [place] [address] Scheduled Procedures Name Priority Associated Diagnoses Date/Ti [...] on filedocumented in this encounter Care Teams Inspector Circuitry Negative Relationship Specialty Start Date End Date Kacey Martinez MD [address] [place] [address] [place] [address] PCP - General FAMILY PRACTICE 08/12/18 01/13/24 Hitesh Kowalski MD [address] [place] [phone] PCP - General 01/14/24 documented as of this encounter
--- OUTSIDE RECORDS SUMMARY | 2024-09-02 12:26 | XMS_ITS | Continuity of Care Document ---
Author Name [facility] Organization [facility] Care Team Providers Care Hull Outfit Supervisor Name Role Phone [facility] Unavailable Unavailable Problems Combined list of problems from Department of Defense and Veterans Affairs facilities. It does not include entries that were removed or entered in error. Problem Status Onset Date Problem Type Date of Resolution Comments Source Diagnosis: ICD-10-CM Z63.6 Dependent relative needing care at home Active Diagnosis [facility] Diagnosis: ICD-10-CM Z74.1 Need for assistance with personal care Active Diagnosis [facility] Immunizations Combined list of available immunizations from the Department of Defense and [facility] facilities. Immunization Series Date Given Administered By Site Reaction Lot Number CVX Code Drug Customer Orders Clerk Status Comments Source tetanus, diphtheria, acellular pertu [...] Pharmac y influenza virus vaccine, live 2006 [id number] [employer] comple t ed influenza virus vaccine, [...] vaccine, whole virus 2001 zzLef t Arm [id number] [employer] complet ed influenza virus vaccine, whole virus 04/07/02 Given Ambulat ory Pharmac y influenza virus vaccine, whole virus 2000 zzLef t Arm [id number] 16 sanofi pasteur complet ed influenza virus vaccine, whole virus 04/20/01 Given Ambulat ory Pharmac y Encounters Combined list of: 1) Encounters from Department of Veterans Affairs facilities going backup to the last 18 months, not all [place] inpatient encounters are included; 2) Encounters from the Department of Defense facilities going backup to 280 months. Location Location Details Encounter Type Encounter Number Reason For Visit Attending Provider ADM Date DC Date Status Disposition Source [facility] CASE MANAGEMENT [id number] Diagnos is: ICD-10- CM Z63.6 Depende nt relativ e needing care at home MYKEL LINDO 05/28 [facility] Outpatient Encounter [id number] 09/24 [facility] PROGRAM INTAKE ASSESSMENT [id number] Diagnos is: ICD-10- CM Z74.1 Need for assista nce with persona l KIARA Junior LEE 09/26 [facility] PROGRAM INTAKE ASSESSMENT [id number] Diagnos is: ICD-10- CM Z74.1 Need for assista nce with persona l KIARA Junior LEE 01/27 [facility] Outpatient Encounter [id number] 02/14 [facility] Outpatient Encounter [id number] 05/26 [facility] PROGRAM INTAKE ASSESSMENT [id number] Diagnos is: ICD-10- CM Z63.6 Depende nt relativ e needing care at home Ave GONZALEZ FELICITAS L 05/26 [facility] Outpatient Encounter [id number] 08/07 [facility] Procedures Combined list of: 1) Procedures from Department of [facility] facilities going back up to thelast 18 months, not all [place] non-surgical procedures are included; 2) All procedures from the Department of [facility] facilities. Procedure Procedure Type Code Date Perfomer Comments Sourc e No data available for this section Ambulatory P harmacy Assessment and Plan Combined list of future care activities from Department of [facility] and [facility] facilities (e.g., assessment and plan notes, appointments, orders, and referrals). Additional future care activities may be listed in the Plan of Care section. Result Assessment and Plan Date Source Assessment and Plan No data available for this section 09/02/2024 Ambulatory Pharmacy Plan of Care List of future care activities from Department [facility] facilities. Additional future care activities may be listed in the Assessment and Plan section. Date/Time Care Activity Care Activity Detail Facili ty 10/15/2024 AMBULATORY - MEDICINE AMBULATORY - MEDICI NE [facility] Functional Status Combined list of recent functional and cognitive assessments recorded at Department of Defense and Veterans Affairs ([place]VA Functional Evans Measurement (FIM) Scale: 1 = Total Assistance (Subject = 0% +), 2 = Maximal Assistance (Subject = 25% +), 3 = Moderate Assistance (Subject = 50% +), 4 = Minimal Assistance (Subject = 75% +), 5 = Supervision, 6 = Modified Evans (Device), 7 = Complete Evans (Timely, Safely). Assessment Date/Time Source Assessment Type Assessment Skill Assessment Score Assessment Details No data available for this section
--- OUTSIDE RECORDS SUMMARY | 2024-09-02 12:26 | XMS_ITS | Encounter Summary ---
Author Name [facility] Organization [facility] Address [address] [place] [address] Selected Encounter This section includes the information on record at [place] for the Encounter. Date/Time Encounter Type Encounter Description Reason Provider Source Jan 28, 2024 03:49 PM PROGRAM INTAKE ASSESSMENT CAREGIVER SUPPORT PROGRAM ICD-10-CM Z74.1 Need for assistance with personal care BIJU ROSA Encounter Template Text not used by [place] Assessments - Encounter Diagnoses This section includes the primary and secondary diagnoses documented for the Encounter. Date/Time Primary/Secondary Diagnosis Diagnosis Name Provider Source Jan 28, 2024 04:24 PM PRIMARY Need for assistance with personal care BIJU ROSA [facility] Encounter Notes: All associated encounter notes This section contains the clinical notes associated to the Encounter. Date/Time Encounter Note(s) Provider Source Jan 28, 2024 03:49 PM CAREGIVER CERTIFIC ATE: LOCAL TITLE: [facility] WELLNESS CONTACT CAREGIVER STANDARD TITLE: CAREGIVER CERTIFICATE DATE OF NOTE: JAN 28, 2024@15:49 ENTRY DATE: JAN 28, 2024@15:49:21 AUTHOR: BIJU ROSA EXP COSIGNER: URGENCY: STATUS: [facility] - Caregiver This Family [...] one visit must occur in the eligible Mcgrath's home on an annual basis. Date of Visit: _01/28/2024 Length of Visit: ___20 MINUTES _ Full Name (last, first): __ JOSE DE JESUS HANCOCK Full SSN: __[id number] Date of : _Dec Method of contact: _X_ Telehealth / [facility] Video Connect Caregiver contact details: Best contact number for backup/emergency communication with caregiver (required): Phone number: __ Caregiver location during visit: _X_ Home address: __[address] [place] [phone] __ Others present for visit with caregiver's [...] do you need to care for the Mcgrath, if any? (discuss respite services as appropriate) [...] were able to be covered to have CLINICAL QUALITY ANALYST at night. Cg reports that she does have a good support system. was recently in the hospital and discharged from hoospital today and Cg reports that when is admitted to the hospital, this is a stressful time for her. Cg denies having any other concerns, issues or requests at this time. /jorge/ BIJU ROSA RN BSN REGISTERED NURSE Signed: 01/28/2024 16:24 BIJU ROSA [facility]
--- OUTSIDE RECORDS SUMMARY | 2024-09-02 12:26 | XMS_ITS | Encounter Summary ---
Author Name [facility] [place] [facility] [place] [facility] [facility] [place] Address [address] [place] [address] Selected Encounter This section includes the information on record at [place] for the Encounter. Date/Time Encounter Type Encounter Description Reason Provider Source May 26, 2024 09:04 AM PROGRAM INTAKE ASSESSMENT CAREGIVER SUPPORT PROGRAM ICD-10-CM Z63.6 Dependent relative needing care at home SRUTHI GONZALEZ Crystal Encounter Template Text not used by [place] Assessments - Encounter Diagnoses This section includes the primary and secondary diagnoses documented for the Encounter. Date/Time Primary/Secondary Diagnosis Diagnosis Name Provider Source May 26, 2024 10:14 AM PRIMARY Dependent relative needing care at home SRUTHI GONZALEZ [facility] Plan of Treatment: Future Appointments (+ 6 months) and Future Tests (+/- 45 days) The Plan of Treatment section includes future care activities for the patient from all [place] treatmentfacilities. This section includes future appointments and future orders which are active, pending or scheduled. Future Appointments This section includes appointments that were scheduled to occur 6 months from the date of the Encounter, up to a maximum of 20 appointments. The data comes from all [place] treatment facilities. Appointment Date/Time Appointment Type Appointme nt Facility Name October 15, 2024 09:00 AM AMBULATORY - MEDICINE [facility] Encounter Notes: All associated encounter notes This section contains the clinical notes associated to the Encounter. Date/Time Encounter Note(s) Provider Source May 26, 2024 09:04 AM CAREGIVER CERTIFIC ATE: LOCAL TITLE: CSP [facility] WELLNESS CONTACT CAREGIVER STANDARD TITLE: CAREGIVER CERTIFICATE DATE OF NOTE: MAY 26, 2024@09:04 ENTRY DATE: MAY 26, 2024@09:04:34 AUTHOR: SRUTHI GONZALEZ EXP COSIGNER: URGENCY: STATUS: COMPLETED Caregiver Support Program [facility] Wellness Contact Caregiver This Family Caregiver is enrolled in [place]'s Program of Comprehensive Assistance for Family Caregivers [...] HANCOCK Date of : [birth year] Full Address: [address] [place] [address] Phone #: Email address: Patient Email - NONE FOUND Is the above contact information in the electronic health record and the Caregiver Support Program IT system, correct? Yes Reason for contact: Routine (120-day contact) Method of contact: Video Telehealth Contact number for backup/emergency communication: Caregiver location during visit: Home [address] [place] [address] Caregiver confirms location is safe and private for visit. Telehealth Disclosure: Visit conducted by synchronous telehealth. Caregiver verbal consent obtained. Location/emergency number confirmed. Environment surveyed and all participants identified. Virtual conference room locked. CAREGIVER INFORMATION The caregiver is a: Primary Family Caregiver Caregiver is providing care to: Name: Temo Alaniz The caregiver lives with the . CAREGIVER ASSESSMENT How has your physical/mental/emotional health [...] anything. Caregiver reports she does get the [facility] newsletter and does review it. Do you have any legal or financial planning concerns? No Do you feel comfortable and safe in your home environment? Yes Do you have a personalized respite plan? No - Discussed the importance of respite Details: Pender is currently receiving care via [facility] program. Caregiver reports she is one of the caregivers in [facility]. Caregiver reports she has two other caregivers via this program and also private pays 2 additional people to assist with Pender's care. SCREENING TOOLS [facility] Staff provided information on the following resources and support: - Virtual Psychotherapy Program for Caregivers (VPPC) SUMMARY AND PLAN OF SUPPORT: Caregiver reports she returned from a vacation last week. Caregiver reports she will be flying with the Pender to [place] later this week. She reports the Pender will be going to stay with his other daughter until the end of May. Caregiver reports her sister was able to hire a caregiver via [employer] to help with Pender's care while he is staying with her. [...] reports she knows how to contact the [facility] team if she has any concerns or questions about the Pender's care. Feeder Associate thanked the Caregiver for her time and assistance this date. /jorge/ SRUTHI LOU CCM RN RN R D INTERN, CAREGIVER SUPPORT PROGRAM Signed: 05/26/2024 10:14 SRUTHI GONZALEZ [facility]
--- OUTSIDE RECORDS SUMMARY | 2024-09-02 12:26 | XMS_ITS | Encounter Summary ---
Author Organization [facility] Address [address] [place] [address] Care Team Providers Care Press Bucker Name Role Phone Kacey Martinez MD Primary Care Provider [phone] Hitesh Kowalski MD Primary Care Provider [phone] Encounter Details Date Type Department Care Team (Late st Contact Info) Description 02/19/2023 [employer] Message Enc [facility] Medical Group Multispecialty Care - [facility] [address] [facility], [address] [place] [address] Asia Moyer, KAITLYN [address] [facility] [address] [place] [address] Back Social History Tobacco Use Types Packs/Day [...] Master's degree (e.g., MA, MS, Gianna, MEd, SENIOR CONTRACTS ADMINISTRATOR, HÉCTOR) 06/21/2021 Comments No Sex and [...] Info) Description 09/03/2024 2:30 PM CDT Appointment [facility] [place] [address] Eriberto Cruz MD [address] [place] [address] 09/08/2024 10:40 AM CDT Office Visit [facility] Orthopedic & Sports Medicine [facility] [address] [place] [address] Hugo Rivero PA [address] [place] [address] 09/23/2024 7:30 AM CDT Hospital Encounter [facility] [place] [address] Eriberto Cruz MD [address] [place] [address] 09/23/2024 7:30 AM CDT - 09/23/2024 10:40 AM CDT [place] [address] Eriberto Cruz MD [address] [place] [address] RIGHT TOTAL KNEE ARTHROPLASTY WITH POSSIBLE ROBOTIC ASSISTANCE 10/08/2024 10:20 AM CDT Office Visit [facility] Orthopedic & Sports [facility] [address] [place] [address] Hugo Rivero PA [address] [place] [address] Scheduled Procedures Name Priority Associated Diagnoses Date/Ti [...] on filedocumented in this encounter Care Teams Press Bucker Relationship Specialty Start Date End Date Kacey Martinez MD [address] [place] [address] PCP - General FAMILY PRACTICE 08/12/18 01/13/24 Hitesh Kowalski MD [address] [place] [phone] PCP - General 01/14/24 documented as of this encounter
--- OUTSIDE RECORDS SUMMARY | 2024-09-02 12:26 | XMS_ITS ---
Author Organization [facility] Address [address] [place], [place] [address] Care Team Providers Care Steel Wheel Engraver Name Role Phone CAIT PEREZ Unavailable [phone] Kacey Martinez Unavailable Unavailable REASON FOR VISIT PHYSICAL THERAPY Encounters Encounter Location Date Provider Diagnosis [facility] [address] [place], [place] [id number] 07/31/2023 CAIT SNKEO Plan Of Treatment No Information Progress Notes * JOSE DE JESUS HANCOCK LDOB:[birth year] (63 yo F)Acc No.[id number]:07/31/2023 Patient: JOSE DE JESUS DE :1960 A ge:63 Y S ex:Female Address:[address] [place] [address], [address] * true * Date: Generated for Alcidesi herber/Rose Marieg/eTransmitting on: 0 09/02/2024 12:26 PM CDT
--- OUTSIDE RECORDS SUMMARY | 2024-09-02 12:26 | XMS_ITS | Encounter Summary ---
Author Organization [facility] Address [address] [place] [address] Care Team Providers Care Blood Collector Name Role Phone Kacey Martinez MD Primary Care Provider [phone] Hitesh Kowalski MD Primary Care Provider [phone] Encounter Details Date Type Department Care Team (Late st Contact Info) Description 04/10/2022 [email or web address] Message Enc [facility] Medical Group Multispecialty Care - [facility] [address] [facility], [address] [place] [address] Asia Moyer, KAITLYN [address] [facility] [address] [place] [address] Appointment Social History Tobacco Use Types Packs/Day [...] Master's degree (e.g., MA, MS, Gianna, MEd, ASSEMBLER [employer], HÉCTOR) 06/21/2021 Comments No Sex and Gender [...] Coronavirus/COVID-19? No / Unsure 04/12/2022 12:29 PM CLAIMS PROCESSOR documented as of this encounter Functional Status [...] Info) Description 09/03/2024 2:30 PM CDT Appointment [facility] [place] [address] Eriberto Cruz MD [address] [place] [address] 09/08/2024 10:40 AM CDT Office Visit [facility] Medical Group Orthopedic & Sports Medicine - [place] [address] [place] [address] Hugo Rivero PA [address] [place] [address] 09/23/2024 7:30 AM CDT Hospital Encounter [facility] [place] [address] Eriberto Cruz MD [address] [place] [address] 09/23/2024 7:30 AM CDT - 09/23/2024 10:40 AM CDT Surgery [facility] [place] [address] Eriberto Cruz MD [address] [place] [address] RIGHT TOTAL KNEE ARTHROPLASTY WITH POSSIBLE ROBOTIC ASSISTANCE 10/08/2024 10:20 AM CDT Office Visit [facility] Medical Group Orthopedic & Sports Medicine - [place] [address] [place] [address] Hugo Rivero PA [address] [place] [address] Scheduled Procedures Name Priority Associated Diagnoses Date/Ti [...] on filedocumented in this encounter Care Teams Blood Collector Relationship Specialty Start Date End Date Kacey Martinez MD [address] [place] [address] [place] [address] PCP - General FAMILY PRACTICE 08/12/18 01/13/24 Hitesh Kowalski MD [address] [place] [address] PCP - General 01/14/24 documented as of this encounter
--- OUTSIDE RECORDS SUMMARY | 2024-09-02 12:26 | XMS_ITS | Encounter Summary ---
Author Organization [facility] Address [address] [place] [address] Care Team Providers Care Safekeeping Clerk Name Role Phone Kacey Martinez MD Primary Care Provider [phone] Hitesh Kowalski MD Primary Care Provider [phone] Encounter Details Date Type Department Care Team (Latest Contact Info) Description 09/14/2022 [employer] Message Enc [facility] Medical Group Multispecialty Care - [facility] [address] [facility], [address] [place] [address] Asia Moyer, KAITLYN [address] [facility] [address] [place] [address] Soreness in back Social History Tobacco Use [...] Master's degree (e.g., MA, MS, Gianna, MEd, ANNUAL GIVING OFFICER, HÉCTOR) 06/21/2021 Comments No Sex and Gender [...] - 09/14/2022 1:13 PM CDT Forwarding to [facility] documented in this encounter Plan of Treatment Upcoming Encounters Date Type Department Care Team (Latest Contact Info) Description 09/03/2024 2:30 PM CDT Appointment [facility] [place] [address] Eriberto Cruz MD [address] [place] [phone] 09/08/2024 10:40 AM CDT Office Visit [facility] Orthopedic & Sports Medicine [facility] [address] [place] [address] Hugo Rivero PA [address] [place] [address] 09/23/2024 7:30 AM CDT Hospital Encounter [facility] [place] [address] Eriberto Cruz MD [address] [place] [address] 09/23/2024 7:30 AM CDT - 09/23/2024 10:40 AM CDT Surgery [facility] [place] [address] Eriberto Cruz MD [address] [place] [address] RIGHT TOTAL KNEE ARTHROPLASTY WITH POSSIBLE ROBOTIC ASSISTANCE 10/08/2024 10:20 AM CDT Office Visit [facility] Orthopedic & Sports Medicine [facility] [address] [place] [address] Hugo Rivero PA [address] [place] [address] Scheduled Procedures Name Priority Associated Diagnoses Date/Ti [...] on filedocumented in this encounter Care Teams Safekeeping Clerk Relationship Specialty Start Date End Date Kacey Martinez MD [address] [place] [address] [place] [address] PCP - General FAMILY PRACTICE 08/12/18 01/13/24 Hitesh Kowalski MD [address] [place] [phone] PCP - General 01/14/24 documented as of this encounter
--- OUTSIDE RECORDS SUMMARY | 2024-09-02 12:26 | XMS_ITS ---
Author Organization [facility] Address [address] [place], [place] [address] Care Team Providers Care Slitter Service And Setter Name Role Phone DIDIGracie CAIT Unavailable [phone] Kacey Martinez Unavailable Unavailable Allergies No Known [...] Medrol DosepakOr iginal MedicationMedrol Dosepak *Reorder from [employer] for eRx and Interaction Alerts* 05/17/2017 Active Vital Signs Height 67 in 05/05/2024 Weight 165 lbs 05/05/2024 BMI 25.84 kg/m2 05/05/2024 Height-cm 170.18 cm 05/05/2024 Weight-kg 74.84 kg 05/05/2024 Encounters Encounter Location Date Provider Diagnosis [facility] [address] [place], [place] [id number] 05/05/2024 CAIT SNOOK Contusion of left lesser toe(s) without damage [...] JESUS HANCOCK LDOB:[birth year] (64 yo F)Acc No.[id number]:05/05/2024 Patient: JOSE DE JESUS DE Provider: Crystal Perez DPM :1960 A ge:64 Y S ex:Female Date:05/05/2024 Address:[address] [place] [address], OANH GAVIN [id number] Subjective: * Chief Complaints: * 1 . The patient presents with multiple foot issues. She fractured her left 5th toe in February and it was doing well until recently. She stubbed it again and the toe hurts a lot and she is concerned she may have reinjured it.. 2. She also has a hammertoes of the left foot, but the 2nd gives her the most problems. She had done some reading and wanted to know the different between an in-office tendon release vs hammertoe surgery.. 3. She also has problems with walking on the outside of her right foot, but she is going to have knee surgery in 2 months on the right knee. * HPI: H PI: New Complaint E [...] confusion, difficulty speaking, dizziness. * Medical History: M edical History Verified. * Family History: F ather: PRN - Father: . M other: PRN - Mother: . B rother: SIB - Brother: . S ister: SIB - Sister: . * Social History: M igrated Social History: M igrated Social History: Smoking Status : Former smoker , History of tobacco use : , Alcohol intake :. * Medications: T aking Medrol Dosepak ORAL , Notes to Pharmacist: Medrol DosepakOriginal MedicationMedrol Dosepak *Reorder from [facility] for eRx and Interaction Alerts*, Medication List reviewed and reconciled with the patient * Allergies: N .K.D.A. Objective: * Vitals: W t:165lbs, Wt-k.84 kg, Ht: 67 in, Ht-cm: 170.18 cm, BMI:25.84Index, Body Surface Area: 1.88. * Examination: C onstitutional: Constitutional T he [...] between in-office tenotomy vs. surgical repair * Immunizations: Immunization record has been reviewed and updated. * Procedure Codes: 7 3630 X-RAY EXAM OF FOOT, Modifiers: LT * Follow Up: p rn * Billing Information: * Visit Code: 52300 Office Visit, Est Pt., Level 3. * Procedure Codes: 43117 X-RAY EXAM OF FOOT. Modifiers: LT * Sign off status: Completed true * Provider: Crystal Perez DPM Date: 07/06/2023 Generated for Jayne craven/Rose Marie/Tracy on: 0 09/02/2024 12:25 PM CDT History and Physical Notes * [...]
--- OUTSIDE RECORDS SUMMARY | 2024-09-02 12:26 | XMS_ITS | Encounter Summary ---
Author Organization [facility] Address [address] [place] [address] Care Team Providers Care Roustabout Supervisor Name Role Phone Kacey Martinez MD Primary Care Provider [phone] Hitesh Kowalski MD Primary Care Provider [phone] Encounter Details Date Type Department Care Team (Late st Contact Info) Description 08/22/2018 FORMULA ROOM WORKER ONLY [facility] Medical Group Priority Care - [address] [place] [address] Scanned, Documents Social History Tobacco [...] 12:00 AM CDT CHRISTINE ZURITA MD: ACCT: [id number] ADMIT/SERVICE DATE: 08/22/18 DISCHARGE DATE: 08/22/18 : 1960 PT TYPE: DEP SDC SEX: F ORD SITE: [facility] REPORT OF PATHOLOGICAL EXAMINATION DATE OF SURGERY: 08/22/2018 SURGICAL PATH NO: [id number] DATE OBTAINED: 08/22/2018 DATE RETURNED: 08/23/2018 CHART [...] 08/23/2018 01:15 P DT: VON/ABE:08/23/2018 DOC NO: [id number] documented in this encounter Plan of Treatment Upcoming Encounters Date Type Department Care Team (Latest Contact Info) Description 09/03/2024 2:30 PM CDT Appointment [facility] [place] [address] Eriberto Cruz MD [address] [place] [address] 09/08/2024 10:40 AM CDT Office Visit [facility] Medical Group Orthopedic & Sports Medicine - [place] [address] [place] [address] Hugo Rivero PA [address] [place] [address] 09/23/2024 7:30 AM CDT Hospital Encounter [facility] [address] Eriberto Cruz MD [address] [place] [address] 09/23/2024 7:30 AM CDT - 09/23/2024 10:40 AM CDT Surgery [facility] [place] [address] [place] [address] Eriberto Cruz MD [address] [place] [address] RIGHT TOTAL KNEE ARTHROPLASTY WITH POSSIBLE ROBOTIC ASSISTANCE 10/08/2024 10:20 AM CDT Office Visit [facility] Medical Group Orthopedic & Sports Medicine - [place] [address] [place] [address] Hugo Rivero PA [address] [place] [address] Scheduled Procedures Name Priority Associated Diagnoses Date/Ti me ARTHROPLASTY KNEE TOTAL Arthritis of right knee 09/23/2024 7:30 AM CDT documented as of this encounter Visit Diagnoses Not on filedocumented in this encounter Care Teams Roustabout Supervisor Relationship Specialty Start Date End Date Kacey Martinez MD [address] [place] [address] [address] PCP - General FAMILY PRACTICE 08/12/18 01/13/24 Hitesh Kowalski MD [address] [place] [phone] PCP - General 01/14/24 documented as of this encounter
--- OUTSIDE RECORDS SUMMARY | 2024-09-02 12:26 | XMS_ITS | Clinical Summary ---
Author Organization [facility] [address] Address [address] [place] [address] Care Team Providers Care Director Pharmacy Services Name Role Phone Kacey Martinez MD Primary [...] as needed 0 10/17/2018 Activ e butalbital-acet vchmza-thq-six 07-174-17-30 mg capsule Take 1 capsule by mouth every 4 (four) hours Active Active Problems Problem Noted Date Diagnosed Date Family history of colon cancer in mother 022 History of colonoscopy with polypectomy 07/08/19 Encounter for screening colonoscopy 07/08/2021 Hemorrhoids 07/08/2021 History of colonic polyps 07/08/2021 Overview (07/08/2021): Added automatically from request for surgery [id number] Other chest pain 12/05/2018 Encounters Date Type Department Care Team Description 08/07/2024 Telephone [facility] Gastroenterology at [place] [address] [facility] [address] [place] [phone] Josiah Martinez MD from Last 3 Months Surgical History Surgery Date Site/Laterality Comments CHOLECYSTECTOMY [...] on file Legal Sex Female 9:13 PM LABORATORY CUREMAN Gender Identity Not on file Sexual Orientation [...] 08/09/2021 10:16 AM CDT Plan of Treatment Upcoming Encounters Date Type Department Care Team (Late st Contact Info) Description 05/04/2025 8:55 AM LABORATORY CUREMAN Hospital Encounter [facility] [address] [place] [address] Josiah Martinez MD [address] [place] [address] [address] [place] [address] 05/04/2025 8:55 AM LABORATORY CUREMAN - 05/04/2025 9:25 AM LABORATORY CUREMAN Surgery [facility] [address] [place] [address] Josiah Martinez MD [address] [place] [address] [place] [address] COLONOSCOPY Scheduled Procedures Name Priority Associated Diagnoses Date/Ti me COLONOSCOPY Family history of colon cancer in mother History of colonic polyps Encounter for screening colonoscopy 05/04/2025 8:55 AM LABORATORY CUREMAN Health Maintenance Due Date Last Done Comments Breast Cancer Screening-Mammogram 1960 Depression Screening 1960 Hepatitis C Screening 1960 Hepatitis B Screening 1979 Regular Well Visit/Exam 18-64 1979 Covid-19 Vaccine ( season) 2024 05/01/2021, 07/31/2020, 07/03/2020 Influenza Vaccine (Season Ended) 2025 02/03/2021, 02/01/2020, 03/03/2019, Additional history exists DTaP/Tdap/Td Vaccine [...] MD - 08/09/2021 10:[address] [facility] Patient Name: Christine Zurita Procedure Date: 08/09/2021 10:18 AM Date of : 1960 Admit Type: Outpatient Age: 61 Gender: Female Attending MD: Josiah Martinez M.D. Room: [facility] ENDOSCOPY ROOM 1 Note Status: Finalized Patient [...] under direct vision. The Pediatric Colonoscope PCF-H190L [id number] was introducedthrough the anus and advanced to [...] showed small internal hemorrhoids. Electronically signed by Ahmad Karadaghy, M.D. Josiah Martinez M.D. 08/09/2021 12:54:50 PM Number of Addenda: 0 Note Initiated On: 08/09/2021 10:18 AM Procedure Code(s): --- Professional --- 80466, Colonoscopy, flexible; with removal of tumor(s), polyp(s), or other lesion(s) by snare technique 11902, 59, Colonoscopy, flexible; with biopsy, single or multiple Diagnosis Code(s): --- Professional --- Z80.0, Family history of malignant neoplasm of digestive organs D12.2, Benign neoplasm of ascending colon CPT copyright 2020 [employer]. All rights reserved. The codes documented in this report are preliminary and upon dye room helper reviewmay be revised to meet current compliance requirements. Recognized by the [employer] for promoting quality in endoscopy Josiah Martinez MD ENDOSCOPY PROCEDURES Final Result from Last 3 Months or Most Recently Relevant to Health Maintenance Insurance [id number] [place] [address] CLAIMS [facility] CLAIMS Advance Directives For more information, please contact: [phone] * Full Code (Latest Code Status on File) Date Activated Date Inactivated Comments 08/09/2021 10:20 AM 08/09/2021 5:30 PM * Full Code Date Activated Date Inactivated Comments 08/09/2021 10:19 AM 08/09/2021 10:20 AM Care Teams Director Pharmacy Services Relationship Specialty Start Date End Date Kacey Martinez MD PCP - General Family Medicine 09/24/18
--- OUTSIDE RECORDS SUMMARY | 2024-09-02 12:26 | XMS_ITS | Encounter Summary ---
Author Organization [facility] Address [address] [place] [address] Care Team Providers Care Centrifugal Drier Operator Name Role Phone Kacey Martinez MD Primary Care Provider [phone] Hitesh Kowalski MD Primary Care Provider [phone] Encounter Details Date Type Department Care Team (Late st Contact Info) Description 03/30/2022 Cloutext Message Enc [facility] Multispecialty Care - [facility] [address] [facility], [address] [place] [address] Asia Moyer, KAITLYN 3 [facility] [address] [place] [address] Back Social History Tobacco Use Types Packs/Day [...] degree (e.g., MA, MS, Gianna, MEd, HOSPITAL AIDE, HÉCTOR) 06/21/2021 Comments No Sex and [...] - 03/30/2022 1:21 PM CST Sending to [facility] UNTS PAYABLE BOOKKEEPER documented in this encounter Plan of Treatment Upcoming Encounters Date Type Department Care Team (Latest Contact Info) Description 09/03/2024 2:30 PM CDT Appointment [facility] Pre-Admission Testing [place], [place] [address] Eriberto Cruz MD [address] [place] [address] 09/08/2024 10:40 AM CDT Office Visit [facility] Orthopedic & Sports Medicine [facility] [address] [place] [address] Hugo Rivero PA [address] [place] [address] 09/23/2024 7:30 AM CDT Hospital Encounter [facility] [place] [address] Eriberto Cruz MD [address] [place] [address] 09/23/2024 7:30 AM CDT - 09/23/2024 10:40 AM CDT Surgery [facility] [address] Eriberto Cruz MD [address] [place] [address] RIGHT TOTAL KNEE ARTHROPLASTY WITH POSSIBLE ROBOTIC ASSISTANCE 10/08/2024 10:20 AM CDT Office Visit [facility] Orthopedic & Sports [facility] [address] [place] [address] Hugo Rivero PA [address] [place] [address] Scheduled Procedures Name Priority Associated Diagnoses Date/Ti [...] on filedocumented in this encounter Care Teams Centrifugal Drier Operator Relationship Specialty Start Date End Date Kacey Martinez MD [address] [place] [address] PCP - General FAMILY PRACTICE 08/12/18 01/13/24 Hitesh Kowalski MD [address] [place] [phone] PCP - General 01/14/24 documented as of this encounter
--- OUTSIDE RECORDS SUMMARY | 2024-09-02 12:26 | XMS_ITS | Encounter Summary ---
Author Organization [facility] Address [address] [place] [address] Care Team Providers Care Chief Service Observer Name Role Phone Kacey Martinez MD Primary Care Provider [phone] Hitesh Kowalski MD Primary Care Provider [phone] Encounter Details Date Type Department Care Team (Latest Contact Info) Description 03/21/2022 bMobilizedt Message Enc [facility] Medical Group Multispecialty Care - [facility] [address] [facility], [address] [place] [address] Asia Moyer, KAITLYN 3 [facility] [address] [place] [address] Swollen ankles/feet Social History Tobacco Use Types [...] Master's degree (e.g., MA, MS, Gianna, MEd, CLINICAL FIELD SPECIALIST, HÉCTOR) 06/21/2021 Comments No Sex and [...] Description 09/03/2024 2:[address] [facility] [place] [address] Eriberto Cruz MD [address] [place] [address] 09/08/2024 10:40 AM CDT Office Visit [facility] Orthopedic & Sports Medicine [facility] [address] [place] [address] Hugo Rivero PA [address] [place] [address] 09/23/2024 7:30 AM CDT Hospital Encounter [facility] [place] [address] Eriberto Cruz MD [address] [place] [address] 09/23/2024 7:30 AM CDT - 09/23/2024 10:[address] [facility] [place] [address] Eriberto Cruz MD [address] [place] [address] RIGHT TOTAL KNEE ARTHROPLASTY WITH POSSIBLE ROBOTIC ASSISTANCE 10/08/2024 10:20 AM CDT Office Visit [facility] Orthopedic & Sports Medicine [facility] [address] [place] [address] Hugo Rivero PA [address] [place] [address] Scheduled Procedures Name Priority Associated Diagnoses Date/Ti [...] on filedocumented in this encounter Care Teams Chief Service Observer Relationship Specialty Start Date End Date Kacey Martinez MD [address] [place] [address] PCP - General FAMILY PRACTICE 08/12/18 01/13/24 Hitesh Kowalski MD [address] [place] [phone] PCP - General 01/14/24 documented as of this encounter
--- OUTSIDE RECORDS SUMMARY | 2024-09-02 12:26 | XMS_ITS | Referral Summary ---
Author Organization [facility] [address] Address [address] [place] [address] Care Team Providers Care Product Safety Manager Name Role Phone Kacey Martinez MD Primary Care Provider + Encounters Date Type Department Care Team Description 08/07/[address] [facility] Gastroenterology at [address] [place] [address] Josiah Martinez MD from Last 3 Months Allergies No known active allergies Medications gabapentin [...] as needed 0 10/17/2018 Activ e butalbital-acet eacucy-lli-zvd [id number] mg capsule Take 1 capsule by mouth every 4 (four) hours Active Active Problems Problem Noted Date Diagnosed Date Family history of colon cancer in mother 022 History of colonoscopy with polypectomy 07/08/19 22 Encounter for screening colonoscopy 07/08/2021 Hemorrhoids 07/08/2021 History of colonic polyps 07/08/2021 Overview (07/08/2021): Added automatically from request for surgery [id number] Other chest pain 12/05/2018 Social History Tobacco [...] on file Legal Sex Female 9:13 PM CHIEF RADIOLOGIC TECHNOLOGIST Gender Identity Not on file Sexual Orientation [...] st Contact Info) Description 05/04/2025 8:55 AM CHIEF RADIOLOGIC TECHNOLOGIST Hospital Encounter [address] [address] Josiah Martinez MD [address] [facility] [address] [place] [address] [place] [address] 05/04/2025 8:55 AM CHIEF RADIOLOGIC TECHNOLOGIST - 05/04/2025 9:25 AM CHIEF RADIOLOGIC TECHNOLOGIST Surgery [address] [address] Josiah Martinez MD [address] [facility] [place] [address] COLONOSCOPY Scheduled Procedures Name Priority Associated Diagnoses Date/Ti me COLONOSCOPY Family history of colon cancer in mother History of colonic polyps Encounter for screening colonoscopy 05/04/2025 8:55 AM CHIEF RADIOLOGIC TECHNOLOGIST Procedures Procedure Name Priority Date/Time Associated Diagnosis Comments COLONOSCOPY 08/09/2021 10:18 AM CDT from Last 3 Months or Most Recently Relevant to Health Maintenance Results * COLONOSCOPY (08/09/2021 10:18 AM CDT) Anatomical Region Laterality Modality Other Narrative Procedure Note Josiah Martinez MD - 08/09/2021 10:18 AM CDT [facility] Patient Name: Christine Zurita Procedure Date: 08/09/2021 10:18 AM Date of : 1960 Admit Type: Outpatient Age: 61 Gender: Female Attending MD: Josiah Martinez M.D. Room: [facility] ENDOSCOPY ROOM 1 Note Status: Finalized Patient [...] under direct vision. The Pediatric Colonoscope PCF-[id number] was introducedthrough the anus and advanced to [...] 10:18 AM Procedure Code(s): --- Professional --- 08932, Colonoscopy, flexible; with removal of tumor(s), polyp(s), or other lesion(s) by snare technique 74931, 59, Colonoscopy, flexible; with biopsy, single or multiple Diagnosis Code(s): --- Professional --- Z80.0, Family history of malignant neoplasm of digestive organs D12.2, Benign neoplasm of ascending colon CPT copyright 2020 [employer]. All rights reserved. The codes documented in this report are preliminary and upon golf course laborer reviewmay be revised to meet current compliance requirements. Recognized by the [employer] for promoting quality in endoscopy Josiah Martinez MD ENDOSCOPY PROCEDURES Final Result from Last 3 Months or Most Recently Relevant to Health Maintenance Insurance [facility] CLAIMS [facility] CLAIM[facility] Advance Directives For more information, please contact: [phone] * Full Code (Latest Code Status on File) Date Activated Date Inactivated Comments 08/09/2021 10:20 AM 08/09/2021 5:30 PM * Full Code Date Activated Date Inactivated Comments 08/09/2021 10:19 AM 08/09/2021 10:20 AM Care Teams Product Safety Manager Relationship Specialty Start Date End Date Kacey Martinez MD PCP - General Family Medicine 09/24/18
--- OUTSIDE RECORDS SUMMARY | 2024-09-02 12:26 | XMS_ITS | Encounter Summary ---
Author Organization [facility] Address [address] [place] [address] Care Team Providers Care Hair Assistant Name Role Phone Kacey Martinez MD Primary Care Provider [phone] Hitesh Kowalski MD Primary Care Provider [phone] Encounter Details Date Type Department Care Team (Late st Contact Info) Description 07/03/2022 Neolineart Message Enc [facility] Medical Group Multispecialty Care - [facility] 3 [facility], [address] [place] [address] Asia Moyer, KAITLYN 3 [facility] [address] [place] [address] Back Social History Tobacco Use Types Packs/Day [...] Master's degree (e.g., MA, MS, Gianna, MEd, FLIGHT OPERATIONS COORDINATOR, HÉCTOR) 06/21/2021 Comments No Sex and [...] Coronavirus/COVID-19? No / Unsure 07/06/2022 4:02 PM HUMAN RELATIONS PROFESSOR documented as of this encounter Functional Status [...] 07/05/2022 8:58 AM CST Sending to Asia N RELATIONS PROFESSOR * Isela Pop MA - 07/04/2022 9:17 AM CST Asia please advise. N RELATIONS PROFESSOR documented in this encounter Plan of Treatment Upcoming Encounters Date Type Department Care Team (Latest Contact Info) Description 09/03/2024 2:30 PM CDT Appointment [facility] [place] [address] Eriberto Cruz MD [address] [place] [address] 09/08/2024 10:40 AM CDT Office Visit [facility] Orthopedic & Sports Medicine [facility] [address] [place] [address] Hugo Rivero PA [address] [place] [address] 09/23/2024 7:30 AM CDT Hospital Encounter [facility] [place] [address] Eriberto Cruz MD [address] [place] [address] 09/23/2024 7:30 AM CDT - 09/23/2024 10:40 AM CDT Surgery [facility] [place] [address] Eriberto Cruz MD [address] [place] [address] RIGHT TOTAL KNEE ARTHROPLASTY WITH POSSIBLE ROBOTIC ASSISTANCE 10/08/2024 10:20 AM CDT Office Visit [facility] Orthopedic & Sports [facility] [address] [place] [address] Hugo Rivero PA [address] [place] [address] Scheduled Procedures Name Priority Associated Diagnoses Date/Ti [...] on filedocumented in this encounter Care Teams Hair Assistant Relationship Specialty Start Date End Date Kacey Martinez MD [address] [place] [address] [place] [address] PCP - General FAMILY PRACTICE 08/12/18 01/13/24 Hitesh Kowalski MD [address] [place] [phone] PCP - General 01/14/24 documented as of this encounter
--- OUTSIDE RECORDS SUMMARY | 2024-09-02 12:26 | XMS_ITS | Encounter Summary ---
Author Organization [facility] Address [address] [facility] [place] [address] Care Team Providers Care X Ray Nurse Name Role Phone Kacey Martinez MD Primary Care Provider [phone] Encounter Details Date Type Department Care Team (Late st Contact Info) Description 05/08/2023 Lab Requisition [facility] - Pathology Lab [address] [place] [phone] Ronaldo Villegas MD [address] [place] [address] Localized swelling, mass and lump, neck [...] as of this encounter Functional Status * Is person deaf or have serious hearing difficulty? Answer Date of Assessment Author No 02/02/2022 5:29 PM CDT Cailin Barrow RN * Is person blind or have serious difficulty seeing? Answer Date of Assessment Author No 02/02/2022 5:29 PM CDT Cailin Barrow RN * Does person have serious difficulty walking/climbing stairs? Answer Date of Assessment Author Yes 02/02/2022 5:29 PM CDT Cailin Barrow RN * Does person have difficulty dressing/bathing? Answer Date of Assessment Author Yes 02/02/2022 5:29 PM CDT Cailin Barrow RN * Does person have difficulty doing errands alone? Answer Date of Assessment Author Yes 02/02/2022 5:29 PM CDT Cailin Barrow RN documented as of this encounter Mental Status * Does person have difficulty concentrating/remembering/making decisions? Answer Entry Date Author No 02/02/2022 5:29 PM CDT Cailin Barrow RN documented in this encounter Plan of Treatment Not on file documented as of this encounter Procedures Procedure Name Priority Date/Time Associated Diagnosis Comments FLOW CYTOMETRY TISSUE PANEL Routine 05/08/2023 11:27 AM OPERATING ROOM TECH Localized swelling, mass and lump, neck documented in this encounter Results * FLOW CYTOMETRY TISSUE PANEL (05/08/2023 11:27 AM OPERATING ROOM TECH) Case Report Flow Cytometry Case: [id number] Authorizing Provider: Cristofer Villegas MD Collected: 05/08/2023 11:27 AM Ordering Location: [facility] Pathology Lab Received: 05/08/2023 03:38 PM Pathologist: Erich Alvarenga MD Specimen: Lymph Node, SUBMANDIBULAR 05/09/2023 7:20 AM OPERATING ROOM TECH U PATHOLOGY LAB Final Diagnosis Axillary lymph node, flow cytometric immunophenotypic analysis: - No diagnostic evidence of non-Hodgkin T- or B-cell lymphoma, or acute leukemia. - Mildly increased CD4:CD8 ratio of 6:1. - See interpretation. 05/09/2023 7:20 AM OPERATING ROOM TECH U PATHOLOGY LAB Flow Cytometry Interpretation Viability: 84% Lymphocytes: 97% B-cells: 48% of the lymphocytes, polytypic, kappa:lambda ratio 2.1:1 T-cells: 49% % of the lymphocytes, no immunophenotypic aberrancy detected based on the markers performed. Increased CD4:CD8 ratio 6:1 Dim CD45 region: 0%. No blasts. Monocytes: 1% Granulocytes: 2% A cytospin prepared from the flow cytometry specimen has been reviewed for quality assurance test program manager purposes. 05/09/2023 7:20 AM OPERATING ROOM TECH U PATHOLOGY LAB Flow Cytometry Results Differential Result Comment Flow Cell Count /uL 1,520 Total Viability % 84.0 Lymphocytes % 97 Dim CD45 Region % 0 Monocytes % 1 Granulocytes % 2 05/09/2023 7:20 [facility] Reason for test Localized swelling, mass and lump, neck 784.2 05/09/2023 7:20 AM [facility] Client Specimen ID # [id number] 05/09/2023 7:[address] [facility] PATHOLOGY LAB Number of markers 16 were performed. A-2 Flow CD10 A-4 Flow CD20 A-5 Flow CD23 A-10 Flow CD2 A-11 Flow CD3 A-12 Flow CD4 A-16 Flow CD1a A-3 Flow CD19 A-6 Flow CD34 A-7 Flow CD45 A-13 Flow CD5 A-14 Flow CD7 A-15 Flow CD8 A-17 Flow CD30 A-8 [place]+CD19+ A-9 Lambda+CD19+ 05/09/2023 7:20 AM [facility] Pathologist Location at [facility] 05/09/2023 7:[address] [facility] PATHOLOGY LAB Disclaimer Test performed at [facility], [address] [place] [address], [address]. *The established laboratory minimum viability is 70%. [...] high complexity clinical testing. 05/09/2023 7:[address] [facility] PATHOLOGY LAB Embedded Images 7:[address] [facility] PATHOLOGY LAB Pathology/Cytolo gy ENTIRE LYMPH NODE / Unknown 05/08/2023 11:27 AM OPERATING ROOM TECH 05/08/2023 3:38 PM OPERATING ROOM TECH Ronaldo Villegas MD LAB - PATHOLOGY/CYT OLOGY ORDERABLES Final Result [facility] PATHOLOGY LAB [address] [place] [address]. [place], [place] [address] [phone] documented in this encounter Visit Diagnoses Diagnosis Localized swelling, mass and lump, neck Swelling, mass, or lump in head and neck documented in this encounter Care Teams X Ray Nurse Relationship Specialty Start Date End Date Kacey Martinez MD [address] [place] [address] [place] [phone] PCP - General Family Medicine 02/02/22 documented as of this encounter
--- OUTSIDE RECORDS SUMMARY | 2024-09-02 12:26 | XMS_ITS | Encounter Summary ---
Author Organization [facility] Address [address] [place] [address] Care Team Providers Care Business Intelligence Architect Name Role Phone Kacey Martinez MD Primary Care Provider [phone] Hitesh Kowalski MD Primary Care Provider [phone] Encounter Details Date Type Department Care Team (Late st Contact Info) Description 09/10/2023 InPlacet Message Enc [facility] Medical Group Multispecialty Care - [facility] [address] [facility], [address] [place] [address] Asia Moyer, KAITLYN 3 [facility] [address] [place] [address] Back Social History Tobacco Use Types Packs/Day [...] Master's degree (e.g., MA, MS, Gianna, MEd, MUNICIPAL FIREFIGHTER, HÉCTOR) 06/21/2021 Comments No Sex and Gender [...] PM CDT Appointment [facility] [place] [address] Eriberto Cruz MD [address] [place] [address] 09/08/2024 10:40 AM CDT Office Visit [facility] Orthopedic & Sports Medicine [facility] [address] [place] [address] Hugo Rivero PA [address] [place] [address] 09/23/2024 7:30 AM CDT Hospital Encounter [facility] [place] [address] Eriberto Cruz MD [address] [place] [address] 09/23/2024 7:30 AM CDT - 09/23/2024 10:[address] [place] [address] Eriberto Cruz MD [address] [place] [address] RIGHT TOTAL KNEE ARTHROPLASTY WITH POSSIBLE ROBOTIC ASSISTANCE 10/08/2024 10:20 AM CDT Office Visit [facility] Orthopedic & Sports [facility] [address] [place] [address] Hugo Rivero PA [address] [place] [address] Scheduled Procedures Name Priority Associated Diagnoses Date/Ti [...] leg documented in this encounter Care Teams Business Intelligence Architect Relationship Specialty Start Date End Date Kacey Martinez MD [address] [place] [address] PCP - General FAMILY PRACTICE 08/12/18 01/13/24 Hitesh Kowalski MD [address] [place] [phone] PCP - General 01/14/24 documented as of this encounter
--- OUTSIDE RECORDS SUMMARY | 2024-09-02 12:27 | XMS_ITS | Encounter Summary ---
Author Organization [facility] Address [address] [place] [address] Care Team Providers Care Frame Bander Name Role Phone Hitesh Kowalski MD Primary Care Provider [phone] Encounter Details Date Type Department Care Team (Late st Contact Info) Description 03/10/2024 KIYATEC Message Enc [facility] Orthopedic & Sports Medicine - [place] [address] [place] [address] Eriberto Cruz MD [address] [place] [address] Referral Social History Tobacco Use Types Packs/Day [...] Master's degree (e.g., MA, MS, Gianna, MEd, STRAW BALER, HÉCTOR) 06/21/2021 Comments No Sex and Gender [...] Info) Description 09/03/2024 2:30 PM CDT Appointment [facility] Pre-[place] [address] Eriberto Cruz MD [address] [place] [address] 09/08/2024 10:40 AM CDT Office Visit [facility] Orthopedic & Sports Medicine - [place] [address] [place] [address] Hugo Rivero PA [address] [place] [address] 09/23/2024 7:30 AM CDT Hospital Encounter [facility] [place] [address] Eriberto Cruz MD [address] [place] [address] 09/23/2024 7:30 AM CDT - 09/23/2024 10:40 AM CDT Surgery [facility] [place] [address] Eriberto Cruz MD [address] [place] [address] RIGHT TOTAL KNEE ARTHROPLASTY WITH POSSIBLE ROBOTIC ASSISTANCE 10/08/2024 10:20 AM CDT Office Visit [facility] Orthopedic & Sports Medicine - [place] [address] [place] [address] Hugo Rivero PA [address] [place] [address] Scheduled Procedures Name Priority Associated Diagnoses Date/Ti [...] on filedocumented in this encounter Care Teams Frame Bander Relationship Specialty Start Date End Date Hitesh Kowalski MD [address] [place] [phone] PCP - General 01/14/24 documented as of this encounter
--- OUTSIDE RECORDS SUMMARY | 2024-09-02 12:27 | XMS_ITS | Encounter Summary ---
Author Organization [facility] Address [address] [place] [address] Care Team Providers Care Salvage Mend Worker Name Role Phone Hitesh Kowalski MD Primary Care Provider [phone] Encounter Details Date Type Department Care Team (Late st Contact Info) Description 03/04/2024 [employer] Message Enc [facility] Medical Group Orthopedic & Sports Medicine - [place] [address] [place] [address] Eriberto Cruz MD [address] [place] [address] Right knee Social History Tobacco Use Types [...] Master's degree (e.g., MA, MS, Gianna, MEd, FIELD SPECIALIST, HÉCTOR) 06/21/2021 Comments No Sex [...] Info) Description 09/03/2024 2:30 PM CDT Appointment [facility] [place] [address] Eriberto Cruz MD [address] [place] [address] 09/08/2024 10:40 AM CDT Office Visit [facility] Group Orthopedic & Sports Medicine - [place] [address] [place] [address] Hugo Rivero PA [address] [place] [address] 09/23/2024 7:30 AM CDT Hospital Encounter [facility] [place] [address] Eriberto Cruz MD [address] [place] [address] 09/23/2024 7:30 AM CDT - 09/23/2024 10:40 AM CDT Surgery [facility] [address] Eriberto Cruz MD [address] [place] [address] RIGHT TOTAL KNEE ARTHROPLASTY WITH POSSIBLE ROBOTIC ASSISTANCE 10/08/2024 10:20 AM CDT Office Visit [facility] Medical Group Orthopedic & Sports Medicine - [place] [address] [place] [address] Hugo Rivero PA [address] [place] [address] Scheduled Procedures Name Priority Associated Diagnoses Date/Ti [...] on filedocumented in this encounter Care Teams Salvage Mend Worker Relationship Specialty Start Date End Date Hitesh Kowalski MD [address] [place] [phone] PCP - General 01/14/24 documented as of this encounter
--- OUTSIDE RECORDS SUMMARY | 2024-09-02 12:27 | XMS_ITS | Clinical Summary ---
Author Organization [facility] Address [address] [place] [address] Care Team Providers Care Track Layer Head Name Role Phone Hitesh Kowalski MD Primary Care Provider [phone] Allergies No known active allergies Medications gabapentin [...] 2 DAYS Active Semaglutide-Dell ght Management ([place]) Active baclofen (LIORESAL) 20 MG tablet Take [...] Type Department Care Team Description 07/23/2024 Telephone [facility] [address] [place] [address] Eriberto Cruz MD Pre Appt Labs 07/03/2024 Prep for Procedure [facility] [address] [place] [address] Eriberto Cruz MD 07/01/2024 Telephone [facility] [address] [place] [address] Eriberto Cruz MD Schedule Surgery 06/23/2024 10:40 AM FORGING PRESS OPERATOR Office Visit [facility] Medical [facility] [address] [place] [address] Eriberto Cruz MD Follow Up (Rt knee discuss surgery ) 06/23/2024 Travel 06/12/2024 Orders Only [facility] [address] [place] [address] Eriberto Cruz MD from Last 3 Months [...] Master's degree (e.g., MA, MS, Gianna, MEd, FEED ELEVATOR WORKER, HÉCTOR) 06/21/2021 Comments No Sex and Gender [...] Comments Blood Pressure 133/77 06/23/2024 10:40 AM FORGING PRESS OPERATOR Pulse 80 06/23/2024 10:40 AM FORGING PRESS OPERATOR Temperature 36 C (96.8 F) 06/23/2024 10:40 AM FORGING PRESS OPERATOR Respiratory Rate 18 12/25/2023 3:02 PM CDT Oxygen Saturation 98% 03/14/2024 10:43 AM CDT Inhaled Oxygen Concentration - - Weight 90.5 kg (199 lb 9.6 oz) 06/23/2024 10:40 AM FORGING PRESS OPERATOR Height 170.2 cm (5' 7 ) 06/23/2024 10:40 AM FORGING PRESS OPERATOR Body Mass Index 31.26 06/23/2024 10:40 AM FORGING PRESS OPERATOR Plan of Treatment Upcoming Encounters Date Type Department Care Team (Latest Contact Info) Description 09/03/2024 2:[address] [facility] [place] [address] Eriberto Cruz MD [address] [place] [address] 09/08/2024 10:40 AM CDT Office Visit [facility] Medical [facility] Orthopedic & [facility] [address] [place] [address] Hugo Rivero PA [address] [place] [address] 09/23/2024 7:30 AM CDT Hospital Encounter [facility] [address] Eriberto Cruz MD [address] [place] [address] 09/23/2024 7:30 AM CDT - 09/23/2024 10:[address] [place] [address] Eriberto Cruz MD [address] [place] [address] RIGHT TOTAL KNEE ARTHROPLASTY WITH POSSIBLE ROBOTIC ASSISTANCE 10/08/2024 10:20 AM CDT Office Visit [facility] [address] [place] [address] Hugo Rivero PA [address] [place] [address] Scheduled Procedures Name Priority Associated Diagnoses Date/Ti me ARTHROPLASTY KNEE TOTAL Arthritis of right knee 09/23/2024 7:30 AM CDT Health Maintenance Due Date Last Done Comments Colorectal Cancer Screening Colonoscopy (10 Years) 1961 Annual Physical 01/07/1964 Hepatitis C 1979 Mammogram Screening 2001 Pneumococcal Vaccine: 50+ Years (1 of 1 - PCV) 2011 COVID-19 Vaccine (4 - season) 2024 05/01/2021, 07/31/2020, 07/31/2020, Additional history exists DTaP, Tdap and Td Vaccines (3 - Td or Tdap) 01/09/2029 01/09/2019, 09/29/2013 RSV Immunization or 60+ Years (1 - 1-dose 75+ series) 01/07/2036 Zoster Vaccines Completed 05/01/2020, 02/24/2020 PHQ-2 (Physician [place]) Completed 06/23/2024 Meningococcal B Vaccine Aged Out [...] Dorado, RN Medical Devices Implanted Type Area Outpatient Psychiatrist Device Identifier Shelf Expiration Date Model / Serial / Lot Putty [place] Matrix Dbm/Dbf Bone 6cc - [id number] Implanted:Qty: 1 on 01/30/2022 by Jose David Morocho MD at [facility] Bone N/A: Spine Lumbar [employer] [id number] 01/05/2024 [id number] / [id number] / Graft Infuse Bone Large Ii - [id number] Implanted:Qty: 1 on 01/30/2022 by Jose David Morocho MD at [facility] Bone N/A: Spine Lumbar [employer] [id number] 04/19/2023 [id number] / / [id number] Endoskeleton Interbody Fusion Implanted:Qty: 1 on 01/30/2022 by Jose David Morocho MD at [facility] Cage N/A: Spine Lumbar [employer] [id number] 07/08/2024 [id number] / / [id number] Endoskeleton Interbody System Implanted:Qty: 1 on 01/30/2022 by JoseD avid Morocho MD at [facility] Cage N/A: Spine Lumbar [employer] [id number] 06/16/2025 [id number] / / [id number] 39mm Pyramid Plate Implanted:Qty: 1 on 01/30/2022 by Jose David Morocho MD at [facility] Plate N/A: Spine Lumbar [employer] [id number] / / 4.75 X 55mm Glen Implanted:Qty: 1 on 01/30/2022 by Jose David Morocho MD at [facility] Glen N/A: Spine Lumbar [employer] [id number] / / 7.5 X 45mm Voyager Screw Implanted:Qty: 1 on 01/30/2022 by Jose David Morocho MD at [facility] Screw N/A: Spine Lumbar [employer] [id number] / / Voyager Set Screws Implanted:Qty: 3 on 01/30/2022 by Jose David Morocho MD at [facility] Screw N/A: Spine Lumbar [employer] [id number] / / 6.5 X 30mm Screws Implanted:Qty: 2 on 01/30/2022 by Jose David Morocho MD at [facility] Screw N/A: Spine Lumbar [employer] [id number] / / 6.5 X 30mm Screws Implanted:Qty: 4 on 01/30/2022 by Jose David Morocho MD at [facility] Screw N/A: Spine Lumbar [employer] [id number] / / 6.5 X 45mm Voyager Screws Implanted:Qty: 1 on 01/30/2022 by Jose David Morocho MD at [facility] Screw N/A: Spine Lumbar [employer] [id number] / / 7.5 X 40mm Voyager Screw Implanted:Qty: 1 on 01/30/2022 by Jose David Morocho MD at [facility] Screw N/A: Spine Lumbar [employer] [id number] / / Nu Shield Implanted:Qty: 1 on 01/30/2022 by Jose David Morocho MD at [facility] Tissue N/A: Spine Lumbar [id number] 04/04/2026 [id number] / [id number] / Procedures Procedure Name Priority Date/Time Associated Diagnosis Comments OXR RT KNEE 3V Routine 06/23/2024 10:33 AM FORGING PRESS OPERATOR Right knee pain, unspecified chronicity from Last 3 Months Results * OXR RT KNEE 3V (06/23/2024 10:33 AM FORGING PRESS OPERATOR) Anatomical Region Laterality Modality Radiographic Nimo ging Narrative 06/23/2024 12:49 PM FORGING PRESS OPERATOR PROCEDURE: OXR RT KNEE 3V VIEWS: 3 DATE: 06/23/24 CLINICAL INDICATION: FINDINGS: Moderate degenerative changes of the knee especially at the lateral compartment with some irregularity of the lateral tibial plateau subchondral bone. Mild valgus alignment. No fractures. IMPRESSION: Degenerative changes of the knee. Eriberto Cruz MD GENERAL IMAGING Final Result from Last 3 Months Insurance Advance Directives * Full Code (Latest Code Status on File) Date Activated Date Inactivated Comments 01/30/2022 6:57 PM 02/02/2022 5:01 PM Care Teams Track Layer Head Relationship Specialty Start Date End Date Hitesh Kowalski MD [address] [place] [address] PCP - General 01/14/24
--- OUTSIDE RECORDS SUMMARY | 2024-09-02 12:27 | XMS_ITS | Patient Health Record ---
Author Organization [facility] Address [address] [place], [place] [id number] Care Team Providers Care Capacitor Repairer Name Role Phone CAIT PEREZ Unavailable [phone] Kacey Martinez Unavailable Unavailable Allergies No Known Allergies Reason For Referral No Information Medications Medication SIG (Take, Route, Frequency, Duration) Notes Start Date End Date Status Medrol Dosepak ORAL Medrol DosepakOr iginal MedicationMedrol Dosepak *Reorder from [employer] for eRx and Interaction Alerts* 05/17/2017 Active Immunizations Vaccine Route Administration Date Status Comme nts Influenza, high dose seasonal Unknown 08/09/2024 Admini stered Pneumococcal conjugate PCV 13 Unknown 08/09/2024 Admini stered Vital Signs Height-cm 170.18 cm 05/05/2024 Weight-kg 74.84 kg 05/05/2024 Height 67 in 05/05/2024 Weight 165 lbs 05/05/2024 BMI 25.84 kg/m2 05/05/2024 Encounters Encounter Location Date Provider Diagnosis [facility] [place] [address] [place], [place] [id number] 05/05/2024 CAIT SNJULIANAK Contusion of left lesser toe(s) without damage [...] Insured Coverage Start Date Coverage End Date [facility] [address] [place] [id number] RAFY HANCOCK Spouse - patient is the spouse of the insured
--- OUTSIDE RECORDS SUMMARY | 2024-09-02 12:27 | XMS_ITS ---
Author Organization [facility] Address [address] [place], [place] [address] Care Team Providers Care Basic Acoustic Analyst Name Role Phone CAIT PEREZ Unavailable [phone] Kacey Martinez Unavailable Unavailable REASON FOR VISIT hammer toe follow up Encounters Encounter Location Date Provider Diagnosis [facility] [place] [address] [place], [place] [id number] 09/10/2023 CAIT PEREZ Plan Of Treatment No Information Progress Notes * JOSE DE JESUS HANCOCK LDOB:[birth year] (64 yo F)Acc No.[id number]:09/10/2023 Patient: JOSE DE JESUS DE Provider: Crystal Perez DPM :1960 A ge:63 Y S ex:Female Date:09/10/2023 Address:[address] [place], [place] [id number] Subjective: * Chief Complaints: * 1 . Hammer toe follow up. * Medical History: Objective: * Vitals: Assessment: Plan: * Treatment: * Billing Information: * Visit Code: * Procedure Codes: * Electronic signature of CAIT PEREZ DPM on 09/02/2024 at 12:26 PM CDT Sign off status: Pending * Provider: Crystal Perez DPM Date: 09/10/2023 Generated for Printi ng/Faxing/eTransmitting on: 0 09/02/2024 12:26 PM CDT
[2024-09-02 12:55] LABS: Iron 77 ug/dL (37-170)
== END 2024-09-02 11:07 | disposition home or self-care (01) ==
PROVIDERS: PCP Family Medicine; Visit Provider Internal Medicine Pulmonary Disease
DX: E61.1 Iron deficiency (principal)
CPT/HCPCS: 36415; 82728; 83540

== ENCOUNTER 2025-02-24 08:40 | Outpatient (CLI) | payer OTHER, SELFPAY ==
--- OUTSIDE RECORDS SUMMARY | 2023-09-10 10:40 | XMS_ITS ---
Author Organization [facility] Address [address] [place], [place] [id number] Care Team Providers Care Real Estate Coordinator Name Role Phone CAIT PEREZ Unavailable [phone] Kacey Martinez Unavailable Unavailable REASON FOR VISIT hammer toe follow up Encounters Encounter Location Date Provider Diagnosis [facility] [place] [address] [place], [place] [id number] 09/10/2023 CAIT PEREZ Plan Of Treatment No Information Progress Notes * JOSE DE JESUS HANCOCK LDOB:[birth year] (65 yo F)Acc No.[id number]:09/10/2023 Patient: JOSE DE JESUS DE Provider: Crystal Perez DPM :1960 A ge:63 Y S ex:Female Date:09/10/2023 Address:[address] [place], [place] [id number] Subjective: * Chief Complaints: * 1 . Hammer toe follow up. * Medical History: Objective: * Vitals: Assessment: Plan: * Treatment: * Billing Information: * Visit Code: * Procedure Codes: * Electronic signature of CAIT PEREZ DPM on 02/24/2025 at 08:55 AM CDT Sign off status: Pending * Provider: Crystal Perez DPM Date: 0 09/10/2023 Generated for Printi ng/Faxing/eTransmitting on: 1 08:55 AM CDT
--- NOTE | ~2025-02-24 | XR_ITS ---
EXAMINATION: XR chest 2V, 02/24/2025 8:50 CDT HISTORY: nicotine dependence COMPARISON: No comparisons available. Technique: 2 views obtained. Findings: The lungs are clear, no effusion. No pneumothorax. Heart is normal size. Mediastinal and hilar contours are within normal limits. Bony thorax no acute abnormality. Impression: No acute cardiopulmonary abnormality. Reviewed, dictated and finalized at location P. Impression: No acute cardiopulmonary abnormality.
--- OUTSIDE RECORDS SUMMARY | 2025-02-24 08:57 | XMS_ITS | Clinical Summary ---
Author Organization [facility] [address] Address [address] [place] [address] Care Team Providers Care Supplier Quality Engineering Manager Name Role Phone Kacey Martinez MD [...] as needed 0 10/17/2018 Activ e butalbital-acet iyiwcb-vbt-jxn 25-730-90-30 mg capsule Take 1 capsule by mouth every 4 (four) hours Active Active Problems Problem Noted Date Diagnosed Date Family history of colon cancer in mother 022 History of colonoscopy with polypectomy 07/08/19 22 Encounter for screening colonoscopy 07/08/2021 Hemorrhoids 07/08/2021 History of colonic polyps 07/08/2021 Overview (07/08/2021): Added automatically from request for surgery [id number] Other chest pain 12/05/2018 Surgical History Surgery [...] on file Legal Sex Female 9:13 PM SILL WORKER Gender Identity Not on file Sexual Orientation [...] 10:16 AM CDT Height 170.2 cm (5' 7) 08/09/2021 10:16 AM CDT Body Mass Index 29.13 08/09/2021 10:16 AM CDT Plan of Treatment Upcoming Encounters Date Type Department Care Team (Late st Contact Info) Description 05/04/2025 9:00 AM SILL WORKER Hospital Encounter [facility] [address] [place] [address] Josiah Martinez MD [address] [place] [address] 05/04/2025 9:00 AM SILL WORKER - 05/04/2025 9:30 AM SILL WORKER Surgery [facility] [address] [place] [address] Josiah Martinez MD [address] [place] [address] [place] [address] COLONOSCOPY Scheduled Procedures Name Priority Associated Diagnoses Date/Ti me COLONOSCOPY Family history of colon cancer in mother History of colonic polyps Encounter for screening colonoscopy 05/04/2025 9:00 AM SILL WORKER Health Maintenance Due Date Last Done Comments Breast Cancer Screening-Mammogram 1961 Depression Screening 1961 Hepatitis C Screening 1961 Hepatitis B Screening 1979 Regular Well Visit/Exam 18-64 1979 Covid-19 Vaccine ( season) 2025 05/01/2021, 07/31/2020, 07/03/2020 Influenza Vaccine (#1) 2025 , 02/01/2020, 03/03/2019, Additional history exists DTaP/Tdap/Td [...] MD: Josiah Martinez M.D. Room: [facility] ENDOSCOPY ROOM 1 Note Status: Finalized Patient [...] under direct vision. The Pediatric Colonoscope [id number]-[id number] was introducedthrough the anus and advanced to [...] 10:18 AM Procedure Code(s): --- Professional --- 77184, Colonoscopy, flexible; with removal of tumor(s), polyp(s), or other lesion(s) by snare technique 29417, 59, Colonoscopy, flexible; with biopsy, single or multiple Diagnosis Code(s): --- Professional --- Z80.0, Family history of malignant neoplasm of digestive organs D12.2, Benign neoplasm of ascending colon CPT copyright 2020 [employer]. All rights reserved. The codes documented in this report are preliminary and upon court bailiff reviewmay be revised to meet current compliance requirements. Recognized by the [employer] for promoting quality in endoscopy Josiah Martinez MD ENDOSCOPY PROCEDURES Final Result from Last 3 Months or Most Recently Relevant to Health Maintenance Insurance [facility] [employer] Exam [employer] [facility] CLAIMS Advance Directives For more information, please contact: [phone] * Full Code (Latest Code Status on File) Date Activated Date Inactivated Comments 08/09/2021 10:20 AM 08/09/2021 5:30 PM * Full Code Date Activated Date Inactivated Comments 08/09/2021 10:19 AM 08/09/2021 10:20 AM Care Teams Supplier Quality Engineering Manager Relationship Specialty Start Date End Date Kacey Martinez MD PCP - General Family Medicine 09/24/18
--- OUTSIDE RECORDS SUMMARY | 2025-02-24 08:57 | XMS_ITS | Patient Health Record ---
Author Organization [facility] Address [address] [place], [place] [address] Care Team Providers Care Hand Weaver Name Role Phone CAIT PEREZ Unavailable [phone] Kacey Martinez Unavailable Unavailable Allergies No Known Allergies Reason For Referral No Information Medications Medication SIG (Take, Route, Frequency, Duration) Notes Start Date End Date Status Medrol Dosepak ORAL Medrol DosepakOr iginal MedicationMedrol Dosepak *Reorder from [employer] for eRx and Interaction Alerts* 05/17/2017 Active Immunizations Vaccine Route Administration Date Status Comme nts Influenza, high dose seasonal Unknown 08/09/2024 Admini stered Pneumococcal conjugate PCV 13 Unknown 08/09/2024 Admini stered Vital Signs Height-cm 170.18 cm 05/05/2024 Weight-kg 74.84 kg 05/05/2024 Height 67 in 05/05/2024 Weight 165 lbs 05/05/2024 BMI 25.84 kg/m2 05/05/2024 Encounters Encounter Location Date Provider Diagnosis [facility] [place] [address] [place], [place] [id number] 05/05/2024 CAIT SNJULIANAK Contusion of left lesser [...] Insured Coverage Start Date Coverage End Date [facility] [address] [place] [address] [id number] RAFY HANCOCK Spouse - patient is the spouse of the insured
--- OUTSIDE RECORDS SUMMARY | 2025-02-24 08:57 | XMS_ITS | Data Portability ---
Author Organization [place] - [employer], Main Office Address [address] [place] [address] Care Team Providers Care Regional Vice President Surgical Sales Name Role Phone HITESH KOWALSKI Primary Care Provider HITESH KOWALSKI Referring Provider [phone] HITESH KOWALSKI Primary Care Provider [phone] Assessment Encounter Date Assessment Date Assessment LastModified by Organization Details LastModified Time 07/08/2024 07/08/2024 64 yo F with - [...] for her. Cont f/u with Derm at [place] as per schedule. Cont f/u with Pain clinic at [place] as per schedule. Cont f/u with Ortho at [place] as per schedule. Cont f/u with Spine at [place] as per schedule. Cont f/u with Ophtho as per schedule. Cont f/u with Psych as per schedule. HM: WWE - 04/29/24, normal. S/p complete hysterectomy. Cont f/u with Gyne/SUPERVISOR [facility]ING as per schedule. Mammo - 06/27/24, normal. DEXA - 06/27/24, osteopenia ++. Colonoscopy - 2021, polyps ++. Cont f/u with GI as per schedule (3 yrs). Flu - 03/11/24. Tdap - 01/06. Pneumo - Pt wants to get at 66 yrs. Shingrix - Pt got 2 doses. F/u in 3-4 months. Annual labs in 01/12. [email or web address] Not available 07/08/2024 16:54:10 09/09/2024 09/09/2024 Assessment: Moderate OSAHS, AHI = 19 PLMD Iron deficiency Plan: The following were reviewed and explained to the patient: [facility] home sleep study 12/24/20 AHI = 19 [facility] titration sleep study 03/15/21 sleep onset = 2.5 minutes, CPAP 7 cmH2O, PLMI = 5 Ferritin 11/12/23 20 ng/mL Ferritin 03/25/24 52 ng/mL Ferritin 09/02/24 78 ng/mL Elevation in periodic limb movement index [...] the patient. Average apnea/hypopnea index (AHI) is 3.0. Patient used PAP > 4 hours 100% of the time. PAP is set at 7 cmH2O. PAP will remain at 7 cmH2O. Keep ramp start at 4 cmH2O. Keep ramp duration at 20 minutes. Keep EPR +2 file clerk. Keep humidifier level on automatic mode. Keep [...] carrier. Patient will setup an appointment with IV for supplies and pressure adjustments. A major [...] records to PCP for further management. Follow-up: 9 months, May 2025 [email or web address] Not available 09/09/2024 10:23:02 09/16/2024 09/16/2024 The patient has what appears to be a rotator cuff tendon failure after previous repair about 5 years ago. Some fibers are still intact she has good function but has discomfort she does have weakness against resistance on the right. We talked about treatment options in detail today for this she is getting ready to have a total knee arthroplasty next week she would like to have some pain relief in the right shoulder so she can use the walker and get around with transfers and doing her therapy etc.. unfortunately I can not give her steroid pills due to the fact that she is having a knee replacement next week also she will possibly be off of her nonsteroidal anti-inflammatory medication for a bit for her surgical intervention. Our treatment options are somewhat limited today. We talked about a cortisone injection and she wanted to proceed. Therefore under sterile conditions I injected the patient's right shoulder subacromial space in the office with 4 cc of 0.5% bupivacaine and 20 mg of Kenalog. Patient tolerated procedure well. As far as left shoulder goes she has rotator cuff tendonitis with some AC joint arthrosis. No significant primary osteoarthritis is noted she does have a little bit of reactive change in the inferior surface of the joint a small hypertrophic changes off the glenoid. She states her left shoulder is not bothering her too much she just wanted to make sure there was nothing else going on. She is going to give it time see how it goes she is on Celebrex currently. She may resume this after her surgery when the orthopedic surgeon gives her clearance to do so. We talked about physical therapy she declined she is going to be going through therapy for her knee she is going to focus on that she knows what to do in terms of therapy for her shoulders as she has been through rotator cuff repair about 5 years ago. I will see her back in a couple of months see how she is doing. She voiced understanding and agreed with the above plan she will call for any further problems difficulties or questions. [email or web address] Not available 09/16/2024 10:51:47 10/06/2024 10/06/2024 64 yo F with - S/P RT TKR (10/12) - RT SHOULDER PAIN, chronic - LEUKOCYTOSIS, resolved - HLD - MIGRAINE - DEPRESSION - LT ABDOMINAL WALL WART, resolved - B/L KNEE PAIN, chronic - B/L SHOULDER PAIN, chronic - POLYARTHROPATHY - CHRONIC LOW BACK PAIN - LUMBAR SPONDYLOSIS - CHRONIC LT HIP PAIN - OSTEOPENIA - OBESITY I - EX-SMOKER (Quitted since 2005) X-ray Rt shoulder: 09/16/24. CXR: 03/12/24. Annual labs, MARINE, RF: 01/03/24. X-ray Lt hip: 12/06/23. CT L-spine wo: 02/23/23. MRI L-spine wo: 01/25/22. D/w pt about her findings, recent labs & imagines and further plan of care. All meds verified with pt. Meds as directed. Diet and exercise explained in detail. Educated about different options for her. Cont f/u with Derm at [place] as per schedule. Cont f/u with Pain clinic at [place] as per schedule. Cont f/u with Ortho at [place] as per schedule. Cont f/u with Spine at [place] as per schedule. Cont f/u with Ophtho as per schedule. Cont f/u with Psych as per schedule. HM: WWE - 04/29/24, normal. S/p complete hysterectomy. Cont f/u with Gyne/SUPERVISOR [employer]FINING as per schedule. Mammo - 06/27/24, normal. DEXA - 06/27/24, osteopenia ++. Colonoscopy - 2021, polyps ++. Cont f/u with GI as per schedule (3 yrs). Flu - 03/11/24. Tdap - 01/06. Pneumo - Pt wants to get at 66 yrs. Shingrix - Pt got 2 doses. F/u in 3-4 months. Annual labs in 01/12. [email or web address] Not available 10/06/2024 11:37:27 02/05/2025 02/05/2025 65 yo F with - WELL ADULT VISIT - HLD - MIGRAINE - DEPRESSION - B/L KNEE PAIN, chronic - S/P RT TKR (10/12) - B/L SHOULDER PAIN, chronic - POLYARTHROPATHY - CHRONIC LOW BACK PAIN - LUMBAR SPONDYLOSIS - CHRONIC LT HIP PAIN - OSTEOPENIA - OBESITY I - EX-SMOKER (Quitted since 2005) - H/O LEUKOCYTOSIS X-ray Rt shoulder: 09/16/24. CXR: 03/12/24. Annual labs, MARINE, RF: 01/03/24. X-ray Lt hip: 12/06/23. CT L-spine wo: 02/23/23. MRI L-spine wo: 01/25/22. D/w pt about her findings, recent labs & imagines and further plan of care. Will do routine labs, cxr. All meds verified with pt. Meds as directed. Diet and exercise explained in detail. Educated about different options for her. Fall risk precautions explained. Cont f/u with Derm at [place] as per schedule. Cont f/u with Pain clinic at [place] as per schedule. Cont f/u with Ortho at [place] as per schedule. Cont f/u with Spine at [place] as per schedule. Cont f/u with Ophtho as per schedule. Cont f/u with Psych as per schedule. Pt has done PT in the past. HM: WWE - 04/29/24, normal. S/p complete hysterectomy. Cont f/u with Gyne/SUPERVISOR [employer] REFINING as per schedule. Mammo - 06/27/24, normal. DEXA - 06/27/24, osteopenia ++. Colonoscopy - 2021, polyps ++. Cont f/u with GI as per schedule (3 yrs). Flu - 03/11/24. Tdap - 01/06. Pneumo - 02/05/25. Shingrix - Pt got 2 doses. F/u in 3 weeks. Annual labs in 02/13. [email or web address] Not available 02/05/2025 11:11:18 Plan of Treatment Reminders Order Date Submit Date Provider Last Modified By Organization Details Last Modified Time Details Appointments Follow Up 15 2024 01:15P Ary Kowalski MD Not available Not available Not available Follow Up 2025 09:30A Ary Shannon MD Not available Not available Not available Lab vitamin B12 + folate, serum or blood 2024 025 [email or web address] [facility] (Lab), [address] [place], [address], 02/12/2025 12:07:45 magnesium , serum or plasma [address] (Lab), [address] [place], [address], 02/12/2025 12:07:46 glycohemo globin, total, blood [address] (Lab), [address] [place], [address], 02/12/2025 12:07:46 uric acid, serum or plasma 2024 025 [email or web address] [facility] (Lab), [address] [place], [address], 02/05/2025 10:44:02 CBC w/ auto diff [email or web address] [place] [address] (Lab), [address] [place], [address], 02/12/2025 12:07:44 CMP, serum or plasma [address] (Lab), [address] [place], [address], 02/12/2025 12:07:45 lipid panel, serum [address] (Lab), [address] [place], [address], 02/12/2025 12:07:45 TSH, serum, reflex free T4 [address] (Lab), [address] [place], [address], 02/12/2025 12:07:45 urinalysi s complete, reflex culture [address] (Lab), [address] [place], [address], 02/12/2025 12:07:45 vitamin D, 25-hydrox y, total, serum 2024 025 [email or web address] [facility] (Lab), [address] [place], [address], 02/05/2025 10:44:01 ferritin, serum or plasma 2024 025 [email or web address] [facility] (Lab), [address] [place], [address], 09/09/2024 10:24:08 Referral None recorded. Procedures injection /aspirati on joint/bur sa (PROC) 2024 [email or web address] In-Office Order, Internal Use Only DO Not Attach Compendium DO Not Attach Compendium, Do Not Delete/merge, [id number] 09/16/2024 10:37:46 Surgeries None recorded. Imaging XR, chest, 2 view 2024 [facility], [address], [place], [address], 02/19/2025 04:10:43 XR, shoulder 2024 025 [email or web address] [facility] [place], [address], [place], [address], 09/16/2024 12:22:51 XR, shoulder, 2 or more view 2024 025 [email or web address] [facility], [address], [place], [address], 08/05/2024 09:55:38 Medication Orders baclofen 20 mg tablet 2024 025 [place] [facility]291, [address], [place], [place], [id number], 02/05/2025 10:38:33 Zepbound 15 mg/0.5 mL subcutane ous pen injector 2024 025 [place] [address] [facility]93302, [address] [place], [place], [id number], 02/05/2025 11:09:16 celecoxib 200 mg capsule 2024 025 [address] [facility], [address] [place], [place], [id number], 02/05/2025 11:07:15 sertralin e 50 mg tablet 2024 025 [address] [facility], [address], [place], [place], [id number], 02/05/2025 11:07:14 gabapenti n 600 mg tablet 2024 025 [place] [address] [facility]65155, [address] [place], [place], [id number], 02/05/2025 11:07:15 lidocaine 5 % topical patch 2024 025 [facility]32537, [address], [place], [place], [id number], 02/05/2025 10:38:35 rosuvasta tin 20 mg tablet [address] [facility]63185, [address], [place], [place], [id number], 02/05/2025 11:07:15 Calcium 600 + D(3) 600 mg-10 mcg (400 unit) tablet 2024 025 [facility] #77491, [address], [place], [place], [id number], 02/05/2025 10:38:26 baclofen 20 mg tablet 2024 025 [facility] #51727, [address], [place], [place], [id number], 10/06/2024 11:32:14 Zepbound 12.5 mg/0.5 mL subcutane ous pen injector [address] [facility]34436, [address], [place], [place], [id number], 02/05/2025 10:34:46 sertralin e 50 mg tablet [address] [facility]36557, [address], [place], [place], [id number], 02/05/2025 11:07:14 Calcium 600 + D(3) 600 mg-10 mcg (400 unit) tablet 2024 025 [facility] #19861, [address] [place], [place], [id number], 10/06/2024 11:32:20 rosuvasta tin 20 mg tablet 2024 [facility] #44177, [address], [place], [place], [id number], 10/06/2024 11:32:12 bupivacai ne HCl 0.5 % (5 mg/mL) injection solution 2024 [email or web address] [facility] #56383, [address], [place], [place], [id number], 09/16/2024 12:22:51 Kenalog 10 mg/mL suspensio n for injection 2024 [email or web address] [facility] #82270, [address], [place], [place], [id number], 02/05/2025 11:09:11 ferrous sulfate 325 mg (65 mg iron) tablet 2024 025 [facility] #70690, [address], [place], [place], [id number], 09/09/2024 10:24:12 Vitamin C 500 mg tablet 2024 025 [email or web address] [facility] #51778, [address], [place], [place], [id number], 09/16/2024 10:17:19 baclofen 20 mg tablet 2024 025 [facility] #38680, [address], [place], [place], [id number], 07/08/2024 16:54:52 Zepbound 5 mg/0.5 mL subcutane ous pen injector 2024 025 [email or web address] [facility] #56574, [address], [place], [place], [id number], 09/16/2024 10:17:25 Calcium 600 + D(3) 600 mg-10 mcg (400 unit) tablet 2024 025 [facility] #82588, [address] [place], [place], [id number], 07/08/2024 16:54:52 rosuvasta tin 20 mg tablet 2024 025 [facility] #90720, [address] [place], [place], [id number], 07/08/2024 16:42:26 Patient TargetsNo targets recorded. Patient Instructions Encounter Date Encounter Id Patient Instructions Last Modified By Organization Details Last Modified Time 07/08/2024 [id number] Starting a Weight-Loss Plan: Care Instructions Not available 07/08/2024 16:42:19 10/06/2024 [id number] Starting a Weight-Loss Plan: Care Instructions Not available 10/06/2024 11:31:47 02/05/2025 [id number] Starting a Weight-Loss Plan: Care Instructions [email or web address] Not available 02/05/2025 10:38:06 Reason for Referral None Reported. Results Created Date Observation Date Name Description Value Unit Range Abnormal Flag Note LastModifiedBy Organization Detail LastModifiedTime 06/27/1906/27/2024 MAMMO , scree bautista, bilat eral No observ ation record ed. [email or web address] [address], [address], 07/08/2024 16:53:52 06/27/1906/27/2024 DEXA No observ ation record ed. [address], [address], 07/08/2024 16:53:52 08/05/1908/04/2024 XR, shoul rafa, 2 or more view No observ ation record ed. [address], [address], 10/06/2024 11:20:58 09/17/19 25 XR, shoul rafa No observ ation record ed. [email or web address] [facility] [place] [address], [place], [address], 09/16/2024 10:47:53 Result Notes None recorded. Problems Name Problem SNOMED Code Status Onset Date Resolution Date Notes Provider Name and Address Organization Details Recorded Time Localized , primary osteoarth ritis of the hand 322786251 Active Not Available [facility] 3 09:18:34 Goiter 7704033 Active 05/2018 Not Available [facility] 3 09:18:37 Hyperlipi demia 43698673 Active Not Available [facility] 3 09:18:38 Vitamin D deficienc y 74206689 Active 2017 Not Available [facility] 3 09:18:36 Genital herpes simplex 09678421 Active 2017 Not Available [facility] 3 09:18:36 Osteoarth rosis of the carpometa carpal joint of the thumb 57716733 Active 2019 Not Available [facility] 3 09:18:37 Obstructi ve sleep apnea syndrome 58143527 Active 2020 Not Available [facility] 3 09:18:38 Lumbar radiculop athy 685875487 Completed 202004/18/2021 Hitesh Kowalski MD [address], [place], [address] , [facility] 5 11:09:03 Rupture of rotator cuff of right shoulder 80359002654 279487 Active 2021 Not Available [facility] 3 09:18:34 Osteoarth ritis of right knee joint 73326017441 9100 Active 2021 Not Available [facility] 3 09:18:36 History of lumbar laminecto my 87451764567 628043 Active 2021 Hitesh Kowalski MD [address], [place], [address] , [employer] [facility] [employer] [facility] 4 10:16:44 History of lumbar fusion 95617087351 106 Active 2021 Hitesh Kowalski MD [address], [place], [address] , [employer] [facility] [employer] [facility] 4 10:16:44 Lumbar spine instabili ty 277086769 Active 2021 Hitesh Kowalski MD [address], [place], [address] , [employer] [facility] [employer] [facility] 5 16:50:39 Osteoarth ritis of left knee joint 05587851420 9109 Active 2021 Not Available [employer] 3 09:18:36 Inflammat ion of sacroilia c joint 53619189 Active 2022 Hitesh Kowalski MD [address], [place], [address] , [employer] [facility] [employer] [facility] 4 10:16:44 Left-side d piriformi s syndrome 93843335341 9106 Active 2022 Hitesh Kowalski MD [address], [place], [address] , [employer] [facility] [employer] [facility] 4 10:16:44 Pain 06914869 Active 2022 Hitesh Kowalski MD [address], [place], [address] , [employer] [facility] [employer] [facility] 5 16:50:39 COVID-19 143739321 Active 2022 Kacey Martinez MD [address], [place], [address] , [employer] [facility] [employer] [facility] 3 11:12:30 Cobalamin deficienc y 192148215 Active 2023 Kacey Martinez MD [address], [place], [address] , [employer] [facility] [employer] 4 12:45:54 Periodic limb movement disorder 582811190 Active 2023 Adiel Shannon MD [address], [place], [address] , [facility] [employer] [facility] 4 12:22:48 Lumbar spondylos is 523971512 Active 2023 Hitesh Kowalski MD [address], [place], [address] , [facility] [employer] [facility] 4 11:43:36 Migraine without aura 28480704 Active 2023 Hitesh Kowalski MD [address], [place], [address] , [facility] [employer] [facility] [employer] [facility] 4 11:45:20 Obesity 606692067 Active 2023 Hitesh Kowalski MD [address], [place], [address] , [facility] [employer] [facility] [employer] [facility] 4 12:01:45 Iron deficienc y 71869685 Active 2023 Adiel Shannon MD [address], [place], [address] , [facility] [employer] [facility] [employer] [facility] 4 12:21:39 Ex-cigare tte smoker 967838275 Active 2023 Hitesh Kowalski MD [address], [place], [address] , [facility] [employer] [facility] [employer] [facility] 4 11:13:59 Verruca vulgaris 37009022 Active 2023 Hitesh Kowalski MD [address], [place], [address] , [facility] [employer] [facility] [employer] [facility] 4 10:09:30 Depressiv e disorder 29558824 Active 2023 Hitesh Kowalski MD [address], [place], [address] , [facility] [employer] [facility] [employer] [facility] 4 10:12:31 Arthritis of right knee joint 05081414214 30492 Active 2024 Hitesh Kowalski MD [address], [place], [address] , [facility] [employer] [facility] [employer] [facility] 5 11:07:05 Pain of bilateral knee joints 68083381653 4104 Active 2024 Hitesh Kowalski MD [address], [place], [address] , [facility] [employer] [facility] [employer] [facility] 5 16:28:39 Tendiniti s of right elbow 42659464579 407386 Active 2024 Hitesh Kowalski MD [address], [place], [address] , [facility] [employer] [facility] [employer] [facility] 5 16:28:39 Polyarthr opathy 07862933 Active 2024 Hitesh Kowalski MD [address], [place], [address] , [facility] [employer] [facility] [employer] [facility] 5 16:28:39 Pain of right shoulder joint 16053813578 361333 Active 2024 Hitesh Kowalski MD [address], [place], [address] , [facility] [employer] [facility] [employer] [facility] 5 16:43:19 Osteopeni a 140372394 Active 2024 Hitesh Kowalski MD [address], [place], [address] , [facility] [employer] [facility] [employer] [facility] 5 16:54:27 Bilateral shoulder joint pain 39341229080 017800 Active 2024 JENA Borwning, [facility] [employer] [facility] 5 10:21:25 Tendiniti s of left rotator cuff 05889469329 927141 Active 2024 PATSY Garcia [address], [place], [address] , [facility] [employer] [facility] 5 10:48:51 Nontrauma tic partial rupture of right rotator cuff 40188294666 99556 Active 2024 PATSY Garcia [address], [place], [address] , [employer] 5 10:49:21 Chronic low back pain 174055178 Active 2024 Hitesh Kowalski MD [address], [place], [address] , Currently 5 11:21:14 History of total knee arthropla sty 40060511174 05 Active 2024 Hitesh Kowalski MD [address], [place], [address] , [employer] 11:38:12 Notes:Medical History: Depre ssion COVID infections 12/2022, 08/2023 Bruxism Obesity with mod OSAHS, AHI = 19, 12/24/20, on CPAP c/o IVRC Hyperlipidemia Hepatic steatosis Hemorrhoids Left renal calculus HSV-2 infection PLMD Iron deficiency Vit B12 deficiency Vit D deficiency Lumbar DDD Bilateral knee OA Right popliteal cyst Procedure History: Cholecystectomy 2012 ALFA-BSO 2013 Right knee arthroscopies 2015, 2016 Left 1st toe joint replacement 2019 Right shoulder repair 2019 Right hand arthroplasty 2020 L4-L5, L5-S1 laminectomies 2021 Colonoscopy with polypectomies [address] biopsy 2022 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 Procedures Surgical History Date Name Laterality Status Provider Name and Address Organization Details Recorded Time 04/29/20 24 Date of Last Pap Smear completed Jackie Goff RN [employer] 04/29/2024 10:40:08 01/31/20 24 Ear Irrigation completed Hitesh Kowalski MD [address], [place], [address], [employer] [facility] [employer] 01/31/2024 11:36:52 01/23/20 24 Cryotherapy completed Hitesh Kowalski MD [address], [place], [address], [employer] 01/23/2024 10:09:50 01/31/20 22 Back Surgeries completed Not Available [facility] 07/19/2022 09:13:25 08/10/19 22 Date of Last Colonoscopy completed Bonnie Pop [facility] 03/09/2023 16:20:51 08/10/19 22 colonoscopy completed Not Available [facility] 07/19/2022 09:13:25 12/17/19 20 Shoulder completed Julianne Mckeon CNA [facility] 09/16/2024 10:20:06 cholecystectomy completed Julianne hidalgo COMMUNITY AIDE [facility] 09/16/2024 10:19:56 Imaging Results None recorded. Procedure Notes None recorded. Medical Equipment None Reported. Allergies Allergen ID Allergen Name Allergen Category Reaction Reaction Severity Criticality Documentation Date Start Date Code Code System Note Provider Name and Address Organization Details Recorded Time 13196 No known allergy (situatio n) Not available Not available Not available Not available 01/23/2024 40081 6003 SNOMED Hitesh Kowalski MD [address] [facility] [facility] [address], [place], [address] [place] [address] 10:16:33 No known drug allergies Medications Name [...] BY MOUTH EVERY 12 HOURS WITH FOOD 2024 active Not Available Not Available Not Avai lable Augmentin 875 mg-125 mg tablet Take 1 [...] t Available ketoconazol e 2 % shampoo every week by topical route. active Not Available Not Available No t Available Vitamin C 500 mg tablet Take 1 tablet by oral route. 09/16 completed Not Available Not Available Not Available azithromyci n 250 mg tablet 12/04 [...] tablet TAKE 1 TABLET BY MOUTH EVERY 4 HOURS NEEDED FOR ACUTE PAIN active Not Available Not Available No t Available meloxicam 15 mg tablet TAKE 1 TABLET BY MOUTH EVERY DAY AT DINNER 09/26 completed Not Available Not Available Not Available bupivacaine HCl 0.5 % (5 mg/mL) injection solution Take 20 mg by injection route. 2024 active Not Available Not Available Not Avai lable prednisone 20 mg tablet TAKE 2 TABLETS [...] No t Available tramadol 50 mg tablet active Not Available Not Available No t Available triamcinolo ne acetonide 0.1 % topical cream XENA THIN LAYER EXT AA BID FOR 7 DAYS active Not Available Not Available No t Available butalbital- acetaminoph en-caffeine 50 mg-325 mg-40 mg tablet 09/03 completed Not Available Not Available Not Available acyclovir 800 mg tablet TAKE 1 TABLET BY MOUTH EVERY 8 HOURS FOR 2 DAYS active Not Available Not Available No t Available baclofen 20 mg tablet TAKE 1 [...] completed Not Available Not Available Not Available oxycodone-a cetaminophe n 5 mg-325 mg tablet TAKE 1/2 TO 1 TABLET BY MOUTH EVERY 4 HOURS NEEDED FOR PAIN OR ACUTE PAIN active Not Available Not Available No t Available hydrocortis one 2.5 % topical cream [...] Available Kenalog 10 mg/mL suspension for injection Take 20 mg by injection route. 2024 active [facility] [facility] [place] [phone]- [phone] Not Available Not Available Not Available doxycycline monohydrate 100 mg capsule Take 1 capsule twice a day by oral route for 7 days. active Not Available Not Available No t Available triamcinolo ne acetonide 40 mg/mL suspension for injection 40 mg by injection route. active Not Available Not Available No t Available hydrocodone 7.5 mg-acetamin ophen 325 mg [...] t Available nystatin 100,000 unit/gram topical cream 09/03 completed Not Available Not Available Not Available dexamethaso ne 4 mg tablet 09/26 completed Not Available Not Available Not Available lidocaine 5 % topical patch APPLY 1 PATCH TOPICALLY TO THE SKIN DAILY. MAY WEAR UP TO 12 HOURS active Not Available Not Available No t Available oxycodone 5 mg capsule TAKE 1 [...] completed Not Available Not Available Not Available docusate sodium 100 mg capsule TAKE 1 CAPSULE BY MOUTH TWICE DAILY FOR 7 DAYS. STOP TAKING ONCE YOU START HAVING REGULAR BOWEL MOVEMENTS active Not Available Not Available No t Available gabapentin 300 mg capsule TAKE 1 [...] Available hydrocortis one 2.5 % topical cream 09/02 completed Not Available Not Available Not Available [...] sulfate HFA 90 mcg/actuati on aerosol inhaler 2 {puff}s every 4 hours by inhalatio n route. 2023 active Not Available Not Available Not Avai lable Vitamin D2 1,250 mcg (50,000 unit) capsule TAKE 1 CAPSULE EVERY WEEK 07/26 completed Not Available Not Available Not Available celecoxib 100 mg capsule 1 po bid 01/02 completed Not Available Not Available Not Available clobetasol 0.05 % scalp solution twice a day by topical route. active Not Available Not Available No t [...] Not Available rosuvastati n 20 mg tablet 20 mg by oral route. active Not Available Not Available No t [...] red by the provider 07/26 completed [facility] [place]: [phone]- [phone] Not Available Not Available Not Available lidocaine (PF) 20 mg/mL (2 %) injection solution 3 mL by injection route. active Not Available Not Available No t Available lidocaine (PF) 5 mg/mL (0.5 %) injection solution Take 30 mg by injection route. 01/16 completed Not Available Not Available Not Available Calcium 600 + D(3) 600 mg-10 mcg (400 unit) tablet Take 1 tablet twice a day by oral route as directed for 90 days. 2024 active Not Available Not Available Not Avai lable FeroSul 325 mg (65 mg iron) tablet TAKE 1 TABLET BY MOUTH EVERY DAY active Not Available Not Available No t Available butalbital- acetaminoph en-caffeine 50 mg-300 mg-40 mg capsule TAKE 1 CAPSULE DAILY NEEDED FOR MIGRAINES active Not Available Not Available No t Available ropivacaine (PF) 5 mg/mL (0.5 %) injection solution in office 09/26 completed [facility] [place] [phone] Not Available Not Available Not Available Afluria [id number](P F) 45 mcg (15 mcg x 3)/0.5 mL intramuscul ar syringe TO BE ADMINISTE RED BY PHARMACIS T FOR IMMUNIZAT ION active Not Available Not Available No t Available Fluarix Quad [id number] (PF) 60 mcg (15 mcg x 4)/0.5 [...] N ot Available Ubrelvy 100 mg tablet 100 mg every other day by oral route. active Not Available Not Available No t [...] MG UNDER THE SKIN EVERY WEEK DIRECTED 08/06 completed Not Available Not Available Not Available Wegovy 1.7 mg/0.75 mL subcutaneou s [...] Not Available Not Available Not Available Zepbound 10 mg/0.5 mL subcutaneou s pen injector ADMINISTE R 10 MG UNDER THE SKIN EVERY WEEK DIRECTED 10/06 completed Not Available Not Available Not Available Zepbound 5 mg/0.5 mL subcutaneou s pen injector ADMINISTE R 5 MG UNDER THE SKIN EVERY WEEK DIRECTED 09/16 completed Not Available Not Available Not Available Zepbound 15 mg/0.5 mL subcutaneou s pen injector ADMINISTE R 15 MG UNDER THE SKIN EVERY WEEK DIRECTED active Not Available Not Available No t Available Zepbound 12.5 mg/0.5 mL subcutaneou s pen injector ADMINISTE R 12.5 MG UNDER THE SKIN EVERY WEEK DIRECTED 02/05 completed Not Available Not Available Not Available Zepbound 7.5 mg/0.5 mL subcutaneou s pen injector ADMINISTE R 7.5 MG UNDER THE SKIN EVERY WEEK DIRECTED 09/16 completed Not Available Not Available Not Available Vitals Date Recorded Body height Body mass index (BMI) Body weight Body temperature Oxygen saturation Oxygen saturation in Arterial blood by Pulse oximetry Heart rate Systolic And Diastolic Provider Name and Address Organization Details Last Updated DateTime 5 170.18 cm 31.2 kg/m2 43702.6 8 g 97.2 [degF] 97 % 97 % 71 /min 140/90 mm[Hg] Karissa Hardy RN [facility] [employer] [facility] 16:34:39 Date Recorded Heart rate Respiratory rate Provider N scott and Address Organization Details Last Updated DateTime 09/09/2024 99 /min 19 /min Adiel Shannon MD [address] [place] [address], [phone], [facility] [employer] [facility] 09/09/2024 10:19:12 Date Recorded Body height Body mass index (BMI) Body weight Heart rate Oxygen saturation Oxygen saturation in Arterial blood by Pulse oximetry Body temperature Systolic And Diastolic Provider Name and Address Organization Details Last Updated DateTime 5 170.18 cm 30.4 kg/m2 64586.9 2 g 99 /min 97 % 97 % 98.2 [degF] 126/84 mm[Hg] Yoly Villatoro MA [facility] [employer] [facility] 5 10:10:39 Date Recorded Body height Body mass index (BMI) Body weight Provider Name and Address Organization Details Last Updated DateTime 09/16/2024 170.18 cm 30.5 kg/m2 43083.51 g Julianne Mckeon CNA [facility] [employer] 09/16/2024 10:16:36 Date Recorded Body height Body mass index (BMI) Body weight Body temperature Oxygen saturation Oxygen saturation in Arterial blood by Pulse oximetry Heart rate Systolic And Diastolic Provider Name and Address Organization Details Last Updated DateTime 170.18 cm 30.2 kg/m2 17748.6 8 g 97.3 [degF] 97 % 97 % 85 /min 130/70 mm[Hg] Karissa Hardy RN [facility] [employer] [facility] 11:19:19 Date Recorded Body height Body mass index (BMI) Body weight Body temperature Oxygen saturation Oxygen saturation in Arterial blood by Pulse oximetry Heart rate Systolic And Diastolic Provider Name and Address Organization Details Last Updated DateTime 170.18 cm 28.9 kg/m2 13988.4 g 97 [degF] 95 % 95 % 77 /min 120/80 mm[Hg] Karissa Hardy RN [facility] [employer] [facility] 10:26:25 Social History Question Answer Notes LastModified by Organization Details LastModified Time Tobacco Smoking Status Former Smoker quit 2006 only smoked 1 pack per week Candida torres [facility] [employer] [facility] 06/21/2023 07:57:40 Do You Have An Advance Directive? No [id number] Information not available 07/19/2022 What Is Your Level Of Caffeine Consumption? Occasional 1 Cup Of Coffee/tw ice A Week 3 (12 Oz) Cans Dr. Bar Maybe 3x's /week [email or web address] Information not available 02/05/2025 How Much Tobacco Do You Chew? None [id number] Information not available 07/19/2022 In The 14 Days Before Symptom Onset, Have You Had Close Contact With A Laboratory-confi rmed COVID-19 While That Case Was Ill? No Information not available 06/21/2023 In The 14 Days Before Symptom Onset, Have You Had Close Contact With A Person Who Is Under Investigation For COVID-19 While That Person Was Ill? No Information not available 06/21/2023 What Type Of Diet Are You Following? REGULAR [id number] Information not available 07/19/2022 Which Illicit Or Recreational Drugs Have You Used? No Information not available 06/21/2023 Do You Have An Electrostatic Air Filter? Yes Information not available 03/26/2024 Have There Been Any Changes To Your Family Or Social Situation? Yes Information not available 04/29/2024 When Did You Quit Smoking? 16+yearssincelastc igarette Quit 2006 [email or web address] Information not available 02/05/2025 Are There Any Guns Present In Your Home? No Information not available 06/21/2023 Do You Have A Humidifier? Yes Information not available 03/26/2024 Where Do You Live? [facility] Information not available 06/21/2023 Do You Have A Medical Power Of Torque Tester? No Information not available 04/29/2024 Do You Have Moisture Problems In Your Home? No Information not available 03/26/2024 What Was The Date Of Your Most Recent Tobacco Screening? 09/09/2024 Information not available 09/09/2024 How Many Children Do You Have? 3 Information not available 04/29/2024 What Is Your Current Pack Years? 20-29packyears Information not available 02/05/2025 Have You Ever Been Counseled For Unhealthy [...] Your Home? Yes Information not available 06/21/2023 At What Age Did You Start Smoking Tobacco? 16 [email or web address] Information not available 02/05/2025 Are You Passively Exposed To Smoke? No Information not available 06/21/2023 Are There Any Smokers In Your House? No Information not available 06/21/2023 How Much Tobacco Do You Smoke? 1 PPW [email or web address] Information not available 02/05/2025 Do You Participate In Social Media? Yes Information not available 04/29/2024 Do You Use Sunscreen Routinely? No Information not available 06/21/2023 Has Tobacco Cessation Counseling Been Provided? No Information not available 06/21/2023 How Many Years Have You Smoked Tobacco? 29 [email or web address] Information not available 02/05/2025 Have You Recently Traveled Abroad? No Information not available 06/21/2023 Have You Used IV Drugs? No Information not available 02/05/2025 Do You Have Any Dietary Restrictions? No Information not available 06/21/2023 Sex: Unknown Functional Status Question Answer Note LastModified by Organizat ion Details LastModified Time Do you use any illicit or recreational drugs? Yes weed gummies for her pain only at night so pt can sleep Information not available 06/21/2023 Do you or have you ever used any other forms of tobacco or nicotine? No Information not available 06/21/2023 What is your level of alcohol consumption? Moderate [email or web address] Information not available 09/16/2024 Do you or have you ever used smokeless tobacco? Never used smokeless tobacco [id number] Information not available 07/19/2022 Are you currently employed? No Information not available 04/29/2024 Have you been exposed to chemicals or toxins? not that aware of Information not available 03/26/2024 What is your occupation? retired Information not available 04/29/2024 Do you or have you ever used e-cigarettes or vape? Never used electronic cigarettes Information not available 06/21/2023 What is your exercise level? Occasional [id number] Information not available 07/19/2022 Mental Status Question Answer Note LastModified by Organization D etails LastModified Time Do you feel stressed (tense, restless, nervous, or anxious, or unable to sleep at night)? [id number] Information not available 03/26/2024 Family History Relationship Description Onset Age of this Age Resolved Age Notes LastModified by Organization Details LastModified Time Mother Hypertensive disorder [id number] Not available 07/19/2022 09:13:26 Father Hypertensive disorder [id number] Not available 07/19/2022 09:13:26 Father Diabetes mellitus [id number] Not available 07/19/2022 09:13:26 Father Cerebrovascu lar accident [email or web address] Not available 1 05/26/2023 09:39:41 Mother Malignant neoplasm of skin [id number] Not available 10/2023 09:39:41 Mother Malignant neoplasm of colon [id number] Not available 10/2023 09:39:41 Mother Diabetes mellitus [email or web address] Not available 2023 12:17:54 Sister Malignant neoplasm of pancreas [email or web address] Not available 10/2023 09:39:41 Sister Hyperlipidem ia [email or web address] Not available 10/2023 09:39:41 Sister Obstructive sleep apnea syndrome Not available 10/2023 09:39:41 Sister Diabetes mellitus [...] HAVE YOU BEEN HOSPITALIZED OR SEEN IN [facility] IN THE PAST YEAR ? N [...] e and Address Organization Details Recorded Time Pneumococcal conjugate PCV20, polysaccharide [id number] conjugate, adjuvant, PF 5 completed Karissa Hardy RN null, [employer] [facility] [employer] 02/05/2025 11:13:15 Influenza, split virus, quadrivalent, PF 2 completed Hitesh Kowalski MD [address], [facility] [address], [place], [address], [employer] [facility] [employer] 02/05/2025 11:07:58 Influenza, MDCK, quadrivalent, PF 9 completed Hitesh Kowalski MD [address], [facility] [address], [place], [address], [employer] [facility] [employer] 02/05/2025 11:07:57 Influenza, MDCK, quadrivalent, preservative 8 completed Hitesh Kowalski MD [address], [address], [place], [address], [facility] [employer] [facility] [employer] [facility] 02/05/2025 11:07:57 zoster recombinant 0 completed Hitesh Kowalski MD [address], [address], [place], [address], [facility] [employer] [facility] [employer] [facility] 12/05/2023 11:31:53 zoster recombinant 0 completed Hitesh Kowalski MD [address], [address], [place], [address], [facility] [employer] [facility] [employer] [facility] 12/05/2023 11:31:53 COVID-19, mRNA, LNP-S, PF, 100 mcg/0.5mL dose or 50 mcg/0.25mL dose 1 completed Hitesh Kowalski MD [address], [address], [place], [address], [employer] [facility] [employer] [facility] 12/05/2023 11:31:53 COVID-19, mRNA, LNP-S, PF, 100 mcg/0.5mL dose or 50 mcg/0.25mL dose 1 completed Hitesh Kowalski MD [address], [address], [place], [address], [employer] [facility] [employer] [facility] 12/05/2023 11:31:53 COVID-19, mRNA, LNP-S, PF, 100 mcg/0.5mL dose or 50 mcg/0.25mL dose 1 completed Hitesh Kowalski MD [address], [address], [place], [address], [employer] [facility] [employer] [facility] 12/05/2023 11:31:53 Tdap 9 completed Hitesh Kowalski MD [address], [address], [place], [address], [facility] [employer] [facility] [employer] [facility] 12/05/2023 11:31:53 Influenza, split virus, quadrivalent, PF 0 completed Hitesh Kowalski MD [address], [address], [place], [address], Currently 02/05/2025 11:07:58 Influenza, split virus, quadrivalent, PF 7 completed Hitesh Kowalski MD [address], [address], [place], [address], Currently 02/05/2025 11:07:58 Influenza, live, trivalent, intranasal, PF 7 completed Hitesh Kowalski MD [address], [address], [place], [address], [employer] [facility] 02/05/2025 11:07:57 Td, adsorbed, preservative free, adult use, Lf unspecified 4 completed Hitesh Kowalski MD [address], [address], [place], [address], [employer] [facility] 02/05/2025 11:07:57 MMR 4 completed Hitesh Kowalski MD [address], [address], [place], [address], [employer] [facility] 02/05/2025 11:07:57 influenza, unspecified formulation 0 completed Hitesh Kowalski MD [address], [address], [place], [address], [employer] [facility] 02/05/2025 11:07:58 influenza, unspecified formulation 1 completed Hitesh Kowalski MD [address], [address], [place], [address], [employer] [facility] 02/05/2025 11:07:58 influenza, unspecified formulation 2 completed Hitesh Kowalski MD [address], [address], [place], [address], [employer] [facility] 02/05/2025 11:07:58 influenza, unspecified formulation 9 completed Hitesh Kowalski MD [address], [address], [place], [address], [facility] 02/05/2025 11:07:58 influenza, unspecified formulation 4 completed Hitesh Kowalski MD [address], [address], [place], [address], [facility] 02/05/2025 11:08:55 influenza, unspecified formulation 7 completed Hitesh Kowalski MD [address], [address], [place], [address], [facility] 02/05/2025 11:07:58 influenza, unspecified formulation 6 completed Hitesh Kowalski MD [address], [address], [place], [address], [facility] 02/05/2025 11:07:58 influenza, unspecified formulation 0 completed Hitesh Kowalski MD [address], [address], [place], [address], [facility] 02/05/2025 11:07:58 influenza, unspecified formulation 5 completed Hitesh Kowalski MD [address], [address], [place], [address], [facility] 02/05/2025 11:07:58 influenza, unspecified formulation 4 completed Hitesh Kowalski MD [address], [address], [place], [address], [facility] 02/05/2025 11:07:58 influenza, unspecified formulation 2 completed Hitesh Kowalski MD [address], [address], [place], [address], [email or web address] [facility] 02/05/2025 11:07:58 influenza, unspecified formulation 8 completed Hitesh Kowalski MD [address], [address], [place], [address], [employer] [facility] 02/05/2025 11:07:58 influenza, unspecified formulation 1 completed Hitesh Kowalski MD [address], [address], [place], [address], [employer] [facility] 02/05/2025 11:07:58 influenza, unspecified formulation 6 completed Hitesh Kowalski MD [address], [address], [place], [address], [employer] [facility] 02/05/2025 11:07:58 Pneumococcal conjugate PCV 13 5 completed Hitesh Kowalski MD [address], [address], [place], [address], [employer] [facility] 02/05/2025 11:07:58 Influenza, high-dose, trivalent, PF 5 completed Hitesh Kowalski MD [address], [address], [place], [address], [employer] [facility] 02/05/2025 11:07:58 SARS-COV-2 (COVID-19) vaccine, UNSPECIFIED 1 completed Hitesh Kowalski MD [address], [address], [place], [address], [employer] [facility] 12/05/2023 11:31:53 SARS-COV-2 (COVID-19) vaccine, UNSPECIFIED 1 completed Hitesh Kowalski MD [address], [address], [place], [address], [employer] [facility] 12/05/2023 11:31:53 Influenza, split virus, quadrivalent, PF 1 completed Hitesh Kowalski MD [address], [address], [place], [address], [employer] [facility] 02/05/2025 11:07:58 Influenza, split virus, quadrivalent, preservative 6 completed Hitesh Kowalski MD [address], [address], [place], [address], [facility] [employer] [facility] [employer] [facility] 02/05/2025 11:07:57 Influenza, split virus, quadrivalent, PF 5 completed Hitesh Kowalski MD [address], [address], [place], [address], [facility] [employer] [facility] [employer] [facility] 02/05/2025 11:07:58 Tdap 4 completed Hitesh Kowalski MD [address], [facility] [address], [place], [address], [facility] [employer] [facility] [employer] [facility] 02/05/2025 11:07:58 Influenza, split virus, trivalent, PF 4 completed Elias torres [facility] [employer] [facility] 03/11/2024 16:37:45 Past Encounters Encounter ID Performer Location Encounter Start Date Encounter Closed Date Diagnosis/Indication Diagnosis SNOMED-CT Code Diagnosis ICD10 Code Diagnosis IMO Codes Diagnosis Note [id number] Kacey Martinez MD [facility] [place] [address] [facility] [address] [place] [address] 08/12/2020 00:00:00 08/16/2020 18:47:06 [id number] David Morales MD [facility] [place] [address] [facility] [address] [place] [address] 09/16/2020 00:00:00 09/16/2020 14:51:19 [id number] BERNADINE Finley [facility] [place] [address] [facility] [address] [place] [address] 10/07/2020 00:00:00 10/07/2020 18:15:37 [id number] David Morales MD [facility] [place] [address] [place] [address] 10/12/2020 00:00:00 10/12/2020 14:55:03 [id number] PATSY Garcia [facility] [place] [address] [facility] [address] [place] [address] 11/17/2020 00:00:00 11/17/2020 10:10:58 [id number] Kacey Martinez MD [facility] [place] [address] [place] [address] 12/06/2020 00:00:00 12/06/2020 12:54:46 [id number] David Morales MD [facility] [place] [address] [place] [address] 12/16/2020 00:00:00 12/16/2020 17:30:05 [id number] PATSY Garcia [facility] [place] [address] [place] [address] 01/11/2021 00:00:00 01/11/2021 16:03:00 [id number] PATSY Garcia [facility] [place] [address] [place] [address] 01/18/2021 00:00:00 01/18/2021 16:03:16 [id number] PATSY Garcia [facility] [place] [address] [place] [address] 01/25/2021 00:00:00 01/25/2021 15:43:05 [id number] Kacey Martinez MD [facility] [place] [address] [place] [address] 02/03/2021 00:00:00 02/03/2021 22:50:53 [id number] PATSY Muller [facility] [place] [address] [facility] [address] [place] [address] 02/14/2021 00:00:00 02/14/2021 16:48:49 [id number] David Morales MD [facility] [place] [address] [place] [address] 04/28/2021 00:00:00 04/28/2021 09:52:59 [id number] David Morales MD [facility] [place] [address] [place] [address] 07/26/2021 00:00:00 07/27/2021 09:02:26 [id number] Za Nagy, [facility] [place] [address] [place] [address] 09/13/2021 00:00:00 09/13/2021 18:13:12 [id number] David Morales MD [facility] [place] [address] [place] [address] 10/20/2021 00:00:00 10/20/2021 15:03:38 [id number] [facility] [place] [address] [place] [address] 10/21/2021 00:00:00 10/21/2021 13:54:50 [id number] PATSY Muller S[facility] [place] [address] [place] [address] 12/05/2021 00:00:00 12/05/2021 13:41:32 [id number] David Morales MD [facility] [place] [address] [place] [address] 12/19/2021 00:00:00 12/19/2021 09:55:45 [id number] Kacey Martinez MD [facility] Primary [facility] [place] [address] [place] [address] 01/16/2022 00:00:00 01/18/2022 07:50:15 [id number] Kacey Martinez MD [facility] Primary [place] [address] [place] [address] 03/27/2022 00:00:00 03/27/2022 08:45:22 [id number] Kacey Martinez MD [facility] Primary [facility] [place] [address] [place] [address] 04/10/2022 00:00:00 04/18/2022 08:25:39 [id number] David Morales MD [facility] [place] [address] [place] [address] 05/18/2022 00:00:00 05/18/2022 13:12:50 [id number] David Morales MD [facility] [place] [address] [place] [address] 07/13/2022 00:00:00 07/13/2022 09:30:25 [id number] Kacey Martinez MD [facility] Primary [place] [address] [place] [address] 09/05/2022 16:36:41 09/05/2022 17:05:58 Dietary management surveillance 850728165 Z71.3 Renewal of prescription 316886271 Z76.0 Weight gain 9431914 R63. 5 R53.83 Z13.1 Z13.220 Z79.899 Migraine 78064591 G43.90 9 [id number] Kacey Martinez MD [facility] Primary [place] [address] [place] [address] 10/10/2022 16:06:52 10/10/2022 16:48:10 Dietary management surveillance 423232135 Z71.3 discussed phentermin e + topiramate vs saxenda vs wegovyshe will check on her insurance coverage [id number] David Morales MD [facility] [place] [address] [place] [address] 11/24/2022 14:49:46 11/24/2022 15:18:02 Bilateral osteoarthritis of knees 1883451140 82439 M17.0 Pain of bi lateral knee joints 8980428173 55994 M25.561 M25.562 [id number] Za Nagy, [facility] [place] [address] [place] [address] 11/28/2022 12:22:11 11/28/2022 12:43:51 Obstructive sleep apnea syndrome 05147261 G47.33 Home study 12/2020 with AHI 19.4Machin [...] todayRTC in one year, PRN for concerns [id number] Kacey Martinez MD [facility] Primary Care [place] [address] [facility] [address] [place] [address] 01/03/2023 16:55:03 01/03/2023 17:37:29 Headache 49276606 R51.9 call/retur n if no improvemen t in 1-2 days or sooner if neededrevi ewed s/s that warrant urgent/davina rgferoz prasad in meantime Family his tory of malignant neoplasm of pancreas 482705156 Z80.0 Dizziness 050270091 R42 Z79.180 [id number] Seth Larson MD [facility] [place] [address] [place] [address] 02/26/2023 11:43:25 02/26/2023 12:10:14 Bilateral osteoarthritis of knees 2012855030 13654 M17.0 [id number] Kacey Martinez MD [facility] Primary [place] [address] [facility] [address] [place] [address] 03/09/2023 16:09:40 03/09/2023 16:53:42 Mass of neck 151917563 R22.1 noted for about 3 weeks, had diarrhea for a week prior the mass popping upswelling has greatly improved, but does seem to come and gocan to be tender to touchno sinus issueswill give ultrasound of neckpt request staff to reach out with results Pain of bi lateral knee joints 5049488274 75713 M25.561 M25.562 was a pt of Dr. Morales in the paststill noting a lot of pain and decreased ROM/streng th at timesshe is wanting a referral to Dr. Cruz-justa terry [id number] Mohamud Jonas, BERNADINE-C [facility] Primary Care [address] [place] [address] 06/21/2023 07:55:15 06/21/2023 09:22:04 Mass of neck 347172288 R22.1 -biopsy of lymph node was completed, no evidence of metastatic disease Pain of bi lateral knee joints 0175658364 98695 M25.561 M25.562 -Pt sees Dr. Cruz on 06-25-23-nicolas n and decreased rom/streng th continue-u ses hydrocodon -acet, motrin with min relief-she has been trying to lose weight to help with the pain-she does a lot of stairs at work, and has been exacerbati ng pain [id number] Kacey Martinez MD [facility] Primary Care [address] [place] [address] 09/27/2023 12:23:37 09/27/2023 13:12:17 Adult health examination 353932066 Z00.00 Z13.1 retiring in 1.5 weeksmammo gram orderDEXA orderfasti ng labscolono scopy 08/09, repeat 08/12LDCT not qualifiedT dap given 2018Shingr ix given 02/2020, 04/2020Pne umovax 23 at age 66RSV vaccine recommende dFlu vaccine annuallyCo vid booster per cdc recommenda tions Hyperlipidemia 60587896 E78.5 Z79.899 Pain of bi lateral knee joints 0510454662 69956 M25.561 M25.562 stablerefi ll given Vitamin D deficiency 347 32100 E55.9 Bronchitis 65473732 J40 call/retur n if no improvemen t in 1-2 days or sooner if neededrevi ewed s/s that warrant urgent/davina rgent eval in meantime Hyperglycemia 62515418 R 73.9 Cobalamin deficiency 190 149210 E53.8 Fatigue 45110169 R53.83 Pain of mu ltiple joints 80139494 M25.50 Screening mammography 24 477089 Z12.31 Postmenopausal state 764 60808 Z78.0 Dietary ma nagement surveillance 314166717 Z71.3 refill given [id number] Adiel Shannon MD [address] [address] 11/12/2023 11:02:22 11/13/2023 09:55:53 Obstructive sleep apnea syndrome 94818712 G47.33 Periodic l imb movement disorder 638293213 G47.61 D50.8 E83.42 [id number] Hitesh Kowalski MD [place] [address] 12/05/2023 11:23:23 12/05/2023 12:09:01 Pain of left hip joint 8646517178 66971 M25.552 Chronic low back pain 27 5254459 M54.50 Lumbar spondylosis 03853 0009 M47.896 Migraine without aura 56 470020 G43.009 Obesity 301880503 E66.9 Hyperlipidemia 07149632 E78.5 Polyarthropathy 24562241 M13.0 [id number] Adiel Shannon MD [address] [address] 12/13/2023 11:35:42 12/14/2023 08:49:08 Obstructive sleep apnea syndrome 74611009 G47.33 Iron deficiency 96789855 E61.1 [id number] Hitesh Kowalski MD [address] [address] 01/03/2024 10:50:38 01/03/2024 12:00:38 Screening mammography 19176314 Z12.31 Screening for osteoporosis 072097803 Z13.820 Lesion of scalp 22473073 91 00 L98.9 Chronic low back pain 27 1343703 M54.50 Hyperlipidemia 02467265 E78.5 Adult heal th examination 532611385 Z00.00 Vitamin D deficiency 347 65266 E55.9 Polyarthropathy 66422176 M13.0 Ex-cigarette smoker 2810 22743 Z87.891 Quitted since 2005 Impacted c erumen of bilateral ears 4655122308 303285 H61.23 Obesity 952197066 E66.9 [id number] Hitesh Kowalski MD [address] [address] 01/23/2024 09:48:24 01/23/2024 10:24:05 Lesion of scalp 0238947658 00 L98.9 Chronic low back pain 27 3430410 M54.50 Hyperlipidemia 56805534 E78.5 Vitamin D deficiency 347 35818 E55.9 Improved Polyarthropathy 25137358 M13.0 Ex-cigarette smoker 2810 31303 Z87.891 Quitted since 2005 Impacted c erumen of bilateral ears 0730280114 257041 H61.23 Obesity 648532136 E66.9 Leukocytosis 177766473 D 72.829 Verruca vulgaris 9471893 3 B07.8 Lt abdomen Depressive disorder 3548 9007 F32.A [id number] Hitesh Kowalski MD [address] [address] 01/31/2024 11:23:58 01/31/2024 11:39:28 Impacted cerumen of bilateral ears 3268392439 091454 H61.23 Ear feels full of water 843996831 R44.8 [id number] Hitesh Kowalski MD [address] [address] 03/11/2024 14:29:52 03/11/2024 15:20:09 Verruca vulgaris 38758803 B07.8 Lt abdomen - resolved Hyperlipidemia 07402869 E78.5 Chronic low back pain 27 3332111 M54.50 Vitamin D deficiency 347 41459 E55.9 Improved Polyarthropathy 75491531 M13.0 Ex-cigarette smoker 2810 76525 Z87.891 Quitted since 2005 Obesity 481876854 E66.9 Leukocytosis 620631116 D 72.829 Depressive disorder 3548 9007 F32.A Pain of bi lateral knee joints 1574065722 87275 M25.561 Chronic Administra tion of influenza vaccine 76288574 Z23 Bilateral shoulder joint pain 0016305370 5956869 M25.511 Chronic [id number] Hitesh Kowalski MD [address] [address] 03/24/2024 10:36:24 03/24/2024 11:19:22 Pain of bilateral knee joints 7024244668 54476 M25.561 Chronic Bilateral shoulder joint pain 3102180349 9012168 M25.511 Chronic Polyarthropathy 52242120 M13.0 Verruca vulgaris 7534631 3 B07.8 Lt abdomen - resolved Hyperlipidemia 70143601 E78.5 Chronic low back pain 27 6761286 M54.50 Vitamin D deficiency 347 67511 E55.9 Improved Ex-cigarette smoker 2810 30716 Z87.891 Quitted since 2005 Obesity 928464912 E66.9 Leukocytosis 304546651 D 72.829 resolved Depressive disorder 3548 9007 F32.A Tendinitis of right elbow 5210551904 2872528 M67.520 [id number] Adiel Shannon MD [facility] [place] [address] [address] 03/26/2024 09:36:54 03/26/2024 18:27:15 Obstructive sleep apnea syndrome 74677261 G47.33 Iron deficiency 59264002 E61.1 [id number] Hitesh Kowalski MD [address] [address] 04/29/2024 10:18:47 04/29/2024 11:23:13 Gynecologic examination 65080367 Z01.419 Discussed vaginal hygiene, safe sexual practices, self breast examsPatie nt questions answered [id number] Hitesh Kowalski MD [address] [address] 07/08/2024 16:23:12 07/08/2024 16:49:39 Hyperlipidemia 01216095 E78.5 Pain of bi lateral knee joints 2565789233 71163 M25.561 Chronic Bilateral shoulder joint pain 2952309569 9128607 M25.511 Chronic Polyarthropathy 85181092 M13.0 Verruca vulgaris 9139272 3 B07.8 Lt abdomen - resolved Chronic low back pain 27 6189876 M54.50 Vitamin D deficiency 347 01077 E55.9 Improved Ex-cigarette smoker 2810 12845 Z87.891 Quitted since 2005 Obesity 225876351 E66.9 Depressive disorder 3548 9007 F32.A Pain of ri ght shoulder joint 2759171777 2910008 M25.511 Osteopenia 523655109 M85 .80 [id number] Adiel Shannon MD [facility] Pul[place] [address] [place] [address] 09/09/2024 09:40:34 09/11/2024 14:16:02 Obstructive sleep apnea syndrome 39658618 G47.33 Iron deficiency 48585726 E61.1 [id number] Leonard Voss MD [facility] [place] [address] [place] [address] 09/16/2024 10:09:33 09/16/2024 10:43:37 Bilateral shoulder joint pain 7142404947 1432162 M25.511 M25.512 Tendinitis of left rotator cuff 2608867034 0444999 M67.814 Nontraumat ic partial rupture of right rotator cuff 6360646423 223871 M75.047 [id number] Hitesh Kowalski MD [address] [address] 10/06/2024 11:09:19 10/06/2024 11:36:15 Hyperlipidemia 42987101 E78.5 Pain of bi lateral knee joints 9142074799 40463 M25.561 Chronic Bilateral shoulder joint pain 1440233428 3548681 M25.511 Chronic Polyarthropathy 59938961 M13.0 Chronic low back pain 27 1271724 M54.50 Vitamin D deficiency 347 09091 E55.9 Improved Ex-cigarette smoker 2810 17069 Z87.891 Quitted since 2005 Obesity 286654901 E66.9 Depressive disorder 3548 9007 F32.A Pain of ri ght shoulder joint 9944191456 1913422 M25.511 Chronic Osteopenia 750635503 M85 .80 History of total knee arthroplasty 8099783681 105 Z96.651 [id number] 10/12 [id number] Hitesh Kowalski MD [facility] [address] [address] 02/05/2025 10:16:17 02/05/2025 11:33:22 History of total knee arthroplasty 9492484083 105 Z96.651 [id number] 10/12 Hyperlipidemia 93701628 E78.5 Pain of bi lateral knee joints 9088615435 69018 M25.561 Chronic Bilateral shoulder joint pain 6621397776 9317814 M25.511 Chronic Polyarthropathy 73221821 M13.0 Chronic low back pain 27 8972311 M54.50 Vitamin D deficiency 347 35248 E55.9 Improved Ex-cigarette smoker 2810 21532 Z87.891 Quitted since 2005 Obesity 131017034 E66.9 Depressive disorder 3548 9007 F32.A Pain of ri ght shoulder joint 5364509676 7802658 M25.511 Chronic Osteopenia 142747863 M85 .80 Adult heal th examination 098666814 Z00.00 Pain of le ft hip joint 7976918026 65500 M25.552 Lumbar spondylosis 39188 0009 M47.896 Active immunization 3387 9002 Z23 1304546 Health Concerns Section Related Observation LastModified by Organization Detai ls LastModified Time None Recorded Concern Status LastModified by Organization Details LastModified Time None Recorded Advance Directives Directive N: Payers Insurance Date Sequence Insurance Name Policy Number Policy [place] Covered Member ID [place] Member ID Guarantor Name 07/08/2024 1 [facility] () Rob Zurita [id number] Christine Zurita 02/05/2025 1 [facility] () Christine Zurita [id number] Christine Zurita Notes Date Note Type Note Provider Name and Address Organization Details Recorded Time 07/08/2024 text/html Pt is here for f/u on her meds and chronic conditions. Doing [...] Pt is f/u with Pain clinic in [place] for this and will be getting injection with them on 12/23/23. Pt is not on any med by them. Denies any incontinence. C/o chronic migraine, about 1-2 bad episodes per month. Pt says its well controlled and no concern with it. Pt is f/u with Pain clinic, Spine surgeon and Ortho in [place]. Pt is f/u with Psych for her mood and is doing well with it. No concerns. Hitesh Kowalski MD [address] [place] [address], [place], [address], [facility] [employer] 07/08/2024 16:55:16 09/09/2024 text/html Primary care/Referring provider: Mohamud Jonas NP [phone] During the [facility] home sleep study on 12/24/20, AHI = 19, supine AHI = 47. During the [facility] titration sleep study on 03/15/21, sleep onset [...] AND CHANCE OF DOZINGSitting and reading - 0Watching television - 1Sitting inactive in a public place (e.g. a theater or meeting) - 0As a passenger in a car for an hour without a break - 0Lying down to rest in the afternoon when circumstances permit - 1Sitting and talking to someone - 0Sitting quietly after lunch without alcohol - 0In a car, while stopped for a few minutes in the traffic - 0TOTAL SCORE 2Subjectively, patient has a slight chance of dozing. Adiel Shannon MD [address] [facility], [facility] [address], [place], [address], [place] [facility] 09/09/2024 11:39:01 09/16/2024 text/html The patient returns with 2 new problems today. Both shoulders are bothering her. She states about 5 years ago she had right shoulder rotator cuff repair acromioplasty and distal clavicle excision. She had pretty good strength for quite awhile but recently she has noted that she started to get more aching pain in the right shoulder. She has had a couple of falls over the years but does not note anything specific that has caused her right shoulder pain now. She has had several months of shoulder pain on the right that radiates into the upper arm worse with trying to do anything heavy repetitive she can not do too much with it because of the aching that develops. She does note some weakness in the right shoulder. She is on Celebrex daily she has multiple areas of degenerative joint disease this she has been treated for in the past. She states the left shoulder also bothers her she does not have any weakness there she has some twinges of pain occasionally she does anything too heavy repetitive denies any loss of motion in either shoulder she does report some crepitation through the arc of motion of the right shoulder none on the left. Left side bothers her somewhat about a 2 on a scale of 1-10 right shoulder is much worse. She comes in today for initial evaluation and treatment. She has never had any surgery in the left side. The patient did have x-rays of the right shoulder done recently by her primary care physician. X-rays demonstrate moderate degenerative changes in the glenohumeral joint the subacromial space appears to be somewhat narrowed reactive changes noted over the greater tuberosity region and superior humeral head related to her previous surgical intervention. Some new calcification and hypertrophic changes are noted on the inferior surface of the acromion after her previous acromioplasty. This is likely contributing to impingement on the rotator cuff tendon. I reviewed the patient's x-rays in detail today with her and agree with the above findings. We are getting new x-rays of her left shoulder here in the office today. New past medical history sheet was reviewed and signed on the intake sheet of today's date drug allergies current medications family social history previous surgical history 10 point review of systems was reviewed and discussed in detail today with the patient. PATSY Garcia [address], [place], [address], [employer] 09/16/2024 10:52:29 10/06/2024 text/html Pt is here for f/u on her meds and chronic conditions. Doing overall better than her last visit. Denies any problem with meds. Pt wants me to change her Rt knee dressing. Pt had Rt TKR done with her Ortho on 09/23/24 and she will be seeing them after 2 days. Pt is getting PT with them. C/o Rt shoulder area pain for last few months. Denies any recent fall/trauma/injury. Pt has chronic Rt shoulder pain for last several years and she is f/u with Ortho for it. C/o chronic low back pain for last many years and she had 2 surgeries done on her lower back in the past. Pt is f/u with Pain clinic in [place] for this. C/o chronic migraine, about 1-2 bad episodes per month. Pt says its well controlled and no concern with it. Pt is f/u with Pain clinic, Spine surgeon and Ortho in [place]. Pt is f/u with Psych for her mood and is doing well with it. No concerns. Hitesh Kowalski MD [address], [place], [address], Currently 10/06/2024 11:39:15 02/05/2025 text/html Pt is here for her annual exam. Doing overall better than her last visit. Denies any problem with meds. Denies any new concern. Pt had Rt TKR done with her Ortho on 09/23/24. Pt did PT with them and now doing home exercise by herself. C/o Rt shoulder area pain for last few months. Denies any recent fall/trauma/injury. Pt has chronic Rt shoulder pain for last several years and she is f/u with Ortho for it. C/o chronic low back pain for last many years and she had 2 surgeries done on her lower back in the past. Pt is f/u with Pain clinic in [place] for this. C/o chronic migraine, about 1-2 bad episodes per month. Pt says its well controlled and no concern with it. Pt is f/u with Pain clinic, Spine surgeon and Ortho in [place]. Pt is f/u with Psych for her mood and is doing well with it. No concerns. Hitesh Kowalski MD [address] [place] [address], [place] [address], [place], [address], [place] [facility] 02/05/2025 11:12:13 OBGyn Episode No OBEpisode recorded.
--- OUTSIDE RECORDS SUMMARY | 2025-02-24 08:57 | XMS_ITS | Encounter Summary ---
Author Organization [facility] Health Address [address] [facility] [place] [address] Care Team Providers Care Veneer Press Operator Name Role Phone Kacey Martinez MD Primary Care Provider [phone] Encounter Details Date Type Department Care Team (Late st Contact Info) Description 05/08/2023 Lab Requisition [facility] - Pathology Lab [address] [place] [id number] Ronaldo Villegas MD [address] [place] [address] Localized swelling, mass and lump, neck [...] CYTOMETRY TISSUE PANEL Routine 05/08/2023 11:27 AM REFINING STILL OPERATOR Localized swelling, mass and lump, neck documented in this encounter Results * FLOW CYTOMETRY TISSUE PANEL (05/08/2023 11:27 AM REFINING STILL OPERATOR) Case Report Flow Cytometry Case: [id number] Authorizing Provider: Cristofer Villegas MD Collected: 05/08/2023 11:27 AM Ordering Location: [facility] Pathology Lab Received: 05/08/2023 03:38 PM Pathologist: Erich Alvarenga MD Specimen: Lymph Node, SUBMANDIBULAR 05/09/2023 7:20 AM REFINING STILL OPERATOR [facility] PATHOLOGY [facility] Final Diagnosis Axillary lymph node, flow cytometric immunophenotypic analysis: - No diagnostic evidence of non-Hodgkin T- or B-cell lymphoma, or acute leukemia. - Mildly increased CD4:CD8 ratio of 6:1. - See interpretation. 05/09/2023 7:20 AM REFINING STILL OPERATOR [facility] PATHOLOGY LAB at 0720 REFINING STILL OPERATOR Flow Cytometry Interpretation Viability: 84% Lymphocytes: 97% B-cells: 48% of the lymphocytes, polytypic, kappa:lambda ratio 2.1:1 T-cells: 49% % of the lymphocytes, no immunophenotypic aberrancy detected based on the markers performed. Increased CD4:CD8 ratio 6:1 Dim CD45 region: 0%. No blasts. Monocytes: 1% Granulocytes: 2% A cytospin prepared from the flow cytometry specimen has been reviewed for quality control lead purposes. 05/09/2023 7:20 AM REFINING STILL OPERATOR [facility] PATHOLOGY LAB Flow Cytometry Results Differential Result Comment Flow Cell Count /uL 1,520 Total Viability % 84.0 Lymphocytes % 97 Dim CD45 Region % 0 Monocytes % 1 Granulocytes % 2 05/09/2023 7:20 AM [facility] Reason for test Localized swelling, mass and lump, neck 784.2 05/09/2023 7:20 AM [facility] Client Specimen ID # [id number] 05/09/2023 7:20 AM [facility] PATHOLOGY LAB Number of markers 16 were performed. A-2 Flow CD10 A-4 Flow CD20 A-5 Flow CD23 A-10 Flow CD2 A-11 Flow CD3 A-12 Flow CD4 A-16 Flow CD1a A-3 Flow CD19 A-6 Flow CD34 A-7 Flow CD45 A-13 Flow CD5 A-14 Flow CD7 A-15 Flow CD8 A-17 Flow CD30 A-8 [place]+CD19+ A-9 Lambda+CD19+ 05/09/2023 7:20 AM [facility] Pathologist Location at [facility] 05/09/2023 7:20 AM [facility] PATHOLOGY LAB Disclaimer Test performed at [facility], [address] [place] [address], [id number]. *The established laboratory minimum viability is 70%. [...] high complexity clinical testing. 05/09/2023 7:20 AM [facility] PATHOLOGY LAB Embedded Images 7:20 AM [facility] PATH[facility] LAB Pathology/Cytolo gy ENTIRE LYMPH NODE / Unknown 05/08/2023 11:27 AM REFINING STILL OPERATOR 05/08/2023 3:38 PM REFINING STILL OPERATOR Ronaldo Villegas MD LAB - PATHOLOGY/CYT OLOGY ORDERABLES Final Result [facility] PATHOLOGY LAB [address] [place] [address]. [place] [address], [facility] [phone] documented in this encounter Visit Diagnoses Diagnosis Localized swelling, mass and lump, neck Swelling, mass, or lump in head and neck documented in this encounter Care Teams Veneer Press Operator Relationship Specialty Start Date End Date Kacey Martinez MD [address] [place] [address] [place] [id number] PCP - General Family Medicine 02/02/22 documented as of this encounter
--- OUTSIDE RECORDS SUMMARY | 2025-02-24 08:57 | XMS_ITS | Clinical Summary ---
Author Organization [facility] Address [address] [place] [address] Care Team Providers Care Custom Miller Name Role Phone Kacey Martinez MD Primary Care Provider [phone] Source Comments [facility],non-owned Affiliates and Associated Physician Practices is amultiple site organization consisting of ambulatory clinics and hospital sitesin [place], [place], [place] and [place]. This disclosure is being madepursuant to the Care Everywhere program and may not contain all information available regarding this patient. Last updated 18.[facility] Allergies No known active allergies Medications * [...] 5:29 AM CDT Height 170.2 cm (5' 7) 02/04/2022 9:50 AM CDT Body Mass Index [...] - COLON CA SCREENING 1961 MAMMOGRAM 1961 HIV SCREENING 01/07/1976 HEPATITIS C SCREENING 01/02/1979 DTAP/TDAP/TD VACCINES (1 - Tdap) 01/07/1980 PAP SMEAR 1982 PNEUMOCOCCAL VACCINE 50+ (1 of 1 - PCV) 2011 ZOSTER VACCINE (1 of 2) 2011 Respiratory Syncytial Virus (RSV) Vaccine Pt: or over 60 yrs (1 - Risk 60-74 years 1-dose series) 2021 DEPRESSION SCREENING 05/21/2024 COVID-19 VACCINE (2 - 2024- season) 2025 07/03/2020 INFLUENZA VACCINE (#1) 2025 2, 03/16/2016, 03/31/2015, Additional history exists HEPATITIS B [...] / Payer (Ef fective for All Dates) Name:ZuritaChristine brown Member ID:Not on file Relation to Subscriber:Not on file Name:ZURITACHRISTINE Subscriber ID:Not on file (Home) Address: [address] [place] [address] Payer ID:Not on file Group ID:Not on file Type:Self Pay Address: [place], [place] SELF PAY NO INSURANCE Member Subscriber Plan / Payer (Ef fective for All Dates) Name:Zurita Christine Member ID:Not on file Relation to Subscriber:Not on file Name:ZURITA,CHRISTINE Subscriber ID:Not on file (Home) Address: [address] [place] [address] Payer ID:Not on file Group ID:Not on file Type:Self Pay Address: [place], [place] Advance Directives Documents on File Type Date Recorded Patient Attendant Lodging Facilities Expl anation POLST 02/17/2022 8:54 AM * Full Code (Latest Code Status on File) Date Activated Date Inactivated Comments 02/02/2022 6:08 PM 02/16/2022 11:34 AM Care Teams Custom Miller Relationship Specialty Start Date End Date Kacey Martinez MD [address] [place] [address] [place] [address] PCP - General Family Medicine 02/02/22
[2025-02-24 09:29] LABS: Hematocrit 41.9 % (37.0-47.0); Hemoglobin 13.8 g/dL (12.0-15.0); Immature Granulocyte Percent A 0.4 % (0-0.5); Lymphocytes Absolute Auto 2.24 K/mm3 (0.9-3.2); Mean Corpuscular HGB Conc 32.9 g/dl (32-36); Mean Corpuscular Hemoglobin 30.1 pg (26-34); Mean Corpuscular Volume 91.5 fl (80-100); Nucleated Red Blood Cells Absolute Auto 0.000 K/mm3 (0.0-0.012); Nucleated Red Blood Cells Perc 0.0 % (0.0-0.2); Platelet Count Result 320 k/mm3 (150-375); Red Blood Count 4.58 M/mm3 (4.2-5.4); White Blood Count 8.0 K/mm3 (4.5-10.0)
[2025-02-24 09:30] LABS: Add Urine Microscopic? NO; Appearance Urine Clear (Clear); Glucose Urine UA Negative (Negative); Leukocyte Esterase Ur Negative LEU/UL (Negative); Nitrate Urine Negative (Negative); Specific Grav Ur 1.015 (1.001-1.035)
[2025-02-24 09:54] LABS: Alanine Aminotransferase 38 U/L (6-35); Albumin Level 4.5 g/dL (3.5-5.1); Alkaline Phosphatase 77 U/L (38-126); Anion Gap 9 mmol/L (4-12); Aspartate Amino Transferase 47 U/L (14-36); Bilirubin,Total 1.3 mg/dL (0.2-1.3); Blood Urea Nitrogen 14 mg/dL (7-17); Calcium 9.3 mg/dL (8.4-10.2); Carbon Dioxide 25 mmol/L (22-30); Chloride 105 mmol/L (98-107); Cholesterol 139 mg/dL (0-200); Estimated Glomerular Filt Rate > 60; Glucose 89 mg/dL (65-110); HDL Direct 59 mg/dL; Magnesium 2.1 mg/dL (1.6-2.3); Potassium 4.0 mmol/L (3.4-5.0); Sodium 139 mmol/L (137-145); Total Protein 7.6 g/dL (6.3-8.2); Triglycerides 115 mg/dL (<150); Uric Acid 4.1 mg/dL (2.5-7.5)
[2025-02-24 10:06] LABS: Hemoglobin A1C 5.2 % (<5.7)
[2025-02-24 10:37] LABS: Thyroid Stimulating Hormone Reflex 1.390 uIU/mL (0.465-4.68)
[2025-02-24 11:05] LABS: Vitamin B12 389.0 pg/mL (239-931)
== END 2025-02-24 08:41 | disposition home or self-care (01) ==
PROVIDERS: PCP Family Medicine; Visit Provider Family Medicine
DX: Z00.00 Encounter for general adult medical examination without abnormal findings (principal); Z87.891 Personal history of nicotine dependence; M13.0 Polyarthritis, unspecified; E55.9 Vitamin D deficiency, unspecified; M54.50 Low back pain, unspecified
CPT/HCPCS: 36415; 71046; 80053; 80061; 81003; 82306; 82607; 82746; 83036; 83735; 84443; 84550; 85025